=== PATIENT | male | born 1965 | race Caucasian/White ===

== ENCOUNTER → 2016-02-29 | Outpatient (CLI) | payer MEDICARE ==
[~2016-02-29] MED LIST: *BLDWK6; /DULO30CA; /ESOM40CA; /FENT25PA; /FEXO18TA; /MOXI40TA; /NITR4TASL SL; /PANT40TA; /ROPI1TA; /TIOT18INH; ABILIFY10 PO; ACCUPRIL PO; ACCUPRIL20 PO; ADV500INH INH; ADVAIR; ADVAIR250 INHALATION; ADVAIR500 INHALATION; ADVIR INH; ALBOTERNEB INHALATION; ALBU17IN INH; ALBU17IN2 INH; ALBU83IN; ALBU83IN INH; ALBUTEROL INHALATION; ALLEGRA PO; ALLEGRA180 PO; AMBIEN5 PO; AMIT100T; AMIT100TA PO; AMITRIP100 PO; AMITRIP50 PO; AMO500 PO; ASPI1TAB PO; ASPIRIN PO; ASTE137S; ASTELIN NASAL; ATEN25TA PO; ATENOLOL50 PO; BIAXIN500 PO; CEFT500T; COLA100C PO; COLA100C2; COLACE PO; COMBIVENT PO; COMPAZIN10 PO; CRES40TA; CRES40TA PO; CYAN1000VL IM; CYMB60CA3 PO; CYMBALTA PO; CYMBALTA30 PO; DARV100T; DARVOCET-N PO; DARVON-N1 PO; DEPAKOT250 PO; DILAUDID; DIOV160T5; DIOV320T; DIOVAN160 PO; DOCUSATE PO; DOXY100T16 PO; DUONSOL INHALATION; EFFEXORXL1 PO; EFFEXORXL7 PO; EPIN0.3I6 INJ; EPIPENAD INJECTION; EXCETAB80 PO; FLEXERIL10 PO; FLONASESPR NASAL; FURO20TA PO; GABA300C3 PO; HCTZ25 PO; HUMA100I3 SC; HUMULIN INSULIN INJ; HYDR25TA6; IMITREX50 PO; INSUH10VL SC; INSULANT SC; INSUNSD SC; LACT10SO29 PO; LASI40TA; LASI80TA PO; LASIX PO; LEVA12INH INH; LEVAQUI500 PO; LEVE1INJ5 SC; LIDO5OI TOP; LIPITOR10 PO; LISI20TA PO; MAXA10TA14 PO; MAXALT10 PO; MAXALYMLT1 PO; MEDROL PO; MEDROLDP PO; METF500T4 PO; MILKSUS; MIRA255PW GT; MIRA33504 PO; MOME50SP; MORP15TA2 PO; MORPHINE SULFATE ER; MUCINEX; MUPI2CRE3 PO; NAPROSY500 PO; NASONEX; NASONEX NASAL; NEBUMIS2; NEUR300C PO; NEUR800T; NEURONTIN4 PO; NEURONTIN8 PO; NEXI20CA; NEXI40CA PO; NEXIUM PO; NEXIUM40 PO; NIAS10003; NIASPAN PO; NITR4TASL SL; NITROSTAT4 SL; NOVOINJ3 SC; OMNICEF300 PO; OPANA PO; OXYC10TA12; OXYM10TA PO; PAXIL10 PO; PAXIL20 PO; PEPCID20 PO; PERCOCET PO; POTA1TAB14 PO; POTA20TA2; PRAVACHOL PO; PRAVACHOL1 PO; PRAVACHOL4 PO; PRED10TA2; PREDNISO10 PO; PREG50CA PO; PREVACID15 PO; PREVACID30 PO; PROVENTIL INHALATION; PROVENTILI PO; PROZ40CA; PROZAC PO; PROZAC20 PO; PROZAC40 PO; PULMICORT; QUININE325 PO; REQUIP1 PO; ROPI1TAB PO; SERZONE PO; SING10TA31; SING10TA32 PO; SINGULAI10 PO; SKEL800T5; SKELAXIN8 PO; SPIRIVA; SYMBYAX PO; TAMS0.4C2 PO; TESSALO100 PO; TOPAMAX PO; TRIC145T19; TRICOR145 PO; VALIUM PO; VICODIN PO; VICODIN-ES PO; VICODIN7.5 PO; VICT18IN SC; VITAMIN B 12; VITAMIN B12 INJ; VYTORIN80 PO; XANAX0.5 PO; XENICAL120 PO; XOPE1.252; XOPENEX125 NEB; ZETI10TA; ZOCOR40 PO; ZOCOR80 PO; ZOLOFT50 PO; ZOMIG PO; ZOMIG2.5 PO; ZYRTEC10 PO; [UNRECOGNIZED DRUG - CODE] PO; [UNRECOGNIZED DRUG - CODE] PO; [UNRECOGNIZED DRUG - CODE] PO; [UNRECOGNIZED DRUG - CODE] PO; [UNRECOGNIZED DRUG - CODE] PO; [UNRECOGNIZED DRUG - CODE] PO; [UNRECOGNIZED DRUG - CODE] SQ; [UNRECOGNIZED DRUG - CODE] TOPICAL; [UNRECOGNIZED DRUG - OTHER]; [UNRECOGNIZED DRUG - OTHER] INHALATION; [UNRECOGNIZED DRUG - OTHER] PO; [UNRECOGNIZED DRUG - OTHER] PO; [UNRECOGNIZED DRUG - OTHER] PO; [UNRECOGNIZED DRUG - OTHER] PO; [UNRECOGNIZED DRUG - OTHER] PO; astelin
--- NOTE | 2016-03-14 00:49 | ECWPNPC ---
PATIENT NAME: CHRISTINE BECERRIL : 1965 GENDER: MALE VISIT DATE: 02/29/2016 DISCHARGE DATE: 02/29/16 1119 VISIT LOCKED DATE TIME: PHYSICIAN: MAGNOLIA JOYCE RESOURCE: MAGNOLIA JOYCE REASON FOR APPOINTMENT 1. FOLLOWUP HISTORY OF PRESENT ILLNESS HISTORY OF PRESENT ILLNESS: PAIN THE PATIENT DESCRIBES THE PAIN... THE PATIENT DESCRIBES THE PAIN... THE PATIENT DESCRIBES THE PAIN... THE PATIENT DESCRIBES THE PAIN... HERE FOR F/U AND MANAGEMENT OF CHRONIC GENERALIZED BACK PAIN.INCREASED NUCYNTA ER 200MG BID LAST VISIT.RATING PAIN VAS 5/10. FEELS IT HAS MADE A DIFFERENCE AND IS TAKING LESS BTP MEDICATION PERCOCET 10/325.WORSE AREA OF PAIN CONTINUES TO BE NECK AND RIGHT ARM.DESCRIBES PAIN SHARP AND ACHING. REPORTS NO IMPROVEMENT IN PAIN AFTER INCREASE IN CYMBALTA FROM 60MG TO 90MG AT SEPT. VISIT VISIT.DISCUSSED MEDICATION AND TREATMENT OPTIONS.HAS ADVERSE EFFECT WITH MORPHINE THAT CAUSES HIM TO BE MEAN.HAS BEEN TRYING TO WALK AND LOOSE WEIGHT.HAS LOST 20# IN 8WKS.STOPPED ZANAFLEX 4MG 2WKS AGO IT CAUSED NAUSEA AND VOMITING.STATES HE WAS TOLD BY HIS MD 6-8MOS AGO THAT HE SHOULDNT HAVE EPIDURALS AND PATIENT NOT SURE WHY.ALSO PT STATES THAT PRIMARY CARE SAID HE WASNT A CANDIDATE FOR BARIATRIC SURGERY AND PATIENT IS NOT SURE WHY. FALL RISK SCREENING: SCREENING :NO FALLS IN THE PAST YEAR CURRENT MEDICATIONS TAKING EPIPEN 0.3 MG/0.3ML (1:1000) DEVICE SQ INTRAMUSCULAR NEEDED TAKING NITROSTAT 0.4 MG TABLET SUBLINGUAL 1 TABLET UNDER THE TONGUE EVERY 5 MINS FOR CHEST PAIN WITH A MAX OF 3 TABS SUBLINGUAL DIRECTED TAKING MAY HAVE _ 1 NASAL CANNUAL EXTRA LONG QID WHEN NEEDED TAKING CALCIUM PLUS VITAMIN D 500-50 MG-UNIT CAPSULE 2 CAPSULES WITH A MEAL ORALLY ONCE A DAY TAKING PROTONIX 40 MG TABLET DELAYED RELEASE 1 TABLET ORALLY BID TAKING COLACE 100 MG CAPSULE 1 TABLET ORALLY TWICE A DAY TAKING MIRALAX OTC POWDER PO ORALLY TWICE A DAY TAKING TAMSULOSIN HCL 0.4 MG CAPSULE EXTENDED RELEASE 1 TAB(S) P.O. ONCE A DAY TAKING NASONEX 50 MCG/ACT LIQUID 2 PUFFS IN EACH NOSTRIL NASALLY ONCE A DAY TAKING ASTELIN 137 MCG/SPRAY SOLUTION 2 PUFFS IN EACH NOSTRIL NASALLY TWICE A DAY TAKING ADVAIR HFA 45-21 MCG/ACT AEROSOL 2 PUFFS INHALATION TWICE A DAY TAKING CYMBALTA 60 MG CAPSULE DELAYED RELEASE PARTICLES 1 TABLET ORALLY ONCE A DAY AT BEDTIME TAKING CYMBALTA 30 MG CAPSULE DELAYED RELEASE PARTICLES 1 CAPSULE ORALLY EVERY AM TAKING REQUIP 1 MG TABLET 1 TABLET ORALLY AT BEDTIME TAKING METFORMIN HCL 1000 MG TABLET 1 TAB(S) ORALLY BID TAKING NOVOLOG 100 UNIT/ML SOLUTION 30 UNITS SUBCUTANEOUS ONCE DAILY TAKING HUMALOG KWIKPEN 30 SOLUTION PEN-INJECTOR 100 UNITS SUBCUTANEOUS FOUR TIMES A DAY TAKING LIDOCAINE HCL 5 % CREAM DIRECTED EXTERNALLY APPLY TO LEFT SHOULDER OR LOW BACK 3X DAY PRN TAKING VITAMIN B-12 1000 MCG INJECTION 1 INJECTION IM MONTHLY TAKING PROVENTIL HFA 108 (90 BASE) MCG/ACT AEROSOL SOLUTION 2 PUFFS INHALATION FOUR TIMES A DAY NEEDED TAKING ALBUTEROL SULFATE 1.25 MG/3ML NEBULIZATION SOLUTION 3 ML NEEDED INHALATION EVERY 8 HRS TAKING ASPIRIN 325 MG TABLET DELAYED RELEASE 1 TABLET ORALLY ONCE A DAY TAKING LASIX 20 MG TABLET 1 TABLET ORALLY BID TAKING ATENOLOL 25 MG TABLET 1 TABLET ORALLY ONCE A DAY TAKING POTASSIUM CHLORIDE 20 MEQ CAPSULE 1 CAPSULE WITH FOOD ORALLY TWICE A DAY TAKING FUROSEMIDE 80 MG TABLET 1 TABLET ORALLY WITH 20MG TO EQUAL 100MG TWICE A DAY TAKING NEURONTIN 600 MG CAPSULE 1 CAPSULE ORALLY BID TAKING NUCYNTA ER 200 MG TABLET EXTENDED RELEASE 12 HOUR 1 TABLET ORALLY EVERY 12 HRS MDD2 TAKING PERCOCET 10-325 MG TABLET 1 TABLET NEEDED ORALLY EVERY 6 HRS MDD4 TAKING ZITHROMAX Z-LUPIS 250 MG TABLET 2 TABLETS ON THE FIRST DAY, THEN 1 TABLET DAILY FOR 4 DAYS ORALLY ONCE A DAY NOT-TAKING NUCYNTA 100 MG TABLET 1 TABLET ORALLY EVERY 6 HRS PRN MDD4 NOT-TAKING XOPENEX 0.31 MG/3ML NEBULIZATION SOLUTION 3 ML INHALATION FOUR TIMES A DAY NEEDED, NOTES: INSURANCE WOULDN'T COVER DISCONTINUED IPRATROPIUM BROMIDE 0.02 % SOLUTION 1 INHALATION FOUR TIMES A DAY NEEDED DISCONTINUED ADVAIR DISKUS 500-50 MCG/DOSE MISCELLANEOUS 1 INHALATION TWICE A DAY UNKNOWN ALCOHOL PREP 1 ALCOHOL PREP PADS NEEDED UNKNOWN HOSPITAL BED _ _ HOSPITAL BED DX 454.0,135,782.3 DAILY NEEDED UNKNOWN PEN NEEDLES NOVOFINE NEEDLE PEN NEEDLESFOR VICTOZA VICTOZA FOUR TIMES A DAY UNKNOWN INSULIN SYRINGES (DISPOSABLE) 0.5 CC SYRINGE 1 SUBCUTANEOUSLY AT BEDTIME UNKNOWN LANCETS 1 LANCET 1 SUBCUTANEOUSLY BID UNKNOWN BLOOD GLUCOSE TEST STRIP 1 STRIPS ONE TOUCH ULTRA TEST STRIPS USE 1 TWO TIMES A DAY DIRECTED TWICE A DAY UNKNOWN NEBULIZER/TUBING/MOUTHPIECE 1 NEEDED UNKNOWN COMPRESSION STOCKINGS 20-30 MMHG DIRECTED UNKNOWN ALTERNATING PRESSURE MATTRESS 1 _ ALTERNATING MATTRESS PAD WITH MARCY AND PUMP ICD:187.139 DAILY UNKNOWN CPAP MACHINE _ 1 CPAP MACHINE FOR SLEEP AT NIGHT ICD: G47.33 AT NIGHT FOR SLEEP UNKNOWN CPAP MASK _ 1 CPAP MASK ICD: G47.33 FOR SLEEP AT NIGHT MEDICATION LIST REVIEWED AND RECONCILED WITH THE PATIENT PAST MEDICAL HISTORY DIABETES MELLITUS TYPE 2 [id number] 30, 2007 CARDIAC [id number]-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-NOVEMBER 2007 MRI WITH C6-C7 MODERATE LEFT BULGE CAUSING MODERATE CENTRAL CANAL STENOSIS, SMALL LEFT HNP C4-C5 WITH MODERATE SPINAL STENOSIS AND C5-C6 BULGE CAUSING BILATERAL NEURAL FORAMINAL NARROWING RIGHT GREATER THAN LEFT RIGHT SUPRASPINATUS TENDINITIS BY MAY 2008 MRI OBSTRUCTIVE SLEEP APNEA-PATIENT REFUSES CPAP ALLERGIC RHINITIS/CHRONIC SINUSITIS MIGRAINE HEADACHES, COMMON TYPE ESSENTIAL TREMOR DEPRESSION DYSPEPSIA/GERD B12 DEFICIENCY RESTLESS LEG SYNDROME HYPERTENSION CONSTIPATION, CHRONIC ANEMIA, CHRONIC SECONDARY TO IRON AND B12 DEFICIENCY-PATIENT REFUSES ANOSCOPY HYMENOPTERA ANAPHYLAXIS HISTORY OF IGG LAMBDA BY RUBÉN- PATIENT REFUSED BONE MARROW BIOPSY OBESITY, MORBID MULTIPLE DENTAL CARIES ALLERGIES CT SCAN DYE: VOMITING: SIDE EFFECTS ZYPREXA: SEDATION: SIDE EFFECTS TRICOR: MYALGIAS: SIDE EFFECTS TRAMADOL HCL: LEG CRAMPS: SIDE EFFECTS SEROQUEL: SEDATION: SIDE EFFECTS PAXIL: DECREASE LIBIDO: SIDE EFFECTS NORVASC: INCREASED EDEMA: SIDE EFFECTS EFFEXOR: SWEATING: SIDE EFFECTS ABILIFY: SEDATION: SIDE EFFECTS TYLENOL WITH CODEINE: HIVES: ALLERGY SOCIAL HISTORY GENERAL: TOBACCO USE ARE YOU A:NONSMOKER LEARNING BARRIERS / SPECIAL NEEDS ORIENTED TO PLAN OF CARE: PATIENT, PAIN MANAGEMENT PATIENT, ORIENTED TO PLAN OF CARE: PATIENT, PAIN MANAGEMENT PATIENT. NEW PATIENT PAIN DIARY TODAY'S VISITNOTES FROM 0-10, WHAT LEVEL IS YOUR PAIN TODAY?0 PAIN CLINIC PFS, CLERGY, PUBLIC HEALTH REFERRALS PFS REFERRAL NEEDED?NO CLERGY REFERRAL NEEDED?NO PUBLIC HEALTH REFERRAL NEEDED?NO WAS THE PROVIDER NOTIFIED OF ANY PERTINENT INFO?NO PFS REFERRAL NEEDED?NO CLERGY REFERRAL NEEDED?NO PUBLIC HEALTH REFERRAL NEEDED?NO WAS THE PROVIDER NOTIFIED OF ANY PERTINENT INFO?NO REVIEW OF SYSTEMS CONSTITUTIONAL: ANY CHANGE IN YOUR MEDICAL CONDITION? NO . CHILLS NO . FEVER NO . INFECTION: DO YOU HAVE NEW INFECTIONS? YES URI 2 WEEKS AGO . DO YOU HAVE HISTORY OF MRSA? YES ON ABD.( CURRENT), NASAL . MUSCULOSKELETAL: ANY NEW PATTERNS OF PAIN OR NUMBNESS? NO . GASTROENTEROLOGY: ANY NEW CHANGE IN BOWEL CONTROL? NO . GENITOURINARY: ANY NEW CHANGE IN BLADDER CONTROL? NO . IS THERE A CHANCE YOU COULD BE ? NO . HEMATOLOGY/LYMPH: DO YOU TAKE ANY BLOOD THINNERS? (FOR EXAMPLE- COUMADIN, PLAVIX, AGGRENOX, PLATEL, PRADAXA, OR XARELTO) NO . WHEN WAS YOUR LAST DOSE? DATE: TIME: . NEUROLOGY: HAVE YOU FALLEN IN THE PAST 6 MONTHS? NO . ANY NEW EXTREMITY NUMBNESS OR WEAKNESS? NO . CARDIOLOGY: DO YOU HAVE A PACEMAKER OR DEFIBRILLATOR? NO . RESPIRATORY: HAVE YOU BEEN SICK IN THE PAST WEEK? NO . FEVER NO . FLU LIKE SYMPTOMS? NO . COUGH NO . INTEGUMENTARY: DO YOU HAVE ANY RASHES OR OPEN SORES? YES ON ABD.--SCABBED OVER . ALLERGIC/IMMUNO: ARE YOU ALLERGIC TO SHELLFISH OR IV DYE? YES . ANY NEW ALLERGIES? NO . PSYCHIATRIC: DO YOU HAVE THOUGHTS OF HURTING YOURSELF OR SOMEONE ELSE? NO . ARE YOU ABUSED, NEGLECTED, OR IN AN UNSAFE ENVIRONMENT? NO . ENDOCRINOLOGY: ARE YOU DIABETIC? YES FSBS THIS A.M. 289, NORMAL FOR HIM . OTHER: DO YOU NEED ANY PRESCRIPTIONS? NO . IF YES, PLEASE LIST: ____ . ANY NEW PROBLEMS WITH YOUR MEDICATIONS? NO . WHEN DID YOU LAST EAT? ____ . WHEN DID YOU LAST DRINK? ____ . WHAT DID YOU LAST DRINK? ____ . NAME OF PERSON DRIVING YOU HOME? ____ . DO YOU HAVE ANY OTHER QUESTIONS OR CONCERNS NO . REVIEWED BY: PROVIDER: MAGNOLIA AQUINO . VITAL SIGNS WT 321 LBS, HT 72 IN, BMI 43.53 INDEX, BP 145/84 MM HG, HR 86 /MIN, RR 18 /MIN, TEMP 97.9 F, OXYGEN SAT % 91%, NA INITIALS SC 10:30, REVIEWED BY: BANG. EXAMINATION GENERAL EXAMINATION: LUNGS:LUNG SOUNDS ARE CLEAR. HEART:HEART RATE REGULAR. MUSCULOSKELETAL:*, MUSCLE STRENGTH TESTING 5/5 BILATERAL, PALPATION: POSITIVE FOR PAIN OVER L/S SPINE. POSITIVE FOR PAIN OVER L/S PARSPINALS CERVICAL SPINE-TENDERNESS AND TRIGGER POINTS ELICITED WITH PALPATION OVER RIGHT TRAPEZIUS.LIMITED ROJM NECK AND RIGHT ARM SECONDARY TO PAIN.. DIAGNOSTIC: . ASSESSMENTS LOW BACK PAIN - M54.5 (PRIMARY) CHRONIC PRESCRIPTION OPIATE USE - Z79.891 TREATMENT LOW BACK PAIN CONTINUE CYMBALTA CAPSULE DELAYED RELEASE PARTICLES, 60 MG, 1 TABLET, ORALLY, ONCE A DAY AT BEDTIME CONTINUE CYMBALTA CAPSULE DELAYED RELEASE PARTICLES, 30 MG, 1 CAPSULE, ORALLY, EVERY AM CONTINUE NEURONTIN CAPSULE, 600 MG, 1 CAPSULE, ORALLY, BID REFILL NUCYNTA ER TABLET EXTENDED RELEASE 12 HOUR, 200 MG, 1 TABLET, ORALLY, EVERY 12 HRS MDD2, 30 DAY(S), 60, REFILLS 0 CONTINUE PERCOCET TABLET, 10-325 MG, 1 TABLET NEEDED, ORALLY, EVERY 6 HRS MDD4 NOTES: ISTOP REGISTRY REVIEWED AND DEMNOSTRATES COMPLLIANCE. BRINGS IN MEDICATIONS WHICH IS APPROPRIATE FOR WHAT WAS DISPENSED. RECENT URINE TOXICOLOGY REVIEWED. NO UNAUTHORIZED MEDICATIONS. NO ILLICIT SUBSTANCES AND PRESCRIBED MEDICATIONS WERE PRESENT. , RISKS AND BENEFITS OF NARCOTIC/OPIOD MEDICATIONS WERE REVIEWED WITH PATIENT - THIS INCLUDES BUT IS NOT LIMITED TO RISK OF DEPENDANCE/DEVELOPMENT OF ADDICTION, MOOD DISTURBANCE AND DEPRESSION, OSTEOPOROSIS, HORMONAL AND LABIDAL CHANGES, RESPIRATORY DEPRESSION AND . PATIENT IS ADVISED NOT TO DRIVE WHILE ON THESE MEDICATIONS.URINE TOX TODAY. PROCEDURE CODES G8730 PAIN ASSESS POS TOOL F/U PLAN DOC G8427 DOC MEDS VERIFIED W/PT OR RE FA211 ESTABILISHED PATIENT [facility] FACILITY CHARGE FOLLOW UP 2 MONTHS ELECTRONICALLY SIGNED BY KENIA ERNST ON 03/12/2016 AT 11:30 AM EST DISCLAIMER : THIS IS A VISIT SUMMARY EXTRACTED FROM THE [employer] CHART. IT IS NOT A COPY OF THE [employer] PROGRESS NOTE. CORRIE
== END ==
LOC: M PAIN 10:20
PROVIDERS: ATTEND Nurse Practitioner Family
DX: Z09 Encounter for follow-up examination after completed treatment for conditions other than malignant neoplasm (principal); G89.29 Other chronic pain; M54.5 Low back pain; E11.9 Type 2 diabetes mellitus without complications; J44.9 Chronic obstructive pulmonary disease, unspecified; D86.9 Sarcoidosis, unspecified; I27.81 Cor pulmonale (chronic); E78.5 Hyperlipidemia, unspecified; M50.122 Cervical disc disorder at C5-C6 level with radiculopathy; M48.02 Spinal stenosis, cervical region; M50.223 Other cervical disc displacement at C6-C7 level; G47.33 Obstructive sleep apnea (adult) (pediatric); J30.89 Other allergic rhinitis; G43.909 Migraine, unspecified, not intractable, without status migrainosus; G25.0 Essential tremor; F32.9 Major depressive disorder, single episode, unspecified; K30 Functional dyspepsia; G25.81 Restless legs syndrome; I10 Essential (primary) hypertension; D51.9 Vitamin B12 deficiency anemia, unspecified; K59.04 Chronic idiopathic constipation; Z91.038 Other insect allergy status; E66.9 Obesity, unspecified; Z68.41 Body mass index [BMI] 40.0-44.9, adult; Z91.041 Radiographic dye allergy status; Z88.5 Allergy status to narcotic agent; Z88.8 Allergy status to other drugs, medicaments and biological substances; Z79.4 Long term (current) use of insulin; Z79.84 Long term (current) use of oral hypoglycemic drugs; Z79.82 Long term (current) use of aspirin; Z79.891 Long term (current) use of opiate analgesic; Z79.899 Other long term (current) drug therapy; Z85.79 Personal history of other malignant neoplasms of lymphoid, hematopoietic and related tissues

== ENCOUNTER → 2016-04-03 | Outpatient (REF) | payer MEDICARE, OTHER ==
[2016-04-03 14:20] LABS: FREE T4 0.95 NG/DL (0.76-1.46)
== END ==
LOC: M SFHCPLAZ 12:16
DX: R06.02 Shortness of breath (principal); E11.9 Type 2 diabetes mellitus without complications; E66.01 Morbid (severe) obesity due to excess calories

== ENCOUNTER → 2016-05-06 | Outpatient (CLI) | payer MEDICARE ==
[~2016-05-06] MED LIST changes: +AZEL0.1S3; +BUPR50TA PO; -COLA100C PO; +COLA100C3 PO; +DOCU100C PO; +DOXY-278 PO; +DULO1CAP2 PO; +FLOM5CAP PO; +FURO20TA2 PO; +GABA-282 PO; -GABA300C3 PO; +HUMU500S SC; +INSUHUMDS SC; +KLOR1CAP2 PO; +LIDO1OIN2 TOP; +LISI-542 PO; +METF1000 PO; +NUCY200T PO; +PERC10TA17 PO; +PRAV40TA2 PO; +ZANT1TAB PO
--- NOTE | 2016-05-06 23:45 | ECWPNPC ---
PATIENT NAME: CHRISTINE BECERRIL : 1965 GENDER: MALE VISIT DATE: 05/06/2016 DISCHARGE DATE: 05/06/16 1116 VISIT LOCKED DATE TIME: PHYSICIAN: MAGNOLIA JOYCE RESOURCE: MAGNOLIA JOYCE REASON FOR APPOINTMENT 1. NECK/BACK HISTORY OF PRESENT ILLNESS HISTORY OF PRESENT ILLNESS: PAIN THE PATIENT DESCRIBES THE PAIN... THE PATIENT DESCRIBES THE PAIN... THE PATIENT DESCRIBES THE PAIN... THE PATIENT DESCRIBES THE PAIN... THE PATIENT DESCRIBES THE PAIN... HERE FOR F/U AND MANAGEMENT OF CHRONIC GENERALIZED BACK PAIN.CONTINUES TO TAKE NUCYNTA ER 200MG BID .RATING PAIN VAS /10. USING PERCOCET 10/325 PRN FOR SEVERE PAIN.DESCRIBES PAIN INTERMITTENT SHARP AND ACHING. DISCUSSED MEDICATION AND TREATMENT OPTIONS.HAS ADVERSE EFFECT WITH MORPHINE THAT CAUSES HIM TO BE MEAN.HAS BEEN TRYING TO WALK AND LOOSE WEIGHT.HAS LOST 20# IN 8WKS.STOPPED ZANAFLEX SEVERAL MONTHS AGO IT CAUSED NAUSEA AND VOMITING.STATES HE WAS TOLD BY HIS MD 6-8MOS AGO THAT HE SHOULDNT HAVE EPIDURALS AND PATIENT NOT SURE WHY.ALSO PT STATES THAT PRIMARY CARE SAID HE WASNT A CANDIDATE FOR BARIATRIC SURGERY AND PATIENT IS NOT SURE WHY.HE WILL BE SWITCHING PCP. FALL RISK SCREENING: SCREENING :NO FALLS IN THE PAST YEAR CURRENT MEDICATIONS TAKING LISINOPRIL 5 MG TABLET 1 TAB ORALLY DAILY TAKING LASIX 20 MG TABLET 1 TABLET ORALLY BID TAKING WELLBUTRIN 100 MG TABLET 1 TABLET ORALLY DAILY TAKING EPIPEN 0.3 MG/0.3ML (1:1000) DEVICE SQ INTRAMUSCULAR NEEDED TAKING NITROSTAT 0.4 MG TABLET SUBLINGUAL 1 TABLET UNDER THE TONGUE EVERY 5 MINS FOR CHEST PAIN WITH A MAX OF 3 TABS SUBLINGUAL DIRECTED TAKING MAY HAVE _ 1 NASAL CANNUAL EXTRA LONG QID WHEN NEEDED TAKING CALCIUM PLUS VITAMIN D 500-50 MG-UNIT CAPSULE 2 CAPSULES WITH A MEAL ORALLY ONCE A DAY TAKING PROTONIX 40 MG TABLET DELAYED RELEASE 1 TABLET ORALLY BID TAKING COLACE 100 MG CAPSULE 1 TABLET ORALLY TWICE A DAY TAKING MIRALAX OTC POWDER PO ORALLY TWICE A DAY TAKING TAMSULOSIN HCL 0.4 MG CAPSULE EXTENDED RELEASE 1 TAB(S) P.O. ONCE A DAY TAKING NASONEX 50 MCG/ACT LIQUID 2 PUFFS IN EACH NOSTRIL NASALLY ONCE A DAY TAKING ASTELIN 137 MCG/SPRAY SOLUTION 2 PUFFS IN EACH NOSTRIL NASALLY TWICE A DAY TAKING ADVAIR HFA 45-21 MCG/ACT AEROSOL 2 PUFFS INHALATION TWICE A DAY TAKING METFORMIN HCL 1000 MG TABLET 1 TAB(S) ORALLY BID TAKING HUMALOG KWIKPEN 30 SOLUTION PEN-INJECTOR 100 UNITS SUBCUTANEOUS FOUR TIMES A DAY TAKING LIDOCAINE HCL 5 % CREAM DIRECTED EXTERNALLY APPLY TO LEFT SHOULDER OR LOW BACK 3X DAY PRN TAKING VITAMIN B-12 1000 MCG INJECTION 1 INJECTION IM MONTHLY TAKING PROVENTIL HFA 108 (90 BASE) MCG/ACT AEROSOL SOLUTION 2 PUFFS INHALATION FOUR TIMES A DAY NEEDED TAKING ALBUTEROL SULFATE 1.25 MG/3ML NEBULIZATION SOLUTION 3 ML NEEDED INHALATION EVERY 8 HRS TAKING ASPIRIN 325 MG TABLET DELAYED RELEASE 1 TABLET ORALLY ONCE A DAY TAKING POTASSIUM CHLORIDE 20 MEQ CAPSULE 1 CAPSULE WITH FOOD ORALLY TWICE A DAY TAKING CYMBALTA 30 MG CAPSULE DELAYED RELEASE PARTICLES 1 CAPSULE ORALLY EVERY AM TAKING NEURONTIN 600 MG CAPSULE 1 CAPSULE ORALLY BID TAKING PRAVASTATIN SODIUM 40 MG TABLET 1 TABLET ORALLY ONCE A DAY TAKING ZANTAC 150 MAXIMUM STRENGTH 150 MG TABLET 1 TABLET AT BEDTIME ORALLY BID TAKING BACITRACIN 500 UNIT/GM OINTMENT 1 APPLICATION TO AFFECTED AREA EXTERNALLY ONCE A DAY TAKING CYMBALTA 60 MG CAPSULE DELAYED RELEASE PARTICLES 1 TABLET ORALLY DAILY TAKING FUROSEMIDE 80 MG TABLET 1 TABLET ORALLY WITH 20MG TO EQUAL 100MG TWICE A DAY TAKING REQUIP 1 MG TABLET 1 TABLET ORALLY AT BEDTIME TAKING NUCYNTA ER 200 MG TABLET EXTENDED RELEASE 12 HOUR 1 TABLET ORALLY EVERY 12 HRS MDD2 TAKING PERCOCET 10-325 MG TABLET 1 TABLET NEEDED ORALLY EVERY 6 HRS MDD4 TAKING ATENOLOL 25 MG TABLET 1 TABLET ORALLY ONCE A DAY TAKING VICTOZA 18 MG/3ML SOLUTION PEN-INJECTOR 0.2 ML SUBCUTANEOUS ONCE A DAY NOT-TAKING NUCYNTA 75 MG TABLET 1 TABLET ORALLY EVERY 6 HRS PRN MDD4 NOT-TAKING NOVOLOG 100 UNIT/ML SOLUTION 30 UNITS SUBCUTANEOUS ONCE DAILY NOT-TAKING NUCYNTA 100 MG TABLET 1 TABLET ORALLY EVERY 6 HRS PRN MDD4 NOT-TAKING XOPENEX 0.31 MG/3ML NEBULIZATION SOLUTION 3 ML INHALATION FOUR TIMES A DAY NEEDED, NOTES: INSURANCE WOULDN'T COVER DISCONTINUED ZITHROMAX Z-LUPIS 250 MG TABLET 2 TABLETS ON THE FIRST DAY, THEN 1 TABLET DAILY FOR 4 DAYS ORALLY ONCE A DAY DISCONTINUED GABAPENTIN 300 MG CAPSULE 1 CAPSULE ORALLY THREE TIMES A DAY DISCONTINUED MAGNESIUM OXIDE 400 MG TABLET 1 TABLET NEEDED ORALLY ONCE A DAY UNKNOWN ALCOHOL PREP 1 ALCOHOL PREP PADS NEEDED UNKNOWN HOSPITAL BED _ _ HOSPITAL BED DX 454.0,135,782.3 DAILY NEEDED UNKNOWN PEN NEEDLES NOVOFINE NEEDLE PEN NEEDLESFOR VICTOZA VICTOZA FOUR TIMES A DAY UNKNOWN INSULIN SYRINGES (DISPOSABLE) 0.5 CC SYRINGE 1 SUBCUTANEOUSLY AT BEDTIME UNKNOWN LANCETS 1 LANCET 1 SUBCUTANEOUSLY BID UNKNOWN BLOOD GLUCOSE TEST STRIP 1 STRIPS ONE TOUCH ULTRA TEST STRIPS USE 1 TWO TIMES A DAY DIRECTED TWICE A DAY UNKNOWN NEBULIZER/TUBING/MOUTHPIECE 1 NEEDED UNKNOWN COMPRESSION STOCKINGS 20-30 MMHG DIRECTED UNKNOWN ALTERNATING PRESSURE MATTRESS 1 _ ALTERNATING MATTRESS PAD WITH MARCY AND PUMP ICD:187.139 DAILY UNKNOWN CPAP MACHINE _ 1 CPAP MACHINE FOR SLEEP AT NIGHT ICD: G47.33 AT NIGHT FOR SLEEP UNKNOWN CPAP MASK _ 1 CPAP MASK ICD: G47.33 FOR SLEEP AT NIGHT MEDICATION LIST REVIEWED AND RECONCILED WITH THE PATIENT PAST MEDICAL HISTORY DIABETES MELLITUS TYPE 2 [id number] 30, 2007 CARD[facility]TH[id number] [place] [facility]/ASTHMA MODERATE PERSISTENT/SARCOIDOSIS/COR PULMONALE HYPERLIPIDEMIA 2B CERVICAL DJD WITH RIGHT C5-C6 RADICULOPATHY-NOVEMBER 2007 MRI WITH C6-C7 MODERATE LEFT BULGE CAUSING MODERATE CENTRAL CANAL STENOSIS, SMALL LEFT HNP C4-C5 WITH MODERATE SPINAL STENOSIS AND C5-C6 BULGE CAUSING BILATERAL NEURAL FORAMINAL NARROWING RIGHT GREATER THAN LEFT RIGHT SUPRASPINATUS TENDINITIS BY MAY 2008 MRI OBSTRUCTIVE SLEEP APNEA-PATIENT REFUSES CPAP ALLERGIC RHINITIS/CHRONIC SINUSITIS MIGRAINE HEADACHES, COMMON TYPE ESSENTIAL TREMOR DEPRESSION DYSPEPSIA/GERD B12 DEFICIENCY RESTLESS LEG SYNDROME HYPERTENSION CONSTIPATION, CHRONIC ANEMIA, CHRONIC SECONDARY TO IRON AND B12 DEFICIENCY-PATIENT REFUSES ANOSCOPY HYMENOPTERA ANAPHYLAXIS HISTORY OF IGG LAMBDA BY RUBÉN- PATIENT REFUSED BONE MARROW BIOPSY OBESITY, MORBID MULTIPLE DENTAL CARIES ALLERGIES CT SCAN DYE: VOMITING: SIDE EFFECTS ZYPREXA: SEDATION: SIDE EFFECTS TRICOR: MYALGIAS: SIDE EFFECTS TRAMADOL HCL: LEG CRAMPS: SIDE EFFECTS SEROQUEL: SEDATION: SIDE EFFECTS PAXIL: DECREASE LIBIDO: SIDE EFFECTS NORVASC: INCREASED EDEMA: SIDE EFFECTS EFFEXOR: SWEATING: SIDE EFFECTS ABILIFY: SEDATION: SIDE EFFECTS TYLENOL WITH CODEINE: HIVES: ALLERGY SOCIAL HISTORY GENERAL: TOBACCO USE ARE YOU A:NONSMOKER LEARNING BARRIERS / SPECIAL NEEDS ORIENTED TO PLAN OF CARE: PATIENT, PAIN MANAGEMENT PATIENT, ORIENTED TO PLAN OF CARE: PATIENT, PAIN MANAGEMENT PATIENT. NEW PATIENT PAIN DIARY TODAY'S VISITNOTES FROM 0-10, WHAT LEVEL IS YOUR PAIN TODAY?0 PAIN CLINIC PFS, CLERGY, PUBLIC HEALTH REFERRALS PFS REFERRAL NEEDED?NO CLERGY REFERRAL NEEDED?NO PUBLIC HEALTH REFERRAL NEEDED?NO WAS THE PROVIDER NOTIFIED OF ANY PERTINENT INFO?NO PFS REFERRAL NEEDED?NO CLERGY REFERRAL NEEDED?NO PUBLIC HEALTH REFERRAL NEEDED?NO WAS THE PROVIDER NOTIFIED OF ANY PERTINENT INFO?NO REVIEW OF SYSTEMS CONSTITUTIONAL: ANY CHANGE IN YOUR MEDICAL CONDITION? NO . CHILLS NO . FEVER NO . INFECTION: DO YOU HAVE NEW INFECTIONS? NO . DO YOU HAVE HISTORY OF MRSA? NO . MUSCULOSKELETAL: ANY NEW PATTERNS OF PAIN OR NUMBNESS? NO . GASTROENTEROLOGY: ANY NEW CHANGE IN BOWEL CONTROL? NO . GENITOURINARY: ANY NEW CHANGE IN BLADDER CONTROL? NO . IS THERE A CHANCE YOU COULD BE ? NO . HEMATOLOGY/LYMPH: DO YOU TAKE ANY BLOOD THINNERS? (FOR EXAMPLE- COUMADIN, PLAVIX, AGGRENOX, PLATEL, PRADAXA, OR XARELTO) NO . WHEN WAS YOUR LAST DOSE? DATE: TIME: . NEUROLOGY: HAVE YOU FALLEN IN THE PAST 6 MONTHS? NO . ANY NEW EXTREMITY NUMBNESS OR WEAKNESS? NO . CARDIOLOGY: DO YOU HAVE A PACEMAKER OR DEFIBRILLATOR? NO . RESPIRATORY: HAVE YOU BEEN SICK IN THE PAST WEEK? NO . FEVER NO . FLU LIKE SYMPTOMS? NO . COUGH NO . INTEGUMENTARY: DO YOU HAVE ANY RASHES OR OPEN SORES? NO . ALLERGIC/IMMUNO: ARE YOU ALLERGIC TO SHELLFISH OR IV DYE? YES . ANY NEW ALLERGIES? NO . PSYCHIATRIC: DO YOU HAVE THOUGHTS OF HURTING YOURSELF OR SOMEONE ELSE? NO . ARE YOU ABUSED, NEGLECTED, OR IN AN UNSAFE ENVIRONMENT? NO . ENDOCRINOLOGY: ARE YOU DIABETIC? NO . OTHER: DO YOU NEED ANY PRESCRIPTIONS? NO . IF YES, PLEASE LIST: ____ . ANY NEW PROBLEMS WITH YOUR MEDICATIONS? NO . WHEN DID YOU LAST EAT? ____ . WHEN DID YOU LAST DRINK? ____ . WHAT DID YOU LAST DRINK? ____ . NAME OF PERSON DRIVING YOU HOME? ____ . DO YOU HAVE ANY OTHER QUESTIONS OR CONCERNS NO . REVIEWED BY: PROVIDER: MAGNOLIA AQUINO . VITAL SIGNS WT 312.4 LBS, HT 72 IN, BMI 42.36 INDEX, BP 132/78 MM HG, HR 87 /MIN, RR 18 /MIN, TEMP 96.5 F, OXYGEN SAT % 94%, SAFE IN ENV? (Y/N) YES, NA INITIALS SC 10:40, REVIEWED BY: NBA. EXAMINATION GENERAL EXAMINATION: LUNGS:LUNG SOUNDS ARE CLEAR. HEART:HEART RATE REGULAR. MUSCULOSKELETAL:*, MUSCLE STRENGTH TESTING 5/5 BILATERAL, PALPATION: POSITIVE FOR PAIN OVER L/S SPINE. POSITIVE FOR PAIN OVER L/S PARSPINALS CERVICAL SPINE-TENDERNESS AND TRIGGER POINTS ELICITED WITH PALPATION OVER RIGHT TRAPEZIUS.LIMITED ROJM NECK AND RIGHT ARM SECONDARY TO PAIN.. DIAGNOSTIC: . ASSESSMENTS LOW BACK PAIN - M54.5 (PRIMARY) CHRONIC PRESCRIPTION OPIATE USE - Z79.891 TREATMENT LOW BACK PAIN CONTINUE CYMBALTA CAPSULE DELAYED RELEASE PARTICLES, 30 MG, 1 CAPSULE, ORALLY, EVERY AM CONTINUE CYMBALTA CAPSULE DELAYED RELEASE PARTICLES, 60 MG, 1 TABLET, ORALLY, DAILY REFILL NUCYNTA ER TABLET EXTENDED RELEASE 12 HOUR, 200 MG, 1 TABLET, ORALLY, EVERY 12 HRS MDD2, 30 DAY(S), 60, REFILLS 0 REFILL PERCOCET TABLET, 10-325 MG, 1 TABLET NEEDED, ORALLY, EVERY 6 HRS MDD4, 30 DAY(S), 120, REFILLS 0 PROCEDURE CODES FA211 ESTABILISHED PATIENT [facility] FACILITY CHARGE G8783 BP SCR PRFRM RCMDD DEFIND SCR INTVL G8730 PAIN ASSESS POS TOOL F/U PLAN DOC 3016F PT SCRND UNHLTHY OH USE 1123F ACP DISCUSS/DSCN MKR DOCD 1036F TOBACCO NON-USER 0518F FALL PLAN OF CARE DOCD G8427 DOC MEDS VERIFIED W/PT OR RE G8417 BMI >=30 CALCUATE W/FOLLOWUP 3288F FALL RISK ASSESSMENT DOCD DISPOSITION & COMMUNICATION FOLLOW UP 2 MONTHS ELECTRONICALLY SIGNED BY KENIA ERNST ON 05/06/2016 AT 04:32 PM EDT DISCLAIMER : THIS IS A VISIT SUMMARY EXTRACTED FROM THE [employer] CHART. IT IS NOT A COPY OF THE [employer] PROGRESS NOTE. MTDD
== END ==
LOC: M PAIN 10:20
PROVIDERS: ATTEND Nurse Practitioner Family
DX: M54.5 Low back pain (principal); Z79.891 Long term (current) use of opiate analgesic

== ENCOUNTER 2016-05-09 14:29 | Inpatient (IN) | payer MEDICARE ==
[~2016-05-09] VITALS: Ht 180.3 cm; Wt 142.8 kg
[~2016-05-09 14:29] MED LIST changes: -AZEL0.1S3; -BUPR50TA PO; +COLA100C PO; -COLA100C3 PO; -DOCU100C PO; -DOXY-278 PO; -DULO1CAP2 PO; -FLOM5CAP PO; -FURO20TA2 PO; -GABA-282 PO; +GABA300C3 PO; -HUMU500S SC; -INSUHUMDS SC; -KLOR1CAP2 PO; -LIDO1OIN2 TOP; -LISI-542 PO; -METF1000 PO; -NUCY200T PO; -PERC10TA17 PO; -PRAV40TA2 PO; -ZANT1TAB PO
[2016-05-09] MEDS ORDERED: ZANT1TAB PO (14:44)
[2016-05-09] MEDS ORDERED: ONDANSETRON 4MG/2ML VIAL (J2405) IV ONE (15:30)
[2016-05-09] MEDS ORDERED: PIPERACILLIN/TAZOBACTAM SOD 3.375 GM in D5W MINI-BAG PLUS 50 ML IV ONE (15:30)
[2016-05-09] MEDS ORDERED: MORPHINE 4 MG/ML 1ML SYRINGE IV ONE ×2 (15:30→19:30)
[2016-05-09] MEDS ORDERED: VANCOMYCIN HCL 1,000 MG, VIAL MATE ADAPTER 1 EACH in D5W 250 ML IV ONE (15:30)
[2016-05-09 16:13] LABS: BASO % 0.3 % (0.0-1.0); EOS # 0.4 K/mm3 (0.0-0.50); EOS % 4.1 % (0.0-3.0); LARGE UNSTAINED CELL # 0.2 K/mm3 (0.0-0.4); LARGE UNSTAINED CELL % 2.5 % (0.0-4.0); LYMPH # 2.2 K/mm3 (1.5-4.5); LYMPH % 20.1 % (24.0-44.0); MEAN CORPUSCULAR HEMOGLOBIN 29.2 pg (27.0-33.0); MEAN CORPUSCULAR HGB CONC 35.1 g/dl (32.0-36.5); MEAN CORPUSCULAR VOLUME 83.1 fl (80.0-96.0); MONO # 0.6 K/mm3 (0.0-0.8); MONO % 6.3 % (0.0-5.0); NEUTROPHILS # 6.4 K/mm3 (1.8-7.7); NEUTROPHILS % 66.6 % (36.0-66.0); PLATELET COUNT, AUTOMATED 251 k/mm3 (150-450); WHITE BLOOD COUNT 9.6 K/mm3 (4.0-10.0)
--- NOTE | 2016-05-09 16:19 | REP ---
LEFT FOOT, FOUR VIEWS: HISTORY: Foot ulcer. There is no acute fracture or dislocation. The joint spaces are normal in appearance. The overlying soft-tissues are normal in appearance. IMPRESSION: There is no acute fracture or dislocation. Signed by Harley Quintero MD 05/09/2016 04:36 P
[2016-05-09 16:26] LABS: ANION GAP 7 MEQ/L (8-16); BLOOD UREA NITROGEN 15 MG/DL (7-18); CALCIUM LEVEL 8.4 MG/DL (8.5-10.1); CARBON DIOXIDE LEVEL 30 MEQ/L (21-32); CHLORIDE LEVEL 98 MEQ/L (98-107); CREATININE FOR GFR 0.93 MG/DL (0.70-1.30); GLOMERULAR FILTRATION RATE > 60.0 (>60); GLUCOSE, FASTING 291 MG/DL (70-105); POTASSIUM SERUM 3.8 MEQ/L (3.5-5.1); SODIUM LEVEL 135 MEQ/L (136-145)
[2016-05-09 16:28] LABS: ERYTHROCYTE SEDIMENTATION RATE 26 mm/hr (0-15)
[2016-05-09] MEDS ORDERED: DULO1CAP2 PO (18:52)
[2016-05-09] MEDS ORDERED: FURO20TA2 PO (18:53)
[2016-05-09] MEDS ORDERED: LIDO1OIN2 TOP (18:55)
[2016-05-09] MEDS ORDERED: LEVA12INH INH (18:55)
[2016-05-09] MEDS ORDERED: METF1000 PO (18:59)
[2016-05-09] MEDS ORDERED: HUMU500S SC (18:59)
[2016-05-09] MEDS ORDERED: PERC10TA17 PO (18:59)
[2016-05-09] MEDS ORDERED: BUPR50TA PO (19:09)
[2016-05-09] MEDS ORDERED: VICT18IN SC (19:09)
[2016-05-09] MEDS ORDERED: AZEL0.1S3 (19:09)
[2016-05-09] MEDS ORDERED: NUCY200T PO (19:09)
[2016-05-09] MEDS ORDERED: KLOR1CAP2 PO (19:09)
[2016-05-09] MEDS ORDERED: GABA300C3 PO (19:09)
[2016-05-09] MEDS ORDERED: LISI-542 PO (19:09)
[2016-05-09] MEDS ORDERED: DOCU100C PO (19:09)
[2016-05-09] MEDS ORDERED: PRAV40TA2 PO (19:09)
[2016-05-09] MEDS ORDERED: FLOM5CAP PO (19:09)
[2016-05-09] MEDS ORDERED: INSUHUMDS SC (19:09)
[2016-05-09] MEDS ORDERED: EXCETAB80 PO (19:09)
[2016-05-09] MEDS ORDERED: ONDANSETRON 4MG/2ML VIAL (J2405) IV PRN (19:15)
[2016-05-09] MEDS ORDERED: NITROGLYCERIN 0.4 MG SUBL TABLET SL PRN (19:15)
[2016-05-09] MEDS ORDERED: GLUCOSE 4 GM CHEW TABLET PO PRN (19:15)
[2016-05-09] MEDS ORDERED: DEXTROSE 50% 50 ML SYRINGE IV PRN (19:15)
[2016-05-09] MEDS ORDERED: GLUCAGON FOR INJ 1 MG VIAL (J1610) SC PRN (19:15)
[2016-05-09] MEDS ORDERED: LEVALBUTEROL 1.25 MG/0.5 ML CONCENTRATE NEB INH PRN (19:15)
[2016-05-09] MEDS ORDERED: IPRATROPIUM 0.5MG/ALBUTEROL 2.5MG INH SOL UD 3ML (DUONEB)(J7620) NEB PRN (19:15)
[2016-05-09] MEDS: PERCOCET 5MG/325MG TAB PO PRN (20:03)
--- NOTE | 2016-05-09 20:28 | HPEPDOC ---
General Date of Admission May 09, 2016 at 19:04 Chief Complaint The patient is a 50-year-old male admitted with a reason for visit of Type 2 Diabetes Mellitus/Lower Extremity Ulcer. History of Present Illness 50-year-old male with past medical history of asthma, uncontrolled diabetes mellitus, history of ulcer on the right foot and left lower extremity, hypertension, CAD, CHF, dyslipidemia, and depression presents to the ER with a chief complaint of a draining ulcer on the bottom of his left foot for the past 3 days. The patient states that he noticed ulcer 3 days ago, when he took off his sock and noted blood. He notes that he tried to clean the site of the ulcer on his own, and treat his pain symptoms on his own. However, during this time, the patient states that the pain in the left foot worsened, and he started to notice an increase in warmth, and tenderness traveling up the foot and to the ankle area. He subsequently presented to the ER for further evaluation. The patient denied any trauma to the foot, and he does not note any purulent drainage from the site. During this time, the patient denies any fevers, chills , chest pain, shortness of breath, palpitations, abdominal pain, or any nausea/ vomiting/diarrhea. In the ER, the patient was noted to have cellulitis around the 1st metatarsal joint of the left foot, with a draining sinus tract noted on the plantar surface of the foot. An x-ray did not reveal any overt signs of osteomyelitis. Blood cultures have been drawn, the patient has been started on empiric antibiotics, and an MRI of the foot has been ordered to further assess for osteomyelitis of the joint. The patient will be admitted under the service of Dr. Quinones will further evaluate and manage the patient in the a.m. Home Medications Scheduled (Nucynta ER) 200 Mg Tab 200 MG PO Q12H (Reported) (Victoza) 18 Mg/3 Ml Inj 1.8 MG SC DAILY (Reported) (Klor-Con Sprinkle) 10 Meq Cap 20 MEQ PO BID (Reported) Aspirin (Aspirin 81) 81 Mg Tab 81 MG PO DAILY (Reported) Atenolol (Atenolol) 25 Mg Tab 25 MG PO DAILY (Reported) Azelastine Hydrochloride (Azelastine HCl) 137 Mcg/[place] Spr 1 SPRAY NA BID ( Reported) Bupropion HCl (Bupropion HCl) 50 Mg Halftab 100 MG PO DAILY (Reported) Cyanocobalamin (Cyanocobalamin) 1,000 Mcg/1 Ml Inj 1,000 MCG IM MTHLY (Reported ) DUE IN ABOUT 1 WEEK Docusate Sodium (Docusate Sodium) 100 Mg Cap 100 MG PO BID (Reported) Duloxetine Hcl (Cymbalta) 60 Mg Cap 60 MG PO QHS (Reported) 90MG TOTAL DAILY Duloxetine Hcl (Duloxetine HCl) 30 Mg Cap 30 MG PO DAILY (Reported) 90MG TOTAL DAILY Esomeprazole Magnesium Trihydr (Nexium) 40 Mg Cap 40 MG PO BID (Reported) Furosemide (Lasix) 80 Mg Tab 80 MG PO BID (Reported) 100MG BID Furosemide (Furosemide) 20 Mg Tab 20 MG PO BID (Reported) 100MG BID Gabapentin (Gabapentin) 300 Mg Cap 300 MG PO TID (Reported) Insulin (Humulin R U-500 Kwikpen) 500 Unit/Ml Nita 100 UNIT SC TID (Reported) Insulin Human Lispro (Humalog) 1 Units/0.01 Ml Inj 30 UNITS SC QID (Reported) Lisinopril (Lisinopril) 5 Mg Tab 5 MG PO DAILY (Reported) Metformin Hydrochloride (Metformin HCl) 1,000 Mg Tab 1,000 MG PO BID (Reported ) Mometasone Furoate Monohydrate (Nasonex) 120 [place]/17 Gm Naspr 2 SPRAY NA QHS ( Reported) Potassium Chloride (Potassium Chloride ER) 20 Meq Tab 40 MEQ PO BID (Reported) Pravastatin Sod (Pravastatin Sodium) 40 Mg Tab 40 MG PO DAILY (Reported) Ranitidine HCl (Zantac) 150 Mg Tab 1 TAB PO BID (Reported) Ropinirole Hydrochloride (Ropinirole HCl) 1 Mg Tab 1 MG PO QHS (Reported) Salmeterol/Fluticasone (Advair Diskus 500-50 Mcg/Dose) 28 Puff/Inhaler Aerp 1 PUFF INH BID (Reported) Tamsulosin Hydrochloride (Flomax) 0.4 Mg Cap 1 CAP PO DAILY (Reported) Scheduled PRN (Epinephrine) 0.3 Mg/0.3 Ml Inj 0.3 MG INJ PRN PRN PRN ALLERGIC REACTION ( Reported) Acetaminophen/Aspirin/Caffein (Excedrin Migraine 250-250-65 mg) 1 Tab Tab 2 TAB PO BID PRN PRN MIGRAINE (Reported) Albuterol Sulfate (Proventil Hfa) 167 Puff/6.7 Gm Aers 2 PUFFS INH QID PRN PRN SHORTNESS OF BREATH (Reported) Levalbuterol Hydrochloride (Xopenex Concentrate) 1.25 Mg/0.5 Ml Neb 1.25 MG INH Q6H PRN PRN SHORTNESS OF BREATH (Reported) Lidocaine HCl (Lidocaine 5% Ointment) 1 Dose/35.44 Gm Oint 1 DOSE TOP TID PRN PRN PAIN (Reported) APPLY TO LEFT SHOULDER OR LOWER BACK Nitroglycerin (Nitrostat) 0.4 Mg Subl 0.4 MG SL Q5MP PRN PRN CHEST PAIN ( Reported) Oxycodone/Acetaminophen (Percocet 10-325 mg) 1 Tab Tab 1 TAB PO Q6H PRN PRN PAIN (Reported) Allergies Coded Allergies: Amlodipine (Verified Allergy, Unknown, 05/09/16) vomiting Codeine (Unverified Allergy, Unknown, 05/09/16) vomiting Olanzapine (Verified Allergy, Unknown, 05/20/12) Tramadol (Verified Allergy, Unknown, 05/20/12) Ziprasidone (Verified Allergy, Unknown, 05/20/12) Paroxetine (Verified Adverse Reaction, Intermediate, ANXIETY, 05/20/12) Aripiprazole (Verified Adverse Reaction, Mild, SLEEPINESS, 05/20/12) Contrast Media (Unverified Adverse Reaction, Mild, VOMITING - , 12/24/07) Quetiapine (Verified Adverse Reaction, Mild, SLEEPINESS, 05/20/12) Venlafaxine (Verified Adverse Reaction, Mild, SLEEPINESS, 05/20/12) Past Medical History Medical History As noted in HPI. Surgical History Sinus surgery, hernia repair, bilateral knee arthroscopy, neck biopsy Family History Significant Family History: No pertinent family hx Social History * Smoker: Denies Alcohol: occationally Drugs: denies Recent Travel/Sick Contacts: Denies: Recent sick contacts, Recent travel Unemployed, lives at home with his and children, uses a cane for ambulation Review of Symptoms Other systems 10 point review of systems negative unless otherwise specified in HPI. Physical Examination General Exam: Positive: Alert, Cooperative, No Acute Distress ENT Exam: Positive: Atraumatic, Mucous membr. moist/pink Neck Exam: Negative: JVD Chest Exam: Positive: Clear to auscultation, Normal air movement Heart Exam: Positive: Normal S1, Normal S2, Rate Normal Telemetry: Positive: Sinus Abdomen Exam: Positive: Soft, Negative: Tenderness Extremity Exam: Positive: Other (left foot noted to have erythema and tenderness at the first metatarsal joint. Patient also noted to have a sinus tract on the plantar surface of the left foot inferior to the first metatarsal joint, measuring approximately 2 cm in diameter. No purulent discharge or bleeding noted from the site.) Vital Signs As noted in the EMR Laboratory Data Labs 24H Laboratory Tests 2 05/09/16 16:03: Anion Gap 7L, White Blood Count 9.6, Red Blood Count 5.18, Hemoglobin 15.1, Hematocrit 43.1, Mean Corpuscular Volume 83.1, Mean Corpuscular Hemoglobin 29.2 , Mean Corpuscular Hemoglobin Concent 35.1, Red Cell Distribution Width 13.0, Platelet Count 251, Neutrophils (%) (Auto) 66.6H, Lymphocytes (%) (Auto) 20.1L, Monocytes (%) (Auto) 6.3H, Eosinophils (%) (Auto) 4.1H, Basophils (%) (Auto) 0.3 , Neutrophils # (Auto) 6.4, Lymphocytes # (Auto) 2.2, Monocytes # (Auto) 0.6, Eosinophils # (Auto) 0.4, Basophils # (Auto) 0.0, C-Reactive Protein, Quantitative 5.07H, Blood Urea Nitrogen 15, Creatinine 0.93, Sodium Level 135L, Potassium Level 3.8, Chloride Level 98, Carbon Dioxide Level 30, Calcium Level 8.4L, Erythrocyte Sedimentation Rate 26H, Glomerular Filtration Rate > 60.0, Large Unclassified Cells # 0.2, Large Unclassified Cells % 2.5 05/09/16 18:53: Bedside Glucose (Misc Panel) 310H CBC/BMP Laboratory Tests 05/09/16 16:03 Calcium Level 8.4 L, Red Blood Count 5.18, Mean Corpuscular Volume 83.1, Mean Corpuscular Hemoglobin 29.2, Mean Corpuscular Hemoglobin Concent 35.1, Red Cell Distribution Width 13.0, Neutrophils (%) (Auto) 66.6 H, Lymphocytes (%) (Auto) 20.1 L, Monocytes (%) (Auto) 6.3 H, Eosinophils (%) (Auto) 4.1 H, Basophils (%) (Auto) 0.3, Neutrophils # (Auto) 6.4, Lymphocytes # (Auto) 2.2, Monocytes # ( Auto) 0.6, Eosinophils # (Auto) 0.4, Basophils # (Auto) 0.0 Microbiology Microbiology 05/09/16 Blood Culture, Received Pending 05/09/16 Blood Culture, Received Pending 05/09/16 Wound Culture, Received Pending Plan / VTE VTE Prophylaxis Ordered?: Yes Plan Plan Cellulitis/ulceration on the left foot, rule out osteomyelitis Admit to med/surg White blood cell count within normal limits, afebrile, hemodynamically stable here in the ER CRP levels elevated-we'll continue to trend Blood cultures, wound culture ordered Empiric antibiotic coverage with vancomycin and Zosyn X-ray of the left foot with no overt signs of osteomyelitis MRI of the foot ordered We'll continue to monitor the patient's clinical status and follow-up on aforementioned studies Diabetes mellitus, poorly controlled Patient follows at the [facility] He is on lispro 30 units 4 times a day-we will continue this He is also on Humulin 100 units subcutaneous 3 times a day--we will continue him on 50 units 3 times a day for now and uptitrate as tolerated Insulin sliding scale Hemoglobin A1c ordered Hypertension Continue current regimen History of congestive heart failure Patient appears euvolemic at this time Continue Lasix, lisinopril, atenolol as previously prescribed CAD Continue aspirin, statin, lisinopril, atenolol History of asthma Continue albuterol, Advair Restless leg syndrome Continue with Ropinrole Dyslipidemia Continue statin Depression Continue current regimen DVT prophylaxis-heparin subcutaneous Patient will be admitted under the service of Dr. Quinones, who will begin to follow the patient on 05/10 at 7 AM. JOSE MACDONALD MD May 09, 2016 20:28
[2016-05-09] MEDS: HumaLOG INSULIN (NovoLOG) PER UNIT SC SCH ×2 (21:00→23:16)
[2016-05-09] MEDS ORDERED: FAMOTIDINE 20 MG TAB PO SCH (21:00)
[2016-05-09] MEDS ORDERED: GABAPENTIN 300 MG CAP PO SCH (21:00)
[2016-05-09 22:15] VITALS: BP 104/54
[2016-05-09] MEDS: IPRATROPIUM 0.5MG/ALBUTEROL 2.5MG INH SOL UD 3ML (DUONEB)(J7620) NEB SCH (22:42)
[2016-05-09] MEDS: POTASSIUM CHLORIDE 10 MEQ SR TABLET PO SCH (23:06)
[2016-05-09] MEDS: DOCUSATE SODIUM 100 MG CAP PO SCH (23:07)
[2016-05-09] MEDS: DULoxetine 30 MG CAP (CYMBALTA) PO SCH (23:07)
[2016-05-09] MEDS: rOPINIRole 1MG TAB PO SCH (23:07)
[2016-05-09] MEDS: FUROSEMIDE 20 MG TAB PO SCH (23:07)
[2016-05-09] MEDS: PANTOPRAZOLE 40MG TAB (PROTONIX) PO SCH (23:08)
[2016-05-09] MEDS: FUROSEMIDE 80 MG TAB PO SCH (23:08)
[2016-05-09] MEDS: HEPARIN SOD (PORCINE) 5000 UNITS/ML VIAL SC SCH (23:09)
[2016-05-09] MEDS: PIPERACILLIN/TAZOBACTAM SOD 3.375 GM in D5W MINI-BAG PLUS 50 ML IV SCH (23:09)
[2016-05-09] MEDS: VANCOMYCIN HCL 1,000 MG, VIAL MATE ADAPTER 1 EACH in D5W 250 ML IV SCH (23:09)
--- NOTE | 2016-05-09 23:29 | PHACANCOPD ---
PHARMACY VANCOMYCIN DOSING Pt Demographics Demographics Patient Age:50 , Weight:142.800 , Gender: male Adjusted Body Weight Date: 05/09/16, Adjusted Body Weight: [102.3] Kg Events Past 24 Hours Events Past 24 Hours: YES: Other (ELEVATED CRP, ELEVATED ESR), Pending Diagnostics Vancomycin Vancomycin indication: Possible Osteomyelitis Vancomycin Target Ranges: 15-20 mcg/ml Vancomycin Load Y/N: Yes Load Dose Date Time Vancomycin Load Dose: 2g Date: 05/09/16 Time: 1g@18 + 1g@21 Vancomycin Dose Date: 05/09/16. Current Vancomycin Dose: [1g IV Q8H] Intermittent Dosing?: No Labs Labs Vital Signs Label Value Date Time Pulse 100 05/09/162001 Patient Temperature 98.3 degrees F 05/09/162203 Temperature Source Temporal 05/09/162203 Item Value Date Time White Blood Count 9.6 K/mm3 05/09/16 1603 Erythrocyte Sedimentation Rate 26 mm/hr H 05/09/16 1603 C-Reactive Protein, Quantitative 5.07 MG/DL H 05/09/16 1603 Micro Microbiology 05/09/16 Blood Culture, Received Pending 05/09/16 Blood Culture, Received Pending 05/09/16 Wound Culture, Received Pending Creatinine Clearance Date:05/09/16. Estimated Creatinine Clearance: ~[>100ml/min]. Pending Labs Vancomycin trough scheduled 05/10/16@2000 Assessment and Plan Maintaining Current Dose?: Yes Reason for dose change: No Dose Change Pharmacist Note Pharmacist Note Date: 05/09/16. Pharmacist note: Day #1 empiric zosyn/vancomycin initiated with a 2g loading dose (1g given @1800, 1g given@2100) followed by a maintenance regimen of 1g IV Q8H starting 05/10/16 @ 0500 for the treatment of possible osteomyelitis - aiming for a goal trough of 15-20mcg/ml. The patient has a PMH of diabetes mellitus, as well as hx of rt foot and left lower extremity ulcers. The patient currently has a draining ulcer on the bottom of the left foot for the past 3 days, and cellulitis around the 1st metatarsal joint of the left foot. WBC is WNL, ESR is elevated, CRP is elevated, patient is afebrile, and all cultures + MRI are currently pending. Initial xray of the foot not indicative of osteomyelitis. The patient has a hx of vanco use here at [facility] back in May of 2008, and hx of MRSA is unclear. A trough has been scheduled @2000, prior to the 5th dose. We will continue to monitor and make adjustments as needed. DONNIE DEVINE PHARMACY May 09, 2016 23:28
[2016-05-10] MEDS: FLUTICASONE PROP 0.05% NASAL SPRAY 16 GM (FLONASE) SCH ×2 (00:50→21:14)
[2016-05-10] MEDS: AZELASTINE 137MCG NASAL SPY 30 ML (ASTELIN) SCH ×3 (00:51→21:14)
[2016-05-10] MEDS: HUMULIN R U-500 KWIKPEN 500UNITS/ML 3ML SYRINGE (J1815 PER 5UNITS) SC SCH ×4 (00:52→21:14)
[2016-05-10] MEDS: PERCOCET 5MG/325MG TAB PO PRN ×2 (00:56→09:19)
[2016-05-10] MEDS: IPRATROPIUM 0.5MG/ALBUTEROL 2.5MG INH SOL UD 3ML (DUONEB)(J7620) NEB SCH ×4 (01:27→20:00)
[2016-05-10] MEDS: MORPHINE 2 MG/ML 1ML SYRINGE IV PRN ×2 (02:09→06:12)
[2016-05-10] MEDS: PIPERACILLIN/TAZOBACTAM SOD 3.375 GM in D5W MINI-BAG PLUS 50 ML IV SCH ×4 (03:39→23:11)
[2016-05-10] MEDS: VANCOMYCIN HCL 1,000 MG, VIAL MATE ADAPTER 1 EACH in D5W 250 ML IV SCH ×3 (04:10→21:13)
[2016-05-10 06:00] VITALS: BP 117/73
[2016-05-10] MEDS: HEPARIN SOD (PORCINE) 5000 UNITS/ML VIAL SC SCH ×3 (06:10→21:11)
[2016-05-10 06:17] LABS: MEAN CORPUSCULAR HEMOGLOBIN 28.6 pg (27.0-33.0); MEAN CORPUSCULAR HGB CONC 34.4 g/dl (32.0-36.5); MEAN CORPUSCULAR VOLUME 83.2 fl (80.0-96.0); WHITE BLOOD COUNT 6.4 K/mm3 (4.0-10.0)
[2016-05-10 06:34] LABS: ANION GAP 9 MEQ/L (8-16); BLOOD UREA NITROGEN 12 MG/DL (7-18); CALCIUM LEVEL 8.4 MG/DL (8.5-10.1); CARBON DIOXIDE LEVEL 31 MEQ/L (21-32); CHLORIDE LEVEL 99 MEQ/L (98-107); CREATININE FOR GFR 0.93 MG/DL (0.70-1.30); GLOMERULAR FILTRATION RATE > 60.0 (>60); GLUCOSE, FASTING 173 MG/DL (70-105); POTASSIUM SERUM 3.4 MEQ/L (3.5-5.1); SODIUM LEVEL 139 MEQ/L (136-145)
[2016-05-10] MEDS: ADVAIR DISKUS 500/50 INH PWD INH SCH ×2 (07:58→19:36)
[2016-05-10] MEDS: HumaLOG INSULIN (NovoLOG) PER UNIT SC SCH ×7 (09:15→21:13)
[2016-05-10] MEDS: GABAPENTIN 300 MG CAP PO SCH ×3 (09:16→21:11)
[2016-05-10] MEDS: POTASSIUM CHLORIDE 10 MEQ SR TABLET PO SCH ×2 (09:16→21:11)
[2016-05-10] MEDS: PRAVASTATIN 20 MG TAB PO SCH (09:16)
[2016-05-10] MEDS: buPROPion 100 MG TAB PO SCH (09:17)
[2016-05-10] MEDS: ASPIRIN 81 MG ENTERIC TAB PO SCH (09:17)
[2016-05-10] MEDS: FUROSEMIDE 80 MG TAB PO SCH ×2 (09:17→21:12)
[2016-05-10] MEDS: DULoxetine 30 MG CAP (CYMBALTA) PO SCH ×2 (09:17→21:12)
[2016-05-10] MEDS: DOCUSATE SODIUM 100 MG CAP PO SCH ×2 (09:17→21:12)
[2016-05-10] MEDS: TAMSULOSIN 0.4 MG CAP PO SCH (09:18)
[2016-05-10] MEDS: LISINOPRIL 5 MG TAB PO SCH (09:18)
[2016-05-10] MEDS: FUROSEMIDE 20 MG TAB PO SCH ×2 (09:18→21:12)
[2016-05-10] MEDS: PANTOPRAZOLE 40MG TAB (PROTONIX) PO SCH ×2 (09:19→21:12)
[2016-05-10] MEDS: ATENOLOL 25 MG TAB PO SCH (09:20)
[2016-05-10] MEDS ORDERED: ACETAMINOPHEN 325 MG TAB PO PRN (11:45)
[2016-05-10] MEDS: oxyCODONE 5MG TAB PO PRN ×3 (11:52→20:47)
--- NOTE | 2016-05-10 13:35 | IPN ---
DATE: 05/10/2016 SUBJECTIVE: The patient continues to complain of pain in the lower extremity. Says that it is in the pretibial area and also at the site of his first metatarsal. He denies any significant change in pain overnight. He denies fevers, chills, chest pain, shortness of breath, nausea, vomiting, or diarrhea. OBJECTIVE: VITAL SIGNS: Temperature 97.3, pulse 90, respiratory rate 20, blood pressure 140/90, oxygen saturation 94% on room air. GENERAL: He is a morbidly obese, disheveled, middle aged, man lying flat in bed. He does not appear to be in any acute distress. HEENT: Disheveled, malodorous. He has moist mucous membranes. Difficult to assess for any elevation in central venous pressure secondary to body habitus. CARDIOVASCULAR EXAM: S1, S2 regular. RESPIRATORY EXAM: Clear. ABDOMINAL EXAM: Morbidly obese. EXTREMITIES: No clubbing, cyanosis, or edema. There is an area of erythema surrounding the base of the first metatarsal; however, his pain is more localized to the left pretibial region without any obvious erythema, tenderness or swelling. LABORATORY STUDIES: WBC 6.4, hemoglobin 13.8, platelet count 246, ESR 33. Chemistry panel: Sodium 139, potassium 3.4, chloride 99, bicarbonate 31, BUN 12, creatinine 0.9, hemoglobin A1/c is 10.5, C-reactive protein is 5.1. Would cultures and blood cultures are currently pending. The patient did have an x-ray of the foot which revealed no acute fracture or dislocation. ASSESSMENT AND PLAN: This is a 50-year-old man with pain in the left lower extremity. 1. Painful left lower extremity. There is concern for cellulitis and ulceration involving the left first metatarsal. MRI with and without contrast has been ordered to evaluate the foot. I will extend this also to the left leg to evaluate where the predominance of his pain is in the pretibial area. He does have some mild erythema at the base of the toe but has good movement with it. I have low suspicion for potential joint infection. We will continue to monitor inflammatory markers and blood cultures. At the present time, he does not have leukocytosis. He is afebrile. He is currently on vancomycin and Zosyn. We will followup cultures. 2. Type 2 diabetes, poorly controlled with elevated hemoglobin A1/c. Follows with [facility]. We will continue his outpatient regimen and provide him with a consistent carbohydrate diet. 3. Hypertension. The patient is on atenolol, Lisinopril. He is in a significant amount of pain right now. 4. Chronic pain. The patient usually follows with the pain clinic. We will restart his Nucynta and convert his Percocet that he is currently on now closer to his home regimen of 10/325 every 6 hours as needed. I will also titrate up his gabapentin as he describes a burning pain. The patient is also on Cymbalta in relation to his pain. 5. Coronary artery disease. The patient is on aspirin, beta tyrell, and statin. 6. Congestive heart failure (CHF). The patient is on beta tyrell, SONYA inhibitor, statin and diuretic. He appears to be fairly euvolemic at the present time. For now, we will simply monitor. 7. Depression. Continue with his selective serotonin reuptake inhibitors (SSRIs), as well as Wellbutrin. 8. Benign prostatic hypertrophy (BPH). Continue with Flomax. 9. Chronic constipation. Continue with Colace. 10. Asthma. Continue with his home inhalers. 11. Deep vein thrombosis (DVT) prophylaxis. The patient is on heparin. 12. Hypokalemia. The patient is on home supplementation.
[2016-05-10 14:34] VITALS: BP 112/63
--- NOTE | 2016-05-10 14:45 | REP ---
Left lower extremity Duplex Doppler venous ultrasound: Real time compression and duplex Doppler interrogation of the left lower extremity deep venous system is performed. The left common femoral, superficial femoral and popliteal veins are fully compressible with transducer pressure and demonstrate normal spontaneous and phasic flow, without evidence of deep venous thrombosis. Impression: No evidence of deep venous thrombosis of the left lower extremity femoral popliteal venous system. Signed by Daryl Fuentes MD 05/10/2016 02:37 P
--- NOTE | 2016-05-10 15:26 | REP ---
MRI LEFT FOOT WITHOUT IV CONTRAST: TECHNIQUE: Multiple axial, coronal and sagittal sequences including T1 and T2 weighting. No IV contrast was administrated. Visualized osseous structures demonstrate relatively normal marrow signal. There is no bone marrow edema or evidence of osteomyelitis. There is no occult fracture. There is diffuse ill-defined edema in the soft tissues particularly in the forefoot. Findings suggest cellulitis. No focal fluid collection or abscess is seen. No significant joint effusion is seen. There is no tenosynovitis. IMPRESSION: No MR evidence of osteomyelitis or abscess. Edema and probable cellulitis in the midfoot to forefoot region. Signed by Daryl Fuentes MD 05/10/2016 04:18 P
--- NOTE | 2016-05-10 15:31 | REP ---
MRI LEFT LOWER LEG WITHOUT IV CONTRAST: TECHNIQUE: Multiple axial, sagittal and coronal sequences obtained using T1 and T2 weighting. The study is significantly limited due to patient motion. However, no definite abnormal marrow signal is seen in the tibia or fibula and no MR evidence of osteomyelitis. No fluid collection is seen. No definite soft tissue mass is seen. IMPRESSION: Limited exam due to patient motion and lack of IV contrast administration. No definite evidence of osteomyelitis of the left lower leg. Signed by Daryl Fuentes MD 05/10/2016 04:19 P
[2016-05-10] MEDS ORDERED: TETANUS/DIPHTHERIA TOX ADSORB ADULT 0.5ML SYR/VIAL (90714) IM ONE (17:00)
[2016-05-10] MEDS: rOPINIRole 1MG TAB PO SCH (21:11)
[2016-05-10 22:00] VITALS: BP 133/70
[2016-05-10] MEDS: TAPENTADOL 50 MG TABLET (NUCYNTA) PO PRN (22:46)
[2016-05-11] MEDS: IPRATROPIUM 0.5MG/ALBUTEROL 2.5MG INH SOL UD 3ML (DUONEB)(J7620) NEB SCH ×2 (01:00→07:30)
[2016-05-11] MEDS: oxyCODONE 5MG TAB PO PRN ×2 (02:26→06:55)
[2016-05-11] MEDS: PIPERACILLIN/TAZOBACTAM SOD 3.375 GM in D5W MINI-BAG PLUS 50 ML IV SCH ×2 (04:30→09:58)
[2016-05-11] MEDS: VANCOMYCIN HCL 1,000 MG, VIAL MATE ADAPTER 1 EACH in D5W 250 ML IV SCH (05:22)
[2016-05-11] MEDS: HEPARIN SOD (PORCINE) 5000 UNITS/ML VIAL SC SCH (05:22)
[2016-05-11] MEDS: TAPENTADOL 50 MG TABLET (NUCYNTA) PO PRN (05:38)
[2016-05-11 05:58] LABS: MEAN CORPUSCULAR HEMOGLOBIN 28.7 pg (27.0-33.0); MEAN CORPUSCULAR HGB CONC 33.4 g/dl (32.0-36.5); MEAN CORPUSCULAR VOLUME 85.8 fl (80.0-96.0); WHITE BLOOD COUNT 7.1 K/mm3 (4.0-10.0)
[2016-05-11 06:00] VITALS: BP 132/76
[2016-05-11 06:29] LABS: ANION GAP 7 MEQ/L (8-16); BLOOD UREA NITROGEN 10 MG/DL (7-18); CALCIUM LEVEL 8.3 MG/DL (8.5-10.1); CARBON DIOXIDE LEVEL 32 MEQ/L (21-32); CHLORIDE LEVEL 102 MEQ/L (98-107); CREATININE FOR GFR 0.93 MG/DL (0.70-1.30); GLOMERULAR FILTRATION RATE > 60.0 (>60); GLUCOSE, FASTING 272 MG/DL (70-105); POTASSIUM SERUM 4.1 MEQ/L (3.5-5.1); SODIUM LEVEL 141 MEQ/L (136-145)
[2016-05-11] MEDS: ADVAIR DISKUS 500/50 INH PWD INH SCH (07:29)
[2016-05-11] MEDS: HumaLOG INSULIN (NovoLOG) PER UNIT SC SCH ×2 (07:30)
--- NOTE | 2016-05-11 07:57 | REP ---
Clinical: Pain. Rule out fracture. Technique: AP and lateral views of the left tibia / fibula. Findings: No acute fracture dislocation. Skeletal structures and joint spaces demonstrate age-related changes. No subcutaneous emphysema or radiodense foreign body. Impression: No acute fracture or dislocation. Signed by Morgan Hoawrd MD 05/11/2016 07:48 A
[2016-05-11] MEDS: PRAVASTATIN 20 MG TAB PO SCH (08:33)
[2016-05-11] MEDS: DOCUSATE SODIUM 100 MG CAP PO SCH (08:33)
[2016-05-11] MEDS: GABAPENTIN 300 MG CAP PO SCH (08:33)
[2016-05-11] MEDS: POTASSIUM CHLORIDE 10 MEQ SR TABLET PO SCH (08:33)
[2016-05-11] MEDS: ASPIRIN 81 MG ENTERIC TAB PO SCH (08:33)
[2016-05-11] MEDS: ATENOLOL 25 MG TAB PO SCH (08:33)
[2016-05-11 08:34] VITALS: BP 132/76
[2016-05-11] MEDS: FUROSEMIDE 80 MG TAB PO SCH (08:34)
[2016-05-11] MEDS: TAMSULOSIN 0.4 MG CAP PO SCH (08:34)
[2016-05-11] MEDS: buPROPion 100 MG TAB PO SCH (08:34)
[2016-05-11] MEDS: LISINOPRIL 5 MG TAB PO SCH (08:34)
[2016-05-11] MEDS: PANTOPRAZOLE 40MG TAB (PROTONIX) PO SCH (08:34)
[2016-05-11] MEDS: FUROSEMIDE 20 MG TAB PO SCH (08:34)
[2016-05-11] MEDS: DULoxetine 30 MG CAP (CYMBALTA) PO SCH (08:34)
[2016-05-11] MEDS: HUMULIN R U-500 KWIKPEN 500UNITS/ML 3ML SYRINGE (J1815 PER 5UNITS) SC SCH (08:36)
[2016-05-11] MEDS: AZELASTINE 137MCG NASAL SPY 30 ML (ASTELIN) SCH (08:36)
[2016-05-11] MEDS ORDERED: DOXY-278 PO (09:25)
--- NOTE | 2016-05-11 12:32 | DSES ---
DATE OF ADMISSION: 05/09/2016 DATE OF DISCHARGE: 05/11/2016 DISCHARGE DIAGNOSIS: Left lower extremity cellulitis and ulcer. Diabetic foot ulcer. SECONDARY DIAGNOSES: Type 2 diabetes, poorly controlled. Hypertension. Chronic back and neck pain. Coronary artery disease. Congestive heart failure. Depression. BPH. Chronic constipation. Asthma. Hypokalemia. HOSPITAL COURSE: The patient is a 50-year-old man who does not have feeling in his feet secondary to diabetic neuropathy, who had reportedly stepped on a nail that had punctured through his shoe and had developed an ulcer in the left lower extremity, which he did not even notice until his noticed. He developed pain up to his pretibial area of his leg. He presented to the emergency room. He was admitted to the hospitalist service. Given that he has a diabetic foot ulcer associated with new cellulitis, there was concern for potential deeper involvement. He did have a duplex of his lower extremity, did not reveal any deep vein thrombosis (DVT). He had an MRI of the left foot and leg, which did not reveal any evidence of osteomyelitis. He also had a plain film x-ray, did not reveal any fracture. The patient was initially empirically on vancomycin and Zosyn, and he did receive a tetanus shot. When it was determined this was only cellulitis and his pain was improved, the patient was clinically stable for discharge at this time. SUBJECTIVE: The patient reports he feels much better. He denies any specific complaints. No chest pain, shortness of breath, fevers, chills, nausea, vomiting or diarrhea. OBJECTIVE: Vital Signs: Temperature 97.7, pulse 100, respiratory rate 18, blood pressure 132/76, oxygen saturation 91% on room air. General: He is a disheveled, morbidly obese, man lying in bed at a 30-degree angle watching television. He does not appear to be in any acute distress whatsoever. He is quite comfortable. HEENT: He is wearing glasses. He has moist mucous membranes. No elevation of jugular venous pressure (JVP). Cardiovascular Exam: S1, S2 regular. He is not tachycardic on my exam. Respiratory Exam: Clear. Abdominal Exam: Grossly obese. Extremities: No clubbing or cyanosis. He does have erythema around the base of the left first metatarsal, which is improved, he has full range of motion. Mild tenderness to palpation. There is still erythema and some swelling. LABORATORY STUDIES: WBC 7.1, hemoglobin 13.5, hematocrit 40.3, platelet count 246. Chemistry panel: Sodium 141, potassium 4.1, chloride 102, bicarbonate 32, BUN 10, creatinine 0.9. Wound culture from the left foot returned for methicillin-sensitive Staphylococcus aureus (MSSA). Blood cultures are negative after 24 hours. IMAGING: As outlined above. ASSESSMENT AND PLAN: This is a 50-year-old man with left lower extremity diabetic foot ulcer and cellulitis. PROBLEMS: 1. Left lower extremity cellulitis. The patient has had a duplex MRI as well as plain films, did not reveal any deeper infection. At this time, he is afebrile. There is no leukocytosis. We will transition him from vancomycin and Zosyn to oral doxycycline to complete a 10-day course. His pain is improving. Given that he did step on a nail which punctured through his foot, he did receive a tetanus shot. The patient does have a acid washer operator, whom he follows with in the outpatient setting. I recommend he follows up with his primary care provider (PCP) within 7 days and his acid washer operator within 7 days as well to ensure resolution and followup regarding the likely remaining ulcer. The patient was advised that he will likely have slow healing, and he will need to monitor and check his feet every single day visually as he does not have feeling and he is prone to poor healing and with repeated events like this, he is certainly at risk for losing toes to amputation and having deeper infections. 2. Type 2 diabetes, poorly controlled. He follows with the [facility] on a complex regimen. He will resume his complex regimen upon discharge and follow closely with [facility]. 3. Hypertension. He is on atenolol, lisinopril and his blood pressure is controlled now that his pain is under better control. 4. Chronic pain. The patient is to return to following up through the pain clinic. He was to continue on his home Nucynta and high dose Percocet. He was also on Cymbalta in relation to his pain and gabapentin. 5. Coronary artery disease. The patient was on aspirin, beta tyrell and a statin. 6. Congestive heart failure. He was on a beta tyrell, angiotensin-converting enzyme (SONYA) inhibitor and diuretic. He appeared to be euvolemic during his stay without any decompensation. 7. Depression. The patient is on an selective serotonin reuptake inhibitor as well as Wellbutrin. 8. BPH. The patient is on Flomax. 9. Chronic constipation. He is on Colace. 10. Asthma. He was continued on his home inhalers during his stay. DISPOSITION: The patient is being discharged home to the care of his family. He is at his functional baseline. His activity is as tolerated. His diet is as prior to admission. He is to followup with his primary care provider (PCP) and acid washer operator within the next 7 days. He is to return to the emergency room (ER) if his symptoms worsen. MEDICATIONS AT THE TIME OF DISCHARGE: - doxycycline 100 mg every 12 hours for 10 days - Excedrin two tablets twice a day as needed for migraine - Proventil 167 two puffs inhaled four times a day as needed for shortness of breath - aspirin 81 mg daily - atenolol 25 mg daily - Azelastine one spray to the nares twice a day - bupropion 100 mg daily - B12 injections 1000 mcg every month - Colace 100 mg twice a day - Cymbalta 90 mg in the evening - Epipen as needed for allergic reactions - Nexium 40 mg twice a day - Lasix 100 mg twice a day - gabapentin 300 mg three times a day - insulin R U500 100 units three times a day - Lispro 30 units four times a day - potassium chloride 20 mEq twice a day - Xopenex 1.25 mg every 6 hours as needed for shortness of breath - Lidocaine 5% ointment topically three times a day to the left shoulder and low back - lisinopril 5 mg daily - metformin 1 gram twice a day - mometasone two sprays to the nares nightly - nitroglycerin 0.4 mg sublingually every 5 minutes as needed for chest pain - Nucynta Extended Release 200 mg every 12 hours - Percocet 10-325 one tablet every 6 hours as needed for pain - potassium chloride 40 mEq twice a day - pravastatin 40 mg daily - ranitidine 150 mg one tablet twice a day - ropinirole 1 mg nightly - Advair 500-50 one puff twice a day - Flomax 0.4 mg daily - Victoza 1.8 mg subcutaneously daily Greater than 30 minutes spent organizing disposition. MTDD
== END 2016-05-11 11:45 | disposition home or self-care (01) | DRG 638 ==
LOC: M ED 15:49 → M ED INP 19:04 → M MSPAV 22:13
PROVIDERS: ADMIT Internal Medicine; ATTEND Internal Medicine
DX: E11.621 Type 2 diabetes mellitus with foot ulcer (principal); L03.116 Cellulitis of left lower limb; M54.5 Low back pain; E11.40 Type 2 diabetes mellitus with diabetic neuropathy, unspecified; I10 Essential (primary) hypertension; M54.2 Cervicalgia; I25.10 Atherosclerotic heart disease of native coronary artery without angina pectoris; N40.0 Benign prostatic hyperplasia without lower urinary tract symptoms; E78.5 Hyperlipidemia, unspecified; K59.09 Other constipation; G25.81 Restless legs syndrome; L97.529 Non-pressure chronic ulcer of other part of left foot with unspecified severity; J45.909 Unspecified asthma, uncomplicated; E87.6 Hypokalemia; F32.9 Major depressive disorder, single episode, unspecified; I50.9 Heart failure, unspecified; Z79.891 Long term (current) use of opiate analgesic; Z79.4 Long term (current) use of insulin; Z79.82 Long term (current) use of aspirin; Z79.899 Other long term (current) drug therapy; Z88.8 Allergy status to other drugs, medicaments and biological substances; Z88.5 Allergy status to narcotic agent; Z91.041 Radiographic dye allergy status

== ENCOUNTER → 2016-07-05 | Outpatient (REF) | payer MEDICARE ==
[~2016-07-05] MED LIST changes: +AZEL0.1S3; +BUPR50TA PO; -COLA100C PO; +COLA100C3 PO; +DOCU100C PO; +DOXY-278 PO; +DULO1CAP2 PO; +FLOM5CAP PO; +FURO20TA2 PO; +GABA-282 PO; -GABA300C3 PO; +HUMU500S SC; +INSUHUMDS SC; +KLOR1CAP2 PO; +LIDO1OIN2 TOP; +LISI-542 PO; +METF1000 PO; +NUCY200T PO; +PERC10TA17 PO; +PRAV40TA2 PO; +ZANT1TAB PO
== END ==
LOC: M SFHCPLAZ 17:02
PROVIDERS: ATTEND Hospitalist
DX: R10.11 Right upper quadrant pain (principal)
CPT/HCPCS: 81001; G0463

== ENCOUNTER → 2016-07-08 | Outpatient (CLI) | payer MEDICARE ==
--- NOTE | 2016-07-11 02:25 | ECWPNPC ---
PATIENT NAME: CHRISTINE BECERRIL : 1965 GENDER: MALE VISIT DATE: 07/08/2016 DISCHARGE DATE: 07/08/16 1137 VISIT LOCKED DATE TIME: PHYSICIAN: MAGNOLIA JOYCE RESOURCE: MAGNOLIA JOYCE REASON FOR APPOINTMENT 1. NECK/BACK HISTORY OF PRESENT ILLNESS HISTORY OF PRESENT ILLNESS: PAIN THE PATIENT DESCRIBES THE PAIN... THE PATIENT DESCRIBES THE PAIN... THE PATIENT DESCRIBES THE PAIN... THE PATIENT DESCRIBES THE PAIN... THE PATIENT DESCRIBES THE PAIN... THE PATIENT DESCRIBES THE PAIN... HERE FOR F/U AND MANAGEMENT OF CHRONIC GENERALIZED BACK PAIN.CONTINUES TO TAKE NUCYNTA ER 200MG BID .RATING PAIN VAS 6 /10. USING PERCOCET 10/325 PRN FOR SEVERE PAIN.DESCRIBES PAIN INTERMITTENT SHARP AND ACHING. DISCUSSED MEDICATION AND TREATMENT OPTIONS.HAS ADVERSE EFFECT WITH MORPHINE THAT CAUSES HIM TO BE MEAN.STOPPED ZANAFLEX SEVERAL MONTHS AGO IT CAUSED NAUSEA AND VOMITING.HAVING RIGHT SIDE PAIN THAT IS GETTING WORSE.STATES PRIMARY CARE IS EVALUATING. FALL RISK SCREENING: SCREENING :NO FALLS IN THE PAST YEAR CURRENT MEDICATIONS TAKING LASIX 20 MG TABLET 1 TABLET ORALLY TWICE DAILY, NOTES: TOTAL OF 100 MG BID TAKING EPIPEN 0.3 MG/0.3ML (1:1000) DEVICE SQ INTRAMUSCULAR NEEDED TAKING NITROSTAT 0.4 MG TABLET SUBLINGUAL 1 TABLET UNDER THE TONGUE EVERY 5 MINS FOR CHEST PAIN WITH A MAX OF 3 TABS SUBLINGUAL DIRECTED TAKING MAY HAVE _ 1 NASAL CANNUAL EXTRA LONG QID WHEN NEEDED TAKING CALCIUM PLUS VITAMIN D 500-50 MG-UNIT CAPSULE 2 CAPSULES WITH A MEAL ORALLY ONCE A DAY TAKING COLACE 100 MG CAPSULE 1 TABLET ORALLY TWICE A DAY TAKING MIRALAX OTC POWDER PO ORALLY TWICE A DAY TAKING TAMSULOSIN HCL 0.4 MG CAPSULE EXTENDED RELEASE 1 TAB(S) P.O. ONCE A DAY TAKING NASONEX 50 MCG/ACT LIQUID 2 PUFFS IN EACH NOSTRIL NASALLY ONCE A DAY TAKING ASTELIN 137 MCG/SPRAY SOLUTION 2 PUFFS IN EACH NOSTRIL NASALLY TWICE A DAY TAKING ADVAIR HFA 45-21 MCG/ACT AEROSOL 2 PUFFS INHALATION TWICE A DAY TAKING LIDOCAINE HCL 5 % CREAM DIRECTED EXTERNALLY APPLY TO LEFT SHOULDER OR LOW BACK 3X DAY PRN TAKING PROVENTIL HFA 108 (90 BASE) MCG/ACT AEROSOL SOLUTION 2 PUFFS INHALATION FOUR TIMES A DAY NEEDED TAKING ALBUTEROL SULFATE 1.25 MG/3ML NEBULIZATION SOLUTION 3 ML NEEDED INHALATION EVERY 8 HRS TAKING ASPIRIN 325 MG TABLET DELAYED RELEASE 1 TABLET ORALLY ONCE A DAY TAKING POTASSIUM CHLORIDE 20 MEQ CAPSULE 1 CAPSULE WITH FOOD ORALLY TWICE A DAY TAKING FUROSEMIDE 80 MG TABLET 1 TABLET ORALLY WITH 20MG TO EQUAL 100MG TWICE A DAY TAKING ATENOLOL 25 MG TABLET 1 TABLET ORALLY ONCE A DAY TAKING CYMBALTA 30 MG CAPSULE DELAYED RELEASE PARTICLES 1 CAPSULE ORALLY EVERY AM TAKING CYMBALTA 60 MG CAPSULE DELAYED RELEASE PARTICLES 1 TABLET ORALLY DAILY TAKING DOXYCYCLINE HYCLATE 100 MG TABLET DELAYED RELEASE 1 TABLET ORALLY EVERY 12 HRS TAKING VITAMIN B-12 1000 MCG INJECTION 1 INJECTION IM MONTHLY, NOTES: INS WONT PAY TAKING ZANTAC 150 MAXIMUM STRENGTH 150 MG TABLET 1 TABLET AT BEDTIME ORALLY BID TAKING XOPENEX 0.31 MG/3ML NEBULIZATION SOLUTION 3 ML INHALATION FOUR TIMES A DAY NEEDED, NOTES: INSURANCE WOULDN'T COVER TAKING ALCOHOL PREP 1 ALCOHOL PREP PADS NEEDED TAKING HOSPITAL BED _ _ HOSPITAL BED DX 454.0,135,782.3 DAILY NEEDED TAKING PEN NEEDLES NOVOFINE NEEDLE PEN NEEDLESFOR VICTOZA VICTOZA FOUR TIMES A DAY TAKING INSULIN SYRINGES (DISPOSABLE) 0.5 CC SYRINGE 1 SUBCUTANEOUSLY AT BEDTIME TAKING LANCETS 1 LANCET 1 SUBCUTANEOUSLY BID TAKING BLOOD GLUCOSE TEST STRIP 1 STRIPS ONE TOUCH ULTRA TEST STRIPS USE 1 TWO TIMES A DAY DIRECTED TWICE A DAY TAKING NEBULIZER/TUBING/MOUTHPIECE 1 NEEDED TAKING COMPRESSION STOCKINGS 20-30 MMHG DIRECTED TAKING ALTERNATING PRESSURE MATTRESS 1 _ ALTERNATING MATTRESS PAD WITH MARCY AND PUMP ICD:187.139 DAILY TAKING CPAP MACHINE _ 1 CPAP MACHINE FOR SLEEP AT NIGHT ICD: G47.33 AT NIGHT FOR SLEEP TAKING CPAP MASK _ 1 CPAP MASK ICD: G47.33 FOR SLEEP AT NIGHT TAKING NEXIUM 40 MG CAPSULE DELAYED RELEASE 1 CAPSULE ORALLY DAILY TAKING GABAPENTIN 300 MG CAPSULE 1 CAPSULE ORALLY THREE TIMES A DAY TAKING HUMULIN R U-500 KWIKPEN 500 UNIT/ML SOLUTION PEN-INJECTOR 100 UNITS SUBCUTANEOUS THREE TIMES DAILY TAKING LISINOPRIL 5 MG TABLET 1 TAB ORALLY DAILY TAKING HUMALOG KWIKPEN 30 SOLUTION PEN-INJECTOR 100 UNITS SUBCUTANEOUS FOUR TIMES A DAY TAKING VICTOZA 18 MG/3ML SOLUTION PEN-INJECTOR 0.2 ML SUBCUTANEOUS ONCE A DAY TAKING PRAVASTATIN SODIUM 40 MG TABLET 1 TABLET ORALLY ONCE A DAY TAKING METFORMIN HCL 1000 MG TABLET 1 TABLET WITH MEALS ORALLY TWICE A DAY TAKING VIAGRA 50 MG TABLET HALF A TABLET NEEDED ORALLY ONCE A DAY TAKING NUCYNTA ER 200 MG TABLET EXTENDED RELEASE 12 HOUR 1 TABLET ORALLY EVERY 12 HRS MDD2 TAKING VITAMIN K 100 MCG TABLET 1 TABLET ORALLY ONCE A DAY TAKING WELLBUTRIN 100 MG TABLET 1 TABLET ORALLY DAILY TAKING REQUIP 1 MG TABLET 1 TABLET ORALLY AT BEDTIME TAKING IBUPROFEN 800 MG TABLET 1 TABLET WITH FOOD OR MILK ORALLY THREE TIMES A DAY TAKING PERCOCET 10-325 MG TABLET 1 TABLET NEEDED ORALLY EVERY 6 HRS MDD4 NOT-TAKING NUCYNTA 75 MG TABLET 1 TABLET ORALLY EVERY 6 HRS PRN MDD4 NOT-TAKING NUCYNTA 100 MG TABLET 2 TABLET ORALLY EVERY 12 HOURS, NOTES: DUPLICATE NOT-TAKING ZANTAC 150 MG TABLET 1 TAB ORALLY TWICE DAILY, NOTES: DUPLICATE NOT-TAKING BACITRACIN 500 UNIT/GM OINTMENT 1 APPLICATION TO AFFECTED AREA EXTERNALLY ONCE A DAY MEDICATION LIST REVIEWED AND RECONCILED WITH THE PATIENT PAST MEDICAL HISTORY DIABETES MELLITUS TYPE 2 [id number], 2007 CARDIAC 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-NOVEMBER 2007 MRI WITH C6-C7 MODERATE LEFT BULGE CAUSING MODERATE CENTRAL CANAL STENOSIS, SMALL LEFT HNP C4-C5 WITH MODERATE SPINAL STENOSIS AND C5-C6 BULGE CAUSING BILATERAL NEURAL FORAMINAL NARROWING RIGHT GREATER THAN LEFT RIGHT SUPRASPINATUS TENDINITIS BY MAY 2008 MRI OBSTRUCTIVE SLEEP APNEA-PATIENT REFUSES CPAP ALLERGIC RHINITIS/CHRONIC SINUSITIS MIGRAINE HEADACHES, COMMON TYPE ESSENTIAL TREMOR DEPRESSION DYSPEPSIA/GERD B12 DEFICIENCY RESTLESS LEG SYNDROME HYPERTENSION CONSTIPATION, CHRONIC ANEMIA, CHRONIC SECONDARY TO IRON AND B12 DEFICIENCY-PATIENT REFUSES ANOSCOPY HYMENOPTERA ANAPHYLAXIS HISTORY OF IGG LAMBDA BY RUBÉN- PATIENT REFUSED BONE MARROW BIOPSY OBESITY, MORBID MULTIPLE DENTAL CARIES ALLERGIES CT SCAN DYE: VOMITING: SIDE EFFECTS ZYPREXA: SEDATION: SIDE EFFECTS TRICOR: MYALGIAS: SIDE EFFECTS TRAMADOL HCL: LEG CRAMPS: SIDE EFFECTS SEROQUEL: SEDATION: SIDE EFFECTS PAXIL: DECREASE LIBIDO: SIDE EFFECTS NORVASC: INCREASED EDEMA: SIDE EFFECTS EFFEXOR: SWEATING: SIDE EFFECTS ABILIFY: SEDATION: SIDE EFFECTS TYLENOL WITH CODEINE: HIVES: ALLERGY SURGICAL HISTORY ARTHROSCOPIC KNEE SURGERY MULTIPLE HERNIA REPAIR 1999 BRONCHOSCOPY 2004 TONSILLECTOMY WITH RECONSTRUSTION 1986 RECONSTRUCTION OF AXILLA AT 1968 HOSPITALIZATION/MAJOR DIAGNOSTIC PROCEDURE DIABETES SEPTEMBER 2014 LLL CELLULITIS AND ULCER 05/09/2016 REVIEW OF SYSTEMS CONSTITUTIONAL: ANY CHANGE IN YOUR MEDICAL CONDITION? YES. PT STATES NEW PAIN TO LEFT ELBOW WHICH RADIATES TO LEFT HAND. PT REPORTS HE IS SEEING NEUROLOGIST FOR THIS. . CHILLS NO . FEVER NO . INFECTION: DO YOU HAVE NEW INFECTIONS? NO . DO YOU HAVE HISTORY OF MRSA? NO . MUSCULOSKELETAL: ANY NEW PATTERNS OF PAIN OR NUMBNESS? NO. PT REPORTS MEDICINE REGIMEN IS CONTROLLING PAIN WELL. . GASTROENTEROLOGY: ANY NEW CHANGE IN BOWEL CONTROL? NO . GENITOURINARY: ANY NEW CHANGE IN BLADDER CONTROL? NO . IS THERE A CHANCE YOU COULD BE ? NO . HEMATOLOGY/LYMPH: DO YOU TAKE ANY BLOOD THINNERS? (FOR EXAMPLE- COUMADIN, PLAVIX, AGGRENOX, PLATEL, PRADAXA, OR XARELTO) NO . WHEN WAS YOUR LAST DOSE? DATE: TIME: . NEUROLOGY: HAVE YOU FALLEN IN THE PAST 6 MONTHS? NO . ANY NEW EXTREMITY NUMBNESS OR WEAKNESS? NO . CARDIOLOGY: DO YOU HAVE A PACEMAKER OR DEFIBRILLATOR? NO . RESPIRATORY: HAVE YOU BEEN SICK IN THE PAST WEEK? NO . FEVER NO . FLU LIKE SYMPTOMS? NO . COUGH NO . INTEGUMENTARY: DO YOU HAVE ANY RASHES OR OPEN SORES? NO . ALLERGIC/IMMUNO: ARE YOU ALLERGIC TO SHELLFISH OR IV DYE? YES . ANY NEW ALLERGIES? NO . PSYCHIATRIC: DO YOU HAVE THOUGHTS OF HURTING YOURSELF OR SOMEONE ELSE? NO . ARE YOU ABUSED, NEGLECTED, OR IN AN UNSAFE ENVIRONMENT? NO . ENDOCRINOLOGY: ARE YOU DIABETIC? YES . OTHER: DO YOU NEED ANY PRESCRIPTIONS? YES. NUCYNTA . IF YES, PLEASE LIST: ____ . ANY NEW PROBLEMS WITH YOUR MEDICATIONS? NO . WHEN DID YOU LAST EAT? ____ . WHEN DID YOU LAST DRINK? ____ . WHAT DID YOU LAST DRINK? ____ . NAME OF PERSON DRIVING YOU HOME? ____ . DO YOU HAVE ANY OTHER QUESTIONS OR CONCERNS NO . REVIEWED BY: PROVIDER: MAGNOLIA AQUINO . VITAL SIGNS WT 317 LBS, HT 72 IN, BMI 42.99 INDEX, BP 89/52 MM HG, HR 95 /MIN, RR 18 /MIN, TEMP 96.6 F, OXYGEN SAT % 90, BLOOD GLUCOSE LEVEL 314 TODAY, SAFE IN ENV? (Y/N) Y, NA INITIALS MP, REVIEWED BY: LAUREN. EXAMINATION GENERAL EXAMINATION: LUNGS:LUNG SOUNDS ARE CLEAR. HEART:HEART RATE REGULAR. MUSCULOSKELETAL:*, MUSCLE STRENGTH TESTING 5/5 BILATERAL, PALPATION: POSITIVE FOR PAIN OVER L/S SPINE. POSITIVE FOR PAIN OVER L/S PARSPINALS CERVICAL SPINE-TENDERNESS AND TRIGGER POINTS ELICITED WITH PALPATION OVER RIGHT TRAPEZIUS.LIMITED ROJM NECK AND RIGHT ARM SECONDARY TO PAIN.. DIAGNOSTIC: . ASSESSMENTS LOW BACK PAIN - M54.5 (PRIMARY) CHRONIC PRESCRIPTION OPIATE USE - Z79.891 TREATMENT LOW BACK PAIN CONTINUE CYMBALTA CAPSULE DELAYED RELEASE PARTICLES, 30 MG, 1 CAPSULE, ORALLY, EVERY AM REFILL NUCYNTA ER TABLET EXTENDED RELEASE 12 HOUR, 200 MG, 1 TABLET, ORALLY, EVERY 12 HRS MDD2, 30 DAY(S), 60, REFILLS 0 REFILL PERCOCET TABLET, 10-325 MG, 1 TABLET NEEDED, ORALLY, EVERY 6 HRS MDD4, 30 DAY(S), 120, REFILLS 0 PROCEDURE CODES G8730 PAIN ASSESS POS TOOL F/U PLAN DOC G8427 DOC MEDS VERIFIED W/PT OR RE DISPOSITION & COMMUNICATION FOLLOW UP 2 MONTHS ELECTRONICALLY SIGNED BY KENIA ERNST ON 07/08/2016 AT 01:04 PM EDT DISCLAIMER : THIS IS A VISIT SUMMARY EXTRACTED FROM THE [employer] CHART. IT IS NOT A COPY OF THE [employer] PROGRESS NOTE. MTDD
== END | disposition home or self-care (01) ==
LOC: M PAIN 10:40
PROVIDERS: ATTEND Nurse Practitioner Family
DX: G89.29 Other chronic pain (principal); M54.5 Low back pain; I10 Essential (primary) hypertension; E11.9 Type 2 diabetes mellitus without complications; J44.9 Chronic obstructive pulmonary disease, unspecified; E78.5 Hyperlipidemia, unspecified; M48.00 Spinal stenosis, site unspecified; G47.33 Obstructive sleep apnea (adult) (pediatric); G25.0 Essential tremor; F33.9 Major depressive disorder, recurrent, unspecified; G43.009 Migraine without aura, not intractable, without status migrainosus; D64.9 Anemia, unspecified; E66.8 Other obesity; E53.8 Deficiency of other specified B group vitamins; Z79.84 Long term (current) use of oral hypoglycemic drugs; Z79.899 Other long term (current) drug therapy; Z79.4 Long term (current) use of insulin; Z79.51 Long term (current) use of inhaled steroids; Z79.82 Long term (current) use of aspirin; Z88.5 Allergy status to narcotic agent; Z88.8 Allergy status to other drugs, medicaments and biological substances; Z91.041 Radiographic dye allergy status
CPT/HCPCS: 36415; 80076; 85025; G0463

== ENCOUNTER → 2016-07-08 | Outpatient (CLI) | payer MEDICARE ==
[2016-07-08 09:36] LABS: ALBUMIN 3.7 GM/DL (3.2-5.2); ALBUMIN/GLOBULIN RATIO 1.16 (1.00-1.93); ALKALINE PHOSPHATASE 63 U/L (45-117); ALT/SGPT 28 U/L (12-78); AST/SGOT 15 U/L (15-37); BILIRUBIN,DIRECT < 0.1 MG/DL (0.0-0.2); BILIRUBIN,TOTAL 0.3 MG/DL (0.2-1.0); TOTAL PROTEIN 6.9 GM/DL (6.4-8.2)
[2016-07-08 09:49] LABS: BASO % 0.3 % (0.0-1.0); EOS # 0.5 K/mm3 (0.0-0.50); EOS % 6.8 % (0.0-3.0); LARGE UNSTAINED CELL # 0.3 K/mm3 (0.0-0.4); LARGE UNSTAINED CELL % 4.3 % (0.0-4.0); LYMPH # 2.6 K/mm3 (1.5-4.5); LYMPH % 36.5 % (24.0-44.0); MEAN CORPUSCULAR HEMOGLOBIN 29.6 pg (27.0-33.0); MEAN CORPUSCULAR HGB CONC 35.2 g/dl (32.0-36.5); MONO # 0.6 K/mm3 (0.0-0.8); NEUTROPHILS # 3.1 K/mm3 (1.8-7.7); NEUTROPHILS % 43.1 % (36.0-66.0); PLATELET COUNT, AUTOMATED 267 k/mm3 (150-450); RED CELL DISTRIBUTION WIDTH 13.4 % (11.5-14.5); WHITE BLOOD COUNT 7.1 K/mm3 (4.0-10.0)
== END ==
LOC: M LAB 08:56
PROVIDERS: ATTEND Hospitalist
DX: R10.11 Right upper quadrant pain (principal)

== ENCOUNTER → 2016-07-12 | Outpatient (CLI) | payer MEDICARE ==
--- NOTE | 2016-07-12 10:33 | REP ---
Clinical: Right upper quadrant abdominal pain. Technique: Fuentes scale ultrasound using curved array transducer. Findings: The liver demonstrates mild fatty infiltration with focal fatty sparing at the gallbladder fossa. The pancreas is incompletely evaluated due to interposed bowel gas but visualized portions appear normal. The gallbladder demonstrates small amount of layering gravel without wall thickening or pericholecystic fluid. No biliary ductal dilatation is appreciated, and the common bile duct measures 4.4 mm diameter. The right kidney is normal in reniform shape without hydronephrosis and measures 15.4 x 5.9 x 5.7 cm. No ascites. Visualized portions of the abdominal aorta normal. Impression: 1. Small amount of layering gravel in the gallbladder without evidence for acute cholecystitis. 2. Mild fatty infiltration to the liver. 3. Subjectively enlarged right kidney without focal abnormality or hydronephrosis. Signed by Morgan Howard MD 07/12/2016 10:24 A
== END ==
LOC: M RAD 09:42
PROVIDERS: ATTEND Hospitalist
DX: R10.11 Right upper quadrant pain (principal); K76.0 Fatty (change of) liver, not elsewhere classified; N28.81 Hypertrophy of kidney

== ENCOUNTER → 2016-08-09 | Outpatient (CLI) | payer MEDICARE ==
[~2016-08-09] MED LIST changes: -COLA100C3 PO; +COLA100C5 PO; -DOCU100C PO; +DOCU100C16 PO; -METF1000 PO; +METF10004 PO; -PERC10TA17 PO; +PERC10TA26 PO
--- NOTE | 2016-08-09 11:51 | REP ---
REASON: Pain. COMPARISON: 11/25/2014. There is no change in the craniovertebral junction. No abnormal signal has developed in the imaged portion of the spinal cord. There is no change in the marrow signal. There is no change in vertebral body hydrational signal or height. At the C2-3 level, there is no change. There is a broad based annular bulge status quo. This is seen in conjunction with a tiny focal central subligamentous disc protrusion. There is no disc extrusion, foraminal narrowing, or central canal stenosis. At the C3-4 level, there is no change. There is an asymmetric broad based annular bulge effacing the ventral subarachnoid space without lavern cord compression. Degenerative changes are again seen involving the facet joints and uncovertebral joints bilaterally causing moderate right and mild left foraminal stenosis. At the C4-5 level, there is a broad based annular bulge seen in conjunction with a left paracentral focal disc protrusion. This focally effaces the ventral subarachnoid space. It is unchanged. Degenerative facet and uncovertebral joint changes are again present at this level bilaterally but particularly on the left causing foraminal stenosis. No acute disc extrusion has developed. At the C5-6 level, there is a posterior spondylotic bulge seen in conjunction with a large broad based annular bulge consistent with disc osteophyte formation. This is causing spinal cord compression status quo and bilateral foraminal narrowing is seen due to these findings and bilateral degenerative facet and uncovertebral joint changes. No acute disc extrusion has developed. At the C6-7 level, there is a broad based annular bulge seen in conjunction with a posterior spondylotic bar. The disc osteophyte complex is causing obliteration of the ventral subarachnoid space and mild cord compression status quo. Degenerative facet and uncovertebral joint changes are again seen at this level bilaterally causing mild bilateral foraminal narrowing. There is no acute disc extrusion. At the C7-T1 level, there is a small right paracentral disc protrusion status quo. Minimal effacement of the thecal sac is again seen without lavern spinal cord compression. There is no lavern foraminal stenosis. IMPRESSION: Multilevel discogenic changes and spondylotic changes as described above essentially unchanged from the prior exam. Signed by Redd Edwards DO 08/09/2016 01:42 P
== END ==
LOC: M PLARAD 08:40
PROVIDERS: ATTEND Psychiatry & Neurology Neurology
DX: R20.2 Paresthesia of skin (principal); M54.2 Cervicalgia; M43.02 Spondylolysis, cervical region

== ENCOUNTER → 2016-09-20 | Outpatient (CLI) | payer MEDICARE ==
--- NOTE | 2016-10-23 02:45 | ECWPNPC ---
PATIENT NAME: CHRISTINE BECERRIL : 1965 GENDER: MALE VISIT DATE: 09/20/2016 DISCHARGE DATE: 09/20/16 1010 VISIT LOCKED DATE TIME: PHYSICIAN: MAGNOLIA JOYCE RESOURCE: MAGNOLIA JOYCE REASON FOR APPOINTMENT 1. BACK AND NECK HISTORY OF PRESENT ILLNESS HISTORY OF PRESENT ILLNESS: PAIN THE PATIENT DESCRIBES THE PAIN... THE PATIENT DESCRIBES THE PAIN... THE PATIENT DESCRIBES THE PAIN... THE PATIENT DESCRIBES THE PAIN... THE PATIENT DESCRIBES THE PAIN... THE PATIENT DESCRIBES THE PAIN... THE PATIENT DESCRIBES THE PAIN... HERE FOR F/U AND MANAGEMENT OF CHRONIC GENERALIZED BACK PAIN.CONTINUES TO TAKE NUCYNTA ER 200MG BID .RATING PAIN VAS 8/10. USING PERCOCET 10/325 PRN FOR SEVERE PAIN.DESCRIBES PAIN INTERMITTENT SHARP AND ACHING. DISCUSSED MEDICATION AND TREATMENT OPTIONS.HAS ADVERSE EFFECT WITH MORPHINE THAT CAUSES HIM TO BE MEAN.STOPPED ZANAFLEX SEVERAL MONTHS AGO IT CAUSED NAUSEA AND VOMITING.HAVING RIGHT SIDE PAIN THAT IS GETTING WORSE.STATES PRIMARY CARE IS EVALUATING. FALL RISK SCREENING: SCREENING :NO FALLS IN THE PAST YEAR CURRENT MEDICATIONS TAKING EPIPEN 0.3 MG/0.3ML (1:1000) DEVICE SQ INTRAMUSCULAR NEEDED TAKING NITROSTAT 0.4 MG TABLET SUBLINGUAL 1 TABLET UNDER THE TONGUE EVERY 5 MINS FOR CHEST PAIN WITH A MAX OF 3 TABS SUBLINGUAL DIRECTED TAKING MAY HAVE _ 1 NASAL CANNUAL EXTRA LONG QID WHEN NEEDED TAKING CALCIUM PLUS VITAMIN D 500-50 MG-UNIT CAPSULE 2 CAPSULES WITH A MEAL ORALLY ONCE A DAY TAKING COLACE 100 MG CAPSULE 1 TABLET ORALLY TWICE A DAY TAKING MIRALAX OTC POWDER PO ORALLY TWICE A DAY TAKING TAMSULOSIN HCL 0.4 MG CAPSULE EXTENDED RELEASE 1 TAB(S) P.O. ONCE A DAY TAKING NASONEX 50 MCG/ACT LIQUID 2 PUFFS IN EACH NOSTRIL NASALLY ONCE A DAY TAKING ASTELIN 137 MCG/SPRAY SOLUTION 2 PUFFS IN EACH NOSTRIL NASALLY TWICE A DAY TAKING ADVAIR HFA 45-21 MCG/ACT AEROSOL 2 PUFFS INHALATION TWICE A DAY TAKING LIDOCAINE HCL 5 % CREAM DIRECTED EXTERNALLY APPLY TO LEFT SHOULDER OR LOW BACK 3X DAY PRN TAKING PROVENTIL HFA 108 (90 BASE) MCG/ACT AEROSOL SOLUTION 2 PUFFS INHALATION FOUR TIMES A DAY NEEDED TAKING ALBUTEROL SULFATE 1.25 MG/3ML NEBULIZATION SOLUTION 3 ML NEEDED INHALATION EVERY 8 HRS TAKING ASPIRIN 325 MG TABLET DELAYED RELEASE 1 TABLET ORALLY ONCE A DAY TAKING ATENOLOL 25 MG TABLET 1 TABLET ORALLY ONCE A DAY TAKING VITAMIN B-12 1000 MCG INJECTION 1 INJECTION IM MONTHLY, NOTES: INS WONT PAY TAKING XOPENEX 0.31 MG/3ML NEBULIZATION SOLUTION 3 ML INHALATION FOUR TIMES A DAY NEEDED, NOTES: INSURANCE WOULDN'T COVER TAKING ALCOHOL PREP 1 ALCOHOL PREP PADS NEEDED TAKING HOSPITAL BED _ _ HOSPITAL BED DX 454.0,135,782.3 DAILY NEEDED TAKING PEN NEEDLES NOVOFINE NEEDLE PEN NEEDLESFOR VICTOZA VICTOZA FOUR TIMES A DAY TAKING INSULIN SYRINGES (DISPOSABLE) 0.5 CC SYRINGE 1 SUBCUTANEOUSLY AT BEDTIME TAKING LANCETS 1 LANCET 1 SUBCUTANEOUSLY BID TAKING BLOOD GLUCOSE TEST STRIP 1 STRIPS ONE TOUCH ULTRA TEST STRIPS USE 1 TWO TIMES A DAY DIRECTED TWICE A DAY TAKING NEBULIZER/TUBING/MOUTHPIECE 1 NEEDED TAKING COMPRESSION STOCKINGS 20-30 MMHG DIRECTED TAKING ALTERNATING PRESSURE MATTRESS 1 _ ALTERNATING MATTRESS PAD WITH MARCY AND PUMP ICD:187.139 DAILY TAKING CPAP MACHINE _ 1 CPAP MACHINE FOR SLEEP AT NIGHT ICD: G47.33 AT NIGHT FOR SLEEP TAKING CPAP MASK _ 1 CPAP MASK ICD: G47.33 FOR SLEEP AT NIGHT TAKING GABAPENTIN 300 MG CAPSULE 1 CAPSULE ORALLY THREE TIMES A DAY TAKING HUMULIN R U-500 KWIKPEN 500 UNIT/ML SOLUTION PEN-INJECTOR 100 UNITS SUBCUTANEOUS THREE TIMES DAILY TAKING LISINOPRIL 5 MG TABLET 1 TAB ORALLY DAILY TAKING HUMALOG KWIKPEN 30 SOLUTION PEN-INJECTOR 100 UNITS SUBCUTANEOUS FOUR TIMES A DAY TAKING VICTOZA 18 MG/3ML SOLUTION PEN-INJECTOR 0.2 ML SUBCUTANEOUS ONCE A DAY TAKING PRAVASTATIN SODIUM 40 MG TABLET 1 TABLET ORALLY ONCE A DAY TAKING METFORMIN HCL 1000 MG TABLET 1 TABLET WITH MEALS ORALLY TWICE A DAY TAKING VIAGRA 50 MG TABLET HALF A TABLET NEEDED ORALLY ONCE A DAY TAKING VITAMIN K 100 MCG TABLET 1 TABLET ORALLY ONCE A DAY TAKING IBUPROFEN 800 MG TABLET 1 TABLET WITH FOOD OR MILK ORALLY THREE TIMES A DAY TAKING ZANTAC 150 MAXIMUM STRENGTH 150 MG TABLET 1 TABLET AT BEDTIME ORALLY BID TAKING WELLBUTRIN 100 MG TABLET 1 TABLET ORALLY DAILY TAKING POTASSIUM CHLORIDE 20 MEQ CAPSULE 1 CAPSULE WITH FOOD ORALLY TWICE A DAY TAKING REQUIP 1 MG TABLET 1 TABLET ORALLY AT BEDTIME TAKING CYCLOBENZAPRINE HCL 5 MG TABLET 1 TABLET ORALLY QHS TAKING FUROSEMIDE 80 MG TABLET 1 TABLET ORALLY WITH 20MG TO EQUAL 100MG TWICE A DAY TAKING LASIX 20 MG TABLET 1 TABLET ORALLY TWICE DAILY, NOTES: TOTAL OF 100 MG BID TAKING PERCOCET 10-325 MG TABLET 1 TABLET NEEDED ORALLY EVERY 6 HRS MDD4 TAKING CYMBALTA 60 MG CAPSULE DELAYED RELEASE PARTICLES 1 TABLET ORALLY DAILY TAKING CYMBALTA 30 MG CAPSULE DELAYED RELEASE PARTICLES 1 CAPSULE ORALLY ONCE A DAY TAKING NUCYNTA ER 200 MG TABLET EXTENDED RELEASE 12 HOUR 1 TABLET ORALLY EVERY 12 HRS MDD2 TAKING NEXIUM 40 MG CAPSULE DELAYED RELEASE 1 CAPSULE ORALLY BID NOT-TAKING DOXYCYCLINE HYCLATE 100 MG TABLET DELAYED RELEASE 1 TABLET ORALLY EVERY 12 HRS NOT-TAKING NUCYNTA 75 MG TABLET 1 TABLET ORALLY EVERY 6 HRS PRN MDD4 NOT-TAKING NUCYNTA 100 MG TABLET 2 TABLET ORALLY EVERY 12 HOURS, NOTES: DUPLICATE NOT-TAKING ZANTAC 150 MG TABLET 1 TAB ORALLY TWICE DAILY, NOTES: DUPLICATE NOT-TAKING BACITRACIN 500 UNIT/GM OINTMENT 1 APPLICATION TO AFFECTED AREA EXTERNALLY ONCE A DAY MEDICATION LIST REVIEWED AND RECONCILED WITH THE PATIENT PAST MEDICAL HISTORY DIABETES MELLITUS TYPE 2 EAKUISP-[id number] 30, 2007 CARDI[id number] [place] [facility]/ASTHMA MODERATE PERSISTENT/SARCOIDOSIS/COR PULMONALE HYPERLIPIDEMIA 2B CERVICAL DJD WITH RIGHT C5-C6 RADICULOPATHY-NOVEMBER 2007 MRI WITH C6-C7 MODERATE LEFT BULGE CAUSING MODERATE CENTRAL CANAL STENOSIS, SMALL LEFT HNP C4-C5 WITH MODERATE SPINAL STENOSIS AND C5-C6 BULGE CAUSING BILATERAL NEURAL FORAMINAL NARROWING RIGHT GREATER THAN LEFT RIGHT SUPRASPINATUS TENDINITIS BY MAY 2008 MRI OBSTRUCTIVE SLEEP APNEA-PATIENT REFUSES CPAP ALLERGIC RHINITIS/CHRONIC SINUSITIS MIGRAINE HEADACHES, COMMON TYPE ESSENTIAL TREMOR DEPRESSION DYSPEPSIA/GERD B12 DEFICIENCY RESTLESS LEG SYNDROME HYPERTENSION CONSTIPATION, CHRONIC ANEMIA, CHRONIC SECONDARY TO IRON AND B12 DEFICIENCY-PATIENT REFUSES ANOSCOPY HYMENOPTERA ANAPHYLAXIS HISTORY OF IGG LAMBDA BY RUBÉN- PATIENT REFUSED BONE MARROW BIOPSY OBESITY, MORBID MULTIPLE DENTAL CARIES ALLERGIES CT SCAN DYE: VOMITING: SIDE EFFECTS ZYPREXA: SEDATION: SIDE EFFECTS TRICOR: MYALGIAS: SIDE EFFECTS TRAMADOL HCL: LEG CRAMPS: SIDE EFFECTS SEROQUEL: SEDATION: SIDE EFFECTS PAXIL: DECREASE LIBIDO: SIDE EFFECTS NORVASC: INCREASED EDEMA: SIDE EFFECTS EFFEXOR: SWEATING: SIDE EFFECTS ABILIFY: SEDATION: SIDE EFFECTS TYLENOL WITH CODEINE: HIVES: ALLERGY SURGICAL HISTORY ARTHROSCOPIC KNEE SURGERY MULTIPLE HERNIA REPAIR 2000 BRONCHOSCOPY 2003 TONSILLECTOMY WITH RECONSTRUSTION 1987 RECONSTRUCTION OF AXILLA AT 1968 HOSPITALIZATION/MAJOR DIAGNOSTIC PROCEDURE DIABETES SEPTEMBER 2014 LLL CELLULITIS AND ULCER 05/09/2016 REVIEW OF SYSTEMS REVIEWED BY: PROVIDER: MAGNOLIA AQUINO . CONSTITUTIONAL: ANY CHANGE IN YOUR MEDICAL CONDITION? NO . CHILLS NO . FEVER NO . INFECTION: DO YOU HAVE NEW INFECTIONS? NO . DO YOU HAVE HISTORY OF MRSA? NO . MUSCULOSKELETAL: ANY NEW PATTERNS OF PAIN OR NUMBNESS? YES, PAIN IS WORSE . GASTROENTEROLOGY: ANY NEW CHANGE IN BOWEL CONTROL? NO . GENITOURINARY: ANY NEW CHANGE IN BLADDER CONTROL? NO . IS THERE A CHANCE YOU COULD BE ? NO . HEMATOLOGY/LYMPH: DO YOU TAKE ANY BLOOD THINNERS? (FOR EXAMPLE- COUMADIN, PLAVIX, AGGRENOX, PLATEL, PRADAXA, OR XARELTO) NO . WHEN WAS YOUR LAST DOSE? DATE: TIME: . NEUROLOGY: HAVE YOU FALLEN IN THE PAST 6 MONTHS? NO . ANY NEW EXTREMITY NUMBNESS OR WEAKNESS? NO . CARDIOLOGY: DO YOU HAVE A PACEMAKER OR DEFIBRILLATOR? NO . RESPIRATORY: HAVE YOU BEEN SICK IN THE PAST WEEK? NO . FEVER NO . FLU LIKE SYMPTOMS? NO . COUGH NO . INTEGUMENTARY: DO YOU HAVE ANY RASHES OR OPEN SORES? NO . ALLERGIC/IMMUNO: ARE YOU ALLERGIC TO SHELLFISH OR IV DYE? YES, IV DYE . ANY NEW ALLERGIES? NO . PSYCHIATRIC: DO YOU HAVE THOUGHTS OF HURTING YOURSELF OR SOMEONE ELSE? NO . ARE YOU ABUSED, NEGLECTED, OR IN AN UNSAFE ENVIRONMENT? NO . ENDOCRINOLOGY: ARE YOU DIABETIC? YES . OTHER: DO YOU NEED ANY PRESCRIPTIONS? NO . IF YES, PLEASE LIST: ____ . ANY NEW PROBLEMS WITH YOUR MEDICATIONS? NO . WHEN DID YOU LAST EAT? ____ . WHEN DID YOU LAST DRINK? ____ . WHAT DID YOU LAST DRINK? ____ . NAME OF PERSON DRIVING YOU HOME? ____ . DO YOU HAVE ANY OTHER QUESTIONS OR CONCERNS NO . VITAL SIGNS WT 338.4 LBS, HT 72 IN, BMI 45.89 INDEX, BP 147/89 MM HG, HR 69 /MIN, RR 20 /MIN, TEMP 96.8 F, OXYGEN SAT % 92, NA INITIALS MP [id number], REVIEWED BY: EM. EXAMINATION GENERAL EXAMINATION: GENERAL APPEARANCE:COMFORTABLE. PSYCHAFFECT NORMAL. LUNGS:LUNG SOUNDS ARE CLEAR.RESPIRATIONS NON-LABORED. HEART:S1, S2 IN A REGULAR RATE AND RHYTHM. NO SIGNIFICANT MURMURS, RUBS OR GALLOPS NOTED. BACK:PERILUMBAR TENDERNESS, PAIN WITH FLEXION, PAIN WITH EXTENSION. ASSESSMENTS LOW BACK PAIN - M54.5 (PRIMARY) CHRONIC PRESCRIPTION OPIATE USE - Z79.891 TREATMENT LOW BACK PAIN REFILL CYMBALTA CAPSULE DELAYED RELEASE PARTICLES, 60 MG, 1 TABLET, ORALLY, DAILY, 30 DAY(S), 30 TABLET, REFILLS 3 REFILL CYMBALTA CAPSULE DELAYED RELEASE PARTICLES, 30 MG, 1 CAPSULE, ORALLY, ONCE A DAY, 30 DAY(S), 30 CAPSULE, REFILLS 4 REFILL NUCYNTA ER TABLET EXTENDED RELEASE 12 HOUR, 200 MG, 1 TABLET, ORALLY, EVERY 12 HRS MDD2, 30 DAY(S), 60, REFILLS 0 REFILL PERCOCET TABLET, 10-325 MG, 1 TABLET NEEDED, ORALLY, EVERY 6 HRS MDD4, 30 DAY(S), 120, REFILLS 0 NOTES: ISTOP REGISTRY REVIEWED AND DEMNOSTRATES COMPLLIANCE. BRINGS IN MEDICATIONS WHICH IS APPROPRIATE FOR WHAT WAS DISPENSED. RECENT URINE TOXICOLOGY REVIEWED. NO UNAUTHORIZED MEDICATIONS. NO ILLICIT SUBSTANCES AND PRESCRIBED MEDICATIONS WERE PRESENT. , RISKS AND BENEFITS OF NARCOTIC/OPIOD MEDICATIONS WERE REVIEWED WITH PATIENT - THIS INCLUDES BUT IS NOT LIMITED TO RISK OF DEPENDANCE/DEVELOPMENT OF ADDICTION, MOOD DISTURBANCE AND DEPRESSION, OSTEOPOROSIS, HORMONAL AND LABIDAL CHANGES, RESPIRATORY DEPRESSION AND . PATIENT IS ADVISED NOT TO DRIVE WHILE ON THESE MEDICATIONS.URINE TOX TODAY. PROCEDURE CODES FA211 ESTABILISHED PATIENT [facility] CHARGE G8730 PAIN ASSESS POS TOOL F/U PLAN DOC G8427 DOC MEDS VERIFIED W/PT OR RE DISPOSITION & COMMUNICATION FOLLOW UP 2 MONTHS ELECTRONICALLY SIGNED BY KENIA ERNST ON 10/22/2016 AT 07:21 PM EDT DISCLAIMER : THIS IS A VISIT SUMMARY EXTRACTED FROM THE [employer] CHART. IT IS NOT A COPY OF THE [employer] PROGRESS NOTE. FINESSED
== END ==
LOC: M PAIN 09:40
PROVIDERS: ATTEND Nurse Practitioner Family
DX: G89.29 Other chronic pain (principal); M54.5 Low back pain; E11.9 Type 2 diabetes mellitus without complications; J44.9 Chronic obstructive pulmonary disease, unspecified; J45.40 Moderate persistent asthma, uncomplicated; E78.5 Hyperlipidemia, unspecified; G47.33 Obstructive sleep apnea (adult) (pediatric); G25.0 Essential tremor; F32.9 Major depressive disorder, single episode, unspecified; K21.9 Gastro-esophageal reflux disease without esophagitis; D53.9 Nutritional anemia, unspecified; G25.81 Restless legs syndrome; I10 Essential (primary) hypertension; K59.00 Constipation, unspecified; D50.9 Iron deficiency anemia, unspecified; E66.01 Morbid (severe) obesity due to excess calories; K02.9 Dental caries, unspecified; M50.223 Other cervical disc displacement at C6-C7 level; G43.009 Migraine without aura, not intractable, without status migrainosus; Z79.891 Long term (current) use of opiate analgesic; Z79.82 Long term (current) use of aspirin; Z79.899 Other long term (current) drug therapy; Z79.4 Long term (current) use of insulin; Z91.041 Radiographic dye allergy status; Z88.5 Allergy status to narcotic agent; Z88.8 Allergy status to other drugs, medicaments and biological substances; Z68.42 Body mass index [BMI] 45.0-49.9, adult

== ENCOUNTER → 2016-11-08 | Outpatient (CLI) | payer MEDICARE ==
--- NOTE | 2016-11-08 15:55 | REP ---
MRI brain without contrast: History: Pituitary adenoma. Headaches. Dizziness. Comparison MRI brain study is from September 23, 2014. Technique: Axial, coronal and sagittal imaging planes were utilized. Sequences include spin-echo, fast spin echo, FLAIR, diffusion weighted scans and gradient echo sequence. Thin section coronal and sagittal T1s through the sella are obtained. MRI findings: The bony calvarium is intact. Craniocervical junction and upper cervical cord are unremarkable. There is no evidence of intracranial hemorrhage. Fuentes-white differentiation pattern is intact. Diffusion weighted scan show no evidence of acute ischemia. No abnormal white matter lesion is seen. No vascular abnormality is observed. There is mucosal thickening affecting the frontal, ethmoidal, and sphenoid and maxillary sinuses consistent with pansinusitis. Pituitary gland is unchanged in appearance from the September 23, 2014 prior study measuring 9 mm in vertical height as before. Suprasellar cistern is unremarkable. No other abnormality. Impression: Mild enlargement of the pituitary again noted unchanged from October 06, 2014 prior study. No other intracranial abnormality. Polysinusitis changes are noted. These paranasal sinus changes are more pronounced than on the 2014 study. Signed by Ugo Arambula MD 11/08/2016 05:12 P
== END ==
LOC: M RAD 14:34
PROVIDERS: ATTEND Student in an Organized Health Care Education/Training Program
DX: D35.2 Benign neoplasm of pituitary gland (principal); J32.4 Chronic pansinusitis

== ENCOUNTER → 2016-11-12 | Outpatient (CLI) | payer MEDICARE ==
--- NOTE | 2016-11-12 17:14 | REP ---
LUMBOSACRAL SPINE, SEVEN VIEWS: HISTORY: Spondylosis. There is no acute fracture or subluxation. The intervertebral discs are decreased in height consistent with disc degeneration. Osteophytes are present on L1 through L5. There is narrowing of the right L4-5 and L5-S1 facet joints. IMPRESSION: Degenerative change as described above. Signed by Harley Quintero MD 11/13/2016 08:43 A
--- NOTE | 2016-11-12 20:23 | REP ---
CERVICAL SPINE, SEVEN VIEWS: HISTORY: Spondylosis. The cervical spine is visualized from C1 to the C6-7 level in the lateral radiographs. There is no acute fracture or subluxation. The C3-4 through C6-7 intervertebral discs are decreased in height consistent with disc degeneration. Osteophytes are present on C2 through C7. There is narrowing of the C3, C5, and C6 neural foramina secondary to uncinate process hypertrophy. IMPRESSION: Degenerative change as described above. Signed by Harley Quintero MD 11/13/2016 08:41 A
== END ==
LOC: M RAD 16:20
PROVIDERS: ATTEND Neurological Surgery
DX: M47.892 Other spondylosis, cervical region (principal); M47.896 Other spondylosis, lumbar region

== ENCOUNTER → 2016-11-22 | Outpatient (CLI) | payer MEDICARE ==
--- NOTE | 2016-11-22 15:47 | REP ---
MRI LUMBAR SPINE WITHOUT CONTRAST: HISTORY: Back pain. COMPARISON: 11/25/2014. Decreased signal intensity on T2-weighted images is present in the L3-4 through L5-S1 intervertebral discs. The discs are decreased in height. These findings are consistent with disc degeneration. A diffuse disc bulge is present at the L1-2 level. There is an increase in the amount of epidural fat. There is minimal compression of the thecal sac. The L1 nerves exit the neural foramina without compression. A diffuse disc bulge is present at the L2-3 level. There is an increase in the amount of epidural fat. There is minimal compression of the thecal sac. There is hypertrophy of the posterior articulating facets. The L2 nerves exit the neural foramina without compression. A diffuse disc bulge is present at the L3-4 level. There is an increase in the amount of epidural fat. There is minimal compression of the thecal sac. There is hypertrophy of the posterior articulating facets. The L3 nerves exit the neural foramina without compression. A diffuse disc bulge is present at the L4-5 level. There is an increase in the amount of epidural fat. There is minimal compression of the thecal sac. There is hypertrophy of the posterior articulating facets. The L4 nerves exit the neural foramina without compression. A diffuse disc bulge and small central disc extrusion are present at the L5-S1 level. The disc extrusion is slightly decreased in size. There is an increase in the amount of epidural fat. There is minimal compression of the thecal sac and S1 nerves as they exit the thecal sac. There is hypertrophy of the posterior articulating facets. There is compression of the left L5 nerve in the neural foramen. The right L5 nerve exits the neural foramen without compression. The conus medullaris is normal in appearance terminating at the level of the T12-L1 intervertebral disc. A small 7 mm focus of isointense signal intensity is present inferior and anterior to the conus medullaris. Normal signal intensity is present in the lumbar vertebral bodies. IMPRESSION: 1. Diffuse disc bulge and epidural lipomatosis at the L1-2 through L4-5 levels with minimal thecal sac compression. 2. Diffuse disc bulge and small central disc extrusion and epidural lipomatosis at the L5-S1 level with minimal compression of the thecal sac and S1 nerves as they exit the thecal sac. The disc extrusion is slightly decreased in size. 3. There is a small 7 mm focus of isointense signal intensity inferior and anterior to the conus medullaris. This may represent artifact, however, the possibility of a small lesion cannot be excluded. Contrast enhanced MR is recommended for further evaluation. Signed by Harley Quintero MD 11/22/2016 03:58 P
== END ==
LOC: M PLARAD 13:56
PROVIDERS: ATTEND Neurological Surgery
DX: M54.5 Low back pain (principal)

== ENCOUNTER → 2016-12-31 | Outpatient (CLI) | payer MEDICARE ==
[~2016-12-31] MED LIST changes: +LISI10TA4 PO; +PIOG15TA3 PO; +TOUJ1.2I SC; +[UNRECOGNIZED DRUG - CODE] PO
--- NOTE | 2017-01-15 01:10 | ECWPNPC ---
PATIENT NAME: CHRISTINE BECERRIL : 1965 GENDER: MALE VISIT DATE: 12/31/2016 DISCHARGE DATE: 12/31/16 1219 VISIT LOCKED DATE TIME: PHYSICIAN: MAGNOLIA JOYCE RESOURCE: MAGNOLIA JOYCE REASON FOR APPOINTMENT 1. BACK/NECK HISTORY OF PRESENT ILLNESS HISTORY OF PRESENT ILLNESS: HERE FOR F/U AND MANAGEMENT OF CHRONIC LOW BACK AND NECK PAIN.RATING PAIN VAS 6/10.FOLLOWING WITH DR. KELLY AND WILL BE POSSIBLY HAVING SURGERY.CURRENT MEDICATION NUCYNTA ER 150MG BID AND PERCOCET 10/325 Q6H PRN NOT HELPING IT WAS.DISCUSSED MEDICATION OPTIONS. PAIN THE PATIENT DESCRIBES THE PAIN... FALL RISK SCREENING: SCREENING :NO FALLS IN THE PAST YEAR CURRENT MEDICATIONS TAKING ASTELIN 137 MCG/SPRAY SOLUTION 2 PUFFS IN EACH NOSTRIL NASALLY TWICE A DAY TAKING NASONEX 50 MCG/ACT LIQUID 2 PUFFS IN EACH NOSTRIL NASALLY ONCE A DAY TAKING NITROSTAT 0.4 MG TABLET SUBLINGUAL 1 TABLET UNDER THE TONGUE EVERY 5 MINS FOR CHEST PAIN WITH A MAX OF 3 TABS SUBLINGUAL DIRECTED TAKING EPIPEN 0.3 MG/0.3ML (1:1000) DEVICE SQ INTRAMUSCULAR NEEDED TAKING PROVENTIL HFA 108 (90 BASE) MCG/ACT AEROSOL SOLUTION 2 PUFFS INHALATION FOUR TIMES A DAY NEEDED TAKING XOPENEX 0.31 MG/3ML NEBULIZATION SOLUTION 3 ML INHALATION FOUR TIMES A DAY NEEDED, NOTES: INSURANCE WOULDN'T COVER TAKING ALBUTEROL SULFATE 1.25 MG/3ML NEBULIZATION SOLUTION 3 ML NEEDED INHALATION EVERY 8 HRS TAKING NEBULIZER/TUBING/MOUTHPIECE 1 NEEDED TAKING MAY HAVE _ 1 NASAL CANNUAL EXTRA LONG QID WHEN NEEDED TAKING CALCIUM PLUS VITAMIN D 500-50 MG-UNIT CAPSULE 2 CAPSULES WITH A MEAL ORALLY ONCE A DAY TAKING COLACE 100 MG CAPSULE 1 TABLET ORALLY TWICE A DAY TAKING MIRALAX OTC POWDER PO ORALLY TWICE A DAY TAKING ASPIRIN 325 MG TABLET DELAYED RELEASE 1 TABLET ORALLY ONCE A DAY TAKING ALCOHOL PREP 1 ALCOHOL PREP PADS NEEDED TAKING HOSPITAL BED _ _ HOSPITAL BED DX 454.0,135,782.3 DAILY NEEDED TAKING COMPRESSION STOCKINGS 20-30 MMHG DIRECTED TAKING ALTERNATING PRESSURE MATTRESS 1 _ ALTERNATING MATTRESS PAD WITH MARCY AND PUMP ICD:187.139 DAILY TAKING PEN NEEDLES NOVOFINE NEEDLE PEN NEEDLESFOR VICTOZA VICTOZA FOUR TIMES A DAY TAKING LANCETS 1 LANCET 1 SUBCUTANEOUSLY TWICE DAILY TAKING BLOOD GLUCOSE TEST STRIP 1 STRIPS ONE TOUCH ULTRA TEST STRIPS 1 TOPICALLY TWICE A DAY TAKING METFORMIN HCL 1000 MG TABLET 1 TABLET WITH MEALS ORALLY TWICE A DAY TAKING TOUJEO SOLOSTAR 300 UNIT/ML SOLUTION PEN-INJECTOR 160 MG SUBCUTANEOUS TWICE DAILY TAKING POTASSIUM CHLORIDE 20 MEQ CAPSULE 1 CAPSULE WITH FOOD ORALLY TWICE A DAY TAKING CYMBALTA 60 MG CAPSULE DELAYED RELEASE PARTICLES 1 TABLET ORALLY AT NIGHT, NOTES: TAKES 30 MG AM, 60 MG PM TAKING CYMBALTA 30 MG CAPSULE DELAYED RELEASE PARTICLES 1 CAPSULE ORALLY IN THE AM, NOTES: TAKES 30 MG AM, 60 MG PM TAKING LIDOCAINE HCL 5 % CREAM DIRECTED EXTERNALLY APPLY TO LEFT SHOULDER OR LOW BACK 3X DAY PRN TAKING VITAMIN B-12 1000 MCG INJECTION 1 INJECTION IM MONTHLY TAKING IBUPROFEN 800 MG TABLET 1 TABLET WITH FOOD OR MILK ORALLY THREE TIMES DAILY NEEDED TAKING LASIX 20 MG TABLET 1 TABLET ORALLY TWICE DAILY TAKING FUROSEMIDE 80 MG TABLET 1 TABLET ORALLY WITH 20MG TO EQUAL 100MG TWICE A DAY TAKING LISINOPRIL 10 MG TABLET TAKE ONE TABLET BY MOUTH EVERY DAY ORAL TAKING GABAPENTIN 300 MG CAPSULE 2 CAPSULE ORALLY THREE TIMES A DAY TAKING NUCYNTA ER 250 MG TABLET EXTENDED RELEASE 12 HOUR 1 TABLET ORALLY EVERY 12 HRS MDD2 (PAIN CLINIC) TAKING PERCOCET 10-325 MG TABLET 1 TABLET NEEDED ORALLY EVERY 6 HRS MDD4 (PAIN CLINIC) TAKING NEXIUM 40 MG CAPSULE DELAYED RELEASE 1 CAPSULE ORALLY TWICE DAILY TAKING REQUIP 1 MG TABLET 1 TABLET ORALLY AT BEDTIME TAKING ADVAIR HFA 115-21 MCG/ACT AEROSOL 2 PUFFS INHALATION TWICE A DAY TAKING PIOGLITAZONE HCL 15 MG TABLET 1 TABLET ORALLY ONCE A DAY, NOTES: FOR DIABETES AND INSULIN RESISTANCE TAKING ZANTAC 150 MAXIMUM STRENGTH 150 MG TABLET 1 TAB ORALLY TWICE DAILY TAKING TAMSULOSIN HCL 0.4 MG CAPSULE EXTENDED RELEASE 1 TAB(S) ORALLY ONCE A DAY MEDICATION LIST REVIEWED AND RECONCILED WITH THE PATIENT PAST MEDICAL HISTORY DIABETES MELLITUS TYPE 2 [id number] 30, 2007 CARDIAC 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-NOVEMBER 2007 MRI WITH C6-C7 MODERATE LEFT BULGE CAUSING MODERATE CENTRAL CANAL STENOSIS, SMALL LEFT HNP C4-C5 WITH MODERATE SPINAL STENOSIS AND C5-C6 BULGE CAUSING BILATERAL NEURAL FORAMINAL NARROWING RIGHT GREATER THAN LEFT RIGHT SUPRASPINATUS TENDINITIS BY MAY 2008 MRI OBSTRUCTIVE SLEEP APNEA-PATIENT REFUSES CPAP ALLERGIC RHINITIS/CHRONIC SINUSITIS MIGRAINE HEADACHES, COMMON TYPE ESSENTIAL TREMOR DEPRESSION DYSPEPSIA/GERD B12 DEFICIENCY RESTLESS LEG SYNDROME HYPERTENSION CONSTIPATION, CHRONIC ANEMIA, CHRONIC SECONDARY TO IRON AND B12 DEFICIENCY-PATIENT REFUSES ANOSCOPY HYMENOPTERA ANAPHYLAXIS HISTORY OF IGG LAMBDA BY RUBÉN- PATIENT REFUSED BONE MARROW BIOPSY OBESITY, MORBID MULTIPLE DENTAL CARIES ALLERGIES CT SCAN DYE: VOMITING: SIDE EFFECTS ZYPREXA: SEDATION: SIDE EFFECTS TRICOR: MYALGIAS: SIDE EFFECTS TRAMADOL HCL: LEG CRAMPS: SIDE EFFECTS SEROQUEL: SEDATION: SIDE EFFECTS PAXIL: DECREASE LIBIDO: SIDE EFFECTS NORVASC: INCREASED EDEMA: SIDE EFFECTS EFFEXOR: SWEATING: SIDE EFFECTS ABILIFY: SEDATION: SIDE EFFECTS TYLENOL WITH CODEINE: HIVES: ALLERGY SOCIAL HISTORY GENERAL: TOBACCO USE ARE YOU A:NONSMOKER NEVER SMOKER BMI CARE GOAL FOLLOW-UP ABOVE NORMAL BMI FOLLOW-UPDIETARY NEEDS EDUCATION ALCOHOL SCREENING DID YOU HAVE A DRINK CONTAINING ALCOHOL IN THE PAST YEAR?NO POINTS0 INTERPRETATIONNEGATIVE RECREATIONAL DRUG USE DRUG USE?NO CAFFEINE CAFFEINE USE?YES HOW OFTEN AND HOW MUCH? 0-2 CUP SODA SEXUAL HX HAD SEX IN THE LAST 12 MONTHS (VAGINAL, ORAL, OR ANAL)?YES WITHWOMEN ONLY HIV / HEP-C SCREENING HIV TEST OFFERED TO PATIENT:YES DATE OFFERED:05/13/2016 TEST ACCEPTED:NO REASON:PATIENT DECLINED HEP-C TEST OFFERED TO PATIENT:YES DATE OFFERED:05/13/2016 TEST ACCEPTED:NO REASON:PATIENT DECLINED OCCUPATION: DISABLED. DIET: REGULAR. EXERCISE: NO REGULAR EXERCISE. MARITAL STATUS: . OTHERS AT HOME: SPOUSE, CHILDREN. ISLAM [id number] NONE LANGUAGE LANGUAGES SPOKEN:TELUGU LEARNING BARRIERS / SPECIAL NEEDS CHANGE FROM LAST VISIT?NO BARRIERS TO LEARNING?NO HEARING IMPAIRED?NO VISION IMPAIRED?YES :CORRECTIVE LENSES COGNITIVELY IMPAIRED?NO READINESS TO LEARN?YES LEARNING PREFERENCES?YES :DEMONSTRATION/VERBAL INSTRUCTION LEARNING CAPABILITIES PRESENT?YES EMOTIONAL BARRIERS?NO SPECIAL DEVICES?YES :CANE MANAGER MINING NEEDED?NO NEW PATIENT PAIN DIARY TODAY'S VISIT NOTES, FROM 0-10, WHAT LEVEL IS YOUR PAIN TODAY? 0. PAIN CLINIC PFS, CLERGY, PUBLIC HEALTH REFERRALS PFS REFERRAL NEEDED?NO CLERGY REFERRAL NEEDED?NO PUBLIC HEALTH REFERRAL NEEDED?NO HAS THE PATIENT BEEN EDUCATED REGARDING HIS/HER PLAN OF CARE?YES HAS THE PATIENT BEEN EDUCATED REGARDING PAIN, THE RISK FOR PAIN, THE IMPORTANCE OF EFFECTIVE PAIN MANAGEMENT, AND THE PAIN ASSESSMENT PROCESS?YES ADVANCE DIRECTIVES HEALTH CARE PROXY?YES NAME OF HCP PAT BECERRIL CONTACT # FOR HCP [phone] DO YOU HAVE A COPY WITH YOU?NO DO YOU HAVE A DNR?NO WOULD YOU LIKE MORE INFORMATION?NO LIVING WILL?NO WOULD YOU LIKE MORE INFORMATION?NO POWER OF [facility] FOUNTAIN MANAGER?NO WOULD YOU LIKE MORE INFORMATION?NO REVIEW OF SYSTEMS REVIEWED BY: PROVIDER: MAGNOLIA AQUINO . CONSTITUTIONAL: ANY CHANGE IN YOUR MEDICAL CONDITION? NO . CHILLS NO . FEVER NO . INFECTION: DO YOU HAVE NEW INFECTIONS? NO . DO YOU HAVE HISTORY OF MRSA? NO . MUSCULOSKELETAL: ANY NEW PATTERNS OF PAIN OR NUMBNESS? NO . GASTROENTEROLOGY: ANY NEW CHANGE IN BOWEL CONTROL? NO . GENITOURINARY: ANY NEW CHANGE IN BLADDER CONTROL? NO . IS THERE A CHANCE YOU COULD BE ? NO . HEMATOLOGY/LYMPH: DO YOU TAKE ANY BLOOD THINNERS? (FOR EXAMPLE- COUMADIN, PLAVIX, AGGRENOX, PLATEL, PRADAXA, OR XARELTO) NO . WHEN WAS YOUR LAST DOSE? DATE: TIME: . NEUROLOGY: HAVE YOU FALLEN IN THE PAST 6 MONTHS? NO . ANY NEW EXTREMITY NUMBNESS OR WEAKNESS? NO . CARDIOLOGY: DO YOU HAVE A PACEMAKER OR DEFIBRILLATOR? NO . RESPIRATORY: HAVE YOU BEEN SICK IN THE PAST WEEK? NO . FEVER NO . FLU LIKE SYMPTOMS? NO . COUGH NO . INTEGUMENTARY: DO YOU HAVE ANY RASHES OR OPEN SORES? NO . ALLERGIC/IMMUNO: ARE YOU ALLERGIC TO SHELLFISH OR IV DYE? YES . ANY NEW ALLERGIES? NO . PSYCHIATRIC: DO YOU HAVE THOUGHTS OF HURTING YOURSELF OR SOMEONE ELSE? NO . ARE YOU ABUSED, NEGLECTED, OR IN AN UNSAFE ENVIRONMENT? NO . ENDOCRINOLOGY: ARE YOU DIABETIC? YES . OTHER: DO YOU NEED ANY PRESCRIPTIONS? NO . IF YES, PLEASE LIST: ____ . ANY NEW PROBLEMS WITH YOUR MEDICATIONS? NO . WHEN DID YOU LAST EAT? ____ . WHEN DID YOU LAST DRINK? ____ . WHAT DID YOU LAST DRINK? ____ . NAME OF PERSON DRIVING YOU HOME? ____ . DO YOU HAVE ANY OTHER QUESTIONS OR CONCERNS NO . VITAL SIGNS WT 323.5 LBS, HT 72 IN, BMI 43.87 INDEX, BP 114/77 MM HG, HR 120 /MIN, RR 18 /MIN, TEMP 97.0 F, OXYGEN SAT % 94%, SAFE IN ENV? (Y/N) YES, NA INITIALS TL 1134, REVIEWED BY: RAJESHVATEManasa HR 120, RN Nereyda- TLPRCURTIS DURAN AWARE AND PATIENT HAS BEEN REFERRED TO DR. RODRIGUEZ (CARDIOLOGY) AND HAS AN APPOINTMENT NEXT WEEK. EXAMINATION GENERAL EXAMINATION: GENERAL APPEARANCE:COMFORTABLE. PSYCHAFFECT NORMAL. LUNGS:LUNG SOUNDS ARE CLEAR.RESPIRATIONS NON-LABORED. HEART:S1, S2 IN A REGULAR RATE AND RHYTHM. NO SIGNIFICANT MURMURS, RUBS OR GALLOPS NOTED. BACK:PERILUMBAR TENDERNESS, PAIN WITH FLEXION, PAIN WITH EXTENSION. ASSESSMENTS LOW BACK PAIN - M54.5 (PRIMARY) CHRONIC PRESCRIPTION OPIATE USE - Z79.891 TREATMENT LOW BACK PAIN START HYDROMORPHONE HCL ER TABLET ER 24 HOUR ABUSE-DETERRENT, 8 MG, 1 TABLET, ORALLY, ONCE A DAY, 30 DAY(S), 30 TABLET, REFILLS 0 CONTINUE NUCYNTA ER TABLET EXTENDED RELEASE 12 HOUR, 250 MG, 1 TABLET, ORALLY, EVERY 12 HRS MDD2 (PAIN CLINIC) REFILL PERCOCET TABLET, 10-325 MG, 1 TABLET NEEDED, ORALLY, EVERY 6 HRS MDD4 (PAIN CLINIC), 30 DAY(S), 120, REFILLS 0 REFILL LIDOCAINE HCL CREAM, 5 %, DIRECTED, EXTERNALLY, APPLY TO LEFT SHOULDER OR LOW BACK 3X DAY PRN, 30 DAY(S), 1, REFILLS 2 NOTES: SLOWLY DECREASE AND DISCONTINUE NUCYNTA 250MG.TAKE ONE PER DAY AT NIGHT X 10 DAYS THEN STOP. PREVENTIVE MEDICINE PAIN CLINIC TEACHING: MEDICATIONS HYDROMORPHONE TEACHING DONE. ALONG WITH TEACHING FOR DECREASING NUCYNTA. PATIENT VERBALIZES UNDERSTANDING.. PROCEDURE CODES FA211 ESTABILISHED PATIENT [facility] FACILITY CHARGE G8730 PAIN ASSESS POS TOOL F/U PLAN DOC G8427 DOC MEDS VERIFIED W/PT OR RE DISPOSITION & COMMUNICATION FOLLOW UP 4 WEEKS ELECTRONICALLY SIGNED BY KENIA ERNST ON 01/13/2017 AT 08:27 PM EST DISCLAIMER : THIS IS A VISIT SUMMARY EXTRACTED FROM THE [facility] CHART. IT IS NOT A COPY OF THE [facility] PROGRESS NOTE. MTDD
== END | disposition home or self-care (01) ==
LOC: M PAIN 11:30
PROVIDERS: ATTEND Nurse Practitioner Family
DX: G89.29 Other chronic pain (principal); M54.5 Low back pain; E11.9 Type 2 diabetes mellitus without complications; J44.9 Chronic obstructive pulmonary disease, unspecified; E78.5 Hyperlipidemia, unspecified; M50.30 Other cervical disc degeneration, unspecified cervical region; G47.33 Obstructive sleep apnea (adult) (pediatric); G43.909 Migraine, unspecified, not intractable, without status migrainosus; F33.9 Major depressive disorder, recurrent, unspecified; G25.0 Essential tremor; K21.9 Gastro-esophageal reflux disease without esophagitis; E53.8 Deficiency of other specified B group vitamins; I10 Essential (primary) hypertension; K59.00 Constipation, unspecified; D64.9 Anemia, unspecified; E66.8 Other obesity; Z79.899 Other long term (current) drug therapy; Z79.4 Long term (current) use of insulin; Z79.51 Long term (current) use of inhaled steroids; Z88.8 Allergy status to other drugs, medicaments and biological substances; Z91.041 Radiographic dye allergy status

== ENCOUNTER → 2017-01-08 | Outpatient (REF) | payer MEDICARE | LOC: M LAB REF 13:06 | PROVIDERS: ATTEND Neurological Surgery | DX: Z01.812 Encounter for preprocedural laboratory examination (principal) ==

== ENCOUNTER → 2017-01-30 | Outpatient (CLI) | payer MEDICARE ==
[2017-01-30 10:08] LABS: BASO % 0.5 % (0.0-1.0); EOS # 0.5 10^3/uL (0.0-0.50); EOS % 7.9 % (0.0-3.0); IMMATURE GRANULOCYTE % 0.7 % (0-0); LYMPH # 1.5 10^3/uL (1.5-4.5); LYMPH % 26.4 % (24.0-44.0); MEAN CORPUSCULAR HEMOGLOBIN 27.7 pg (27.0-33.0); MEAN CORPUSCULAR HGB CONC 33.9 g/dl (32.0-36.5); MEAN CORPUSCULAR VOLUME 81.8 fl (80.0-96.0); MONO # 0.6 10^3/uL (0.0-0.8); MONO % 10.5 % (0.0-5.0); NEUTROPHILS # 3.1 10^3/uL (1.8-7.7); PLATELET COUNT, AUTOMATED 280 10^3/uL (150-450); RED CELL DISTRIBUTION WIDTH 13.2 % (11.5-14.5); WHITE BLOOD COUNT 5.8 10^3/uL (4.0-10.0)
[2017-01-30 10:25] LABS: INR 0.97
[2017-01-30 10:48] LABS: ALBUMIN 3.8 GM/DL (3.2-5.2); ALBUMIN/GLOBULIN RATIO 1.03 (1.00-1.93); ALKALINE PHOSPHATASE 59 U/L (45-117); ALT/SGPT 30 U/L (12-78); ANION GAP 11 MEQ/L (8-16); AST/SGOT 21 U/L (7-37); BILIRUBIN,TOTAL 0.2 MG/DL (0.2-1.0); BLOOD UREA NITROGEN 11 MG/DL (7-18); CALCIUM LEVEL 8.6 MG/DL (8.5-10.1); CARBON DIOXIDE LEVEL 26 MEQ/L (21-32); CHLORIDE LEVEL 100 MEQ/L (98-107); CREATININE FOR GFR 0.99 MG/DL (0.70-1.30); GLOMERULAR FILTRATION RATE > 60.0 (>60); GLUCOSE, FASTING 312 MG/DL (70-105); SODIUM LEVEL 137 MEQ/L (136-145); TOTAL PROTEIN 7.5 GM/DL (6.4-8.2)
[2017-01-30 11:01] LABS: COLLAGEN ADP 80 SECONDS (56-103)
== END ==
LOC: M LAB 09:06
PROVIDERS: ATTEND Neurological Surgery
DX: Z01.818 Encounter for other preprocedural examination (principal)

== ENCOUNTER → 2017-02-25 | Outpatient (CLI) | payer MEDICARE | LOC: M PAIN 11:15 | DX: M54.5 Low back pain (principal); E11.9 Type 2 diabetes mellitus without complications; J44.9 Chronic obstructive pulmonary disease, unspecified; E78.5 Hyperlipidemia, unspecified; I10 Essential (primary) hypertension; G43.909 Migraine, unspecified, not intractable, without status migrainosus; J32.9 Chronic sinusitis, unspecified; Z79.891 Long term (current) use of opiate analgesic; Z79.899 Other long term (current) drug therapy; Z91.041 Radiographic dye allergy status; Z88.8 Allergy status to other drugs, medicaments and biological substances | CPT/HCPCS: G0463 ==

== ENCOUNTER → 2017-03-10 | Outpatient (REF) | payer MEDICARE ==
[2017-03-10 16:20] LABS: BASO % 0.4 % (0.0-1.0); EOS # 0.4 10^3/uL (0.0-0.50); EOS % 8.5 % (0.0-3.0); HEMATOCRIT 39.4 % (42.0-52.0); HEMOGLOBIN 13.9 g/dl (14.0-18.0); IMMATURE GRANULOCYTE % 0.4 % (0-0); LYMPH # 1.4 10^3/uL (1.5-4.5); LYMPH % 27.8 % (24.0-44.0); MEAN CORPUSCULAR HEMOGLOBIN 28.4 pg (27.0-33.0); MEAN CORPUSCULAR HGB CONC 35.3 g/dl (32.0-36.5); MEAN CORPUSCULAR VOLUME 80.4 fl (80.0-96.0); MONO # 0.6 10^3/uL (0.0-0.8); MONO % 11.2 % (0.0-5.0); NEUTROPHILS # 2.6 10^3/uL (1.8-7.7); NEUTROPHILS % 51.7 % (36.0-66.0); PLATELET COUNT, AUTOMATED 252 10^3/uL (150-450); RED CELL DISTRIBUTION WIDTH 13.2 % (11.5-14.5); WHITE BLOOD COUNT 5.1 10^3/uL (4.0-10.0)
[2017-03-10 17:09] LABS: INR 0.99; PROTHROMBIN TIME 13.2 SECONDS (12.4-14.5)
[2017-03-10 17:10] LABS: PARTIAL THROMBOPLASTIN TIME 31.2 SECONDS (26.8-37.9)
[2017-03-10 18:35] LABS: ALBUMIN 3.7 GM/DL (3.2-5.2); ALBUMIN/GLOBULIN RATIO 1.12 (1.00-1.93); ALKALINE PHOSPHATASE 60 U/L (45-117); ALT/SGPT 25 U/L (12-78); ANION GAP 7 MEQ/L (8-16); AST/SGOT 24 U/L (7-37); BILIRUBIN,TOTAL 0.3 MG/DL (0.2-1.0); BLOOD UREA NITROGEN 13 MG/DL (7-18); CALCIUM LEVEL 8.6 MG/DL (8.5-10.1); CARBON DIOXIDE LEVEL 34 MEQ/L (21-32); CHLORIDE LEVEL 96 MEQ/L (98-107); CREATININE FOR GFR 0.79 MG/DL (0.70-1.30); GLOMERULAR FILTRATION RATE > 60.0 (>60); GLUCOSE, FASTING 229 MG/DL (70-100); POTASSIUM SERUM 3.4 MEQ/L (3.5-5.1); SODIUM LEVEL 137 MEQ/L (136-145)
[2017-03-10 20:18] LABS: COLLAGEN ADP 96 SECONDS (56-103); COLLAGEN EPINEPHRINE > 300 SECONDS (74-162)
== END ==
LOC: M LABNEURO 15:27
DX: Z01.818 Encounter for other preprocedural examination (principal); M54.12 Radiculopathy, cervical region; M54.16 Radiculopathy, lumbar region; G47.33 Obstructive sleep apnea (adult) (pediatric); G25.81 Restless legs syndrome; E78.4 Other hyperlipidemia; I10 Essential (primary) hypertension; F32.9 Major depressive disorder, single episode, unspecified; E53.9 Vitamin B deficiency, unspecified; Z79.899 Other long term (current) drug therapy; E11.9 Type 2 diabetes mellitus without complications
CPT/HCPCS: 80053

== ENCOUNTER → 2017-03-20 | Outpatient (CLI) | payer MEDICARE ==
[2017-03-20 17:55] LABS: COLLAGEN ADP 92 SECONDS (56-103); COLLAGEN EPINEPHRINE > 300 SECONDS (74-162)
== END ==
LOC: M LAB 15:47
DX: Z01.818 Encounter for other preprocedural examination (principal); R93.8 Abnormal findings on diagnostic imaging of other specified body structures; G56.22 Lesion of ulnar nerve, left upper limb
CPT/HCPCS: 71046

== ENCOUNTER 2017-03-24 05:47 | Day surgery (SDC) | payer MEDICARE ==
[2017-03-24] MEDS: LR 1,000 ML IV (06:00)
[2017-03-24] MEDS ORDERED: MIDAZOLAM INJ 2 MG/2 ML VIAL (J2250) As Ordered (07:05)
[2017-03-24] MEDS ORDERED: ONDANSETRON 4MG/2ML VIAL (J2405) As Ordered (07:05)
[2017-03-24] MEDS ORDERED: LIDOCAINE 2% INJ 100 MG/5 ML SDV (FOR ANES.) As Ordered (07:05)
[2017-03-24] MEDS ORDERED: fentaNYL 250 MCG/5 ML INJECTION (J3010) As Ordered (07:05)
[2017-03-24] MEDS ORDERED: dexameTHASONE 4 MG/ML 1ML VIAL (J1100) As Ordered ×2 (07:05)
[2017-03-24] MEDS ORDERED: PROPOFOL 200 MG/20 ML VIAL As Ordered ×2 (07:05→07:57)
[2017-03-24] MEDS ORDERED: LIDOCAINE 1% SDV INJ 30 ML VIAL As Ordered (07:13)
[2017-03-24 07:15] LABS: BEDSIDE GLUCOSE 208 MG/DL (70-105)
[2017-03-24] MEDS ORDERED: SUCCINYLCHOLINE 100 MG/5 ML SYRINGE (J0330) As Ordered ×2 (07:57)
[2017-03-24] MEDS ORDERED: ROCURONIUM BROMIDE 50 MG/5 ML VIAL As Ordered (07:57)
[2017-03-24] MEDS ORDERED: PHENYLephrine HCL 500 MCG/5 ML (100MCG/ML) SYRINGE (J2370) As Ordered (08:17)
[2017-03-24] MEDS: methylPREDNISolone SUSP 40 MG/ML (DEPO-medrol) VIAL (J1030) As Ordered (08:46)
[2017-03-24] MEDS ORDERED: fentaNYL 100 MCG/2 ML INJECTION (J3010) As Ordered (09:16)
[2017-03-24] MEDS ORDERED: KETOROLAC 30 MG/ML VIAL (J1885) As Ordered (09:19)
[2017-03-24] MEDS: fentaNYL 100 MCG/2 ML INJECTION (J3010) IV ×4 (09:22→09:37)
[2017-03-24] MEDS: KETOROLAC 30 MG/ML VIAL (J1885) IV (09:25)
[2017-03-24] MEDS ORDERED: PERCOCET 5MG/325MG TAB As Ordered (09:34)
[2017-03-24] MEDS: PERCOCET 5MG/325MG TAB PO ×2 (09:39→10:39)
[2017-03-24] MEDS ORDERED: HYDROmorphone HCL 1 MG/ML SYRINGE (J1170) As Ordered (09:44)
[2017-03-24] MEDS: HYDROmorphone HCL 1 MG/ML SYRINGE (J1170) IV (09:49)
[2017-03-24] MEDS ORDERED: LR 1,000 ML IV (10:15)
[2017-03-24] MEDS ORDERED: METOCLOPRAMIDE INJ 10MG/2ML VIAL (J2765) IV (10:15)
[2017-03-24] MEDS ORDERED: ONDANSETRON 4MG/2ML VIAL (J2405) IV (10:15)
== END 2017-03-24 11:25 | disposition home or self-care (01) ==
LOC: M SDC 05:47
DX: G56.22 Lesion of ulnar nerve, left upper limb (principal); I10 Essential (primary) hypertension; E78.00 Pure hypercholesterolemia, unspecified; D64.9 Anemia, unspecified; R06.09 Other forms of dyspnea; M12.9 Arthropathy, unspecified; M70.72 Other bursitis of hip, left hip; F32.9 Major depressive disorder, single episode, unspecified; G43.909 Migraine, unspecified, not intractable, without status migrainosus; J45.909 Unspecified asthma, uncomplicated; D86.9 Sarcoidosis, unspecified; R06.83 Snoring; G47.30 Sleep apnea, unspecified; E11.622 Type 2 diabetes mellitus with other skin ulcer; E11.42 Type 2 diabetes mellitus with diabetic polyneuropathy; G25.81 Restless legs syndrome; K21.9 Gastro-esophageal reflux disease without esophagitis; J30.9 Allergic rhinitis, unspecified; E66.9 Obesity, unspecified; Z68.41 Body mass index [BMI] 40.0-44.9, adult; Z88.5 Allergy status to narcotic agent; Z88.8 Allergy status to other drugs, medicaments and biological substances; Z91.041 Radiographic dye allergy status; Z79.899 Other long term (current) drug therapy; Z79.82 Long term (current) use of aspirin; Z79.84 Long term (current) use of oral hypoglycemic drugs; Z79.4 Long term (current) use of insulin
CPT/HCPCS: 64718

== ENCOUNTER → 2017-04-24 | Outpatient (CLI) | payer MEDICARE | LOC: M PAIN 11:00 | DX: M54.5 Low back pain (principal); E11.9 Type 2 diabetes mellitus without complications; J44.9 Chronic obstructive pulmonary disease, unspecified; E78.5 Hyperlipidemia, unspecified; F32.9 Major depressive disorder, single episode, unspecified; I10 Essential (primary) hypertension; G25.81 Restless legs syndrome; K21.9 Gastro-esophageal reflux disease without esophagitis; Z79.891 Long term (current) use of opiate analgesic; Z79.4 Long term (current) use of insulin; Z79.899 Other long term (current) drug therapy; Z91.041 Radiographic dye allergy status; Z88.8 Allergy status to other drugs, medicaments and biological substances | CPT/HCPCS: G0463 ==

== ENCOUNTER → 2017-07-21 | Outpatient (CLI) | payer MEDICARE | LOC: M PAIN 11:30 | DX: M54.5 Low back pain (principal); G89.29 Other chronic pain; E11.9 Type 2 diabetes mellitus without complications; J44.9 Chronic obstructive pulmonary disease, unspecified; E78.5 Hyperlipidemia, unspecified; G47.33 Obstructive sleep apnea (adult) (pediatric); G43.909 Migraine, unspecified, not intractable, without status migrainosus; G25.0 Essential tremor; F42.9 Obsessive-compulsive disorder, unspecified; E53.8 Deficiency of other specified B group vitamins; G25.81 Restless legs syndrome; I10 Essential (primary) hypertension; E66.01 Morbid (severe) obesity due to excess calories; Z68.41 Body mass index [BMI] 40.0-44.9, adult; Z79.4 Long term (current) use of insulin; Z79.891 Long term (current) use of opiate analgesic; Z79.899 Other long term (current) drug therapy; Z88.5 Allergy status to narcotic agent; Z88.8 Allergy status to other drugs, medicaments and biological substances; Z91.041 Radiographic dye allergy status; Z86.2 Personal history of diseases of the blood and blood-forming organs and certain disorders involving the immune mechanism | CPT/HCPCS: G0463 ==

== ENCOUNTER → 2017-08-05 | Outpatient (REF) | payer MEDICARE ==
[2017-08-05 12:58] LABS: ANION GAP 11 MEQ/L (8-16); BLOOD UREA NITROGEN 9 MG/DL (7-18); CALCIUM LEVEL 8.6 MG/DL (8.5-10.1); CARBON DIOXIDE LEVEL 32 MEQ/L (21-32); CHLORIDE LEVEL 99 MEQ/L (98-107); CREATININE FOR GFR 0.94 MG/DL (0.70-1.30); GLOMERULAR FILTRATION RATE > 60.0 (>60); GLUCOSE, FASTING 149 MG/DL (70-100); POTASSIUM SERUM 3.2 MEQ/L (3.5-5.1); SODIUM LEVEL 142 MEQ/L (136-145)
[2017-08-05 16:32] LABS: MALB URINE SIEMENS 26.8 MG/L; MAU/CREAT RATIO 23.1 MCG/MG (0.0-30.0)
[2017-08-05 18:02] LABS: ESTIMATED AVERAGE GLUCOSE 232 MG/DL (60-110); HEMOGLOBIN A1c 9.7 %
== END ==
LOC: M SFHCPLAZ 09:09
DX: E11.40 Type 2 diabetes mellitus with diabetic neuropathy, unspecified (principal)
CPT/HCPCS: 83036

== ENCOUNTER → 2017-08-27 | Outpatient (REF) | payer MEDICARE | LOC: M SFHCPLAZ 11:55 | DX: K14.8 Other diseases of tongue (principal) | CPT/HCPCS: 87252 ==

== ENCOUNTER → 2017-09-01 | Outpatient (REF) | payer MEDICARE | LOC: M SFHCPLAZ 14:20 | DX: K14.8 Other diseases of tongue (principal) | CPT/HCPCS: 36415 ==

== ENCOUNTER → 2017-09-05 | Outpatient (CLI) | payer MEDICARE | LOC: M RAD 14:04 | DX: R91.8 Other nonspecific abnormal finding of lung field (principal); R05 Cough; R09.02 Hypoxemia | CPT/HCPCS: 71046 ==

== ENCOUNTER → 2017-11-17 | Outpatient (CLI) | payer MEDICARE | LOC: M PAIN 09:45 | DX: M54.5 Low back pain (principal); G89.29 Other chronic pain; E11.9 Type 2 diabetes mellitus without complications; J44.9 Chronic obstructive pulmonary disease, unspecified; E78.5 Hyperlipidemia, unspecified; G47.33 Obstructive sleep apnea (adult) (pediatric); G43.909 Migraine, unspecified, not intractable, without status migrainosus; G25.0 Essential tremor; F32.9 Major depressive disorder, single episode, unspecified; K21.9 Gastro-esophageal reflux disease without esophagitis; G25.81 Restless legs syndrome; I10 Essential (primary) hypertension; Z79.4 Long term (current) use of insulin; Z79.82 Long term (current) use of aspirin; Z79.891 Long term (current) use of opiate analgesic; Z79.899 Other long term (current) drug therapy; Z88.5 Allergy status to narcotic agent; Z88.8 Allergy status to other drugs, medicaments and biological substances; Z91.041 Radiographic dye allergy status; Z86.2 Personal history of diseases of the blood and blood-forming organs and certain disorders involving the immune mechanism | CPT/HCPCS: G0463 ==

== ENCOUNTER 2017-11-29 08:49 | Emergency (ER) | payer OTHER, MEDICARE ==
[2017-11-29] MEDS: KETOROLAC 30 MG/ML VIAL (J1885) IV (09:45)
[2017-11-29] MEDS: MORPHINE 4 MG/ML 1ML VIAL/SYRINGE (J2270) IV (09:45)
[2017-11-29] MEDS: NS 1,000 ML IV (09:56)
== END 2017-11-29 10:19 | disposition home or self-care (01) ==
LOC: M ED 08:49
DX: S50.02XA Contusion of left elbow, initial encounter (principal); V40.9XXA Unspecified car occupant injured in collision with pedestrian or animal in traffic accident, initial encounter
CPT/HCPCS: J2270

== ENCOUNTER 2017-12-04 15:42 | Emergency (ER) | payer MEDICARE, OTHER ==
[2017-12-04] MEDS: CEPHALEXIN 500 MG CAP PO (16:48)
== END 2017-12-04 17:26 | disposition home or self-care (01) ==
LOC: M ED 15:42
DX: M23.92 Unspecified internal derangement of left knee (principal); L03.116 Cellulitis of left lower limb; E11.9 Type 2 diabetes mellitus without complications; Z91.041 Radiographic dye allergy status; Z88.5 Allergy status to narcotic agent; Z88.8 Allergy status to other drugs, medicaments and biological substances
CPT/HCPCS: 73564

== ENCOUNTER → 2017-12-15 | Outpatient (CLI) | payer MEDICARE | LOC: M PAIN 11:30 | DX: Z53.8 Procedure and treatment not carried out for other reasons (principal) ==

== ENCOUNTER → 2018-01-15 | Outpatient (CLI) | payer MEDICARE | LOC: M PAIN 11:15 | DX: M54.5 Low back pain (principal); G89.29 Other chronic pain; E11.21 Type 2 diabetes mellitus with diabetic nephropathy; E11.40 Type 2 diabetes mellitus with diabetic neuropathy, unspecified; J44.9 Chronic obstructive pulmonary disease, unspecified; E78.5 Hyperlipidemia, unspecified; G47.33 Obstructive sleep apnea (adult) (pediatric); G43.909 Migraine, unspecified, not intractable, without status migrainosus; F32.9 Major depressive disorder, single episode, unspecified; K21.9 Gastro-esophageal reflux disease without esophagitis; G25.81 Restless legs syndrome; I10 Essential (primary) hypertension; I27.1 Kyphoscoliotic heart disease; E66.01 Morbid (severe) obesity due to excess calories; Z68.41 Body mass index [BMI] 40.0-44.9, adult; Z79.4 Long term (current) use of insulin; Z79.82 Long term (current) use of aspirin; Z79.891 Long term (current) use of opiate analgesic; Z79.899 Other long term (current) drug therapy; Z88.5 Allergy status to narcotic agent; Z88.6 Allergy status to analgesic agent; Z88.8 Allergy status to other drugs, medicaments and biological substances; Z91.041 Radiographic dye allergy status; Z86.69 Personal history of other diseases of the nervous system and sense organs; Z86.79 Personal history of other diseases of the circulatory system | CPT/HCPCS: G0463 ==

== ENCOUNTER → 2018-05-28 | Outpatient (CLI) | payer MEDICARE ==
[~2018-05-28] MED LIST changes: -/DULO30CA; -/ESOM40CA; -/FENT25PA; -/MOXI40TA; -/NITR4TASL SL; -/PANT40TA; -/ROPI1TA; -/TIOT18INH; -ASPI1TAB PO; +ASPI81TA26 PO; +AVEL1TAB2; +CYMB1CAP5; -DOXY-278 PO; +DOXY-350 PO; +EPIN0.3I11 INJ; -EPIN0.3I6 INJ; +FENT1DIS14; +FLOM0.4C39 PO; -FLOM5CAP PO; -GABA-282 PO; +GABA-843 PO; +KEFL500C17 PO; -LASI80TA PO; +LASI80TA3 PO; -LIDO5OI TOP; +LIDO5OIN11 TOP; -MIRA255PW GT; +NEXI1CAP3; +NITR0.4S SL; -PIOG15TA3 PO; +PIOG1TAB36 PO; +POLY1POW4 GT; +PROT1TAB2; +REQU1TAB16; +SPIR1CAP; +ZANT150T15 PO; -ZANT1TAB PO; +[UNRECOGNIZED DRUG - CODE] PO; -[UNRECOGNIZED DRUG - CODE] PO
--- NOTE | 2018-06-15 00:19 | ECWPNPC ---
PATIENT NAME: CHRISTINE BECERRIL : 1965 GENDER: MALE VISIT DATE: 05/28/2018 DISCHARGE DATE: 05/28/18 1158 VISIT LOCKED DATE TIME: PHYSICIAN: MAGNOLIA JOYCE RESOURCE: MAGNOLIA JOYCE REASON FOR APPOINTMENT 1. BACK/NECK HISTORY OF PRESENT ILLNESS HISTORY OF PRESENT ILLNESS: HERE FOR F/U OF CHRONIC NECK AND LOW BACK PAIN.RATING PAIN VAS 8/10.HE IS ILL TODAY.INFORMED HIM THAT I MUST SEE HIM AT LEAST EVERY 2 MONTHS IN ORDER TO CONTINUE PRESCRIBING PAIN MEDICATION.HE HAS MISSED SEVERAL APPOINTMENTS. PAIN THE PATIENT DESCRIBES THE PAIN... FALL RISK SCREENING: SCREENING :NO FALLS REPORTED IN THE LAST YEAR CURRENT MEDICATIONS TAKING EPIPEN 0.3 MG/0.3ML (1:1000) DEVICE SQ INTRAMUSCULAR NEEDED TAKING CALCIUM PLUS VITAMIN D 500-50 MG-UNIT CAPSULE 1 CAPSULE ORALLY BID TAKING MIRALAX OTC POWDER PO ORALLY TWICE A DAY TAKING ALCOHOL PREP 1 ALCOHOL PREP PADS NEEDED TAKING HOSPITAL BED _ _ HOSPITAL BED DX 454.0,135,782.3 DAILY NEEDED TAKING COMPRESSION STOCKINGS 20-30 MMHG DIRECTED TAKING ALTERNATING PRESSURE MATTRESS 1 _ ALTERNATING MATTRESS PAD WITH MARCY AND PUMP ICD:187.139 DAILY TAKING PEN NEEDLES NOVOFINE NEEDLE PEN NEEDLESFOR VICTOZA VICTOZA FOUR TIMES A DAY TAKING LANCETS 1 LANCET 1 SUBCUTANEOUSLY TWICE DAILY TAKING BLOOD GLUCOSE TEST STRIP 1 STRIPS ONE TOUCH ULTRA TEST STRIPS 1 TOPICALLY TWICE A DAY TAKING VITAMIN B-12 1000 MCG INJECTION 1 INJECTION IM MONTHLY TAKING ADVAIR HFA 115-21 MCG/ACT AEROSOL 2 PUFFS INHALATION TWICE A DAY TAKING NITROSTAT 0.4 MG TABLET SUBLINGUAL 1 TABLET UNDER THE TONGUE EVERY 5 MINS FOR CHEST PAIN WITH A MAX OF 3 TABS SUBLINGUAL DIRECTED TAKING PROVENTIL HFA 108 (90 BASE) MCG/ACT AEROSOL SOLUTION 2 PUFFS INHALATION FOUR TIMES A DAY NEEDED TAKING FUROSEMIDE 80 MG TABLET 1 TABLET ORALLY WITH 20MG TO EQUAL 100MG TWICE A DAY TAKING LASIX 20 MG TABLET 1 TABLET ORALLY TWICE DAILY WITH 80 MG TAB FOR TOTAL OF 100 TAKING NASONEX 50 MCG/ACT SUSPENSION SPRAY TWO SPRAYS IN ONE NOSTRIL EVERY DAY TAKING ASPIRIN 81 81 MG TABLET CHEWABLE 1 TABLET ORALLY ONCE A DAY TAKING SUCRALFATE 1 GM TABLET 1 TABLET AT BEDTIME ON AN EMPTY STOMACH BEFORE MEALS ORALLY TWICE A DAY TAKING ASTELIN 0.1% (137 MCG) SPRAY SPRAY TWO SPRAYS IN EACH NOSTRIL TWICE A DAY INTRANASAL BID TAKING GABAPENTIN 800 MG TABLET 1 TABLET ORALLY THREE TIMES A DAY, NOTES: ONLY TAKES 2X/DAY TAKING NEXIUM 40 MG CAPSULE DELAYED RELEASE 1 CAPSULE ORALLY TWICE DAILY TAKING POTASSIUM CHLORIDE 20 MEQ CAPSULE 1 CAPSULE WITH FOOD ORALLY TWICE A DAY TAKING REQUIP 1 MG TABLET 1 TABLET ORALLY AT BEDTIME TAKING LOSARTAN POTASSIUM 50 MG TABLET 1 TABLET ORALLY ONCE A DAY TAKING METFORMIN HCL 1000 MG TABLET 1 TABLET WITH MEALS ORALLY TWICE A DAY TAKING ZANTAC 150 MAXIMUM STRENGTH 150 MG TABLET 1 TAB ORALLY TWICE DAILY TAKING COLACE 100 MG CAPSULE 1 TABLET ORALLY TWICE A DAY TAKING TAMSULOSIN HCL 0.4 MG CAPSULE EXTENDED RELEASE 1 TAB(S) ORALLY ONCE A DAY TAKING OXYCODONE HCL 15 MG TABLET 1 TABLET ORALLY EVERY 6 HRS PRN MDD4 TAKING TIZANIDINE HCL 4 MG TABLET 1 TABLET NEEDED ORALLY THREE TIMES A DAY TAKING HYDROMORPHONE HCL ER 32 MG TABLET ER 24 HOUR ABUSE-DETERRENT 1 TABLET ORALLY ONCE A DAY MDD1 TAKING TRESIBA FLEXTOUCH 200 UNIT/ML SOLUTION PEN-INJECTOR INJECT 160 UNITS UNDER THE SKIN TWO TIMES A DAY MAX OF 350 UNITS INCLUSIVE OF TITRATION AND PRIMING SUBCUTANEOUS TAKING JARDIANCE 25 MG TABLET 1 TABLET ORALLY ONCE A DAY, NOTES: TO HELP WITH WEIGHT AND DIABETES TAKING DESVENLAFAXINE ER 50 MG TABLET EXTENDED RELEASE 24 HOUR 1 TABLET ORALLY ONCE A DAY TAKING OSELTAMIVIR PHOSPHATE 75 MG CAPSULE 1 CAPSULE ORALLY TWICE A DAY TAKING FUROSEMIDE 80 MG TAB TAKE ONE TABLET BY MOUTH TWICE A DAY WITH 20MG TO EQUAL 100MG ORALLY TWICE DAILY NOT-TAKING TOUJEO SOLOSTAR 300 UNIT/ML SOLUTION PEN-INJECTOR 160 MG SUBCUTANEOUS TWICE DAILY NOT-TAKING HUMALOG KWIKPEN 100 UNIT/ML SOLUTION PEN-INJECTOR DIRECTED SUBCUTANEOUS THREE TIMES DAILY AT MEALS NOT-TAKING LASIX 20 MG TAB TAKE ONE TABLET BY MOUTH TWICE A DAY WITH 80MG FOR A TOTAL OF 100MG NOT-TAKING LIDOCAINE HCL 5 % CREAM DIRECTED EXTERNALLY APPLY TO LEFT SHOULDER OR LOW BACK 3X DAY PRN, NOTES: INSURANCE WON'T COVER NOT-TAKING CLOBETASOL PROPIONATE 0.05 % OINTMENT 1 APPLICATION TO CIGAR-SHAPED LESION ON ARMS, LEGS, BACK AND TRUNK EXTERNALLY TWICE A DAY NOT-TAKING CHLORHEXIDINE GLUCONATE 20 % SOLUTION SWISH FOR 15 SECONDS THEN SPIT OUT AND RINSE WITH WATER MOUTH BID NOT-TAKING TRIAMCINOLONE ACETONIDE 0.1 % PASTE 1 APPLICATION AT BEDTIME MOUTH/THROAT BID NOT-TAKING TESSALON PERLES 100 MG CAPSULE 1 CAPSULE NEEDED ORALLY THREE TIMES A DAY NOT-TAKING CLOBETASOL PROPIONATE 0.05 % CREAM 1 APPLICATION TO PIGMENTED LESIONS EXTERNALLY TWICE A DAY, NOTES: APPLY FOR 21 DAYS OR UNTIL SKIN CLEARS, WHICHEVER IS SHORTER. REPEAT IF LESIONS RE-OCCUR NOT-TAKING DULOXETINE HCL 20 MG CAPSULE DELAYED RELEASE PARTICLES DIRECTED ORALLY DAILY, NOTES: TAKE 2 CAPS DAILY WITH SERTRALINE 50 MG DAILY FOR 7 DAYS, THEN DECREASE TO 1 CAP DAILY FOR 7 DAYS, THEN TAKE ONLY SERTRALINE AND STOP DULOXETINE NOT-TAKING CRESTOR 40 MG TABLET 1 TABLET ORALLY ONCE A DAY MEDICATION LIST REVIEWED AND RECONCILED WITH THE PATIENT PAST MEDICAL HISTORY DIABETES MELLITUS TYPE 2 [id number] 30, 2007 CARDIAC 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-NOVEMBER 2007 MRI WITH C6-C7 MODERATE LEFT BULGE CAUSING MODERATE CENTRAL CANAL STENOSIS, SMALL LEFT HNP C4-C5 WITH MODERATE SPINAL STENOSIS AND C5-C6 BULGE CAUSING BILATERAL NEURAL FORAMINAL NARROWING RIGHT GREATER THAN LEFT RIGHT SUPRASPINATUS TENDINITIS BY MAY 2008 MRI OBSTRUCTIVE SLEEP APNEA-PATIENT REFUSES CPAP ALLERGIC RHINITIS/CHRONIC SINUSITIS MIGRAINE HEADACHES, COMMON TYPE ESSENTIAL TREMOR DEPRESSION DYSPEPSIA/GERD B12 DEFICIENCY RESTLESS LEG SYNDROME HYPERTENSION CONSTIPATION, CHRONIC ANEMIA, CHRONIC SECONDARY TO IRON AND B12 DEFICIENCY-PATIENT REFUSES ANOSCOPY HYMENOPTERA ANAPHYLAXIS HISTORY OF IGG LAMBDA BY RUBÉN- PATIENT REFUSED BONE MARROW BIOPSY OBESITY, MORBID MULTIPLE DENTAL CARIES ULNAR NEUROPATHY AT ELBOW OF LEFT UPPER EXTREMITY MYOFASCIAL PAIN SARCOIDOSIS ALLERGIES TYLENOL WITH CODEINE: HIVES - ALLERGY CT SCAN DYE: VOMITING - SIDE EFFECTS ZYPREXA: SEDATION - SIDE EFFECTS TRICOR: MYALGIAS - SIDE EFFECTS TRAMADOL HCL: LEG CRAMPS - SIDE EFFECTS SEROQUEL: SEDATION - SIDE EFFECTS PAXIL: DECREASE LIBIDO - SIDE EFFECTS NORVASC: INCREASED EDEMA - SIDE EFFECTS EFFEXOR: SWEATING - SIDE EFFECTS ABILIFY: SEDATION - SIDE EFFECTS SURGICAL HISTORY RECONSTRUCTION OF AXILLA AT 1968 TONSILLECTOMY WITH RECONSTRUSTION 1986 ARTHROSCOPIC KNEE SURGERY LEFT MULTIPLE UMBILICAL HERNIA REPAIR 1999 BRONCHOSCOPY 2004 CARDIAC CATH, [facility]; CLEAR 2006 LEFT ULNAR NERVE RELEASE-DR. KELLY 03/24/2017 LUNG BIOPSY 2006 FAMILY HISTORY 3 SON(S) , 2 DAUGHTER(S) - HEALTHY. FATHER: ; OF LUNG CA, HTN, GLAUCOMA\\NMOTHER: ; OF BOWEL OBSTRUCTION, HTN, DEMENTIA, CAD, HAD MULTIPLE STILL BIRTHS\\NSISTER: ; AT 53 DUE TO BRAIN ANEURISM\\NBROTHER: ALIVE; HEALTHY\\NSISTER: AT 30 DAYS OLD DUE TO HEART DEFECT\\NBROTHER: 30 DAYS AFTER . SOCIAL HISTORY GENERAL: TOBACCO USE ARE YOU A:NONSMOKER NEVER SMOKER LATEX QUESTIONNAIRE LATEX ALLERGY : HAVE YOU EVER DEVELOPED ANY TYPE OF REACTION AFTER HANDLING LATEX PRODUCTS SUCH RUBBER GLOVES, CONDOMS, DIAPHRAGMS, BALLOONS, SOCKS, OR UNDERWEAR?NO LATEX ALLERGY : HAVE YOU EVER DEVELOPED ANY TYPE OF REACTION DURING OR AFTER DENTAL APPOINTMENT, VAGINAL/RECTAL EXAMINATION, SURGICAL PROCEDURE, OR ANY OTHER EXPOSURE?NO LATEX RISK : HAVE YOU EVER HAD ANY DIFFICULTY BREATHING OR HIVES AFTER EATING OR HANDLING ANY FRUITS, OR VEGETABLES; SUCH KIWI, BANANAS, STONE FRUITS, OR CHESTNUTSNO LATEX RISK : DO YOU HAVE A PREVIOUS PERSONAL HISTORY OF MORE THAN NINE SURGERIES, SPINA BIFIDA, OR REPEATED CATHERTIZATIONS? NO LATEX RISK : ARE YOU FREQUENTLY EXPOSED TO LATEX PRODUCTS IN YOUR OCCUPATION?NO DATE ASKED : 05/28/2018 BMI CARE GOAL FOLLOW-UP ABOVE NORMAL BMI FOLLOW-UPDIETARY NEEDS EDUCATION ALCOHOL SCREENING DID YOU HAVE A DRINK CONTAINING ALCOHOL IN THE PAST YEAR?NO POINTS0 INTERPRETATIONNEGATIVE RECREATIONAL DRUG USE DRUG USE?NO CAFFEINE CAFFEINE USE?YES HOW OFTEN AND HOW MUCH? 0-2 CUP SODA SEXUAL HX HAD SEX IN THE LAST 12 MONTHS (VAGINAL, ORAL, OR ANAL)?YES WITHWOMEN ONLY HIV / HEP-C SCREENING HIV TEST OFFERED TO PATIENT:YES DATE OFFERED:05/13/2016 TEST ACCEPTED:NO REASON:PATIENT DECLINED HEP-C TEST OFFERED TO PATIENT:YES DATE OFFERED:05/13/2016 TEST ACCEPTED:NO REASON:PATIENT DECLINED ALEVISM [id number] NONE LANGUAGE LANGUAGES SPOKEN:CAPE VERDEAN LEARNING BARRIERS / SPECIAL NEEDS CHANGE FROM LAST VISIT?NO BARRIERS TO LEARNING?NO HEARING IMPAIRED?NO VISION IMPAIRED?YES :CORRECTIVE LENSES COGNITIVELY IMPAIRED?NO READINESS TO LEARN?YES LEARNING PREFERENCES?YES :DEMONSTRATION/VERBAL INSTRUCTION LEARNING CAPABILITIES PRESENT?YES EMOTIONAL BARRIERS?NO SPECIAL DEVICES?YES :CANE 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 DIET: REGULAR. EXERCISE: NO REGULAR EXERCISE. MARITAL STATUS: . OTHERS AT HOME: SPOUSE, CHILDREN. NEW PATIENT PAIN DIARY TODAY'S VISITNOTES FROM 0-10, WHAT LEVEL IS YOUR PAIN TODAY?8 PAIN CLINIC PFS, CLERGY, PUBLIC HEALTH REFERRALS PFS REFERRAL NEEDED?NO CLERGY REFERRAL NEEDED?NO PUBLIC HEALTH REFERRAL NEEDED?NO HAS THE PATIENT BEEN EDUCATED REGARDING HIS/HER PLAN OF CARE?YES HAS THE PATIENT BEEN EDUCATED REGARDING PAIN, THE RISK FOR PAIN, THE IMPORTANCE OF EFFECTIVE PAIN MANAGEMENT, AND THE PAIN ASSESSMENT PROCESS?YES ADVANCE DIRECTIVE ADVANCE DIRECTIVE DISCUSSED WITH PATIENT:YES HCP-, PAT ASKED TO BRING A COPY IN. REVIEWED 07/21/17 1144 BV01/15/18 1120 REVIEWED WITH PT. SHOAIBWED WITH PATIENT 05/28/18 1143 JS. HOSPITALIZATION/MAJOR DIAGNOSTIC PROCEDURE DIABETES SEPTEMBER 2014 LLL CELLULITIS AND ULCER 05/09/2016 REVIEW OF SYSTEMS REVIEWED BY: PROVIDER: MAGNOLIA AQUINO . CONSTITUTIONAL: ANY CHANGE IN YOUR MEDICAL CONDITION? NO . CHILLS NO . FEVER NO . INFECTION: DO YOU HAVE NEW INFECTIONS? YES, INFLUENZA A, ON TAMIFLU . DO YOU HAVE HISTORY OF MRSA? NO . MUSCULOSKELETAL: ANY NEW PATTERNS OF PAIN OR NUMBNESS? NO . GASTROENTEROLOGY: ANY NEW CHANGE IN BOWEL CONTROL? NO . GENITOURINARY: ANY NEW CHANGE IN BLADDER CONTROL? NO . IS THERE A CHANCE YOU COULD BE ? NO . HEMATOLOGY/LYMPH: DO YOU TAKE ANY BLOOD THINNERS? (FOR EXAMPLE- COUMADIN, PLAVIX, AGGRENOX, PLATEL, PRADAXA, OR XARELTO) NO . WHEN WAS YOUR LAST DOSE? DATE: TIME: . NEUROLOGY: HAVE YOU FALLEN IN THE PAST 12 MONTHS? YES, STATES FALL 2 WEEKS AGO, SLIPPED AND FELL ON KNEES, HURT HIS BACK SOME. STATES NO ED VISIT, NO IMAGING . ANY NEW EXTREMITY NUMBNESS OR WEAKNESS? NO . CARDIOLOGY: DO YOU HAVE A PACEMAKER OR DEFIBRILLATOR? NO . RESPIRATORY: HAVE YOU BEEN SICK IN THE PAST WEEK? YES, INFLUENZA . FEVER YES . FLU LIKE SYMPTOMS? NO . COUGH YES . INTEGUMENTARY: DO YOU HAVE ANY RASHES OR OPEN SORES? NO . ALLERGIC/IMMUNO: ARE YOU ALLERGIC TO IV DYE? YES . ANY NEW ALLERGIES? NO . PSYCHIATRIC: DO YOU HAVE THOUGHTS OF HURTING YOURSELF OR SOMEONE ELSE? NO . ARE YOU ABUSED, NEGLECTED, OR IN AN UNSAFE ENVIRONMENT? NO . ENDOCRINOLOGY: ARE YOU DIABETIC? YES . OTHER: DO YOU NEED ANY PRESCRIPTIONS? YES . IF YES, PLEASE LIST: ____OXYCODONE, HYDROMORPHONE, TIZANIDINE . ANY NEW PROBLEMS WITH YOUR MEDICATIONS? NO . WHEN DID YOU LAST EAT? ____ . WHEN DID YOU LAST DRINK? ____ . WHAT DID YOU LAST DRINK? ____ . NAME OF PERSON DRIVING YOU HOME? ____ . DO YOU HAVE ANY OTHER QUESTIONS OR CONCERNS NO . VITAL SIGNS WT 307.6 LBS, HT 72 IN, BMI 41.71 INDEX, BP 136/91 MM HG, HR 98 /MIN, RR 18 /MIN, TEMP 96.1 F, OXYGEN SAT % 95%, SAFE IN ENV? (Y/N) YES, REVIEWED BY: VALENTINO. EXAMINATION GENERAL EXAMINATION: GENERAL APPEARANCE: PATIENT APPEARS ILL-EXAM DEFERRED. ASSESSMENTS LOW BACK PAIN - M54.5 (PRIMARY) CHRONIC PRESCRIPTION OPIATE USE - Z79.891 TREATMENT LOW BACK PAIN CONTINUE OXYCODONE HCL TABLET, 15 MG, 1 TABLET, ORALLY, EVERY 6 HRS PRN MDD4 CONTINUE TIZANIDINE HCL TABLET, 4 MG, 1 TABLET NEEDED, ORALLY, THREE TIMES A DAY CONTINUE HYDROMORPHONE HCL ER TABLET ER 24 HOUR ABUSE-DETERRENT, 32 MG, 1 TABLET, ORALLY, ONCE A DAY MDD1 NOTES: ISTOP REGISTRY REVIEWED AND DEMONSTRATES COMPLLIANCE. DID NOT BRING MEDICATION-OXYCODONE 15MGRECENT URINE TOXICOLOGY REVIEWED. NO UNAUTHORIZED MEDICATIONS. NO ILLICIT SUBSTANCES AND PRESCRIBED MEDICATIONS WERE PRESENT. , RISKS AND BENEFITS OF NARCOTIC/OPIOD MEDICATIONS WERE REVIEWED WITH PATIENT - THIS INCLUDES BUT IS NOT LIMITED TO RISK OF DEPENDANCE/DEVELOPMENT OF ADDICTION, MOOD DISTURBANCE AND DEPRESSION, OSTEOPOROSIS, HORMONAL AND LABIDAL CHANGES, RESPIRATORY DEPRESSION AND . PATIENT IS ADVISED NOT TO DRIVE OR DRINK ALCOHOL WHILE ON THESE MEDICATIONS. PROCEDURE CODES [id number] ESTABILISHED PATIENT [facility] CHARGE DISPOSITION & COMMUNICATION FOLLOW UP 2 WEEKS ELECTRONICALLY SIGNED BY KENIA NOBLE ON 06/14/2018 AT 12:00 PM EDT DISCLAIMER : THIS IS A VISIT SUMMARY EXTRACTED FROM THE depict CHART. IT IS NOT A COPY OF THE [employer] PROGRESS NOTE. CORRIE
== END ==
LOC: M PAIN 10:30
PROVIDERS: ATTEND Nurse Practitioner Family
DX: M54.5 Low back pain (principal); G89.29 Other chronic pain; E11.9 Type 2 diabetes mellitus without complications; J44.9 Chronic obstructive pulmonary disease, unspecified; I10 Essential (primary) hypertension; E78.5 Hyperlipidemia, unspecified; G47.30 Sleep apnea, unspecified; G43.909 Migraine, unspecified, not intractable, without status migrainosus; R25.1 Tremor, unspecified; F32.9 Major depressive disorder, single episode, unspecified; K21.9 Gastro-esophageal reflux disease without esophagitis; E53.8 Deficiency of other specified B group vitamins; G25.81 Restless legs syndrome; E66.01 Morbid (severe) obesity due to excess calories; Z68.41 Body mass index [BMI] 40.0-44.9, adult; Z79.82 Long term (current) use of aspirin; Z79.84 Long term (current) use of oral hypoglycemic drugs; Z79.891 Long term (current) use of opiate analgesic; Z79.899 Other long term (current) drug therapy; Z88.8 Allergy status to other drugs, medicaments and biological substances; Z91.041 Radiographic dye allergy status

== ENCOUNTER → 2018-06-23 | Outpatient (CLI) | payer MEDICARE ==
--- NOTE | 2018-07-15 01:04 | ECWPNPC ---
PATIENT NAME: CHRISTINE BECERRIL : 1965 GENDER: MALE VISIT DATE: 06/23/2018 DISCHARGE DATE: 06/23/18 1011 VISIT LOCKED DATE TIME: PHYSICIAN: MAGNOLIA JOYCE RESOURCE: MAGNOLIA JOYCE REASON FOR APPOINTMENT 1. BACK/NECK HISTORY OF PRESENT ILLNESS HISTORY OF PRESENT ILLNESS: HERE FOR F/U OF CHRONIC NECK AND LOW BACK PAIN.RATING PAIN VAS 8/10.FINDS CURRENT MEDICATION SOMEWHAT HELPFUL AT REDUCING PAIN AND KEEPING HIM COMFORTABLE.FORGOT TO BRING IN MEDICATION.I TOLD HIM WE WOULD NEED THE SEE MEDICATION HERE AT CLINIC PRIOR TO BEING ABLE TO REFILL AND HE SAYS IT MAY BE OUT IN CAR OR HE CAN BRING IT IN [place]. PAIN THE PATIENT DESCRIBES THE PAIN... THE PATIENT DESCRIBES THE PAIN... FALL RISK SCREENING: SCREENING :NO FALLS REPORTED IN THE LAST YEAR CURRENT MEDICATIONS TAKING EPIPEN 0.3 MG/0.3ML (1:1000) DEVICE SQ INTRAMUSCULAR NEEDED TAKING CALCIUM PLUS VITAMIN D 500-50 MG-UNIT CAPSULE 1 CAPSULE ORALLY BID TAKING MIRALAX OTC POWDER PO ORALLY TWICE A DAY TAKING ALCOHOL PREP 1 ALCOHOL PREP PADS NEEDED TAKING HOSPITAL BED _ _ HOSPITAL BED DX 454.0,135,782.3 DAILY NEEDED TAKING COMPRESSION STOCKINGS 20-30 [facility] DIRECTED TAKING ALTERNATING PRESSURE MATTRESS 1 _ ALTERNATING MATTRESS PAD WITH MARCY AND PUMP ICD:187.139 DAILY TAKING PEN NEEDLES NOVOFINE NEEDLE PEN NEEDLESFOR VICTOZA VICTOZA FOUR TIMES A DAY TAKING LANCETS 1 LANCET 1 SUBCUTANEOUSLY TWICE DAILY TAKING BLOOD GLUCOSE TEST STRIP 1 STRIPS ONE TOUCH ULTRA TEST STRIPS 1 TOPICALLY TWICE A DAY TAKING VITAMIN B-12 1000 MCG INJECTION 1 INJECTION IM MONTHLY TAKING ADVAIR HFA 115-21 MCG/ACT AEROSOL 2 PUFFS INHALATION TWICE A DAY TAKING NITROSTAT 0.4 MG TABLET SUBLINGUAL 1 TABLET UNDER THE TONGUE EVERY 5 MINS FOR CHEST PAIN WITH A MAX OF 3 TABS SUBLINGUAL DIRECTED TAKING PROVENTIL HFA 108 (90 BASE) MCG/ACT AEROSOL SOLUTION 2 PUFFS INHALATION FOUR TIMES A DAY NEEDED TAKING FUROSEMIDE 80 MG TABLET 1 TABLET ORALLY WITH 20MG TO EQUAL 100MG TWICE A DAY TAKING LASIX 20 MG TABLET 1 TABLET ORALLY TWICE DAILY WITH 80 MG TAB FOR TOTAL OF 100 TAKING NASONEX 50 MCG/ACT SUSPENSION SPRAY TWO SPRAYS IN ONE NOSTRIL EVERY DAY TAKING ASPIRIN 81 81 MG TABLET CHEWABLE 1 TABLET ORALLY ONCE A DAY TAKING SUCRALFATE 1 GM TABLET 1 TABLET AT BEDTIME ON AN EMPTY STOMACH BEFORE MEALS ORALLY TWICE A DAY TAKING ASTELIN 0.1% (137 MCG) SPRAY SPRAY TWO SPRAYS IN EACH NOSTRIL TWICE A DAY INTRANASAL BID TAKING GABAPENTIN 800 MG TABLET 1 TABLET ORALLY THREE TIMES A DAY TAKING POTASSIUM CHLORIDE 20 MEQ CAPSULE 1 CAPSULE WITH FOOD ORALLY TWICE A DAY TAKING REQUIP 1 MG TABLET 1 TABLET ORALLY AT BEDTIME TAKING LOSARTAN POTASSIUM 50 MG TABLET 1 TABLET ORALLY ONCE A DAY TAKING METFORMIN HCL 1000 MG TABLET 1 TABLET WITH MEALS ORALLY TWICE A DAY TAKING COLACE 100 MG CAPSULE 1 TABLET ORALLY TWICE A DAY TAKING TAMSULOSIN HCL 0.4 MG CAPSULE EXTENDED RELEASE 1 TAB(S) ORALLY ONCE A DAY TAKING TRESIBA FLEXTOUCH 200 UNIT/ML SOLUTION PEN-INJECTOR INJECT 140 UNITS SUBCUTANEOUS BID TAKING JARDIANCE 25 MG TABLET 1 TABLET ORALLY ONCE A DAY, NOTES: TO HELP WITH WEIGHT AND DIABETES TAKING DESVENLAFAXINE ER 50 MG TABLET EXTENDED RELEASE 24 HOUR 1 TABLET ORALLY ONCE A DAY TAKING OSELTAMIVIR PHOSPHATE 75 MG CAPSULE 1 CAPSULE ORALLY TWICE A DAY TAKING TIZANIDINE HCL 4 MG TABLET 1 TABLET NEEDED ORALLY THREE TIMES A DAY TAKING OXYCODONE HCL 15 MG TABLET 1 TABLET ORALLY EVERY 6 HRS PRN MDD4 TAKING ZANTAC 150 MAXIMUM STRENGTH 150 MG TABLET 1 TAB ORALLY TWICE DAILY TAKING HYDROMORPHONE HCL ER 32 MG TABLET ER 24 HOUR ABUSE-DETERRENT 1 TABLET ORALLY ONCE A DAY MDD1 TAKING NEXIUM 40 MG CAPSULE DELAYED RELEASE 1 CAPSULE ORALLY TWICE DAILY TAKING CRESTOR 40 MG TABLET 1 TABLET ORALLY ONCE A DAY NOT-TAKING TOUJEO SOLOSTAR 300 UNIT/ML SOLUTION PEN-INJECTOR 160 MG SUBCUTANEOUS TWICE DAILY NOT-TAKING HUMALOG KWIKPEN 100 UNIT/ML SOLUTION PEN-INJECTOR DIRECTED SUBCUTANEOUS THREE TIMES DAILY AT MEALS NOT-TAKING LASIX 20 MG TAB TAKE ONE TABLET BY MOUTH TWICE A DAY WITH 80MG FOR A TOTAL OF 100MG NOT-TAKING LIDOCAINE HCL 5 % CREAM DIRECTED EXTERNALLY APPLY TO LEFT SHOULDER OR LOW BACK 3X DAY PRN, NOTES: INSURANCE WON'T COVER NOT-TAKING CLOBETASOL PROPIONATE 0.05 % OINTMENT 1 APPLICATION TO CIGAR-SHAPED LESION ON ARMS, LEGS, BACK AND TRUNK EXTERNALLY TWICE A DAY NOT-TAKING CHLORHEXIDINE GLUCONATE 20 % SOLUTION SWISH FOR 15 SECONDS THEN SPIT OUT AND RINSE WITH WATER MOUTH BID NOT-TAKING TRIAMCINOLONE ACETONIDE 0.1 % PASTE 1 APPLICATION AT BEDTIME MOUTH/THROAT BID NOT-TAKING TESSALON PERLES 100 MG CAPSULE 1 CAPSULE NEEDED ORALLY THREE TIMES A DAY NOT-TAKING CLOBETASOL PROPIONATE 0.05 % CREAM 1 APPLICATION TO PIGMENTED LESIONS EXTERNALLY TWICE A DAY, NOTES: APPLY FOR 21 DAYS OR UNTIL SKIN CLEARS, WHICHEVER IS SHORTER. REPEAT IF LESIONS RE-OCCUR NOT-TAKING DULOXETINE HCL 20 MG CAPSULE DELAYED RELEASE PARTICLES DIRECTED ORALLY DAILY, NOTES: TAKE 2 CAPS DAILY WITH SERTRALINE 50 MG DAILY FOR 7 DAYS, THEN DECREASE TO 1 CAP DAILY FOR 7 DAYS, THEN TAKE ONLY SERTRALINE AND STOP DULOXETINE DISCONTINUED FUROSEMIDE 80 MG TAB TAKE ONE TABLET BY MOUTH TWICE A DAY WITH 20MG TO EQUAL 100MG ORALLY TWICE DAILY, NOTES: DUPLICATE MEDICATION LIST REVIEWED AND RECONCILED WITH THE PATIENT PAST MEDICAL HISTORY DIABETES MELLITUS TYPE 2 [id number]-[id number] 30, 2007 CARDIAC 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-NOVEMBER 2007 MRI WITH C6-C7 MODERATE LEFT BULGE CAUSING MODERATE CENTRAL CANAL STENOSIS, SMALL LEFT HNP C4-C5 WITH MODERATE SPINAL STENOSIS AND C5-C6 BULGE CAUSING BILATERAL NEURAL FORAMINAL NARROWING RIGHT GREATER THAN LEFT RIGHT SUPRASPINATUS TENDINITIS BY MAY 2008 MRI OBSTRUCTIVE SLEEP APNEA-PATIENT REFUSES CPAP ALLERGIC RHINITIS/CHRONIC SINUSITIS MIGRAINE HEADACHES, COMMON TYPE ESSENTIAL TREMOR DEPRESSION DYSPEPSIA/GERD B12 DEFICIENCY RESTLESS LEG SYNDROME HYPERTENSION CONSTIPATION, CHRONIC ANEMIA, CHRONIC SECONDARY TO IRON AND B12 DEFICIENCY-PATIENT REFUSES ANOSCOPY HYMENOPTERA ANAPHYLAXIS HISTORY OF IGG LAMBDA BY RUBÉN- PATIENT REFUSED BONE MARROW BIOPSY OBESITY, MORBID MULTIPLE DENTAL CARIES ULNAR NEUROPATHY AT ELBOW OF LEFT UPPER EXTREMITY MYOFASCIAL PAIN SARCOIDOSIS ALLERGIES TYLENOL WITH CODEINE: HIVES - ALLERGY CT SCAN DYE: VOMITING - SIDE EFFECTS ZYPREXA: SEDATION - SIDE EFFECTS TRICOR: MYALGIAS - SIDE EFFECTS TRAMADOL HCL: LEG CRAMPS - SIDE EFFECTS SEROQUEL: SEDATION - SIDE EFFECTS PAXIL: DECREASE LIBIDO - SIDE EFFECTS NORVASC: INCREASED EDEMA - SIDE EFFECTS EFFEXOR: SWEATING - SIDE EFFECTS ABILIFY: SEDATION - SIDE EFFECTS SURGICAL HISTORY RECONSTRUCTION OF AXILLA AT 1965 TONSILLECTOMY WITH RECONSTRUSTION 1986 ARTHROSCOPIC KNEE SURGERY LEFT MULTIPLE UMBILICAL HERNIA REPAIR 1999 BRONCHOSCOPY 2003 CARDIAC CATH, [facility]; CLEAR 2006 LEFT ULNAR NERVE RELEASE-DR. KELLY 03/24/2017 LUNG BIOPSY 2005 FAMILY HISTORY FATHER: DIAGNOSED WITH HYPERTENSION, CANCER MOTHER: HYPERTENSION, HEART DISEASE 3 SON(S) , 2 DAUGHTER(S) - HEALTHY. FATHER: ; OF LUNG CA, HTN, GLAUCOMA\\\\NMOTHER: ; OF BOWEL OBSTRUCTION, HTN, DEMENTIA, CAD, HAD MULTIPLE STILL BIRTHS\\\\NSISTER: ; AT 53 DUE TO BRAIN ANEURISM\\\\NBROTHER: ALIVE; HEALTHY\\\\NSISTER: AT 30 DAYS OLD DUE TO HEART DEFECT\\\\NBROTHER: 30 DAYS AFTER . SOCIAL HISTORY GENERAL: TOBACCO USE ARE YOU A:NONSMOKER NEVER SMOKER HIV / HEP-C SCREENING HIV TEST OFFERED TO PATIENT:YES DATE OFFERED:05/13/2016 TEST ACCEPTED:NO REASON:PATIENT DECLINED HEP-C TEST OFFERED TO PATIENT:YES DATE OFFERED:05/13/2016 TEST ACCEPTED:NO REASON:PATIENT DECLINED OTHERS AT HOME: SPOUSE, CHILDREN. DIET: REGULAR. LANGUAGE LANGUAGES SPOKEN:KAZAKH DOMESTIC VIOLENCE DO YOU FEEL SAFE IN YOUR ENVIRONMENT?YES NEW PATIENT PAIN DIARY TODAY'S VISITNOTES FROM 0-10, WHAT LEVEL IS YOUR PAIN TODAY?8 BMI CARE GOAL FOLLOW-UP ABOVE NORMAL BMI FOLLOW-UPDIETARY NEEDS EDUCATION RECREATIONAL DRUG USE DRUG USE?NO EXERCISE: NO REGULAR EXERCISE. LEARNING BARRIERS / SPECIAL NEEDS CHANGE FROM LAST VISIT?NO BARRIERS TO LEARNING?NO HEARING IMPAIRED?NO VISION IMPAIRED?YES :CORRECTIVE LENSES COGNITIVELY IMPAIRED?NO READINESS TO LEARN?YES LEARNING PREFERENCES?YES :DEMONSTRATION/VERBAL INSTRUCTION LEARNING CAPABILITIES PRESENT?YES EMOTIONAL BARRIERS?NO SPECIAL DEVICES?YES :CANE HEAD GROWER NEEDED?NO PAIN CLINIC PFS, CLERGY, PUBLIC HEALTH REFERRALS PFS REFERRAL NEEDED?NO CLERGY REFERRAL NEEDED?NO PUBLIC HEALTH REFERRAL NEEDED?NO HAS THE PATIENT BEEN EDUCATED REGARDING HIS/HER PLAN OF CARE?YES HAS THE PATIENT BEEN EDUCATED REGARDING PAIN, THE RISK FOR PAIN, THE IMPORTANCE OF EFFECTIVE PAIN MANAGEMENT, AND THE PAIN ASSESSMENT PROCESS?YES LATEX QUESTIONNAIRE LATEX ALLERGY : HAVE YOU EVER DEVELOPED ANY TYPE OF REACTION AFTER HANDLING LATEX PRODUCTS SUCH RUBBER GLOVES, CONDOMS, DIAPHRAGMS, BALLOONS, SOCKS, OR UNDERWEAR?NO LATEX ALLERGY : HAVE YOU EVER DEVELOPED ANY TYPE OF REACTION DURING OR AFTER DENTAL APPOINTMENT, VAGINAL/RECTAL EXAMINATION, SURGICAL PROCEDURE, OR ANY OTHER EXPOSURE?NO LATEX RISK : HAVE YOU EVER HAD ANY DIFFICULTY BREATHING OR HIVES AFTER EATING OR HANDLING ANY FRUITS, OR VEGETABLES; SUCH KIWI, BANANAS, STONE FRUITS, OR CHESTNUTSNO LATEX RISK : DO YOU HAVE A PREVIOUS PERSONAL HISTORY OF MORE THAN NINE SURGERIES, SPINA BIFIDA, OR REPEATED CATHERTIZATIONS? NO LATEX RISK : ARE YOU FREQUENTLY EXPOSED TO LATEX PRODUCTS IN YOUR OCCUPATION?NO DATE ASKED : 05/28/2018 CAFFEINE CAFFEINE USE?YES HOW OFTEN AND HOW MUCH? 0-2 CUP SODA ADVANCE DIRECTIVE ADVANCE DIRECTIVE DISCUSSED WITH PATIENT:YES HCP-, PAT ASKED TO BRING A COPY IN. 06/23/18 [facility]VENT[facility] [id number] NONE MARITAL STATUS: . ALCOHOL SCREENING DID YOU HAVE A DRINK CONTAINING ALCOHOL IN THE PAST YEAR?NO POINTS0 INTERPRETATIONNEGATIVE OCCUPATION: DISABLED. SEXUAL HX HAD SEX IN THE LAST 12 MONTHS (VAGINAL, ORAL, OR ANAL)?YES WITHWOMEN ONLY REVIEWED 07/21/17 1144 BV01/15/18 1120 REVIEWED WITH PT. ADREVIEWED WITH PATIENT 05/28/18 1143 JSREVIEWED WITH PT 06/23/18 0937 BV. HOSPITALIZATION/MAJOR DIAGNOSTIC PROCEDURE DIABETES SEPTEMBER 2014 LLL CELLULITIS AND ULCER 05/09/2016 REVIEW OF SYSTEMS REVIEWED BY: PROVIDER: MAGNOLIA AQUINO . CONSTITUTIONAL: ANY CHANGE IN YOUR MEDICAL CONDITION? NO . CHILLS NO . FEVER NO . INFECTION: DO YOU HAVE NEW INFECTIONS? NO . DO YOU HAVE HISTORY OF MRSA? NO . MUSCULOSKELETAL: ANY NEW PATTERNS OF PAIN OR NUMBNESS? NO . GASTROENTEROLOGY: ANY NEW CHANGE IN BOWEL CONTROL? NO . GENITOURINARY: ANY NEW CHANGE IN BLADDER CONTROL? NO . IS THERE A CHANCE YOU COULD BE ? NO . HEMATOLOGY/LYMPH: DO YOU TAKE ANY BLOOD THINNERS? (FOR EXAMPLE- COUMADIN, PLAVIX, AGGRENOX, PLATEL, PRADAXA, OR XARELTO) NO . WHEN WAS YOUR LAST DOSE? DATE: TIME: . NEUROLOGY: HAVE YOU FALLEN IN THE PAST 12 MONTHS? NO . ANY NEW EXTREMITY NUMBNESS OR WEAKNESS? PT COMPLAINS OF NEW CONSTANT TINGLING IN BILATERAL HANDS FOR THE PAST FEW DAY. STATES IT IS MILD BUT HAS NO HISTORY OF THIS. . CARDIOLOGY: DO YOU HAVE A PACEMAKER OR DEFIBRILLATOR? NO . RESPIRATORY: HAVE YOU BEEN SICK IN THE PAST WEEK? NO . FEVER NO . FLU LIKE SYMPTOMS? NO . COUGH NO . INTEGUMENTARY: DO YOU HAVE ANY RASHES OR OPEN SORES? NO . ALLERGIC/IMMUNO: ARE YOU ALLERGIC TO IV DYE? YES . ANY NEW ALLERGIES? NO . PSYCHIATRIC: DO YOU HAVE THOUGHTS OF HURTING YOURSELF OR SOMEONE ELSE? NO . ARE YOU ABUSED, NEGLECTED, OR IN AN UNSAFE ENVIRONMENT? NO . ENDOCRINOLOGY: ARE YOU DIABETIC? YES, ON MEDICATION . OTHER: DO YOU NEED ANY PRESCRIPTIONS? YES, OXYCODONE . IF YES, PLEASE LIST: ____ . ANY NEW PROBLEMS WITH YOUR MEDICATIONS? NO . WHEN DID YOU LAST EAT? ____ . WHEN DID YOU LAST DRINK? ____ . WHAT DID YOU LAST DRINK? ____ . NAME OF PERSON DRIVING YOU HOME? ____ . DO YOU HAVE ANY OTHER QUESTIONS OR CONCERNS NO . VITAL SIGNS WT 313.6 LBS, HT 72 IN, BMI 42.53 INDEX, BP 134/88 MM HG, HR 85 /MIN, RR 18 /MIN, TEMP 96.2 F, OXYGEN SAT % 95%, NA INITIALS SC 09:29, REVIEWED BY: BV. EXAMINATION GENERAL EXAMINATION: GENERAL APPEARANCE:COMFORTABLE. PSYCHAFFECT NORMAL. LUNGS:LUNG SOUNDS ARE CLEAR.RESPIRATIONS NON-LABORED. HEART:S1, S2 IN A REGULAR RATE AND RHYTHM. NO SIGNIFICANT MURMURS, RUBS OR GALLOPS NOTED. BACK:PERILUMBAR TENDERNESS, PAIN WITH FLEXION, PAIN WITH EXTENSION. ASSESSMENTS LOW BACK PAIN - M54.5 (PRIMARY) CHRONIC PRESCRIPTION OPIATE USE - Z79.891 TREATMENT LOW BACK PAIN CONTINUE HYDROMORPHONE HCL ER TABLET ER 24 HOUR ABUSE-DETERRENT, 32 MG, 1 TABLET, ORALLY, ONCE A DAY MDD1 CONTINUE GABAPENTIN TABLET, 800 MG, 1 TABLET, ORALLY, THREE TIMES A DAY CONTINUE COLACE CAPSULE, 100 MG, 1 TABLET, ORALLY, TWICE A DAY CONTINUE TIZANIDINE HCL TABLET, 4 MG, 1 TABLET NEEDED, ORALLY, THREE TIMES A DAY CONTINUE OXYCODONE HCL TABLET, 15 MG, 1 TABLET, ORALLY, EVERY 6 HRS PRN MDD4 NOTES: ISTOP REGISTRY REVIEWED AND DEMONSTRATES COMPLLIANCE. (REF # ) DID NOT BRING IN MEDICATION TODAYRECENT URINE TOXICOLOGY REVIEWED. NO UNAUTHORIZED MEDICATIONS. NO ILLICIT SUBSTANCES AND PRESCRIBED MEDICATIONS WERE PRESENT. , RISKS AND BENEFITS OF NARCOTIC/OPIOD MEDICATIONS WERE REVIEWED WITH PATIENT - THIS INCLUDES BUT IS NOT LIMITED TO RISK OF DEPENDANCE/DEVELOPMENT OF ADDICTION, MOOD DISTURBANCE AND DEPRESSION, OSTEOPOROSIS, HORMONAL AND LABIDAL CHANGES, RESPIRATORY DEPRESSION AND . PATIENT IS ADVISED NOT TO DRIVE OR DRINK ALCOHOL WHILE ON THESE MEDICATIONS. PROCEDURE CODES [id number] ESTABILISHED PATIENT [facility] CHARGE DISPOSITION & COMMUNICATION FOLLOW UP NURSE APT THIS WEEK FOR PILL COUNT /ID ELECTRONICALLY SIGNED BY KENIA NOBLE ON 07/14/2018 AT 03:44 PM EDT DISCLAIMER : THIS IS A VISIT SUMMARY EXTRACTED FROM THE [employer] CHART. IT IS NOT A COPY OF THE [employer] PROGRESS NOTE. CORRIE
== END ==
LOC: M PAIN 09:30
PROVIDERS: ATTEND Nurse Practitioner Family
DX: M54.5 Low back pain (principal); G89.29 Other chronic pain; E11.40 Type 2 diabetes mellitus with diabetic neuropathy, unspecified; I10 Essential (primary) hypertension; J44.9 Chronic obstructive pulmonary disease, unspecified; E78.5 Hyperlipidemia, unspecified; G43.909 Migraine, unspecified, not intractable, without status migrainosus; G25.0 Essential tremor; K21.9 Gastro-esophageal reflux disease without esophagitis; G47.33 Obstructive sleep apnea (adult) (pediatric); E66.01 Morbid (severe) obesity due to excess calories; Z68.41 Body mass index [BMI] 40.0-44.9, adult; Z79.82 Long term (current) use of aspirin; Z79.891 Long term (current) use of opiate analgesic; Z79.899 Other long term (current) drug therapy; Z88.5 Allergy status to narcotic agent; Z88.8 Allergy status to other drugs, medicaments and biological substances; Z91.041 Radiographic dye allergy status; Z86.59 Personal history of other mental and behavioral disorders

== ENCOUNTER → 2018-10-06 | Outpatient (CLI) | payer MEDICARE ==
[~2018-10-06] MED LIST changes: -DULO1CAP2 PO; +DULO1CAP5 PO; +HYDR-3653 PO; -LISI20TA PO; +LISI20TA18 PO; -[UNRECOGNIZED DRUG - CODE] PO
== END ==
LOC: M PAIN 11:15
PROVIDERS: ATTEND Nurse Practitioner Family
DX: M54.5 Low back pain (principal); G89.29 Other chronic pain; E11.9 Type 2 diabetes mellitus without complications; J44.9 Chronic obstructive pulmonary disease, unspecified; E78.5 Hyperlipidemia, unspecified; G47.33 Obstructive sleep apnea (adult) (pediatric); G43.909 Migraine, unspecified, not intractable, without status migrainosus; G25.0 Essential tremor; Z86.59 Personal history of other mental and behavioral disorders; K21.9 Gastro-esophageal reflux disease without esophagitis; G25.81 Restless legs syndrome; I10 Essential (primary) hypertension; Z88.5 Allergy status to narcotic agent; Z88.8 Allergy status to other drugs, medicaments and biological substances; Z91.041 Radiographic dye allergy status; Z86.19 Personal history of other infectious and parasitic diseases; E66.01 Morbid (severe) obesity due to excess calories; Z68.41 Body mass index [BMI] 40.0-44.9, adult; Z79.82 Long term (current) use of aspirin; Z79.4 Long term (current) use of insulin; Z79.891 Long term (current) use of opiate analgesic; Z79.899 Other long term (current) drug therapy

== ENCOUNTER → 2018-11-17 | Outpatient (CLI) | payer MEDICARE ==
[~2018-11-17] MED LIST changes: -LISI20TA18 PO; +LISI20TA19 PO; +METF-791 PO; -METF500T4 PO
== END ==
LOC: M PAIN 11:30
PROVIDERS: ATTEND Nurse Practitioner Family
DX: M54.5 Low back pain (principal); E11.9 Type 2 diabetes mellitus without complications; Z79.4 Long term (current) use of insulin; Z79.82 Long term (current) use of aspirin; Z79.899 Other long term (current) drug therapy

== ENCOUNTER → 2019-01-18 | Outpatient (REF) | payer MEDICARE ==
[~2019-01-18] MED LIST changes: -DOXY100T16 PO; +DOXY100T27 PO
[2019-01-18 18:11] LABS: HEMOGLOBIN A1c 7.7 %
[2019-01-18 18:16] LABS: HEMATOCRIT 46.8 % (42.0-52.0); HEMOGLOBIN 14.9 g/dl (13.5-17.5); MEAN CORPUSCULAR HEMOGLOBIN 26.1 pg (27.0-33.0); MEAN CORPUSCULAR HGB CONC 31.8 g/dl (32.0-36.5); MEAN CORPUSCULAR VOLUME 82.1 fl (80.0-96.0); PLATELET COUNT, AUTOMATED 202 10^3/uL (150-450); WHITE BLOOD COUNT 5.2 10^3/uL (4.0-10.0)
[2019-01-18 18:33] LABS: CREATININE, URINE 86.4 MG/DL; MAU/CREAT RATIO 141.2 MCG/MG (0.0-30.0)
[2019-01-18 18:34] LABS: ALBUMIN 3.6 GM/DL (3.2-5.2); ALT/SGPT 18 U/L (12-78); BILIRUBIN,TOTAL 0.4 MG/DL (0.2-1.0); BLOOD UREA NITROGEN 12 MG/DL (7-18); CALCIUM LEVEL 8.8 MG/DL (8.5-10.1); CARBON DIOXIDE LEVEL 26 MEQ/L (21-32); CHLORIDE LEVEL 107 MEQ/L (98-107); CHOLESTEROL LEVEL 168 MG/DL (<200); CHOLESTEROL RISK RATIO 3.652 (<5); CREATININE FOR GFR 0.77 MG/DL (0.70-1.30); FREE T4 0.83 NG/DL (0.76-1.46); GLOMERULAR FILTRATION RATE > 60.0 (>56); GLUCOSE, FASTING 102 MG/DL (70-100); HDL CHOLESTEROL 46 MG/DL (>40); LDL CHOLESTEROL 84 MG/DL (<100); NON-HDL-C 122 MG/DL; POTASSIUM SERUM 4.1 MEQ/L (3.5-5.1); SODIUM LEVEL 141 MEQ/L (136-145); TOTAL PROTEIN 7.1 GM/DL (6.4-8.2); TRIGLYCERIDES LEVEL 191 MG/DL (<150)
== END ==
LOC: M SFHCPLAZ 15:55
PROVIDERS: ATTEND Physician Assistant
DX: E11.21 Type 2 diabetes mellitus with diabetic nephropathy (principal); E78.5 Hyperlipidemia, unspecified; G47.33 Obstructive sleep apnea (adult) (pediatric); I10 Essential (primary) hypertension; Z12.5 Encounter for screening for malignant neoplasm of prostate
CPT/HCPCS: 36415; 80053; 80061; 82043; 83036; 84439; 84443; 85027; G0103

== ENCOUNTER → 2019-02-08 | Outpatient (CLI) | payer MEDICARE ==
--- NOTE | 2019-02-24 01:51 | ECWPNPC ---
PATIENT NAME: CHRISTINE BECERRIL : 1965 GENDER: MALE VISIT DATE: 02/08/2019 DISCHARGE DATE: 02/08/19 1148 VISIT LOCKED DATE TIME: PHYSICIAN: MAGNOLIA JOYCE RESOURCE: MAGNOLIA JOYCE REASON FOR APPOINTMENT 1. AETNA-MED MGMT HISTORY OF PRESENT ILLNESS HISTORY OF PRESENT ILLNESS: HERE FOR F/U OF CHRONIC NECK AND LOW BACK PAIN.RATING PAIN VAS 6/10.FINDS CURRENT MEDICATION SOMEWHAT HELPFUL AT REDUCING PAIN AND KEEPING HIM COMFORTABLE. REPORTING PAIN LEVEL AN 8/10 VAS. PAIN THE PATIENT DESCRIBES THE PAIN... FALL RISK SCREENING: SCREENING :NO FALLS REPORTED IN THE LAST YEAR CURRENT MEDICATIONS TAKING CALCIUM PLUS VITAMIN D 500-50 MG-UNIT CAPSULE 1 CAPSULE ORALLY BID TAKING ASPIRIN 81 81 MG TABLET CHEWABLE 1 TABLET ORALLY ONCE A DAY TAKING CRESTOR 40 MG TABLET 1 TABLET ORALLY ONCE A DAY TAKING MIRALAX OTC POWDER PO ORALLY TWICE A DAY TAKING VITAMIN B-12 1000 MCG INJECTION 1 INJECTION IM MONTHLY TAKING FUROSEMIDE 80 MG TABLET 1 TABLET ORALLY WITH 20MG TO EQUAL 100MG TWICE A DAY TAKING LASIX 20 MG TABLET 1 TABLET ORALLY TWICE DAILY WITH 80 MG TAB FOR TOTAL OF 100 TAKING SUCRALFATE 1 GM TABLET 1 TAB ORALLY BEFORE BEDTIME TAKING ALCOHOL PREP 1 ALCOHOL PREP PADS NEEDED TAKING HOSPITAL BED _ _ HOSPITAL BED DX 454.0,135,782.3 DAILY NEEDED TAKING COMPRESSION STOCKINGS 20-30 MMHG DIRECTED TAKING ALTERNATING PRESSURE MATTRESS 1 _ ALTERNATING MATTRESS PAD WITH MARCY AND PUMP ICD:187.139 DAILY TAKING PEN NEEDLES NOVOFINE NEEDLE PEN NEEDLESFOR VICTOZA VICTOZA FOUR TIMES A DAY TAKING LANCETS 1 LANCET 1 SUBCUTANEOUSLY TWICE DAILY TAKING BLOOD GLUCOSE TEST STRIP 1 STRIPS ONE TOUCH ULTRA TEST STRIPS 1 TOPICALLY TWICE A DAY TAKING LOSARTAN POTASSIUM 50 MG TABLET 1 TABLET ORALLY ONCE A DAY TAKING TAMSULOSIN HCL 0.4 MG CAPSULE EXTENDED RELEASE 1 TAB(S) ORALLY ONCE A DAY TAKING EPIPEN 0.3 MG/0.3ML (1:1000) DEVICE SQ INTRAMUSCULAR NEEDED TAKING NITROSTAT 0.4 MG TABLET SUBLINGUAL 1 TABLET UNDER THE TONGUE EVERY 5 MINS FOR CHEST PAIN WITH A MAX OF 3 TABS SUBLINGUAL DIRECTED TAKING NASONEX 50 MCG/ACT SUSPENSION SPRAY TWO SPRAYS IN ONE NOSTRIL EVERY DAY NASALLY DAILY TAKING ASTELIN 0.1% (137 MCG) SPRAY SPRAY TWO SPRAYS IN EACH NOSTRIL TWICE A DAY INTRANASAL BID TAKING COLACE 100 MG CAPSULE 1 TABLET ORALLY TWICE A DAY TAKING PROVENTIL HFA 108 (90 BASE) MCG/ACT AEROSOL SOLUTION 2 PUFFS INHALATION FOUR TIMES A DAY NEEDED TAKING TIZANIDINE HCL 4 MG TABLET 1 TABLET NEEDED ORALLY THREE TIMES A DAY TAKING METFORMIN HCL 1000 MG TABLET 1 TABLET WITH MEALS ORALLY TWICE A DAY TAKING JARDIANCE 25 MG TABLET 1 TABLET ORALLY ONCE A DAY TAKING GABAPENTIN 800 MG TABLET 1 TABLET ORALLY THREE TIMES A DAY TAKING TRINTELLIX 10 MG TABLET 1 TABLET ORALLY ONCE A DAY TAKING REQUIP 1 MG TABLET 1 TABLET ORALLY AT BEDTIME TAKING NEXIUM 40 MG CAPSULE DELAYED RELEASE 1 CAPSULE ORALLY TWICE DAILY TAKING TRESIBA FLEXTOUCH 200 UNIT/ML SOLUTION PEN-INJECTOR INJECT 170 UNITS SUBCUTANEOUS BID TAKING RIZATRIPTAN BENZOATE 5 MG TABLET DISINTEGRATING 1-2 TABLETS ORALLY THREE TIMES DAILY NEEDED TAKING HYDROMORPHONE HCL ER 32 MG TABLET ER 24 HOUR ABUSE-DETERRENT 1 TABLET ORALLY ONCE A DAY MDD1 NOT-TAKING ZANTAC 150 MAXIMUM STRENGTH 150 MG TABLET 1 TAB ORALLY TWICE DAILY NOT-TAKING CEPHALEXIN 500 MG CAPSULE 1 CAPSULE ORALLY EVERY 12 HRS NOT-TAKING POTASSIUM CHLORIDE 20 MEQ CAPSULE 1 CAPSULE WITH FOOD ORALLY TWICE A DAY NOT-TAKING OSELTAMIVIR PHOSPHATE 75 MG CAPSULE 1 CAPSULE ORALLY TWICE A DAY NOT-TAKING DESVENLAFAXINE ER 50 MG TABLET EXTENDED RELEASE 24 HOUR 1 TABLET ORALLY ONCE A DAY NOT-TAKING ADVAIR HFA 115-21 MCG/ACT AEROSOL 2 PUFFS INHALATION TWICE A DAY NOT-TAKING AMOXICILLIN-POT CLAVULANATE 875-125 MG TABLET 1 TABLET ORALLY EVERY 12 HRS MEDICATION LIST REVIEWED AND RECONCILED WITH THE PATIENT PAST MEDICAL HISTORY DIABETES MELLITUS TYPE 2 [id number] 30, 2007 [id number]/ASTHMA MODERATE PERSISTENT/SARCOIDOSIS/COR PULMONALE HYPERLIPIDEMIA 2B CERVICAL DJD WITH RIGHT C5-C6 RADICULOPATHY-NOVEMBER 2007 MRI WITH C6-C7 MODERATE LEFT BULGE CAUSING MODERATE CENTRAL CANAL STENOSIS, SMALL LEFT HNP C4-C5 WITH MODERATE SPINAL STENOSIS AND C5-C6 BULGE CAUSING BILATERAL NEURAL FORAMINAL NARROWING RIGHT GREATER THAN LEFT RIGHT SUPRASPINATUS TENDINITIS BY MAY 2008 MRI OBSTRUCTIVE SLEEP APNEA-PATIENT REFUSES CPAP ALLERGIC RHINITIS/CHRONIC SINUSITIS MIGRAINE HEADACHES, COMMON TYPE ESSENTIAL TREMOR DEPRESSION DYSPEPSIA/GERD B12 DEFICIENCY RESTLESS LEG SYNDROME HYPERTENSION CONSTIPATION, CHRONIC ANEMIA, CHRONIC SECONDARY TO IRON AND B12 DEFICIENCY-PATIENT REFUSES ANOSCOPY HYMENOPTERA ANAPHYLAXIS HISTORY OF IGG LAMBDA BY RUBÉN- PATIENT REFUSED BONE MARROW BIOPSY OBESITY, MORBID MULTIPLE DENTAL CARIES ULNAR NEUROPATHY AT ELBOW OF LEFT UPPER EXTREMITY MYOFASCIAL PAIN SARCOIDOSIS BACK PAIN ALLERGIES TYLENOL WITH CODEINE: HIVES - ALLERGY CT SCAN DYE: VOMITING - SIDE EFFECTS ZYPREXA: SEDATION - SIDE EFFECTS TRICOR: MYALGIAS - SIDE EFFECTS TRAMADOL HCL: LEG CRAMPS - SIDE EFFECTS SEROQUEL: SEDATION - SIDE EFFECTS PAXIL: DECREASE LIBIDO - SIDE EFFECTS NORVASC: INCREASED EDEMA - SIDE EFFECTS EFFEXOR: SWEATING - SIDE EFFECTS ABILIFY: SEDATION - SIDE EFFECTS SURGICAL HISTORY RECONSTRUCTION OF AXILLA AT 1968 TONSILLECTOMY WITH RECONSTRUSTION 1986 ARTHROSCOPIC KNEE SURGERY LEFT MULTIPLE UMBILICAL HERNIA REPAIR 1999 BRONCHOSCOPY 2003 CARDIAC CATH, [facility]; CLEAR 2006 LEFT ULNAR NERVE RELEASE-DR. KELLY 03/24/2017 LUNG BIOPSY 2005 FAMILY HISTORY FATHER: , DIAGNOSED WITH HYPERTENSION, OTHER MALIGNANT NEOPLASM OF UNSPECIFIED SITE MOTHER: , HYPERTENSION, UNSPECIFIED HEART DISEASE SIBLINGS: ALIVE 3 SON(S) , 2 DAUGHTER(S) - HEALTHY. FATHER: ; OF LUNG CA, HTN, GLAUCOMA\\\\NMOTHER: ; OF BOWEL OBSTRUCTION, HTN, DEMENTIA, CAD, HAD MULTIPLE STILL BIRTHS\\\\NSISTER: ; AT 53 DUE TO BRAIN ANEURISM\\\\NBROTHER: ALIVE; HEALTHY\\\\NSISTER: AT 30 DAYS OLD DUE TO HEART DEFECT\\\\NBROTHER: 30 DAYS AFTER . SOCIAL HISTORY GENERAL: TOBACCO USE ARE YOU A:NONSMOKER NEVER SMOKER HIV / HEP-C SCREENING HIV TEST OFFERED TO PATIENT:YES DATE OFFERED:05/13/2016 TEST ACCEPTED:NO HEP-C TEST OFFERED TO PATIENT:YES DATE OFFERED:05/13/2016 REASON:PATIENT DECLINED TEST ACCEPTED:NO REASON:PATIENT DECLINED OTHERS AT HOME: SPOUSE, CHILDREN. EDUCATION LEVEL OF EDUCATION:HIGH SCHOOL DIET: REGULAR. LANGUAGE LANGUAGES SPOKEN:SYRIAN DOMESTIC VIOLENCE DO YOU FEEL SAFE IN YOUR ENVIRONMENT?YES NEW PATIENT PAIN DIARY TODAY'S VISITNOTES BMI CARE GOAL FOLLOW-UP ABOVE NORMAL BMI FOLLOW-UPDIETARY NEEDS EDUCATION RECREATIONAL DRUG USE DRUG USE?NO EXERCISE: NO REGULAR EXERCISE. LEARNING BARRIERS / SPECIAL NEEDS CHANGE FROM LAST VISIT?NO BARRIERS TO LEARNING?NO HEARING IMPAIRED?NO VISION IMPAIRED?YES :CORRECTIVE LENSES COGNITIVELY IMPAIRED?NO READINESS TO LEARN?YES LEARNING PREFERENCES?YES :DEMONSTRATION/VERBAL INSTRUCTION LEARNING CAPABILITIES PRESENT?YES EMOTIONAL BARRIERS?NO SPECIAL DEVICES?YES :CANE PROCESS SERVER NEEDED?NO PAIN CLINIC PFS, CLERGY, PUBLIC HEALTH REFERRALS PFS REFERRAL NEEDED?NO CLERGY REFERRAL NEEDED?NO PUBLIC HEALTH REFERRAL NEEDED?NO HAS THE PATIENT BEEN EDUCATED REGARDING HIS/HER PLAN OF CARE?YES HAS THE PATIENT BEEN EDUCATED REGARDING PAIN, THE RISK FOR PAIN, THE IMPORTANCE OF EFFECTIVE PAIN MANAGEMENT, AND THE PAIN ASSESSMENT PROCESS?YES LATEX QUESTIONNAIRE LATEX ALLERGY : HAVE YOU EVER DEVELOPED ANY TYPE OF REACTION AFTER HANDLING LATEX PRODUCTS SUCH RUBBER GLOVES, CONDOMS, DIAPHRAGMS, BALLOONS, SOCKS, OR UNDERWEAR?NO LATEX ALLERGY : HAVE YOU EVER DEVELOPED ANY TYPE OF REACTION DURING OR AFTER DENTAL APPOINTMENT, VAGINAL/RECTAL EXAMINATION, SURGICAL PROCEDURE, OR ANY OTHER EXPOSURE?NO LATEX RISK : HAVE YOU EVER HAD ANY DIFFICULTY BREATHING OR HIVES AFTER EATING OR HANDLING ANY FRUITS, OR VEGETABLES; SUCH KIWI, BANANAS, STONE FRUITS, OR CHESTNUTSNO LATEX RISK : DO YOU HAVE A PREVIOUS PERSONAL HISTORY OF MORE THAN NINE SURGERIES, SPINA BIFIDA, OR REPEATED CATHERIZATIONS? NO LATEX RISK : ARE YOU FREQUENTLY EXPOSED TO LATEX PRODUCTS IN YOUR OCCUPATION?NO DATE ASKED : 02/08/2019 CAFFEINE CAFFEINE USE?YES HOW OFTEN AND HOW MUCH? 0-2 CUP SODA ADVANCE DIRECTIVE ADVANCE DIRECTIVE DISCUSSED WITH PATIENT:YES HCP-, PAT ASKED TO BRING A COPY IN. 06/23/18 JAIN [id number] NONE MARITAL STATUS: . ALCOHOL SCREENING DID YOU HAVE A DRINK CONTAINING ALCOHOL IN THE PAST YEAR?NO POINTS0 INTERPRETATIONNEGATIVE OCCUPATION: DISABLED. SEXUAL HX HAD SEX IN THE LAST 12 MONTHS (VAGINAL, ORAL, OR ANAL)?YES WITHWOMEN ONLY REVIEWED 07/21/17 1144 BV01/15/18 1120 REVIEWED WITH PT. ADREVIEWED WITH PATIENT 05/28/18 1143 JSREVIEWED WITH PT 06/23/18 0937 BVREVIEWWED WITH PT 11/17/18 1200 NL02/08/19 REVIEWED WITH PT AD. HOSPITALIZATION/MAJOR DIAGNOSTIC PROCEDURE DIABETES SEPTEMBER 2014 LLL CELLULITIS AND ULCER 05/09/2016 REVIEW OF SYSTEMS REVIEWED BY: PROVIDER: MAGNOLIA JOYCE [employer]NAGER [employer] . CONSTITUTIONAL: ANY CHANGE IN YOUR MEDICAL CONDITION? NO . CHILLS NO . FEVER NO . INFECTION: DO YOU HAVE NEW INFECTIONS? NO . DO YOU HAVE HISTORY OF MRSA? NO . MUSCULOSKELETAL: ANY NEW PATTERNS OF PAIN OR NUMBNESS? NO . GASTROENTEROLOGY: ANY NEW CHANGE IN BOWEL CONTROL? NO . GENITOURINARY: ANY NEW CHANGE IN BLADDER CONTROL? NO . IS THERE A CHANCE YOU COULD BE ? NO . HEMATOLOGY/LYMPH: DO YOU TAKE ANY BLOOD THINNERS? (FOR EXAMPLE- COUMADIN, PLAVIX, AGGRENOX, PLATEL, PRADAXA, OR XARELTO) NO . WHEN WAS YOUR LAST DOSE? DATE: TIME: . NEUROLOGY: HAVE YOU FALLEN IN THE PAST 12 MONTHS? NO . ANY NEW EXTREMITY NUMBNESS OR WEAKNESS? NO . CARDIOLOGY: DO YOU HAVE A PACEMAKER OR DEFIBRILLATOR? NO . RESPIRATORY: HAVE YOU BEEN SICK IN THE PAST WEEK? NO . FEVER NO . FLU LIKE SYMPTOMS? NO . COUGH NO . INTEGUMENTARY: DO YOU HAVE ANY RASHES OR OPEN SORES? NO . ALLERGIC/IMMUNO: ARE YOU ALLERGIC TO IV DYE? YES . ANY NEW ALLERGIES? NO . PSYCHIATRIC: DO YOU HAVE THOUGHTS OF HURTING YOURSELF OR SOMEONE ELSE? NO . ARE YOU ABUSED, NEGLECTED, OR IN AN UNSAFE ENVIRONMENT? NO . ENDOCRINOLOGY: ARE YOU DIABETIC? YES, FSBS 166 THIS MORNING . OTHER: DO YOU NEED ANY PRESCRIPTIONS? NO . IF YES, PLEASE LIST: ____ . ANY NEW PROBLEMS WITH YOUR MEDICATIONS? NO . WHEN DID YOU LAST EAT? ____ . WHEN DID YOU LAST DRINK? ____ . WHAT DID YOU LAST DRINK? ____ . NAME OF PERSON DRIVING YOU HOME? ____ . DO YOU HAVE ANY OTHER QUESTIONS OR CONCERNS NO . VITAL SIGNS WT 308 LBS, HT 72 IN, BMI 41.77 INDEX, BP 141/68 MM HG, HR 76 /MIN, RR 18 /MIN, TEMP 97.2 F, OXYGEN SAT % 94%, SAFE IN ENV? (Y/N) Y, NA INITIALS IN 11:14, REVIEWED BY: BANG. EXAMINATION GENERAL EXAMINATION: GENERALCOMFORTABLE. PSYCHAFFECT NORMAL. LUNGS:LUNG SOUNDS ARE CLEAR.RESPIRATIONS NON-LABORED. HEART:S1, S2 IN A REGULAR RATE AND RHYTHM. NO SIGNIFICANT MURMURS, RUBS OR GALLOPS NOTED. ASSESSMENTS LOW BACK PAIN - M54.5 (PRIMARY) TREATMENT LOW BACK PAIN REFILL HYDROMORPHONE HCL ER TABLET ER 24 HOUR ABUSE-DETERRENT, 32 MG, 1 TABLET, ORALLY, ONCE A DAY MDD1, 30 DAY(S), 30, REFILLS 0 NOTES: ISTOP REGISTRY REVIEWED AND DEMONSTRATES COMPLLIANCE. BRINGS IN MEDICATIONS WHICH IS APPROPRIATE FOR WHAT WAS DISPENSED. RECENT URINE TOXICOLOGY REVIEWED. NO UNAUTHORIZED MEDICATIONS. NO ILLICIT SUBSTANCES AND PRESCRIBED MEDICATIONS WERE PRESENT. , RISKS OF NARCOTIC/OPIOD MEDICATIONS INCLUDES BUT IS NOT LIMITED TO RISK OF DEPENDANCE/DEVELOPMENT OF ADDICTION, MOOD DISTURBANCE AND DEPRESSION, OSTEOPOROSIS, HORMONAL AND LABIDAL CHANGES, RESPIRATORY DEPRESSION AND . PATIENT IS ADVISED NOT TO DRIVE OR DRINK ALCOHOL WHILE ON THESE MEDICATIONS. PROCEDURE CODES FA211 ESTABILISHED PATIENT [facility] CHARGE DISPOSITION & COMMUNICATION FOLLOW UP MED [facility], 2 MONTHS ELECTRONICALLY SIGNED BY KENIA NOBLE ON 02/23/2019 AT 09:02 AM EST DISCLAIMER : THIS IS A VISIT SUMMARY EXTRACTED FROM THE [employer] CHART. IT IS NOT A COPY OF THE [employer] PROGRESS NOTE. CORRIE
== END ==
LOC: M PAIN 10:30
PROVIDERS: ATTEND Nurse Practitioner Family
DX: M54.5 Low back pain (principal)

== ENCOUNTER → 2019-04-26 | Outpatient (CLI) | payer MEDICARE ==
[~2019-04-26] MED LIST changes: -ROPI1TAB PO; +ROPI1TAB3 PO
--- NOTE | 2019-05-12 03:15 | ECWPNPC ---
PATIENT NAME: CHRISTINE BECERRIL : 1965 GENDER: MALE VISIT DATE: 04/26/2019 DISCHARGE DATE: 04/26/19 1216 VISIT LOCKED DATE TIME: PHYSICIAN: MAGNOLIA JOYCE RESOURCE: MAGNOLIA JOYCE REASON FOR APPOINTMENT 1. BACK/MED MNGMNT HISTORY OF PRESENT ILLNESS HISTORY OF PRESENT ILLNESS: HERE FOR FOLLOW-UP OF CHRONIC LOW BACK PAIN. RATING PAIN LEVEL A 7/10. FINDS MEDICATION SOMEWHAT EFFECTIVE, BUT DOES STATE HE HAS SEVERE PAIN APPROXIMATELY 4 HOURS PRIOR TO NEXT DOSE. DISCUSSED USING TIZANIDINE 4 MG NEEDED DAILY. CURRENTLY USING TIZANIDINE SPARINGLY FOR SEVERE MUSCLE SPASM TYPE PAIN. PAIN THE PATIENT DESCRIBES THE PAIN... FALL RISK SCREENING: SCREENING :NO FALLS REPORTED IN THE LAST YEAR CURRENT MEDICATIONS TAKING CALCIUM PLUS VITAMIN D 500-50 MG-UNIT CAPSULE 1 CAPSULE ORALLY BID TAKING ASPIRIN 81 81 MG TABLET CHEWABLE 1 TABLET ORALLY ONCE A DAY TAKING MIRALAX OTC POWDER PO ORALLY TWICE A DAY TAKING VITAMIN B-12 1000 MCG INJECTION 1 INJECTION IM MONTHLY TAKING FUROSEMIDE 80 MG TABLET 1 TABLET ORALLY WITH 20MG TO EQUAL 100MG TWICE A DAY, NOTES: HAS NOT HAD TO TAKE RECENTLY TAKING LASIX 20 MG TABLET 1 TABLET ORALLY TWICE DAILY WITH 80 MG TAB FOR TOTAL OF 100, NOTES: HAS NOT HAD TO TAKE RECENTLY TAKING SUCRALFATE 1 GM TABLET 1 TAB ORALLY BEFORE BEDTIME TAKING ALCOHOL PREP 1 ALCOHOL PREP PADS NEEDED TAKING HOSPITAL BED _ _ HOSPITAL BED DX 454.0,135,782.3 DAILY NEEDED TAKING COMPRESSION STOCKINGS 20-30 MMHG DIRECTED TAKING ALTERNATING PRESSURE MATTRESS 1 _ ALTERNATING MATTRESS PAD WITH MARCY AND PUMP ICD:187.139 DAILY TAKING PEN NEEDLES NOVOFINE NEEDLE PEN NEEDLESFOR VICTOZA VICTOZA FOUR TIMES A DAY TAKING LANCETS 1 LANCET 1 SUBCUTANEOUSLY TWICE DAILY TAKING BLOOD GLUCOSE TEST STRIP 1 STRIPS ONE TOUCH ULTRA TEST STRIPS 1 TOPICALLY TWICE A DAY TAKING EPIPEN 0.3 MG/0.3ML (1:1000) DEVICE SQ INTRAMUSCULAR NEEDED TAKING NITROSTAT 0.4 MG TABLET SUBLINGUAL 1 TABLET UNDER THE TONGUE EVERY 5 MINS FOR CHEST PAIN WITH A MAX OF 3 TABS SUBLINGUAL DIRECTED TAKING NASONEX 50 MCG/ACT SUSPENSION SPRAY TWO SPRAYS IN ONE NOSTRIL EVERY DAY NASALLY DAILY TAKING ASTELIN 0.1% (137 MCG) SPRAY SPRAY TWO SPRAYS IN EACH NOSTRIL TWICE A DAY INTRANASAL BID TAKING COLACE 100 MG CAPSULE 1 TABLET ORALLY TWICE A DAY TAKING PROVENTIL HFA 108 (90 BASE) MCG/ACT AEROSOL SOLUTION 2 PUFFS INHALATION FOUR TIMES A DAY NEEDED TAKING METFORMIN HCL 1000 MG TABLET 1 TABLET WITH MEALS ORALLY TWICE A DAY TAKING JARDIANCE 25 MG TABLET 1 TABLET ORALLY ONCE A DAY TAKING GABAPENTIN 800 MG TABLET 1 TABLET ORALLY THREE TIMES A DAY TAKING REQUIP 1 MG TABLET 1 TABLET ORALLY AT BEDTIME TAKING NEXIUM 40 MG CAPSULE DELAYED RELEASE 1 CAPSULE ORALLY TWICE DAILY TAKING TRESIBA FLEXTOUCH 200 UNIT/ML SOLUTION PEN-INJECTOR INJECT 170 UNITS SUBCUTANEOUS BID TAKING RIZATRIPTAN BENZOATE 5 MG TABLET DISINTEGRATING 1-2 TABLETS ORALLY THREE TIMES DAILY NEEDED TAKING LOSARTAN POTASSIUM 50 MG TABLET 1 TABLET ORALLY ONCE A DAY TAKING TIZANIDINE HCL 4 MG TABLET 1 TABLET NEEDED ORALLY THREE TIMES A DAY TAKING TAMSULOSIN HCL 0.4 MG CAPSULE EXTENDED RELEASE 1 TAB(S) ORALLY ONCE A DAY TAKING VENLAFAXINE HCL ER 75 MG TABLET EXTENDED RELEASE 24 HOUR 1 TABLET WITH FOOD ORALLY ONCE A DAY TAKING TOPIRAMATE 25 MG TABLET DIRECTED ORALLY 1 TABLET ONCE A DAY AT BEDTIME FOR 1 WEEK THEN 1 TABLET TWICE A DAY TAKING HYDROMORPHONE HCL ER 32 MG TABLET ER 24 HOUR ABUSE-DETERRENT 1 TABLET ORALLY ONCE A DAY MDD1 TAKING ZANTAC 150 MAXIMUM STRENGTH 150 MG TABLET 1 TAB ORALLY TWICE DAILY TAKING POTASSIUM CHLORIDE 20 MEQ CAPSULE 1 CAPSULE WITH FOOD ORALLY TWICE A DAY NOT-TAKING CETIRIZINE HCL 10 MG TABLET 1 TABLET ORALLY ONCE A DAY NOT-TAKING CRESTOR 40 MG TABLET 1 TABLET ORALLY ONCE A DAY NOT-TAKING CEPHALEXIN 500 MG CAPSULE 1 CAPSULE ORALLY EVERY 12 HRS NOT-TAKING OSELTAMIVIR PHOSPHATE 75 MG CAPSULE 1 CAPSULE ORALLY TWICE A DAY NOT-TAKING DESVENLAFAXINE ER 50 MG TABLET EXTENDED RELEASE 24 HOUR 1 TABLET ORALLY ONCE A DAY NOT-TAKING ADVAIR HFA 115-21 MCG/ACT AEROSOL 2 PUFFS INHALATION TWICE A DAY NOT-TAKING AMOXICILLIN-POT CLAVULANATE 875-125 MG TABLET 1 TABLET ORALLY EVERY 12 HRS MEDICATION LIST REVIEWED AND RECONCILED WITH THE PATIENT PAST MEDICAL HISTORY DIABETES MELLITUS TYPE 2 [id number] 30, 2007 CARDIAC 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-NOVEMBER 2007 MRI WITH C6-C7 MODERATE LEFT BULGE CAUSING MODERATE CENTRAL CANAL STENOSIS, SMALL LEFT HNP C4-C5 WITH MODERATE SPINAL STENOSIS AND C5-C6 BULGE CAUSING BILATERAL NEURAL FORAMINAL NARROWING RIGHT GREATER THAN LEFT RIGHT SUPRASPINATUS TENDINITIS BY MAY 2008 MRI OBSTRUCTIVE SLEEP APNEA-PATIENT REFUSES CPAP ALLERGIC RHINITIS/CHRONIC SINUSITIS MIGRAINE HEADACHES, COMMON TYPE ESSENTIAL TREMOR DEPRESSION DYSPEPSIA/GERD B12 DEFICIENCY RESTLESS LEG SYNDROME HYPERTENSION CONSTIPATION, CHRONIC ANEMIA, CHRONIC SECONDARY TO IRON AND B12 DEFICIENCY-PATIENT REFUSES ANOSCOPY HYMENOPTERA ANAPHYLAXIS HISTORY OF IGG LAMBDA BY RUBÉN- PATIENT REFUSED BONE MARROW BIOPSY OBESITY, MORBID MULTIPLE DENTAL CARIES ULNAR NEUROPATHY AT ELBOW OF LEFT UPPER EXTREMITY MYOFASCIAL PAIN SARCOIDOSIS BACK PAIN ALLERGIES TYLENOL WITH CODEINE: HIVES - ALLERGY CT SCAN DYE: VOMITING - SIDE EFFECTS ZYPREXA: SEDATION - SIDE EFFECTS TRICOR: MYALGIAS - SIDE EFFECTS TRAMADOL HCL: LEG CRAMPS - SIDE EFFECTS SEROQUEL: SEDATION - SIDE EFFECTS PAXIL: DECREASE LIBIDO - SIDE EFFECTS NORVASC: INCREASED EDEMA - SIDE EFFECTS ABILIFY: SEDATION - SIDE EFFECTS SURGICAL HISTORY RECONSTRUCTION OF AXILLA AT 1968 TONSILLECTOMY WITH RECONSTRUSTION 1986 ARTHROSCOPIC KNEE SURGERY LEFT MULTIPLE UMBILICAL HERNIA REPAIR 1999 BRONCHOSCOPY 2003 CARDIAC CATH, [facility]; CLEAR 2006 LEFT ULNAR NERVE RELEASE-DR. KELLY 03/24/2017 LUNG BIOPSY 2005 FAMILY HISTORY FATHER: , DIAGNOSED WITH HYPERTENSION, OTHER MALIGNANT NEOPLASM OF UNSPECIFIED SITE MOTHER: , HYPERTENSION, UNSPECIFIED HEART DISEASE SIBLINGS: ALIVE 3 SON(S) , 2 DAUGHTER(S) - HEALTHY. FATHER: ; OF LUNG CA, HTN, GLAUCOMA\\\\NMOTHER: ; OF BOWEL OBSTRUCTION, HTN, DEMENTIA, CAD, HAD MULTIPLE STILL BIRTHS\\\\NSISTER: ; AT 53 DUE TO BRAIN ANEURISM\\\\NBROTHER: ALIVE; HEALTHY\\\\NSISTER: AT 30 DAYS OLD DUE TO HEART DEFECT\\\\NBROTHER: 30 DAYS AFTER . SOCIAL HISTORY GENERAL: TOBACCO USE ARE YOU A:NONSMOKER NEVER SMOKER HIV / HEP-C SCREENING HIV TEST OFFERED TO PATIENT:YES DATE OFFERED:05/13/2016 TEST ACCEPTED:NO HEP-C TEST OFFERED TO PATIENT:YES DATE OFFERED:05/13/2016 REASON:PATIENT DECLINED TEST ACCEPTED:NO REASON:PATIENT DECLINED OTHERS AT HOME: SPOUSE, CHILDREN. EDUCATION LEVEL OF EDUCATION:HIGH SCHOOL DIET: REGULAR. LANGUAGE LANGUAGES SPOKEN:ALGERIAN DOMESTIC VIOLENCE DO YOU FEEL SAFE IN YOUR ENVIRONMENT?YES NEW PATIENT PAIN DIARY TODAY'S VISITNOTES BMI CARE GOAL FOLLOW-UP ABOVE NORMAL BMI FOLLOW-UPDIETARY NEEDS EDUCATION RECREATIONAL DRUG USE DRUG USE?NO EXERCISE: NO REGULAR EXERCISE. LEARNING BARRIERS / SPECIAL NEEDS CHANGE FROM LAST VISIT?NO BARRIERS TO LEARNING?NO HEARING IMPAIRED?NO VISION IMPAIRED?YES COGNITIVELY IMPAIRED?NO :CORRECTIVE LENSES READINESS TO LEARN?YES LEARNING PREFERENCES?YES :DEMONSTRATION/VERBAL INSTRUCTION LEARNING CAPABILITIES PRESENT?YES EMOTIONAL BARRIERS?NO SPECIAL DEVICES?YES :CANE CEMENT MASON APPRENTICE NEEDED?NO PAIN CLINIC PFS, CLERGY, PUBLIC HEALTH REFERRALS PFS REFERRAL NEEDED?NO CLERGY REFERRAL NEEDED?NO PUBLIC HEALTH REFERRAL NEEDED?NO HAS THE PATIENT BEEN EDUCATED REGARDING HIS/HER PLAN OF CARE?YES HAS THE PATIENT BEEN EDUCATED REGARDING PAIN, THE RISK FOR PAIN, THE IMPORTANCE OF EFFECTIVE PAIN MANAGEMENT, AND THE PAIN ASSESSMENT PROCESS?YES LATEX QUESTIONNAIRE LATEX ALLERGY : HAVE YOU EVER DEVELOPED ANY TYPE OF REACTION AFTER HANDLING LATEX PRODUCTS SUCH RUBBER GLOVES, CONDOMS, DIAPHRAGMS, BALLOONS, SOCKS, OR UNDERWEAR?NO LATEX ALLERGY : HAVE YOU EVER DEVELOPED ANY TYPE OF REACTION DURING OR AFTER DENTAL APPOINTMENT, VAGINAL/RECTAL EXAMINATION, SURGICAL PROCEDURE, OR ANY OTHER EXPOSURE?NO LATEX RISK : HAVE YOU EVER HAD ANY DIFFICULTY BREATHING OR HIVES AFTER EATING OR HANDLING ANY FRUITS, OR VEGETABLES; SUCH KIWI, BANANAS, STONE FRUITS, OR CHESTNUTSNO LATEX RISK : DO YOU HAVE A PREVIOUS PERSONAL HISTORY OF MORE THAN NINE SURGERIES, SPINA BIFIDA, OR REPEATED CATHERIZATIONS? NO LATEX RISK : ARE YOU FREQUENTLY EXPOSED TO LATEX PRODUCTS IN YOUR OCCUPATION?NO DATE ASKED : 02/08/2019 CAFFEINE CAFFEINE USE?YES HOW OFTEN AND HOW MUCH? 0-2 CUP SODA ADVANCE DIRECTIVE ADVANCE DIRECTIVE DISCUSSED WITH PATIENT:YES HCP-, PAT ASKED TO BRING A COPY IN. 06/23/18 MORMON [id number] NONE MARITAL STATUS: . ALCOHOL SCREENING DID YOU HAVE A DRINK CONTAINING ALCOHOL IN THE PAST YEAR?NO POINTS0 INTERPRETATIONNEGATIVE OCCUPATION: DISABLED. SEXUAL HX HAD SEX IN THE LAST 12 MONTHS (VAGINAL, ORAL, OR ANAL)?YES WITHWOMEN ONLY HOSPITALIZATION/MAJOR DIAGNOSTIC PROCEDURE DIABETES SEPTEMBER 2014 LLL CELLULITIS AND ULCER 05/09/2016 REVIEW OF SYSTEMS REVIEWED BY: PROVIDER: MAGNOLIA AQUINO . CONSTITUTIONAL: ANY CHANGE IN YOUR MEDICAL CONDITION? NO . CHILLS NO . FEVER NO . INFECTION: DO YOU HAVE NEW INFECTIONS? NO . DO YOU HAVE HISTORY OF MRSA? NO . MUSCULOSKELETAL: ANY NEW PATTERNS OF PAIN OR NUMBNESS? NO . GASTROENTEROLOGY: ANY NEW CHANGE IN BOWEL CONTROL? NO . GENITOURINARY: ANY NEW CHANGE IN BLADDER CONTROL? NO . IS THERE A CHANCE YOU COULD BE ? NO . HEMATOLOGY/LYMPH: DO YOU TAKE ANY BLOOD THINNERS? (FOR EXAMPLE- COUMADIN, PLAVIX, AGGRENOX, PLATEL, PRADAXA, OR XARELTO) NO . WHEN WAS YOUR LAST DOSE? DATE: TIME: . NEUROLOGY: HAVE YOU FALLEN IN THE PAST 12 MONTHS? NO . ANY NEW EXTREMITY NUMBNESS OR WEAKNESS? NO . CARDIOLOGY: DO YOU HAVE A PACEMAKER OR DEFIBRILLATOR? NO . RESPIRATORY: HAVE YOU BEEN SICK IN THE PAST WEEK? NO . FEVER NO . FLU LIKE SYMPTOMS? NO . COUGH NO . INTEGUMENTARY: DO YOU HAVE ANY RASHES OR OPEN SORES? NO . ALLERGIC/IMMUNO: ARE YOU ALLERGIC TO IV DYE? NO . ANY NEW ALLERGIES? NO . PSYCHIATRIC: DO YOU HAVE THOUGHTS OF HURTING YOURSELF OR SOMEONE ELSE? NO . ARE YOU ABUSED, NEGLECTED, OR IN AN UNSAFE ENVIRONMENT? NO . ENDOCRINOLOGY: ARE YOU DIABETIC? YES . OTHER: DO YOU NEED ANY PRESCRIPTIONS? NO . IF YES, PLEASE LIST: ____ . ANY NEW PROBLEMS WITH YOUR MEDICATIONS? NO . WHEN DID YOU LAST EAT? ____ . WHEN DID YOU LAST DRINK? ____ . WHAT DID YOU LAST DRINK? ____ . NAME OF PERSON DRIVING YOU HOME? ____ . DO YOU HAVE ANY OTHER QUESTIONS OR CONCERNS NO . VITAL SIGNS WT 318 LBS, HT 72 IN, BMI 43.12 INDEX, BP 141/88 MM HG, HR 95 /MIN, RR 18 /MIN, TEMP 97.5 F, OXYGEN SAT % 96, SAFE IN ENV? (Y/N) YES, REVIEWED BY: VALENTINO. EXAMINATION GENERAL EXAMINATION: GENERALCOMFORTABLE. PSYCHAFFECT NORMAL. LUNGS:LUNG SOUNDS ARE CLEAR.RESPIRATIONS NON-LABORED. HEART:S1, S2 IN A REGULAR RATE AND RHYTHM. NO SIGNIFICANT MURMURS, RUBS OR GALLOPS NOTED. ASSESSMENTS LOW BACK PAIN - M54.5 (PRIMARY) CHRONIC PRESCRIPTION OPIATE USE - Z79.891 TREATMENT LOW BACK PAIN REFILL HYDROMORPHONE HCL ER TABLET ER 24 HOUR ABUSE-DETERRENT, 32 MG, 1 TABLET, ORALLY, ONCE A DAY MDD1, 30 DAY(S), 30, REFILLS 0 CONTINUE TIZANIDINE HCL TABLET, 4 MG, 1 TABLET NEEDED, ORALLY, THREE TIMES A DAY NOTES: ISTOP REGISTRY REVIEWED AND DEMONSTRATES COMPLLIANCE. BRINGS IN MEDICATIONS WHICH IS APPROPRIATE FOR WHAT WAS DISPENSED. RECENT URINE TOXICOLOGY REVIEWED. NO UNAUTHORIZED MEDICATIONS. NO ILLICIT SUBSTANCES AND PRESCRIBED MEDICATIONS WERE PRESENT. URINE TOX TODAY, RISKS OF NARCOTIC/OPIOD MEDICATIONS INCLUDES BUT IS NOT LIMITED TO RISK OF DEPENDANCE/DEVELOPMENT OF ADDICTION, MOOD DISTURBANCE AND DEPRESSION, OSTEOPOROSIS, HORMONAL AND LABIDAL CHANGES, RESPIRATORY DEPRESSION AND . PATIENT IS ADVISED NOT TO DRIVE OR DRINK ALCOHOL WHILE ON THESE MEDICATIONS. PROCEDURE CODES FA211 ESTABILISHED PATIENT [facility] CHARGE DISPOSITION & COMMUNICATION FOLLOW UP 2 MONTHS (REASON: MED MGMNT) ELECTRONICALLY SIGNED BY KENIA NOBLE ON 05/11/2019 AT 03:44 PM EDT DISCLAIMER : THIS IS A VISIT SUMMARY EXTRACTED FROM THE [employer] CHART. IT IS NOT A COPY OF THE [employer] PROGRESS NOTE. CORRIE
== END ==
LOC: M PAIN 11:30
PROVIDERS: ATTEND Nurse Practitioner Family
DX: M54.5 Low back pain (principal); Z79.891 Long term (current) use of opiate analgesic

== ENCOUNTER → 2019-06-25 | Outpatient (CLI) | payer MEDICARE ==
[~2019-06-25] MED LIST changes: -METF-791 PO; +METF-838 PO
--- NOTE | 2019-06-30 04:44 | ECWPNPC ---
PATIENT NAME: CHRISTINE BECERRIL : 1965 GENDER: MALE VISIT DATE: 06/25/2019 DISCHARGE DATE: 06/25/19 1531 VISIT LOCKED DATE TIME: PHYSICIAN: MAGNOLIA JOYCE RESOURCE: MAGNOLIA JOYCE REASON FOR APPOINTMENT 1. 2 MONTHS, MED MGMNT - PAT COMPLETED HISTORY OF PRESENT ILLNESS HISTORY OF PRESENT ILLNESS: PATIENT IS AGREEABLE TO TELEPHONE VISIT FOR FOLLOW-UP OF CHRONIC LOW BACK PAIN/CHRONIC PAIN MEDICATION MANAGEMENT. RATING PAIN LEVEL A 6/10. FINDS MEDICATION SOMEWHAT EFFECTIVE. CONTINUES WITH PERIODIC SEVERE LOW BACK PAIN APPROXIMATELY 4 HOURS PRIOR TO NEXT DOSE. TRIED USING TIZANIDINE 4 MG FOR THESE EPISODES WITH NO IMPROVEMENT. HAS TRIALED MULTIPLE DIFFERENT [id number] MEDICATIONS AND NONNARCOTIC MEDICATIONS OVER THE YEARS WITHOUT IMPROVEMENT. HISTORY OF MULTIPLE MEDICAL COMORBIDITIES. DISCUSSED TRIAL OF OXYCODONE 5 MG FOR PERIODIC USE OF SEVERE INCREASES IN PAIN. HE IS AWARE THAT WE WOULD ONLY GIVE HIM #45 TABLETS FOR A 30 DAY SUPPLY WE DO NOT WANT TO CAUSE TOLERANCE ISSUES. CURRENTLY USING TIZANIDINE SPARINGLY FOR SEVERE MUSCLE SPASM TYPE PAIN. PAIN THE PATIENT DESCRIBES THE PAIN... FALL RISK SCREENING: SCREENING :NO FALLS REPORTED IN THE LAST YEAR CURRENT MEDICATIONS TAKING CALCIUM PLUS VITAMIN D 500-50 MG-UNIT CAPSULE 1 CAPSULE ORALLY BID TAKING ASPIRIN 81 81 MG TABLET CHEWABLE 1 TABLET ORALLY ONCE A DAY TAKING MIRALAX OTC POWDER PO ORALLY TWICE A DAY TAKING VITAMIN B-12 1000 MCG INJECTION 1 INJECTION IM MONTHLY TAKING SUCRALFATE 1 GM TABLET 1 TAB ORALLY BEFORE BEDTIME TAKING ALCOHOL PREP 1 ALCOHOL PREP PADS NEEDED TAKING HOSPITAL BED _ _ HOSPITAL BED DX 454.0,135,782.3 DAILY NEEDED TAKING COMPRESSION STOCKINGS 20-30 [facility] DIRECTED TAKING ALTERNATING PRESSURE MATTRESS 1 _ ALTERNATING MATTRESS PAD WITH MARCY AND PUMP ICD:187.139 DAILY TAKING PEN NEEDLES NOVOFINE NEEDLE PEN NEEDLESFOR VICTOZA VICTOZA FOUR TIMES A DAY TAKING LANCETS 1 LANCET 1 SUBCUTANEOUSLY TWICE DAILY TAKING BLOOD GLUCOSE TEST STRIP 1 STRIPS ONE TOUCH ULTRA TEST STRIPS 1 TOPICALLY TWICE A DAY TAKING EPIPEN 0.3 MG/0.3ML (1:1000) DEVICE SQ INTRAMUSCULAR NEEDED TAKING NITROSTAT 0.4 MG TABLET SUBLINGUAL 1 TABLET UNDER THE TONGUE EVERY 5 MINS FOR CHEST PAIN WITH A MAX OF 3 TABS SUBLINGUAL DIRECTED TAKING COLACE 100 MG CAPSULE 1 TABLET ORALLY TWICE A DAY TAKING PROVENTIL HFA 108 (90 BASE) MCG/ACT AEROSOL SOLUTION 2 PUFFS INHALATION FOUR TIMES A DAY NEEDED TAKING JARDIANCE 25 MG TABLET 1 TABLET ORALLY ONCE A DAY TAKING GABAPENTIN 800 MG TABLET 1 TABLET ORALLY THREE TIMES A DAY TAKING NEXIUM 40 MG CAPSULE DELAYED RELEASE 1 CAPSULE ORALLY TWICE DAILY TAKING TRESIBA FLEXTOUCH 200 UNIT/ML SOLUTION PEN-INJECTOR INJECT 170 UNITS SUBCUTANEOUS BID TAKING RIZATRIPTAN BENZOATE 5 MG TABLET DISINTEGRATING 1-2 TABLETS ORALLY THREE TIMES DAILY NEEDED TAKING LOSARTAN POTASSIUM 50 MG TABLET 1 TABLET ORALLY ONCE A DAY TAKING TAMSULOSIN HCL 0.4 MG CAPSULE EXTENDED RELEASE 1 TAB(S) ORALLY ONCE A DAY TAKING POTASSIUM CHLORIDE 20 MEQ CAPSULE 1 CAPSULE WITH FOOD ORALLY TWICE A DAY TAKING TOPIRAMATE 25 MG TABLET 1 TABLET ORALLY TWICE A DAY TAKING FAMOTIDINE 40 MG TABLET 1 TABLET AT BEDTIME ORALLY ONCE A DAY TAKING VENLAFAXINE HCL ER 75 MG TABLET EXTENDED RELEASE 24 HOUR 1 TABLET WITH FOOD ORALLY ONCE A DAY TAKING BUSPIRONE HCL 5 MG TABLET 1 TABLET ORALLY TWICE A DAY TAKING TIZANIDINE HCL 4 MG TABLET 1 TABLET NEEDED ORALLY THREE TIMES A DAY TAKING ASTELIN 0.1% (137 MCG) SPRAY SPRAY TWO SPRAYS IN EACH NOSTRIL TWICE A DAY INTRANASAL BID TAKING NASONEX 50 MCG/ACT SUSPENSION SPRAY TWO SPRAYS IN ONE NOSTRIL EVERY DAY NASALLY DAILY TAKING HYDROMORPHONE HCL ER 32 MG TABLET ER 24 HOUR ABUSE-DETERRENT 1 TABLET ORALLY ONCE A DAY MDD1 TAKING METFORMIN HCL 1000 MG TABLET 1 TABLET WITH MEALS ORALLY TWICE A DAY NOT-TAKING FUROSEMIDE 80 MG TABLET 1 TABLET ORALLY WITH 20MG TO EQUAL 100MG TWICE A DAY, NOTES: HAS NOT HAD TO TAKE RECENTLY NOT-TAKING LASIX 20 MG TABLET 1 TABLET ORALLY TWICE DAILY WITH 80 MG TAB FOR TOTAL OF 100, NOTES: HAS NOT HAD TO TAKE RECENTLY NOT-TAKING REQUIP 1 MG TABLET 1 TABLET ORALLY AT BEDTIME NOT-TAKING CETIRIZINE HCL 10 MG TABLET 1 TABLET ORALLY ONCE A DAY NOT-TAKING CRESTOR 40 MG TABLET 1 TABLET ORALLY ONCE A DAY NOT-TAKING CEPHALEXIN 500 MG CAPSULE 1 CAPSULE ORALLY EVERY 12 HRS NOT-TAKING OSELTAMIVIR PHOSPHATE 75 MG CAPSULE 1 CAPSULE ORALLY TWICE A DAY NOT-TAKING DESVENLAFAXINE ER 50 MG TABLET EXTENDED RELEASE 24 HOUR 1 TABLET ORALLY ONCE A DAY NOT-TAKING ADVAIR HFA 115-21 MCG/ACT AEROSOL 2 PUFFS INHALATION TWICE A DAY NOT-TAKING AMOXICILLIN-POT CLAVULANATE 875-125 MG TABLET 1 TABLET ORALLY EVERY 12 HRS MEDICATION LIST REVIEWED AND RECONCILED WITH THE PATIENT PAST MEDICAL HISTORY DIABETES MELLITUS TYPE 2 [id number] 30, 2007 CARDIAC 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-NOVEMBER 2007 MRI WITH C6-C7 MODERATE LEFT BULGE CAUSING MODERATE CENTRAL CANAL STENOSIS, SMALL LEFT HNP C4-C5 WITH MODERATE SPINAL STENOSIS AND C5-C6 BULGE CAUSING BILATERAL NEURAL FORAMINAL NARROWING RIGHT GREATER THAN LEFT RIGHT SUPRASPINATUS TENDINITIS BY MAY 2008 MRI OBSTRUCTIVE SLEEP APNEA-PATIENT REFUSES CPAP ALLERGIC RHINITIS/CHRONIC SINUSITIS MIGRAINE HEADACHES, COMMON TYPE ESSENTIAL TREMOR DEPRESSION DYSPEPSIA/GERD B12 DEFICIENCY RESTLESS LEG SYNDROME HYPERTENSION CONSTIPATION, CHRONIC ANEMIA, CHRONIC SECONDARY TO IRON AND B12 DEFICIENCY-PATIENT REFUSES ANOSCOPY HYMENOPTERA ANAPHYLAXIS HISTORY OF IGG LAMBDA BY RUBÉN- PATIENT REFUSED BONE MARROW BIOPSY OBESITY, MORBID MULTIPLE DENTAL CARIES ULNAR NEUROPATHY AT ELBOW OF LEFT UPPER EXTREMITY MYOFASCIAL PAIN SARCOIDOSIS BACK PAIN ALLERGIES TYLENOL WITH CODEINE: HIVES - ALLERGY CT SCAN DYE: VOMITING - SIDE EFFECTS ZYPREXA: SEDATION - SIDE EFFECTS TRICOR: MYALGIAS - SIDE EFFECTS TRAMADOL HCL: LEG CRAMPS - SIDE EFFECTS SEROQUEL: SEDATION - SIDE EFFECTS PAXIL: DECREASE LIBIDO - SIDE EFFECTS NORVASC: INCREASED EDEMA - SIDE EFFECTS ABILIFY: SEDATION - SIDE EFFECTS SURGICAL HISTORY RECONSTRUCTION OF AXILLA AT 1968 TONSILLECTOMY WITH RECONSTRUSTION 1986 ARTHROSCOPIC KNEE SURGERY LEFT MULTIPLE UMBILICAL HERNIA REPAIR 2000 BRONCHOSCOPY 2003 CARDIAC CATH, [facility] CLEAR 2006 LEFT ULNAR NERVE RELEASE-DR. KELLY 03/24/2017 LUNG BIOPSY 2006 FAMILY HISTORY FATHER: , DIAGNOSED WITH HYPERTENSION, OTHER MALIGNANT NEOPLASM OF UNSPECIFIED SITE MOTHER: , HYPERTENSION, UNSPECIFIED HEART DISEASE SIBLINGS: ALIVE 3 SON(S) , 2 DAUGHTER(S) - HEALTHY. FATHER: ; OF LUNG CA, HTN, GLAUCOMA\\\\NMOTHER: ; OF BOWEL OBSTRUCTION, HTN, DEMENTIA, CAD, HAD MULTIPLE STILL BIRTHS\\\\NSISTER: ; AT 53 DUE TO BRAIN ANEURISM\\\\NBROTHER: ALIVE; HEALTHY\\\\NSISTER: AT 30 DAYS OLD DUE TO HEART DEFECT\\\\NBROTHER: 30 DAYS AFTER . SOCIAL HISTORY GENERAL: TOBACCO USE ARE YOU A:NONSMOKER NEVER SMOKER LATEX QUESTIONNAIRE LATEX ALLERGY : HAVE YOU EVER DEVELOPED ANY TYPE OF REACTION AFTER HANDLING LATEX PRODUCTS SUCH RUBBER GLOVES, CONDOMS, DIAPHRAGMS, BALLOONS, SOCKS, OR UNDERWEAR?NO LATEX ALLERGY : HAVE YOU EVER DEVELOPED ANY TYPE OF REACTION DURING OR AFTER DENTAL APPOINTMENT, VAGINAL/RECTAL EXAMINATION, SURGICAL PROCEDURE, OR ANY OTHER EXPOSURE?NO DATE ASKED : 02/08/2019 LATEX RISK : HAVE YOU EVER HAD ANY DIFFICULTY BREATHING OR HIVES AFTER EATING OR HANDLING ANY FRUITS, OR VEGETABLES; SUCH KIWI, BANANAS, STONE FRUITS, OR CHESTNUTSNO LATEX RISK : DO YOU HAVE A PREVIOUS PERSONAL HISTORY OF MORE THAN NINE SURGERIES, SPINA BIFIDA, OR REPEATED CATHERIZATIONS? NO LATEX RISK : ARE YOU FREQUENTLY EXPOSED TO LATEX PRODUCTS IN YOUR OCCUPATION?NO BMI CARE GOAL FOLLOW-UP ABOVE NORMAL BMI FOLLOW-UPDIETARY NEEDS EDUCATION ALCOHOL SCREENING DID YOU HAVE A DRINK CONTAINING ALCOHOL IN THE PAST YEAR?NO POINTS0 INTERPRETATIONNEGATIVE RECREATIONAL DRUG USE DRUG USE?NO CAFFEINE CAFFEINE USE?YES HOW OFTEN AND HOW MUCH? 0-2 CUP SODA SEXUAL HX HAD SEX IN THE LAST 12 MONTHS (VAGINAL, ORAL, OR ANAL)?YES WITHWOMEN ONLY HIV / HEP-C SCREENING HIV TEST OFFERED TO PATIENT:YES DATE OFFERED:05/13/2016 TEST ACCEPTED:NO HEP-C TEST OFFERED TO PATIENT:YES DATE OFFERED:05/13/2016 REASON:PATIENT DECLINED TEST ACCEPTED:NO REASON:PATIENT DECLINED SHINTO [id number] NONE LANGUAGE LANGUAGES SPOKEN:[place] EDUCATION LEVEL OF EDUCATION:HIGH SCHOOL LEARNING BARRIERS / SPECIAL NEEDS CHANGE FROM LAST VISIT?NO BARRIERS TO LEARNING?NO HEARING IMPAIRED?NO VISION IMPAIRED?YES COGNITIVELY IMPAIRED?NO :CORRECTIVE LENSES READINESS TO LEARN?YES LEARNING PREFERENCES?YES :DEMONSTRATION/VERBAL INSTRUCTION LEARNING CAPABILITIES PRESENT?YES EMOTIONAL BARRIERS?NO SPECIAL DEVICES?YES :CANE ORTHOPEDIC PODIATRIST NEEDED?NO DOMESTIC VIOLENCE DO YOU FEEL SAFE IN YOUR ENVIRONMENT?YES OCCUPATION: DISABLED. DIET: REGULAR. EXERCISE: NO REGULAR EXERCISE. MARITAL STATUS: . OTHERS AT HOME: SPOUSE, CHILDREN. NEW PATIENT PAIN DIARY TODAY'S VISITNOTES 06/24/19 PATIENT DESCRIBES PAIN :ACHING, HAVE IT ALL THE TIME, SHARP, STABBING, THROBBING, SORE, SHOOTING FROM 0-10, WHAT LEVEL IS YOUR PAIN TODAY?7 PRECIPITATING FACTORS WALKING ALLEVIATING FACTORS RESTING IMPACT ON FUNCTION YES PAIN CLINIC PFS, CLERGY, PUBLIC HEALTH REFERRALS PFS REFERRAL NEEDED?NO CLERGY REFERRAL NEEDED?NO PUBLIC HEALTH REFERRAL NEEDED?NO HAS THE PATIENT BEEN EDUCATED REGARDING HIS/HER PLAN OF CARE?YES HAS THE PATIENT BEEN EDUCATED REGARDING PAIN, THE RISK FOR PAIN, THE IMPORTANCE OF EFFECTIVE PAIN MANAGEMENT, AND THE PAIN ASSESSMENT PROCESS?YES ADVANCE DIRECTIVE ADVANCE DIRECTIVE DISCUSSED WITH PATIENT:YES HCP-, PAT ASKED TO BRING A COPY IN. HOSPITALIZATION/MAJOR DIAGNOSTIC PROCEDURE DIABETES SEPTEMBER 2014 LLL CELLULITIS AND ULCER 05/09/2016 REVIEW OF SYSTEMS REVIEWED BY: PROVIDER: MAGNOLIA AQUINO . CONSTITUTIONAL: ANY CHANGE IN YOUR MEDICAL CONDITION? NO . CHILLS NO . FEVER NO . INFECTION: DO YOU HAVE NEW INFECTIONS? NO . DO YOU HAVE HISTORY OF MRSA? NO . MUSCULOSKELETAL: ANY NEW PATTERNS OF PAIN OR NUMBNESS? NO . GASTROENTEROLOGY: ANY NEW CHANGE IN BOWEL CONTROL? NO . GENITOURINARY: ANY NEW CHANGE IN BLADDER CONTROL? NO . IS THERE A CHANCE YOU COULD BE ? NO . HEMATOLOGY/LYMPH: DO YOU TAKE ANY BLOOD THINNERS? (FOR EXAMPLE- COUMADIN, PLAVIX, AGGRENOX, PLATEL, PRADAXA, OR XARELTO) NO . WHEN WAS YOUR LAST DOSE? DATE: TIME: . NEUROLOGY: HAVE YOU FALLEN IN THE PAST 12 MONTHS? NO . ANY NEW EXTREMITY NUMBNESS OR WEAKNESS? NO . CARDIOLOGY: DO YOU HAVE A PACEMAKER OR DEFIBRILLATOR? NO . RESPIRATORY: HAVE YOU BEEN SICK IN THE PAST WEEK? NO . FEVER NO . FLU LIKE SYMPTOMS? NO . COUGH NO . INTEGUMENTARY: DO YOU HAVE ANY RASHES OR OPEN SORES? NO . ALLERGIC/IMMUNO: ARE YOU ALLERGIC TO IV DYE? YES . ANY NEW ALLERGIES? NO . PSYCHIATRIC: DO YOU HAVE THOUGHTS OF HURTING YOURSELF OR SOMEONE ELSE? NO . ARE YOU ABUSED, NEGLECTED, OR IN AN UNSAFE ENVIRONMENT? NO . ENDOCRINOLOGY: ARE YOU DIABETIC? YES . OTHER: DO YOU NEED ANY PRESCRIPTIONS? NO . IF YES, PLEASE LIST: ____ . ANY NEW PROBLEMS WITH YOUR MEDICATIONS? NO . WHEN DID YOU LAST EAT? ____ . WHEN DID YOU LAST DRINK? ____ . WHAT DID YOU LAST DRINK? ____ . NAME OF PERSON DRIVING YOU HOME? ____ . DO YOU HAVE ANY OTHER QUESTIONS OR CONCERNS NO . ASSESSMENTS LOW BACK PAIN - M54.5 (PRIMARY) TREATMENT LOW BACK PAIN CONTINUE HYDROMORPHONE HCL ER TABLET ER 24 HOUR ABUSE-DETERRENT, 32 MG, 1 TABLET, ORALLY, ONCE A DAY MDD1, 30 DAY(S), 30, REFILLS 0 START OXYCODONE HCL TABLET, 5 MG, 1 TABLET NEEDED, ORALLY, Q8H PRN FOR SEVERE PAIN MDD3 #45 TAB SHOULD LAST 30DAYS, 30 DAYS, 45, REFILLS 0 NOTES: ADVISED TO CONTINUE HYDROMORPHONE EXTENDED RELEASE 32 MG DAILY. START OXYCODONE 5 MG PERIODICALLY FOR SEVERE BREAKTHROUGH PAIN #45 TABLETS SHOULD LAST 30 DAYS. CONTINUE USE OF TIZANIDINE PERIODICALLY FOR MUSCLE SPASM TYPE PAIN. FOLLOW-UP IN CLINIC IN 2 MONTHS. TOTAL TIME DURING TELEPHONE VISIT WAS APPROXIMATELY 12 MINUTES. , ISTOP REGISTRY REVIEWED AND DEMONSTRATES COMPLLIANCE.RECENT URINE TOXICOLOGY REVIEWED. NO UNAUTHORIZED MEDICATIONS. NO ILLICIT SUBSTANCES AND PRESCRIBED MEDICATIONS WERE PRESENT. DISPOSITION & COMMUNICATION FOLLOW UP 2 MOS IN CLINIC (REASON: MED MGMNT/LBP) ELECTRONICALLY SIGNED BY KENIA NOBLE ON 06/29/2019 AT 08:44 AM EDT DISCLAIMER : THIS IS A VISIT SUMMARY EXTRACTED FROM THE [employer] CHART. IT IS NOT A COPY OF THE [employer] PROGRESS NOTE. CORRIE
== END ==
LOC: M PAIN 11:30
PROVIDERS: ATTEND Nurse Practitioner Family
DX: M54.5 Low back pain (principal); E11.9 Type 2 diabetes mellitus without complications; I10 Essential (primary) hypertension; Z79.82 Long term (current) use of aspirin; Z79.84 Long term (current) use of oral hypoglycemic drugs; Z79.891 Long term (current) use of opiate analgesic; Z79.899 Other long term (current) drug therapy; Z88.5 Allergy status to narcotic agent; Z88.8 Allergy status to other drugs, medicaments and biological substances; Z91.041 Radiographic dye allergy status

== ENCOUNTER → 2019-08-31 | Outpatient (CLI) | payer MEDICARE ==
[~2019-08-31] MED LIST changes: +BUPR-69 PO; -BUPR50TA PO; -LACT10SO29 PO; +LACT20EL PO; -LISI20TA19 PO; +LISI20TA35 PO
--- NOTE | 2019-09-07 08:01 | ECWPNPC ---
PATIENT NAME: CHRISTINE BECERRIL : 1965 GENDER: MALE VISIT DATE: 08/31/2019 DISCHARGE DATE: 08/31/19 1237 VISIT LOCKED DATE TIME: PHYSICIAN: MAGNOLIA JOYCE RESOURCE: MAGNOLIA JOYCE REASON FOR APPOINTMENT 1. BACK HISTORY OF PRESENT ILLNESS PAIN CENTER INTAKE QUESTIONS: DO YOU HAVE A HISTORY OF MRSA? :NO DO YOU TAKE A BLOOD THINNERS? :NO DO YOU HAVE ANY BLEEDING DISORDERS? :NO ANY NEW NUMBNESS OR WEAKNESS IN YOUR LEGS OR ARMS? :NO ANY PACEMAKER,DEFIBRILLATOR, OR DORSAL COLUMN STIMULATOR? :NO DO YOU HAVE ANY RASHES OR OPEN SORES? :NO ARE YOU ALLERGIC TO IV DYE? :NO ARE YOU DIABETIC? :NO ANY NEW PROBLEMS WITH YOUR MEDICATIONS? :NO HAVE YOU RECEIVED A VACCINE IN THE PAST 30 DAYS? :NO DO YOU PLAN TO RECEIVE A VACCINE IN THE NEXT 21 DAYS? :NO DO YOU NEED ANY PRESCRIPTION? :NO DO YOU TAKE ANY IMMUNOSUPPRESSIVE MEDICATIONS? :NO IS THERE A CHANCE YOU COULD BE ? :NO ARE YOU BREAST FEEDING? :NO GENERAL: HERE FOR FOLLOW-UP OF CHRONIC GENERALIZED BACK PAIN. THIS IS A MEDICATION MANAGEMENT VISIT. AT HIS LAST VISIT, WE STARTED HIM ON PERIODIC USE OF OXYCODONE 5 MG TABLET FOR SEVERE PAIN EPISODES. TODAY WE DISCUSSED PERIODIC USE OF OXYCODONE AND HE IS AWARE THAT HE CAN HAVE 45 TABLETS EVERY 30 DAYS. HYDROMORPHONE 32 MG EXTENDED RELEASE IS WORKING WELL. DENIES ADVERSE SIDE EFFECTS. -. FALL RISK SCREENING: SCREENING :NO FALLS REPORTED IN THE LAST YEAR PAIN SCREENING: PATIENT HAS A COMPLAINT OF ACUTE OR CHRONIC PAIN :YES LOCATION OF PAIN:MID BACK, UPPER BACK WHAT DOES YOUR PAIN FEEL LIKE:CONTINOUS, TENDER, BURNING NURSING NOTE: -. CURRENT MEDICATIONS TAKING CALCIUM PLUS VITAMIN D 500-50 MG-UNIT CAPSULE 1 CAPSULE ORALLY BID TAKING ASPIRIN 81 81 MG TABLET CHEWABLE 1 TABLET ORALLY ONCE A DAY TAKING MIRALAX OTC POWDER PO ORALLY TWICE A DAY TAKING VITAMIN B-12 1000 MCG INJECTION 1 INJECTION IM MONTHLY TAKING SUCRALFATE 1 GM TABLET 1 TAB ORALLY BEFORE BEDTIME TAKING ALCOHOL PREP 1 ALCOHOL PREP PADS NEEDED TAKING HOSPITAL BED _ _ HOSPITAL BED DX 454.0,135,782.3 DAILY NEEDED TAKING COMPRESSION STOCKINGS 20-30 MMHG DIRECTED TAKING ALTERNATING PRESSURE MATTRESS 1 _ ALTERNATING MATTRESS PAD WITH MARCY AND PUMP ICD:187.139 DAILY TAKING PEN NEEDLES NOVOFINE NEEDLE PEN NEEDLESFOR VICTOZA VICTOZA FOUR TIMES A DAY TAKING LANCETS 1 LANCET 1 SUBCUTANEOUSLY TWICE DAILY TAKING BLOOD GLUCOSE TEST STRIP 1 STRIPS ONE TOUCH ULTRA TEST STRIPS 1 TOPICALLY TWICE A DAY TAKING EPIPEN 0.3 MG/0.3ML (1:1000) DEVICE SQ INTRAMUSCULAR NEEDED TAKING NITROSTAT 0.4 MG TABLET SUBLINGUAL 1 TABLET UNDER THE TONGUE EVERY 5 MINS FOR CHEST PAIN WITH A MAX OF 3 TABS SUBLINGUAL DIRECTED TAKING COLACE 100 MG CAPSULE 1 TABLET ORALLY TWICE A DAY TAKING PROVENTIL HFA 108 (90 BASE) MCG/ACT AEROSOL SOLUTION 2 PUFFS INHALATION FOUR TIMES A DAY NEEDED TAKING NEXIUM 40 MG CAPSULE DELAYED RELEASE 1 CAPSULE ORALLY TWICE DAILY TAKING TRESIBA FLEXTOUCH 200 UNIT/ML SOLUTION PEN-INJECTOR INJECT 170 UNITS SUBCUTANEOUS BID TAKING RIZATRIPTAN BENZOATE 5 MG TABLET DISINTEGRATING 1-2 TABLETS ORALLY THREE TIMES DAILY NEEDED TAKING TAMSULOSIN HCL 0.4 MG CAPSULE EXTENDED RELEASE 1 TAB(S) ORALLY ONCE A DAY TAKING POTASSIUM CHLORIDE 20 MEQ CAPSULE 1 CAPSULE WITH FOOD ORALLY TWICE A DAY TAKING FAMOTIDINE 40 MG TABLET 1 TABLET AT BEDTIME ORALLY ONCE A DAY TAKING VENLAFAXINE HCL ER 75 MG TABLET EXTENDED RELEASE 24 HOUR 1 TABLET WITH FOOD ORALLY ONCE A DAY TAKING ASTELIN 0.1% (137 MCG) SPRAY SPRAY TWO SPRAYS IN EACH NOSTRIL TWICE A DAY INTRANASAL BID TAKING NASONEX 50 MCG/ACT SUSPENSION SPRAY TWO SPRAYS IN ONE NOSTRIL EVERY DAY NASALLY DAILY TAKING METFORMIN HCL 1000 MG TABLET 1 TABLET WITH MEALS ORALLY TWICE A DAY TAKING OXYCODONE HCL 5 MG TABLET 1 TABLET NEEDED ORALLY Q8H PRN FOR SEVERE PAIN MDD3 #45 TAB SHOULD LAST 30DAYS TAKING GABAPENTIN 800 MG TABLET 1 TABLET ORALLY THREE TIMES A DAY TAKING TOPIRAMATE 25 MG TABLET 1 TABLET ORALLY TWICE A DAY TAKING JARDIANCE 25 MG TABLET 1 TABLET ORALLY ONCE A DAY TAKING LOSARTAN POTASSIUM 50 MG TABLET 1 TABLET ORALLY ONCE A DAY TAKING TIZANIDINE HCL 4 MG TABLET 1 TABLET NEEDED ORALLY THREE TIMES A DAY TAKING HYDROMORPHONE HCL ER 32 MG TABLET ER 24 HOUR ABUSE-DETERRENT 1 TABLET ORALLY ONCE A DAY MDD1 TAKING BUSPIRONE HCL 5 MG TABLET 1 TABLET ORALLY TWICE A DAY NOT-TAKING FUROSEMIDE 80 MG TABLET 1 TABLET ORALLY WITH 20MG TO EQUAL 100MG TWICE A DAY, NOTES: HAS NOT HAD TO TAKE RECENTLY NOT-TAKING LASIX 20 MG TABLET 1 TABLET ORALLY TWICE DAILY WITH 80 MG TAB FOR TOTAL OF 100, NOTES: HAS NOT HAD TO TAKE RECENTLY NOT-TAKING REQUIP 1 MG TABLET 1 TABLET ORALLY AT BEDTIME NOT-TAKING CETIRIZINE HCL 10 MG TABLET 1 TABLET ORALLY ONCE A DAY NOT-TAKING CRESTOR 40 MG TABLET 1 TABLET ORALLY ONCE A DAY NOT-TAKING CEPHALEXIN 500 MG CAPSULE 1 CAPSULE ORALLY EVERY 12 HRS NOT-TAKING OSELTAMIVIR PHOSPHATE 75 MG CAPSULE 1 CAPSULE ORALLY TWICE A DAY NOT-TAKING DESVENLAFAXINE ER 50 MG TABLET EXTENDED RELEASE 24 HOUR 1 TABLET ORALLY ONCE A DAY NOT-TAKING ADVAIR HFA 115-21 MCG/ACT AEROSOL 2 PUFFS INHALATION TWICE A DAY NOT-TAKING AMOXICILLIN-POT CLAVULANATE 875-125 MG TABLET 1 TABLET ORALLY EVERY 12 HRS MEDICATION LIST REVIEWED AND RECONCILED WITH THE PATIENT PAST MEDICAL HISTORY DIABETES MELLITUS TYPE 2 [id number] 30, 2007 CARDIAC 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-NOVEMBER 2007 MRI WITH C6-C7 MODERATE LEFT BULGE CAUSING MODERATE CENTRAL CANAL STENOSIS, SMALL LEFT HNP C4-C5 WITH MODERATE SPINAL STENOSIS AND C5-C6 BULGE CAUSING BILATERAL NEURAL FORAMINAL NARROWING RIGHT GREATER THAN LEFT RIGHT SUPRASPINATUS TENDINITIS BY MAY 2008 MRI OBSTRUCTIVE SLEEP APNEA-PATIENT REFUSES CPAP ALLERGIC RHINITIS/CHRONIC SINUSITIS MIGRAINE HEADACHES, COMMON TYPE ESSENTIAL TREMOR DEPRESSION DYSPEPSIA/GERD B12 DEFICIENCY RESTLESS LEG SYNDROME HYPERTENSION CONSTIPATION, CHRONIC ANEMIA, CHRONIC SECONDARY TO IRON AND B12 DEFICIENCY-PATIENT REFUSES ANOSCOPY HYMENOPTERA ANAPHYLAXIS HISTORY OF IGG LAMBDA BY RUBÉN- PATIENT REFUSED BONE MARROW BIOPSY OBESITY, MORBID MULTIPLE DENTAL CARIES ULNAR NEUROPATHY AT ELBOW OF LEFT UPPER EXTREMITY MYOFASCIAL PAIN SARCOIDOSIS BACK PAIN ALLERGIES TYLENOL WITH CODEINE: HIVES - ALLERGY CT SCAN DYE: VOMITING - SIDE EFFECTS ZYPREXA: SEDATION - SIDE EFFECTS TRICOR: MYALGIAS - SIDE EFFECTS TRAMADOL HCL: LEG CRAMPS - SIDE EFFECTS SEROQUEL: SEDATION - SIDE EFFECTS PAXIL: DECREASE LIBIDO - SIDE EFFECTS NORVASC: INCREASED EDEMA - SIDE EFFECTS ABILIFY: SEDATION - SIDE EFFECTS SURGICAL HISTORY RECONSTRUCTION OF AXILLA AT 1965 TONSILLECTOMY WITH RECONSTRUSTION 1986 ARTHROSCOPIC KNEE SURGERY LEFT MULTIPLE UMBILICAL HERNIA REPAIR 1999 BRONCHOSCOPY 2003 CARDIAC CATH, [facility]; CLEAR 2006 LEFT ULNAR NERVE RELEASE-DR. KELLY 03/24/2017 LUNG BIOPSY 2006 FAMILY HISTORY FATHER: , DIAGNOSED WITH HYPERTENSION, OTHER MALIGNANT NEOPLASM OF UNSPECIFIED SITE MOTHER: , HYPERTENSION, UNSPECIFIED HEART DISEASE SIBLINGS: ALIVE 3 SON(S) , 2 DAUGHTER(S) - HEALTHY. FATHER: ; OF LUNG CA, HTN, GLAUCOMA\\\\NMOTHER: ; OF BOWEL OBSTRUCTION, HTN, DEMENTIA, CAD, HAD MULTIPLE STILL BIRTHS\\\\NSISTER: ; AT 53 DUE TO BRAIN ANEURISM\\\\NBROTHER: ALIVE; HEALTHY\\\\NSISTER: AT 30 DAYS OLD DUE TO HEART DEFECT\\\\NBROTHER: 30 DAYS AFTER . SOCIAL HISTORY GENERAL: TOBACCO USE ARE YOU A:NONSMOKER NEVER SMOKER LATEX QUESTIONNAIRE LATEX ALLERGY : HAVE YOU EVER DEVELOPED ANY TYPE OF REACTION AFTER HANDLING LATEX PRODUCTS SUCH RUBBER GLOVES, CONDOMS, DIAPHRAGMS, BALLOONS, SOCKS, OR UNDERWEAR?NO LATEX ALLERGY : HAVE YOU EVER DEVELOPED ANY TYPE OF REACTION DURING OR AFTER DENTAL APPOINTMENT, VAGINAL/RECTAL EXAMINATION, SURGICAL PROCEDURE, OR ANY OTHER EXPOSURE?NO DATE ASKED : 02/08/2019 LATEX RISK : HAVE YOU EVER HAD ANY DIFFICULTY BREATHING OR HIVES AFTER EATING OR HANDLING ANY FRUITS, OR VEGETABLES; SUCH KIWI, BANANAS, STONE FRUITS, OR CHESTNUTSNO LATEX RISK : DO YOU HAVE A PREVIOUS PERSONAL HISTORY OF MORE THAN NINE SURGERIES, SPINA BIFIDA, OR REPEATED CATHERIZATIONS? NO LATEX RISK : ARE YOU FREQUENTLY EXPOSED TO LATEX PRODUCTS IN YOUR OCCUPATION?NO BMI CARE GOAL FOLLOW-UP ABOVE NORMAL BMI FOLLOW-UPDIETARY NEEDS EDUCATION ALCOHOL SCREENING DID YOU HAVE A DRINK CONTAINING ALCOHOL IN THE PAST YEAR?NO POINTS0 INTERPRETATIONNEGATIVE RECREATIONAL DRUG USE DRUG USE?NO CAFFEINE CAFFEINE USE?YES HOW OFTEN AND HOW MUCH? 0-2 CUP SODA SEXUAL HX HAD SEX IN THE LAST 12 MONTHS (VAGINAL, ORAL, OR ANAL)?YES WITHWOMEN ONLY HIV / HEP-C SCREENING HIV TEST OFFERED TO PATIENT:YES DATE OFFERED:05/13/2016 TEST ACCEPTED:NO HEP-C TEST OFFERED TO PATIENT:YES DATE OFFERED:05/13/2016 REASON:PATIENT DECLINED TEST ACCEPTED:NO REASON:PATIENT DECLINED HINDUISM [id number] NONE LANGUAGE LANGUAGES SPOKEN:SERBIAN EDUCATION LEVEL OF EDUCATION:HIGH SCHOOL LEARNING BARRIERS / SPECIAL NEEDS CHANGE FROM LAST VISIT?NO BARRIERS TO LEARNING?NO HEARING IMPAIRED?NO VISION IMPAIRED?YES COGNITIVELY IMPAIRED?NO :CORRECTIVE LENSES READINESS TO LEARN?YES LEARNING PREFERENCES?YES :DEMONSTRATION/VERBAL INSTRUCTION LEARNING CAPABILITIES PRESENT?YES EMOTIONAL BARRIERS?NO SPECIAL DEVICES?YES :CANE SHOE STITCHER ODD NEEDED?NO DOMESTIC VIOLENCE DO YOU FEEL SAFE IN YOUR ENVIRONMENT?YES OCCUPATION: DISABLED. DIET: REGULAR. EXERCISE: NO REGULAR EXERCISE. MARITAL STATUS: . OTHERS AT HOME: SPOUSE, CHILDREN. NEW PATIENT PAIN DIARY TODAY'S VISITNOTES 06/24/19 PATIENT DESCRIBES PAIN :ACHING, HAVE IT ALL THE TIME, SHARP, STABBING, THROBBING, SORE, SHOOTING FROM 0-10, WHAT LEVEL IS YOUR PAIN TODAY?7 PRECIPITATING FACTORS WALKING ALLEVIATING FACTORS RESTING IMPACT ON FUNCTION YES PAIN CLINIC PFS, CLERGY, PUBLIC HEALTH REFERRALS PFS REFERRAL NEEDED?NO CLERGY REFERRAL NEEDED?NO PUBLIC HEALTH REFERRAL NEEDED?NO HAS THE PATIENT BEEN EDUCATED REGARDING HIS/HER PLAN OF CARE?YES HAS THE PATIENT BEEN EDUCATED REGARDING PAIN, THE RISK FOR PAIN, THE IMPORTANCE OF EFFECTIVE PAIN MANAGEMENT, AND THE PAIN ASSESSMENT PROCESS?YES ADVANCE DIRECTIVE ADVANCE DIRECTIVE DISCUSSED WITH PATIENT:YES HCP-, PAT ASKED TO BRING A COPY IN. HOSPITALIZATION/MAJOR DIAGNOSTIC PROCEDURE DIABETES SEPTEMBER 2014 LLL CELLULITIS AND ULCER 05/09/2016 REVIEW OF SYSTEMS CONSTITUTIONAL: ANY RECENT FEVER NO . CHILLS NO . WEIGHT CHANGE OF UNKNOWN REASONS NO . GASTROENTEROLOGY: NEW UNEXPLAINABLE CHANGES IN BOWEL CONTROL NO . CONSTIPATION NO . GENITOURINARY: ANY NEW CHANGE IN BLADDER CONTROL? NO . NEUROLOGY: NEW ONSET DIZZINESS OR NEUROLOGICAL CHANGES NOT MENTIONED NO . NEW NUMBNESS OR PAIN PATTERNS NOT MENTIONED AND PERTINENT TO TODAY'S VISIT NO . CARDIOLOGY: NEW CHEST PRESSURE NO . NEW CHEST PAIN NO . RESPIRATORY: UNEXPLAINABLE COUGH NO . NEW SHORTNESS OF BREATH NO . VITAL SIGNS WT 322.2 LBS, HT 72 IN, BMI 43.69 INDEX, BP 152/82 MM HG, HR 100 /MIN, RR 18 /MIN, TEMP 97.0 F, OXYGEN SAT % 92%, NA INITIALS AW 1201, REVIEWED BY: KG. EXAMINATION GENERAL EXAMINATION: GENERALCOMFORTABLE. PSYCHAFFECT NORMAL. LUNGS:LUNG SOUNDS ARE CLEAR.RESPIRATIONS NON-LABORED. HEART:S1, S2 IN A REGULAR RATE AND RHYTHM. NO SIGNIFICANT MURMURS, RUBS OR GALLOPS NOTED. ASSESSMENTS LOW BACK PAIN - M54.5 (PRIMARY) CHRONIC PRESCRIPTION OPIATE USE - Z79.891 TREATMENT LOW BACK PAIN REFILL OXYCODONE HCL TABLET, 5 MG, 1 TABLET NEEDED, ORALLY, Q8H PRN FOR SEVERE PAIN MDD3 #45 TAB SHOULD LAST 30DAYS, 30 DAYS, 45, REFILLS 0 REFILL HYDROMORPHONE HCL ER TABLET ER 24 HOUR ABUSE-DETERRENT, 32 MG, 1 TABLET, ORALLY, ONCE A DAY MDD1, 30 DAY(S), 30, REFILLS 0 NOTES: CONTINUE HYDROMORPHONE 32 MG EXTENDED RELEASE DAILY. CONTINUE PERIODIC USE OF OXYCODONE 5 MG TABLET FOR SEVERE PAIN EPISODES. HE IS ALLOWED 45 TABLETS EVERY 30 DAYS. , ISTOP REGISTRY REVIEWED AND DEMONSTRATES COMPLLIANCE. BRINGS IN MEDICATIONS WHICH IS APPROPRIATE FOR WHAT WAS DISPENSED. RECENT URINE TOXICOLOGY REVIEWED. NO UNAUTHORIZED MEDICATIONS. NO ILLICIT SUBSTANCES AND PRESCRIBED MEDICATIONS WERE PRESENT. , RISKS OF NARCOTIC/OPIOD MEDICATIONS INCLUDES BUT IS NOT LIMITED TO RISK OF DEPENDANCE/DEVELOPMENT OF ADDICTION, MOOD DISTURBANCE AND DEPRESSION, OSTEOPOROSIS, HORMONAL AND LABIDAL CHANGES, RESPIRATORY DEPRESSION AND . PATIENT IS ADVISED NOT TO DRIVE OR DRINK ALCOHOL WHILE ON THESE MEDICATIONS. PROCEDURE CODES [id number] ESTABILISHED PATIENT [facility] FACILITY CHARGE DISPOSITION & COMMUNICATION FOLLOW UP 2 MONTHS (REASON: MED MANAGEMENT/URINE TOX) ELECTRONICALLY SIGNED BY KENIA NOBLE ON 09/06/2019 AT 08:39 AM EDT DISCLAIMER : THIS IS A VISIT SUMMARY EXTRACTED FROM THE [employer] CHART. IT IS NOT A COPY OF THE [employer] PROGRESS NOTE. CORRIE
== END ==
LOC: M PAIN 11:30
PROVIDERS: ATTEND Nurse Practitioner Family
DX: M54.5 Low back pain (principal); Z79.891 Long term (current) use of opiate analgesic

== ENCOUNTER → 2019-09-13 | Outpatient (REF) | payer MEDICARE ==
[2019-10-31 01:47] LABS: HEMOGLOBIN A1c 7.6 %
[2019-11-19 07:56] LABS: GLUCOSE, FASTING SEE SEPARATE REPORT MG/DL (70-100)
== END ==
LOC: M SFHCPLAZ 10:45
PROVIDERS: ATTEND Physician Assistant
DX: E11.9 Type 2 diabetes mellitus without complications (principal); E78.2 Mixed hyperlipidemia

== ENCOUNTER → 2019-11-01 | Outpatient (CLI) | payer MEDICARE | LOC: M PAIN 11:23 | PROVIDERS: ATTEND Nurse Practitioner Family | DX: M47.816 Spondylosis without myelopathy or radiculopathy, lumbar region (principal); Z79.891 Long term (current) use of opiate analgesic ==

== ENCOUNTER → 2020-01-21 | Outpatient (CLI) | payer MEDICARE ==
--- NOTE | 2020-01-24 23:59 | ECWPNPC ---
PATIENT NAME: CHRISTINE BECERRIL : 1965 GENDER: MALE VISIT DATE: 01/21/2020 DISCHARGE DATE: 01/21/20 1156 VISIT LOCKED DATE TIME: PHYSICIAN: MAGNOLIA JOYCE PHYSICIAN PAGER NO: ACTIVE RESOURCE: MAGNOLIA JOYCE REASON FOR APPOINTMENT 1. BACK HISTORY OF PRESENT ILLNESS DEPRESSION SCREENING: PHQ-2 (2015 EDITION) LITTLE INTEREST OR PLEASURE IN DOING THINGS?NOT AT ALL FEELING DOWN, DEPRESSED, OR HOPELESS?NOT AT ALL TOTAL SCORE0 GENERAL: HERE FOR FOLLOW-UP AND MEDICATION MANAGEMENT FOR CHRONIC BACK PAIN AND NEUROPATHY OF THE LOWER EXTREMITIES. OVERALL CURRENT CHRONIC PAIN MEDICATION IS SOMEWHAT HELPFUL AT REDUCING PAIN. HE STILL HAS UNCOMFORTABLE TIMES BUT IS ABLE TO TAKE OXYCODONE 5 MG PERIODICALLY FOR BREAKTHROUGH PAIN WHICH IS HELPFUL. DENIES ADVERSE SIDE EFFECTS WITH MEDICATION. BRINGS IN HIS MEDICATION WHICH IS APPROPRIATE FOR WHAT WAS DISPENSED. APPEARS TO BE USING HIS MEDICATION APPROPRIATELY.-. FALL RISK SCREENING: SCREENING :NO FALLS REPORTED IN THE LAST YEAR PAIN SCREENING: PATIENT HAS A COMPLAINT OF ACUTE OR CHRONIC PAIN :YES LOCATION OF PAIN: WHOLE BODY INTENSITY OF PAIN (SCALE OF 1 TO 10):6 WHAT DOES YOUR PAIN FEEL LIKE:ACHING, STABBING, THROBBING DURATION:CONTINOUS, CONSTANT PAIN IS INCREASED BY:ACTIVITIES PAIN IS DECREASED BY:USE OF PAIN MEDICATIONS REST TREATMENT/MEDICATIONS USED TO MANAGE PAIN:OPIOIDS LEVEL OF RELIEF FROM PAIN TREATMENTS IN THE PAST:50% PAIN HAS INTERFERED WITH THE FOLLOWING:BATHING/DRESSING, WALKING ABILITY, HOUSEWORK, SLEEP, TRANSPORTATION, TOILETING NURSING NOTE: -. PAIN CENTER INTAKE QUESTIONS: DO YOU HAVE A HISTORY OF MRSA? :YES ABD SKIN 2000 DO YOU TAKE A BLOOD THINNERS? :NO DO YOU HAVE ANY BLEEDING DISORDERS? :NO ANY NEW NUMBNESS OR WEAKNESS IN YOUR LEGS OR ARMS? :NO ANY PACEMAKER,DEFIBRILLATOR, OR DORSAL COLUMN STIMULATOR? :NO DO YOU HAVE ANY RASHES OR OPEN SORES? :NO ARE YOU ALLERGIC TO IV DYE? :YES ARE YOU DIABETIC? :YES ANY NEW PROBLEMS WITH YOUR MEDICATIONS? :NO HAVE YOU RECEIVED A VACCINE IN THE PAST 30 DAYS? :NO DO YOU PLAN TO RECEIVE A VACCINE IN THE NEXT 21 DAYS? :NO DO YOU NEED ANY PRESCRIPTION? :NO DO YOU TAKE ANY IMMUNOSUPPRESSIVE MEDICATIONS? :NO IS THERE A CHANCE YOU COULD BE ? :NO ARE YOU BREAST FEEDING? :NO CURRENT MEDICATIONS TAKING CALCIUM PLUS VITAMIN D 500-50 MG-UNIT CAPSULE 1 CAPSULE ORALLY BID TAKING ASPIRIN 81 81 MG TABLET CHEWABLE 1 TABLET ORALLY ONCE A DAY TAKING MIRALAX OTC POWDER PO ORALLY TWICE A DAY TAKING VITAMIN B-12 1000 MCG INJECTION 1 INJECTION IM MONTHLY TAKING SUCRALFATE 1 GM TABLET 1 TAB ORALLY BEFORE BEDTIME TAKING ALCOHOL PREP 1 ALCOHOL PREP PADS NEEDED TAKING HOSPITAL BED _ _ HOSPITAL BED DX 454.0,135,782.3 DAILY NEEDED TAKING COMPRESSION STOCKINGS 20-30 MMHG DIRECTED TAKING ALTERNATING PRESSURE MATTRESS 1 _ ALTERNATING MATTRESS PAD WITH MARCY AND PUMP ICD:187.139 DAILY TAKING PEN NEEDLES NOVOFINE NEEDLE PEN NEEDLESFOR VICTOZA VICTOZA FOUR TIMES A DAY TAKING LANCETS 1 LANCET 1 SUBCUTANEOUSLY TWICE DAILY TAKING BLOOD GLUCOSE TEST STRIP 1 STRIPS ONE TOUCH ULTRA TEST STRIPS 1 TOPICALLY TWICE A DAY TAKING EPIPEN 0.3 MG/0.3ML (1:1000) DEVICE SQ INTRAMUSCULAR NEEDED TAKING NITROSTAT 0.4 MG TABLET SUBLINGUAL 1 TABLET UNDER THE TONGUE EVERY 5 MINS FOR CHEST PAIN WITH A MAX OF 3 TABS SUBLINGUAL DIRECTED TAKING COLACE 100 MG CAPSULE 1 TABLET ORALLY TWICE A DAY TAKING PROVENTIL HFA 108 (90 BASE) MCG/ACT AEROSOL SOLUTION 2 PUFFS INHALATION FOUR TIMES A DAY NEEDED TAKING NEXIUM 40 MG CAPSULE DELAYED RELEASE 1 CAPSULE ORALLY TWICE DAILY TAKING TRESIBA FLEXTOUCH 200 UNIT/ML SOLUTION PEN-INJECTOR INJECT 170 UNITS SUBCUTANEOUS BID TAKING RIZATRIPTAN BENZOATE 5 MG TABLET DISINTEGRATING 1-2 TABLETS ORALLY THREE TIMES DAILY NEEDED TAKING TAMSULOSIN HCL 0.4 MG CAPSULE EXTENDED RELEASE 1 TAB(S) ORALLY ONCE A DAY TAKING POTASSIUM CHLORIDE 20 MEQ CAPSULE 1 CAPSULE WITH FOOD ORALLY TWICE A DAY TAKING FAMOTIDINE 40 MG TABLET 1 TABLET AT BEDTIME ORALLY ONCE A DAY TAKING VENLAFAXINE HCL ER 75 MG TABLET EXTENDED RELEASE 24 HOUR 1 TABLET WITH FOOD ORALLY ONCE A DAY TAKING ASTELIN 0.1% (137 MCG) SPRAY SPRAY TWO SPRAYS IN EACH NOSTRIL TWICE A DAY INTRANASAL BID TAKING NASONEX 50 MCG/ACT SUSPENSION SPRAY TWO SPRAYS IN ONE NOSTRIL EVERY DAY NASALLY DAILY TAKING METFORMIN HCL 1000 MG TABLET 1 TABLET WITH MEALS ORALLY TWICE A DAY TAKING TOPIRAMATE 25 MG TABLET 1 TABLET ORALLY TWICE A DAY TAKING JARDIANCE 25 MG TABLET 1 TABLET ORALLY ONCE A DAY TAKING LOSARTAN POTASSIUM 50 MG TABLET 1 TABLET ORALLY ONCE A DAY TAKING BUSPIRONE HCL 5 MG TABLET 1 TABLET ORALLY TWICE A DAY TAKING GLUCOMETER DIRECTED _ ONCE DAILY TAKING TEST STRIPS - DIRECTED _ ONCE DAILY TAKING LANCETS - MISCELLANEOUS DIRECTED _ DAILY TAKING GABAPENTIN 800 MG TABLET 1 TABLET ORALLY THREE TIMES A DAY TAKING OXYCODONE HCL 5 MG CAPSULE 1 CAPSULE NEEDED ORALLY Q8H PRN MDD3 #45 TABS SHOULD LAST 30 DAYS TAKING TIZANIDINE HCL 4 MG TABLET 1 TABLET NEEDED ORALLY THREE TIMES A DAY TAKING HYDROMORPHONE HCL ER 32 MG TABLET ER 24 HOUR ABUSE-DETERRENT 1 TABLET ORALLY ONCE A DAY MDD1 NOT-TAKING OXYCODONE HCL 5 MG TABLET 1 TO 2 TAB ORALLY Q8H PRN MDD4 #45 TAB SHOULD LAST 30 DAYS NOT-TAKING OXYCODONE HCL 5 MG TABLET 1 TABLET NEEDED ORALLY Q8H PRN FOR SEVERE PAIN MDD3 #45 TAB SHOULD LAST 30DAYS NOT-TAKING FUROSEMIDE 80 MG TABLET 1 TABLET ORALLY WITH 20MG TO EQUAL 100MG TWICE A DAY, NOTES: HAS NOT HAD TO TAKE RECENTLY NOT-TAKING LASIX 20 MG TABLET 1 TABLET ORALLY TWICE DAILY WITH 80 MG TAB FOR TOTAL OF 100, NOTES: HAS NOT HAD TO TAKE RECENTLY NOT-TAKING REQUIP 1 MG TABLET 1 TABLET ORALLY AT BEDTIME NOT-TAKING CETIRIZINE HCL 10 MG TABLET 1 TABLET ORALLY ONCE A DAY NOT-TAKING CRESTOR 40 MG TABLET 1 TABLET ORALLY ONCE A DAY NOT-TAKING CEPHALEXIN 500 MG CAPSULE 1 CAPSULE ORALLY EVERY 12 HRS NOT-TAKING OSELTAMIVIR PHOSPHATE 75 MG CAPSULE 1 CAPSULE ORALLY TWICE A DAY NOT-TAKING DESVENLAFAXINE ER 50 MG TABLET EXTENDED RELEASE 24 HOUR 1 TABLET ORALLY ONCE A DAY NOT-TAKING ADVAIR HFA 115-21 MCG/ACT AEROSOL 2 PUFFS INHALATION TWICE A DAY NOT-TAKING AMOXICILLIN-POT CLAVULANATE 875-125 MG TABLET 1 TABLET ORALLY EVERY 12 HRS MEDICATION LIST REVIEWED AND RECONCILED WITH THE PATIENT PAST MEDICAL HISTORY DIABETES MELLITUS TYPE 2 [id number] 30, 2007 CARDIAC 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-NOVEMBER 2007 MRI WITH C6-C7 MODERATE LEFT BULGE CAUSING MODERATE CENTRAL CANAL STENOSIS, SMALL LEFT HNP C4-C5 WITH MODERATE SPINAL STENOSIS AND C5-C6 BULGE CAUSING BILATERAL NEURAL FORAMINAL NARROWING RIGHT GREATER THAN LEFT RIGHT SUPRASPINATUS TENDINITIS BY MAY 2008 MRI OBSTRUCTIVE SLEEP APNEA-PATIENT REFUSES CPAP ALLERGIC RHINITIS/CHRONIC SINUSITIS MIGRAINE HEADACHES, COMMON TYPE ESSENTIAL TREMOR DEPRESSION DYSPEPSIA/GERD B12 DEFICIENCY RESTLESS LEG SYNDROME HYPERTENSION CONSTIPATION, CHRONIC ANEMIA, CHRONIC SECONDARY TO IRON AND B12 DEFICIENCY-PATIENT REFUSES ANOSCOPY HYMENOPTERA ANAPHYLAXIS HISTORY OF IGG LAMBDA BY RUBÉN- PATIENT REFUSED BONE MARROW BIOPSY OBESITY, MORBID MULTIPLE DENTAL CARIES ULNAR NEUROPATHY AT ELBOW OF LEFT UPPER EXTREMITY MYOFASCIAL PAIN SARCOIDOSIS BACK PAIN ALLERGIES TYLENOL WITH CODEINE: HIVES - ALLERGY CT SCAN DYE: VOMITING - SIDE EFFECTS ZYPREXA: SEDATION - SIDE EFFECTS TRICOR: MYALGIAS - SIDE EFFECTS TRAMADOL HCL: LEG CRAMPS - SIDE EFFECTS SEROQUEL: SEDATION - SIDE EFFECTS PAXIL: DECREASE LIBIDO - SIDE EFFECTS NORVASC: INCREASED EDEMA - SIDE EFFECTS ABILIFY: SEDATION - SIDE EFFECTS SURGICAL HISTORY RECONSTRUCTION OF AXILLA AT 1968 TONSILLECTOMY WITH RECONSTRUSTION 1986 ARTHROSCOPIC KNEE SURGERY LEFT MULTIPLE UMBILICAL HERNIA REPAIR 1999 BRONCHOSCOPY 2003 CARDIAC CATH, [facility]; CLEAR 2006 LEFT ULNAR NERVE RELEASE-DR. KELLY 03/24/2017 LUNG BIOPSY 2006 FAMILY HISTORY FATHER: , DIAGNOSED WITH HYPERTENSION, OTHER MALIGNANT NEOPLASM OF UNSPECIFIED SITE MOTHER: , HYPERTENSION, UNSPECIFIED HEART DISEASE SIBLINGS: ALIVE 3 SON(S) , 2 DAUGHTER(S) - HEALTHY. FATHER: ; OF LUNG CA, HTN, GLAUCOMA\\\\NMOTHER: ; OF BOWEL OBSTRUCTION, HTN, DEMENTIA, CAD, HAD MULTIPLE STILL BIRTHS\\\\NSISTER: ; AT 53 DUE TO BRAIN ANEURISM\\\\NBROTHER: ALIVE; HEALTHY\\\\NSISTER: AT 30 DAYS OLD DUE TO HEART DEFECT\\\\NBROTHER: 30 DAYS AFTER . SOCIAL HISTORY GENERAL: TOBACCO USE ARE YOU A:NONSMOKER NEVER SMOKER LATEX QUESTIONNAIRE LATEX ALLERGY : HAVE YOU EVER DEVELOPED ANY TYPE OF REACTION AFTER HANDLING LATEX PRODUCTS SUCH RUBBER GLOVES, CONDOMS, DIAPHRAGMS, BALLOONS, SOCKS, OR UNDERWEAR?NO LATEX ALLERGY : HAVE YOU EVER DEVELOPED ANY TYPE OF REACTION DURING OR AFTER DENTAL APPOINTMENT, VAGINAL/RECTAL EXAMINATION, SURGICAL PROCEDURE, OR ANY OTHER EXPOSURE?NO DATE ASKED : 01/17/2020 LATEX RISK : HAVE YOU EVER HAD ANY DIFFICULTY BREATHING OR HIVES AFTER EATING OR HANDLING ANY FRUITS, OR VEGETABLES; SUCH KIWI, BANANAS, STONE FRUITS, OR CHESTNUTSNO LATEX RISK : DO YOU HAVE A PREVIOUS PERSONAL HISTORY OF MORE THAN NINE SURGERIES, SPINA BIFIDA, OR REPEATED CATHERIZATIONS? NO LATEX RISK : ARE YOU FREQUENTLY EXPOSED TO LATEX PRODUCTS IN YOUR OCCUPATION?NO BMI CARE GOAL FOLLOW-UP ABOVE NORMAL BMI FOLLOW-UPDIETARY NEEDS EDUCATION ALCOHOL SCREENING DID YOU HAVE A DRINK CONTAINING ALCOHOL IN THE PAST YEAR?NO POINTS0 INTERPRETATIONNEGATIVE RECREATIONAL DRUG USE DRUG USE?NO CAFFEINE CAFFEINE USE?YES HOW OFTEN AND HOW MUCH? 0-2 CUP SODA SEXUAL HX HAD SEX IN THE LAST 12 MONTHS (VAGINAL, ORAL, OR ANAL)?YES WITHWOMEN ONLY HIV / HEP-C SCREENING HIV TEST OFFERED TO PATIENT:YES DATE OFFERED:05/13/2016 TEST ACCEPTED:NO HEP-C TEST OFFERED TO PATIENT:YES DATE OFFERED:05/13/2016 REASON:PATIENT DECLINED TEST ACCEPTED:NO REASON:PATIENT DECLINED RELIGIOUS [id number] NONE LANGUAGE LANGUAGES SPOKEN:AMHARIC EDUCATION LEVEL OF EDUCATION:HIGH SCHOOL LEARNING BARRIERS / SPECIAL NEEDS CHANGE FROM LAST VISIT?NO BARRIERS TO LEARNING?NO HEARING IMPAIRED?NO VISION IMPAIRED?YES COGNITIVELY IMPAIRED?NO :CORRECTIVE LENSES READINESS TO LEARN?YES LEARNING PREFERENCES?YES :DEMONSTRATION/VERBAL INSTRUCTION LEARNING CAPABILITIES PRESENT?YES EMOTIONAL BARRIERS?NO SPECIAL DEVICES?YES :CANE DELIVERY AND MAIL SORTER NEEDED?NO DOMESTIC VIOLENCE DO YOU FEEL SAFE IN YOUR ENVIRONMENT?YES OCCUPATION: DISABLED. DIET: REGULAR. EXERCISE: NO REGULAR EXERCISE. MARITAL STATUS: . OTHERS AT HOME: SPOUSE, CHILDREN. PAIN CLINIC PFS, CLERGY, PUBLIC HEALTH REFERRALS PFS REFERRAL NEEDED?NO CLERGY REFERRAL NEEDED?NO PUBLIC HEALTH REFERRAL NEEDED?NO HAS THE PATIENT BEEN EDUCATED REGARDING HIS/HER PLAN OF CARE?YES HAS THE PATIENT BEEN EDUCATED REGARDING PAIN, THE RISK FOR PAIN, THE IMPORTANCE OF EFFECTIVE PAIN MANAGEMENT, AND THE PAIN ASSESSMENT PROCESS?YES ADVANCE DIRECTIVE ADVANCE DIRECTIVE DISCUSSED WITH PATIENT:YES HCP-, PAT ASKED TO BRING A COPY IN. HOSPITALIZATION/MAJOR DIAGNOSTIC PROCEDURE DIABETES SEPTEMBER 2014 LLL CELLULITIS AND ULCER 05/09/2016 REVIEW OF SYSTEMS CONSTITUTIONAL: ANY RECENT FEVER NO, NO . CHILLS NO, NO . WEIGHT CHANGE OF UNKNOWN REASONS NO, NO . GASTROENTEROLOGY: NEW UNEXPLAINABLE CHANGES IN BOWEL CONTROL NO, NO . CONSTIPATION NO, NO . GENITOURINARY: ANY NEW CHANGE IN BLADDER CONTROL? NO, NO . NEUROLOGY: NEW ONSET DIZZINESS OR NEUROLOGICAL CHANGES NOT MENTIONED NO, NO . NEW NUMBNESS OR PAIN PATTERNS NOT MENTIONED AND PERTINENT TO TODAY'S VISIT NO, NO . CARDIOLOGY: NEW CHEST PRESSURE NO, NO . NEW CHEST PAIN NO, NO . RESPIRATORY: UNEXPLAINABLE COUGH NO, NO . NEW SHORTNESS OF BREATH NO, NO . VITAL SIGNS WT 325 LBS, HT 72 IN, BMI 44.07 INDEX, BP 146/91 MM HG, HR 99 /MIN, RR 18 /MIN, TEMP 97.5 F, OXYGEN SAT % 95%, SAFE IN ENV? (Y/N) Y, NA INITIALS SC 11:17, REVIEWED BY: LAUREN. EXAMINATION GENERAL EXAMINATION: GENERALCOMFORTABLE. PSYCHAFFECT NORMAL. LUNGS:LUNG SOUNDS ARE CLEAR.RESPIRATIONS NON-LABORED. HEART:S1, S2 IN A REGULAR RATE AND RHYTHM. NO SIGNIFICANT MURMURS, RUBS OR GALLOPS NOTED. ASSESSMENTS LOW BACK PAIN - M54.5 (PRIMARY) CHRONIC PRESCRIPTION OPIATE USE - Z79.891 TREATMENT LOW BACK PAIN CONTINUE COLACE CAPSULE, 100 MG, 1 TABLET, ORALLY, TWICE A DAY CONTINUE OXYCODONE HCL CAPSULE, 5 MG, 1 CAPSULE NEEDED, ORALLY, Q8H PRN MDD3 #45 TABS SHOULD LAST 30 DAYS CONTINUE TIZANIDINE HCL TABLET, 4 MG, 1 TABLET NEEDED, ORALLY, THREE TIMES A DAY CONTINUE HYDROMORPHONE HCL ER TABLET ER 24 HOUR ABUSE-DETERRENT, 32 MG, 1 TABLET, ORALLY, ONCE A DAY MDD1 NOTES: ISTOP REGISTRY REVIEWED AND DEMONSTRATES COMPLLIANCE. BRINGS IN MEDICATIONS WHICH IS APPROPRIATE FOR WHAT WAS DISPENSED. RECENT URINE TOXICOLOGY REVIEWED. NO UNAUTHORIZED MEDICATIONS. NO ILLICIT SUBSTANCES AND PRESCRIBED MEDICATIONS WERE PRESENT. URINE TOXICOLOGY TODAY , RISKS OF NARCOTIC/OPIOD MEDICATIONS INCLUDES BUT IS NOT LIMITED TO RISK OF DEPENDANCE/DEVELOPMENT OF ADDICTION, MOOD DISTURBANCE AND DEPRESSION, OSTEOPOROSIS, HORMONAL AND LABIDAL CHANGES, RESPIRATORY DEPRESSION AND . PATIENT IS ADVISED NOT TO DRIVE OR DRINK ALCOHOL WHILE ON THESE MEDICATIONS , [facility] NARCOTIC AGREEMENT WAS REVIEWED AND SIGNED TODAY BY THE PATIENT. SEE ATTACHED DOCUMENT FOR FULL DETAILS; SPECIFIC ISSUES WERE REVIEWED: 1) KEEP PAIN MEDS IN THEIR ORIGINAL BOTTLES AND ANY WEEKLY PLANNERS ARE TO BE BROUGHT TO THE PAIN CENTER AT EVERY VISIT. 2) THE PATIENT IS NOT TO INCREASE DOSING OR TIMING OF THEIR PAIN MEDICATION WITHOUT SPECIFIC DIRECTION OF THEIR PAIN CENTERPROVIDER (NOT ER OR OTHER PROVIDERS). 3) ALL PAIN MEDS ARE TO BE KEPT SECURED, IN A LOCKED BOX. 4) NO PAIN MEDS ARE TO BE SHARED WITH ANY OTHER PERSON FOR ANY REASON. 5) NO PAIN MEDS MAY BE TAKEN FROM ANY FRIENDS OR RELATIVES FOR ANY REASON 6) NO MEDS OR SUBSTANCES WHICH ARE NOT LEGAL ARE TO BE USED- NO MARIJUANA, NO COCAINE, AMPHETAMINES, HEROIN, OR OTHERS ARE EVER TO BE USED. 7)URINE TESTING IS DONE TO ACCOUNT FOR MEDS AND SUBSTANCES BEING TAKEN AND WILL BE DONE RANDOMLY. PROCEDURE CODES FA211 ESTABILISHED PATIENT [facility] CHARGE DISPOSITION & COMMUNICATION FOLLOW UP 3 MONTHS (REASON: MEDICATION MANAGEMENT/REVIEW UTOX) ELECTRONICALLY SIGNED BY KENIA NOBLE ON 01/24/2020 AT 01:16 PM EST DISCLAIMER : THIS IS A VISIT SUMMARY EXTRACTED FROM THE [employer] CHART. IT IS NOT A COPY OF THE [employer] PROGRESS NOTE. CORRIE
== END ==
LOC: M PAIN 11:00
PROVIDERS: ATTEND Nurse Practitioner Family
DX: M54.5 Low back pain (principal); E11.9 Type 2 diabetes mellitus without complications; J44.9 Chronic obstructive pulmonary disease, unspecified; J45.40 Moderate persistent asthma, uncomplicated; E78.5 Hyperlipidemia, unspecified; M48.02 Spinal stenosis, cervical region; G47.33 Obstructive sleep apnea (adult) (pediatric); J32.9 Chronic sinusitis, unspecified; G43.009 Migraine without aura, not intractable, without status migrainosus; G25.0 Essential tremor; F32.9 Major depressive disorder, single episode, unspecified; K21.9 Gastro-esophageal reflux disease without esophagitis; G25.81 Restless legs syndrome; I10 Essential (primary) hypertension; K59.09 Other constipation; Z79.891 Long term (current) use of opiate analgesic; D51.0 Vitamin B12 deficiency anemia due to intrinsic factor deficiency; E66.01 Morbid (severe) obesity due to excess calories; Z79.82 Long term (current) use of aspirin; Z79.899 Other long term (current) drug therapy; Z88.5 Allergy status to narcotic agent; Z88.8 Allergy status to other drugs, medicaments and biological substances; Z91.040 Latex allergy status; Z68.41 Body mass index [BMI] 40.0-44.9, adult

== ENCOUNTER → 2020-01-24 | Outpatient (REF) | payer MEDICARE ==
[2020-01-24 18:21] LABS: ALBUMIN 3.8 GM/DL (3.2-5.2); ALT/SGPT 20 U/L (12-78); BILIRUBIN,TOTAL 0.3 MG/DL (0.2-1.0); BLOOD UREA NITROGEN 16 MG/DL (7-18); CALCIUM LEVEL 8.4 MG/DL (8.5-10.1); CARBON DIOXIDE LEVEL 29 MEQ/L (21-32); CHLORIDE LEVEL 106 MEQ/L (98-107); CHOLESTEROL LEVEL 125 MG/DL (<200); CHOLESTEROL RISK RATIO 3.125 (<5); CREATININE FOR GFR 0.92 MG/DL (0.70-1.30); GLOMERULAR FILTRATION RATE > 60.0 (>56); GLUCOSE, FASTING 139 MG/DL (70-100); HDL CHOLESTEROL 40 MG/DL (>40); LDL CHOLESTEROL 50 MG/DL (<100); NON-HDL-C 85 MG/DL; POTASSIUM SERUM 4.1 MEQ/L (3.5-5.1); SODIUM LEVEL 140 MEQ/L (136-145); TOTAL PROTEIN 6.9 GM/DL (6.4-8.2); TRIGLYCERIDES LEVEL 176 MG/DL (<150)
[2020-01-24 18:29] LABS: BASO % 0.4 % (0.0-1.0); EOS # 0.3 10^3/uL (0.0-0.5); EOS % 6.1 % (0.0-3.0); HEMATOCRIT 46.1 % (42.0-52.0); HEMOGLOBIN 14.6 g/dl (13.5-17.5); LYMPH # 1.8 10^3/uL (1.5-5.0); LYMPH % 35.9 % (24.0-44.0); MEAN CORPUSCULAR HEMOGLOBIN 27.2 pg (27.0-33.0); MEAN CORPUSCULAR HGB CONC 31.7 g/dl (32.0-36.5); MONO # 0.6 10^3/uL (0.0-0.8); MONO % 11.3 % (0.0-5.0); NEUTROPHILS # 2.4 10^3/uL (1.5-8.5); NEUTROPHILS % 45.9 % (36.0-66.0); PLATELET COUNT, AUTOMATED 180 10^3/uL (150-450); RED BLOOD COUNT 5.36 10^6/uL (4.30-6.10); WHITE BLOOD COUNT 5.1 10^3/uL (4.0-10.0)
[2020-01-24 19:26] LABS: HEMOGLOBIN A1c 7.9 %
== END ==
LOC: M PLALAB 15:14
PROVIDERS: ATTEND Physician Assistant
DX: G47.33 Obstructive sleep apnea (adult) (pediatric) (principal); E11.21 Type 2 diabetes mellitus with diabetic nephropathy; E78.5 Hyperlipidemia, unspecified; Z12.5 Encounter for screening for malignant neoplasm of prostate
CPT/HCPCS: 36415; 80053; 80061; 83036; 85025; G0103

== ENCOUNTER → 2020-04-20 | Outpatient (CLI) | payer MEDICARE ==
[~2020-04-20] MED LIST changes: +GABA-282 PO; -GABA-843 PO; -LISI-542 PO; +LISI-898 PO; +LISI10TA22 PO; -LISI10TA4 PO
--- NOTE | 2020-04-28 06:14 | ECWPNPC ---
PATIENT NAME: CHRISTINE BECERRIL : 1965 GENDER: MALE VISIT DATE: 04/20/2020 DISCHARGE DATE: 04/20/20 1137 VISIT LOCKED DATE TIME: PHYSICIAN: MAGNOLIA JOYCE PHYSICIAN PAGER NO: ACTIVE RESOURCE: MAGNOLIA JOYCE REASON FOR APPOINTMENT 1. MEDICATION MANAGEMENT/REVIEW UTOX HISTORY OF PRESENT ILLNESS GENERAL: HERE FOR ROUTINE FOLLOW-UP AND MEDICATION MANAGEMENT FOR CHRONIC PAIN. AT HIS LAST VISIT A URINE TOXICOLOGY WAS DONE. THIS IS REVIEWED TODAY AND WITHIN NORMAL LIMITS. IT DOES LOOK LIKE IT IS ABNORMAL BECAUSE OF HYDROMORPHONE BEING PRESENT BUT PATIENT TAKES LONG-ACTING HYDROMORPHONE 32 MG DAILY AND IT WAS NOT PUT IN A DRUG THAT HE WAS TAKING AND THEREFORE WAS NOT CONSISTENT ACCORDING TO THE PAPER REPORT.IS FINDING THAT OXYCODONE 5MG TABLETS THAT HE IS USING FOR INTERMITTENT BREAK THROUGH PAIN IS NOT HELPING.HE HAS NOT BEEN TAKING THIS IT IS NOT EFFECTIVE.HE HAS BROUGHT ME ALMOST A FULL BOTTLE OF OXYCODONE 5MG TABLETS.WE WILL HAVE HIM BRING THIS TO [facility] FOR FORMAL DESTRUCTION .DIOMEDES PETERS RN WILL VERIFY AND COUNT WHAT HE IS BRINGING TO US AND GIVE PATIENT PAPER WHICH HE WILL BRING TO [facility] ALONG WITH OXYCODONE 5MG TO DESTROY. -. FALL RISK SCREENING: SCREENING : NO FALLS REPORTED IN THE LAST YEAR. PAIN SCREENING: PATIENT HAS A COMPLAINT OF ACUTE OR CHRONIC PAIN :YES LOCATION OF PAIN:LOW BACK INTENSITY OF PAIN (SCALE OF 1 TO 10):8 WHAT DOES YOUR PAIN FEEL LIKE:STABBING, THROBBING, SORE DURATION:CONTINOUS, CONSTANT, ALL DAY PAIN IS INCREASED BY:ACTIVITIES PAIN IS DECREASED BY:USE OF PAIN MEDICATIONS NURSING NOTE: -. PAIN CENTER INTAKE QUESTIONS: DO YOU HAVE A HISTORY OF MRSA? :YES ABD SKIN 2000 DO YOU TAKE A BLOOD THINNERS? :NO DO YOU HAVE ANY BLEEDING DISORDERS? :NO ANY NEW NUMBNESS OR WEAKNESS IN YOUR LEGS OR ARMS? :NO ANY PACEMAKER,DEFIBRILLATOR, OR DORSAL COLUMN STIMULATOR? :NO DO YOU HAVE ANY RASHES OR OPEN SORES? :NO ARE YOU ALLERGIC TO IV DYE? :YES ARE YOU DIABETIC? :YES ANY NEW PROBLEMS WITH YOUR MEDICATIONS? :NO HAVE YOU RECEIVED A VACCINE IN THE PAST 30 DAYS? :NO DO YOU PLAN TO RECEIVE A VACCINE IN THE NEXT 21 DAYS? :NO DO YOU NEED ANY PRESCRIPTION? :NO DO YOU TAKE ANY IMMUNOSUPPRESSIVE MEDICATIONS? :NO IS THERE A CHANCE YOU COULD BE ? :NO ARE YOU BREAST FEEDING? :NO CURRENT MEDICATIONS TAKING MUPIROCIN CALCIUM 2 % CREAM 1 APPLICATION EXTERNALLY THREE TIMES A DAY TAKING CRESTOR 40 MG TABLET 1 TABLET ORALLY ONCE A DAY TAKING RIZATRIPTAN BENZOATE 5 MG TABLET DISINTEGRATING 1-2 TABLETS ORALLY 1 TABLET AT START OF SYMPTOMS, ANOTHER TABLET 2 HOUR LATER IF SYMPTOMS PERSIST TAKING PEN NEEDLES NOVOFINE NEEDLE DIRECTED SUBCUTANEOUSLY TWICE DAILY TAKING NEXIUM 40 MG CAPSULE DELAYED RELEASE 1 CAPSULE ORALLY TWICE DAILY TAKING NITROSTAT 0.4 MG TABLET SUBLINGUAL 1 TABLET UNDER THE TONGUE EVERY 5 MINS FOR CHEST PAIN WITH A MAX OF 3 TABS SUBLINGUAL DIRECTED TAKING TAMSULOSIN HCL 0.4 MG CAPSULE EXTENDED RELEASE 1 TAB(S) ORALLY ONCE A DAY TAKING TOPIRAMATE 25 MG TABLET 1 TABLET ORALLY TWICE A DAY TAKING TIZANIDINE HCL 4 MG TABLET 1 TABLET NEEDED ORALLY THREE TIMES A DAY TAKING CALCIUM PLUS VITAMIN D 500-50 MG-UNIT CAPSULE 1 CAPSULE ORALLY BID TAKING ASPIRIN 81 81 MG TABLET CHEWABLE 1 TABLET ORALLY ONCE A DAY TAKING MIRALAX OTC POWDER PO ORALLY TWICE A DAY TAKING VITAMIN B-12 1000 MCG INJECTION 1 INJECTION IM MONTHLY TAKING SUCRALFATE 1 GM TABLET 1 TAB ORALLY BEFORE BEDTIME TAKING ALCOHOL PREP 1 ALCOHOL PREP PADS NEEDED TAKING HOSPITAL BED _ _ HOSPITAL BED DX 454.0,135,782.3 DAILY NEEDED TAKING COMPRESSION STOCKINGS 20-30 MMHG DIRECTED TAKING ALTERNATING PRESSURE MATTRESS 1 _ ALTERNATING MATTRESS PAD WITH MARCY AND PUMP ICD:187.139 DAILY TAKING LANCETS 1 LANCET 1 SUBCUTANEOUSLY TWICE DAILY TAKING BLOOD GLUCOSE TEST STRIP 1 STRIPS ONE TOUCH ULTRA TEST STRIPS 1 TOPICALLY TWICE A DAY TAKING EPIPEN 0.3 MG/0.3ML (1:1000) DEVICE SQ INTRAMUSCULAR NEEDED TAKING PROVENTIL HFA 108 (90 BASE) MCG/ACT AEROSOL SOLUTION 2 PUFFS INHALATION FOUR TIMES A DAY NEEDED TAKING POTASSIUM CHLORIDE 20 MEQ CAPSULE 1 CAPSULE WITH FOOD ORALLY TWICE A DAY TAKING VENLAFAXINE HCL ER 75 MG TABLET EXTENDED RELEASE 24 HOUR 1 TABLET WITH FOOD ORALLY ONCE A DAY TAKING NASONEX 50 MCG/ACT SUSPENSION SPRAY TWO SPRAYS IN ONE NOSTRIL EVERY DAY NASALLY DAILY TAKING LOSARTAN POTASSIUM 50 MG TABLET 1 TABLET ORALLY ONCE A DAY TAKING BUSPIRONE HCL 5 MG TABLET 1 TABLET ORALLY TWICE A DAY TAKING GLUCOMETER DIRECTED _ ONCE DAILY TAKING LANCETS - MISCELLANEOUS DIRECTED _ DAILY TAKING GABAPENTIN 800 MG TABLET 1 TABLET ORALLY THREE TIMES A DAY TAKING COLACE 100 MG CAPSULE 1 TABLET ORALLY TWICE A DAY TAKING TRESIBA FLEXTOUCH 200 UNIT/ML SOLUTION PEN-INJECTOR INJECT 170 UNITS SUBCUTANEOUS BID TAKING JARDIANCE 25 MG TABLET 1 TABLET ORALLY ONCE A DAY TAKING TEST STRIPS - DIRECTED _ FOUR TO SIX TIMES A DAY TAKING FAMOTIDINE 40 MG TABLET 1 TABLET AT BEDTIME ORALLY ONCE A DAY TAKING METFORMIN HCL 1000 MG TABLET 1 TABLET WITH MEALS ORALLY TWICE A DAY TAKING HYDROMORPHONE HCL ER 32 MG TABLET EXTENDED RELEASE 24 HOUR 1 TABLET ORALLY ONCE A DAY MDD1 TAKING ASTELIN 0.1% (137 MCG) SPRAY SPRAY TWO SPRAYS IN EACH NOSTRIL TWICE A DAY INTRANASAL BID TAKING OXYCODONE HCL 5 MG CAPSULE 1 CAPSULE NEEDED ORALLY Q8H PRN MDD3 #45 TABS SHOULD LAST 30 DAYS NOT-TAKING HYDROMORPHONE HCL ER 32 MG TABLET EXTENDED RELEASE 24 HOUR 1 TABLET ORALLY ONCE A DAY MDD1 NOT-TAKING HYDROMORPHONE HCL ER 32 MG TABLET ER 24 HOUR ABUSE-DETERRENT 1 TABLET ORALLY ONCE A DAY MDD1 NOT-TAKING HYDROMORPHONE HCL ER 32 MG TABLET EXTENDED RELEASE 24 HOUR 1 TABLET ORALLY ONCE A DAY MDD1 MEDICATION LIST REVIEWED AND RECONCILED WITH THE PATIENT PAST MEDICAL HISTORY DIABETES MELLITUS TYPE 2 [id number] 30, 2007 CARDIAC 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-NOVEMBER 2007 MRI WITH C6-C7 MODERATE LEFT BULGE CAUSING MODERATE CENTRAL CANAL STENOSIS, SMALL LEFT HNP C4-C5 WITH MODERATE SPINAL STENOSIS AND C5-C6 BULGE CAUSING BILATERAL NEURAL FORAMINAL NARROWING RIGHT GREATER THAN LEFT RIGHT SUPRASPINATUS TENDINITIS BY MAY 2008 MRI OBSTRUCTIVE SLEEP APNEA-PATIENT REFUSES CPAP ALLERGIC RHINITIS/CHRONIC SINUSITIS MIGRAINE HEADACHES, COMMON TYPE ESSENTIAL TREMOR DEPRESSION DYSPEPSIA/GERD B12 DEFICIENCY RESTLESS LEG SYNDROME HYPERTENSION CONSTIPATION, CHRONIC ANEMIA, CHRONIC SECONDARY TO IRON AND B12 DEFICIENCY-PATIENT REFUSES ANOSCOPY HYMENOPTERA ANAPHYLAXIS HISTORY OF IGG LAMBDA BY RUBÉN- PATIENT REFUSED BONE MARROW BIOPSY OBESITY, MORBID MULTIPLE DENTAL CARIES ULNAR NEUROPATHY AT ELBOW OF LEFT UPPER EXTREMITY MYOFASCIAL PAIN SARCOIDOSIS BACK PAIN ALLERGIES TYLENOL WITH CODEINE: HIVES - ALLERGY CT SCAN DYE: VOMITING - SIDE EFFECTS ZYPREXA: SEDATION - SIDE EFFECTS TRICOR: MYALGIAS - SIDE EFFECTS TRAMADOL HCL: LEG CRAMPS - SIDE EFFECTS SEROQUEL: SEDATION - SIDE EFFECTS PAXIL: DECREASE LIBIDO - SIDE EFFECTS NORVASC: INCREASED EDEMA - SIDE EFFECTS ABILIFY: SEDATION - SIDE EFFECTS SOCIAL HISTORY GENERAL: TOBACCO USE ARE YOU A:NONSMOKER NEVER SMOKER LATEX QUESTIONNAIRE LATEX ALLERGY : HAVE YOU EVER DEVELOPED ANY TYPE OF REACTION AFTER HANDLING LATEX PRODUCTS SUCH RUBBER GLOVES, CONDOMS, DIAPHRAGMS, BALLOONS, SOCKS, OR UNDERWEAR?NO LATEX ALLERGY : HAVE YOU EVER DEVELOPED ANY TYPE OF REACTION DURING OR AFTER DENTAL APPOINTMENT, VAGINAL/RECTAL EXAMINATION, SURGICAL PROCEDURE, OR ANY OTHER EXPOSURE?NO LATEX RISK : HAVE YOU EVER HAD ANY DIFFICULTY BREATHING OR HIVES AFTER EATING OR HANDLING ANY FRUITS, OR VEGETABLES; SUCH KIWI, BANANAS, STONE FRUITS, OR CHESTNUTSNO LATEX RISK : DO YOU HAVE A PREVIOUS PERSONAL HISTORY OF MORE THAN NINE SURGERIES, SPINA BIFIDA, OR REPEATED CATHERIZATIONS? NO LATEX RISK : ARE YOU FREQUENTLY EXPOSED TO LATEX PRODUCTS IN YOUR OCCUPATION?NO DATE ASKED : 04/20/2020 ALCOHOL USE: NO. BMI CARE GOAL FOLLOW-UP ABOVE NORMAL BMI FOLLOW-UPDIETARY NEEDS EDUCATION ALCOHOL SCREENING DID YOU HAVE A DRINK CONTAINING ALCOHOL IN THE PAST YEAR?NO POINTS0 INTERPRETATIONNEGATIVE RECREATIONAL DRUG USE DRUG USE?NO CAFFEINE CAFFEINE USE?YES HOW OFTEN AND HOW MUCH? 0-2 CUP SODA SEXUAL HX HAD SEX IN THE LAST 12 MONTHS (VAGINAL, ORAL, OR ANAL)?YES WITHWOMEN ONLY HIV / HEP-C SCREENING HIV TEST OFFERED TO PATIENT:YES DATE OFFERED:05/13/2016 TEST ACCEPTED:NO HEP-C TEST OFFERED TO PATIENT:YES DATE OFFERED:05/13/2016 REASON:PATIENT DECLINED TEST ACCEPTED:NO REASON:PATIENT DECLINED SCIENTOLOGY [id number] NONE LANGUAGE LANGUAGES SPOKEN:HEBREW EDUCATION LEVEL OF EDUCATION:HIGH SCHOOL LEARNING BARRIERS / SPECIAL NEEDS CHANGE FROM LAST VISIT?NO BARRIERS TO LEARNING?NO HEARING IMPAIRED?NO VISION IMPAIRED?YES :CORRECTIVE LENSES COGNITIVELY IMPAIRED?NO READINESS TO LEARN?YES LEARNING PREFERENCES?YES :DEMONSTRATION/VERBAL INSTRUCTION LEARNING CAPABILITIES PRESENT?YES EMOTIONAL BARRIERS?NO SPECIAL DEVICES?YES :CANE RESISTANCE BRAZER NEEDED?NO DOMESTIC VIOLENCE DO YOU FEEL SAFE IN YOUR ENVIRONMENT?YES OCCUPATION: DISABLED. DIET: REGULAR. EXERCISE: NO REGULAR EXERCISE. MARITAL STATUS: . OTHERS AT HOME: SPOUSE, CHILDREN. - PFS REFERRAL NEEDED?NO CLERGY REFERRAL NEEDED?NO PUBLIC HEALTH REFERRAL NEEDED?NO HAS THE PATIENT BEEN EDUCATED REGARDING HIS/HER PLAN OF CARE?YES HAS THE PATIENT BEEN EDUCATED REGARDING PAIN, THE RISK FOR PAIN, THE IMPORTANCE OF EFFECTIVE PAIN MANAGEMENT, AND THE PAIN ASSESSMENT PROCESS?YES ADVANCE DIRECTIVE ADVANCE DIRECTIVE DISCUSSED WITH PATIENT:YES HCP-, PAT ASKED TO BRING A COPY IN. REVIEW OF SYSTEMS CONSTITUTIONAL: ANY RECENT FEVER NO . CHILLS NO . WEIGHT CHANGE OF UNKNOWN REASONS NO . GASTROENTEROLOGY: NEW UNEXPLAINABLE CHANGES IN BOWEL CONTROL NO . CONSTIPATION NO . GENITOURINARY: ANY NEW CHANGE IN BLADDER CONTROL? NO . NEUROLOGY: NEW ONSET DIZZINESS OR NEUROLOGICAL CHANGES NOT MENTIONED NO . NEW NUMBNESS OR PAIN PATTERNS NOT MENTIONED AND PERTINENT TO TODAY'S VISIT NO . CARDIOLOGY: NEW CHEST PRESSURE NO . PATIENT DENIES NO . RESPIRATORY: UNEXPLAINABLE COUGH NO . NEW SHORTNESS OF BREATH NO . VITAL SIGNS WT 324.2 LBS, HT 72 IN, BMI 43.96 INDEX, BP 152/71 MM HG, HR 102 /MIN, RR 20 /MIN, TEMP 97.3 F, OXYGEN SAT % 96%, SAFE IN ENV? (Y/N) YES, NA INITIALS SC 11:01T.DENISE PARKS. EXAMINATION GENERAL EXAMINATION: GENERALAWAKE,ALERT ,PLEASANT . PSYCHAFFECT NORMAL . LUNGS:LUNG COLON ARE CLEAR TO AUSCULTATION BILATERALLY. GOOD MOVEMENT OF AIR . HEART:S1, S2 IN A REGULAR RATE AND RHYTHM. NO SIGNIFICANT MURMURS, RUBS OR GALLOPS NOTED . ASSESSMENTS LOW BACK PAIN - M54.5 (PRIMARY) CHRONIC PRESCRIPTION OPIATE USE - Z79.899, THIS IS MANAGED THROUGH THE PAIN CLINIC. CHRONIC PRESCRIPTION OPIATE USE - Z79.891 TREATMENT LOW BACK PAIN STOP OXYCODONE HCL CAPSULE, 5 MG, 1 CAPSULE NEEDED, ORALLY, Q8H PRN MDD3 #45 TABS SHOULD LAST 30 DAYS REFILL HYDROMORPHONE HCL ER TABLET EXTENDED RELEASE 24 HOUR, 32 MG, 1 TABLET, ORALLY, ONCE A DAY MDD1, 30 DAYS, 30, REFILLS 0 START PERCOCET TABLET, 7.5-325 MG, 1 TABLET NEEDED, ORALLY, EVERY 6 HRS PRN FOR SEVERE PAIN EPISODES .#45 TABLETS SHOULD LAST 30 DAYS, 30 DAYS, 45, REFILLS 0 PATIENT MEDICATION INVENTORY #1PRESCRIPTON #OXYCODONEDATE OF RX ON BOTTLE1DRUG AND [id number] DRUG IDENTITYT.BENJA NOTES: TODAY WE WILL STOP OXYCODONE 5MG AND START PERCOCET 7.5/325.HE WILL GET #45 TABLETS FOR A 30 DAY SUPPLY AND ADVISED TO USE THIS SPARINGLY FOR SEVERE PAIN EPISODES ONLY. , ISTOP REGISTRY REVIEWED AND DEMONSTRATES COMPLLIANCE. BRINGS IN MEDICATIONS WHICH IS APPROPRIATE FOR WHAT WAS DISPENSED. RECENT URINE TOXICOLOGY REVIEWED. NO UNAUTHORIZED MEDICATIONS. NO ILLICIT SUBSTANCES AND PRESCRIBED MEDICATIONS WERE PRESENT. PROCEDURE CODES [id number] ESTABILISHED PATIENT [facility] CHARGE DISPOSITION & COMMUNICATION FOLLOW UP 3 MONTHS (REASON: MED MGMNT/UTOX/F/U AFTER MED CHANGE) ELECTRONICALLY SIGNED BY KENIA NOBLE ON 04/27/2020 AT 02:45 PM EST DISCLAIMER : THIS IS A VISIT SUMMARY EXTRACTED FROM THE [facility]. IT IS NOT A COPY OF THE [facility] PROGRESS NOTE. CORRIE
== END ==
LOC: M PAIN 11:00
PROVIDERS: ATTEND Nurse Practitioner Family
DX: M54.5 Low back pain (principal); G89.29 Other chronic pain; E11.9 Type 2 diabetes mellitus without complications; J44.9 Chronic obstructive pulmonary disease, unspecified; G47.33 Obstructive sleep apnea (adult) (pediatric); G25.0 Essential tremor; G43.909 Migraine, unspecified, not intractable, without status migrainosus; K21.9 Gastro-esophageal reflux disease without esophagitis; G25.81 Restless legs syndrome; Z86.14 Personal history of Methicillin resistant Staphylococcus aureus infection; Z86.59 Personal history of other mental and behavioral disorders; Z88.5 Allergy status to narcotic agent; Z88.8 Allergy status to other drugs, medicaments and biological substances; Z91.041 Radiographic dye allergy status; E66.01 Morbid (severe) obesity due to excess calories; Z68.41 Body mass index [BMI] 40.0-44.9, adult; Z79.4 Long term (current) use of insulin; Z79.82 Long term (current) use of aspirin; Z79.891 Long term (current) use of opiate analgesic; Z79.899 Other long term (current) drug therapy

== ENCOUNTER → 2020-06-21 | Outpatient (REF) | payer MEDICARE | LOC: EEVIPCON 11:20 → M LAB REF 11:20 | PROVIDERS: ATTEND Physician Assistant | DX: L02.31 Cutaneous abscess of buttock (principal) ==

== ENCOUNTER → 2020-07-21 | Outpatient (CLI) | payer MEDICARE ==
--- NOTE | 2020-07-25 07:41 | ECWPNPC ---
PATIENT NAME: CHRISTINE BECERRIL : 1965 GENDER: MALE VISIT DATE: 07/21/2020 DISCHARGE DATE: 07/21/20 1214 VISIT LOCKED DATE TIME: PHYSICIAN: MAGNOLIA JOYCE PHYSICIAN PAGER NO: ACTIVE RESOURCE: MAGNOLIA JOYCE REASON FOR APPOINTMENT 1. MED MGMNT/UTOX/F/U AFTER MED CHANGE HISTORY OF PRESENT ILLNESS DEPRESSION SCREENING: PHQ-2 (2015 EDITION) LITTLE INTEREST OR PLEASURE IN DOING THINGS?NOT AT ALL FEELING DOWN, DEPRESSED, OR HOPELESS?NOT AT ALL TOTAL SCORE0 GENERAL: HERE FOR FOLLOW-UP AND MEDICATION MANAGEMENT OF PERSISTENT GENERALIZED BACK PAIN. PATIENT HAD SEVERE MRSA INFECTION AND WAS FOLLOWING WITH WOUND MANAGEMENT FOR THE PAST 2 MONTHS. HE IS MUCH BETTER. FINDS CURRENT CHRONIC PAIN MEDICATION HELPFUL AT REDUCING PAIN AND KEEPING HIM FUNCTIONAL. DENIES ADVERSE SIDE EFFECTS WITH HIS MEDICATIONS. CURRENTLY USING OXYCODONE 7.5/325 AND HAS #45 TABLETS FOR 30 DAY SUPPLY. HE FINDS THIS MUCH MORE HELPFUL THAN OXYCODONE 5 MG TABLET. CONTINUES USING HYDROMORPHONE ER 32 MG DAILY. BRINGS IN HIS MEDICATION WHICH IS APPROPRIATE FOR WHAT WAS DISPENSED. -. FALL RISK SCREENING: SCREENING : NO FALLS REPORTED IN THE LAST YEAR. PAIN SCREENING: PATIENT HAS A COMPLAINT OF ACUTE OR CHRONIC PAIN :YES LOCATION OF PAIN:LOW BACK INTENSITY OF PAIN (SCALE OF 1 TO 10):5 WHAT DOES YOUR PAIN FEEL LIKE:ACHING, CONTINOUS, SHARP, STABBING, THROBBING DURATION:CONTINOUS, CONSTANT, ALL DAY PAIN IS INCREASED BY:ACTIVITIES PAIN IS DECREASED BY:USE OF PAIN MEDICATIONS NURSING NOTE: -. PAIN CENTER INTAKE QUESTIONS: DO YOU HAVE A HISTORY OF MRSA? :YES 07/21/2020 DO YOU TAKE A BLOOD THINNERS? :NO ASPIRIN 81 81 MG DO YOU HAVE ANY BLEEDING DISORDERS? :NO ANY NEW NUMBNESS OR WEAKNESS IN YOUR LEGS OR ARMS? :NO ANY PACEMAKER,DEFIBRILLATOR, OR DORSAL COLUMN STIMULATOR? :NO DO YOU HAVE ANY RASHES OR OPEN SORES? :NO ARE YOU ALLERGIC TO IV DYE? :YES ARE YOU DIABETIC? :YES TYPE 2 ANY NEW PROBLEMS WITH YOUR MEDICATIONS? :NO HAVE YOU RECEIVED A VACCINE IN THE PAST 30 DAYS? :NO DO YOU PLAN TO RECEIVE A VACCINE IN THE NEXT 21 DAYS? :NO DO YOU NEED ANY PRESCRIPTION? :NO DO YOU TAKE ANY IMMUNOSUPPRESSIVE MEDICATIONS? :NO DO YOU HAVE ANY KIDNEY OR LIVER DISEASE? :NO IS THERE A CHANCE YOU COULD BE ? :NO ARE YOU BREAST FEEDING? :NO CURRENT MEDICATIONS TAKING BACTROBAN 2% OINTMENT APPLY TO THE NARES OF THE NOSE, UNDER NAILS, GROIN AND ARMPITS APPLIED TOPICALLY TWICE A DAY TAKING CRESTOR 40 MG TABLET 1 TABLET ORALLY ONCE A DAY TAKING RIZATRIPTAN BENZOATE 5 MG TABLET DISINTEGRATING 1-2 TABLETS ORALLY 1 TABLET AT START OF SYMPTOMS, ANOTHER TABLET 2 HOUR LATER IF SYMPTOMS PERSIST TAKING PEN NEEDLES NOVOFINE NEEDLE DIRECTED SUBCUTANEOUSLY TWICE DAILY TAKING NEXIUM 40 MG CAPSULE DELAYED RELEASE 1 CAPSULE ORALLY TWICE DAILY TAKING NITROSTAT 0.4 MG TABLET SUBLINGUAL 1 TABLET UNDER THE TONGUE EVERY 5 MINS FOR CHEST PAIN WITH A MAX OF 3 TABS SUBLINGUAL DIRECTED TAKING TAMSULOSIN HCL 0.4 MG CAPSULE EXTENDED RELEASE 1 TAB(S) ORALLY ONCE A DAY TAKING TOPIRAMATE 25 MG TABLET 1 TABLET ORALLY TWICE A DAY TAKING TIZANIDINE HCL 4 MG TABLET 1 TABLET NEEDED ORALLY THREE TIMES A DAY TAKING CALCIUM PLUS VITAMIN D 500-50 MG-UNIT CAPSULE 1 CAPSULE ORALLY BID TAKING ASPIRIN 81 81 MG TABLET CHEWABLE 1 TABLET ORALLY ONCE A DAY TAKING MIRALAX OTC POWDER PO ORALLY TWICE A DAY TAKING VITAMIN B-12 1000 MCG INJECTION 1 INJECTION IM MONTHLY TAKING SUCRALFATE 1 GM TABLET 1 TAB ORALLY BEFORE BEDTIME TAKING ALCOHOL PREP 1 ALCOHOL PREP PADS NEEDED TAKING HOSPITAL BED _ _ HOSPITAL BED DX 454.0,135,782.3 DAILY NEEDED TAKING COMPRESSION STOCKINGS 20-30 MMHG DIRECTED TAKING ALTERNATING PRESSURE MATTRESS 1 _ ALTERNATING MATTRESS PAD WITH MARCY AND PUMP ICD:187.139 DAILY TAKING LANCETS 1 LANCET 1 SUBCUTANEOUSLY TWICE DAILY TAKING BLOOD GLUCOSE TEST STRIP 1 STRIPS ONE TOUCH ULTRA TEST STRIPS 1 TOPICALLY TWICE A DAY TAKING EPIPEN 0.3 MG/0.3ML (1:1000) DEVICE SQ INTRAMUSCULAR NEEDED TAKING PROVENTIL HFA 108 (90 BASE) MCG/ACT AEROSOL SOLUTION 2 PUFFS INHALATION FOUR TIMES A DAY NEEDED TAKING POTASSIUM CHLORIDE 20 MEQ CAPSULE 1 CAPSULE WITH FOOD ORALLY TWICE A DAY TAKING NASONEX 50 MCG/ACT SUSPENSION SPRAY TWO SPRAYS IN ONE NOSTRIL EVERY DAY NASALLY DAILY TAKING BUSPIRONE HCL 5 MG TABLET 1 TABLET ORALLY TWICE A DAY TAKING GLUCOMETER DIRECTED _ ONCE DAILY TAKING COLACE 100 MG CAPSULE 1 TABLET ORALLY TWICE A DAY TAKING TEST STRIPS - DIRECTED _ FOUR TO SIX TIMES A DAY TAKING FAMOTIDINE 40 MG TABLET 1 TABLET AT BEDTIME ORALLY ONCE A DAY TAKING ASTELIN 0.1% (137 MCG) SPRAY SPRAY TWO SPRAYS IN EACH NOSTRIL TWICE A DAY INTRANASAL BID TAKING REQUIP 1 MG TABLET 1 TABLET 1 TO 3 HOURS BEFORE BEDTIME ORALLY ONCE A DAY TAKING VENLAFAXINE HCL ER 150 MG TABLET EXTENDED RELEASE 24 HOUR 1 TABLET WITH FOOD ORALLY ONCE A DAY TAKING OPTIFOAM 4"X4" PAD DIRECTED TOPICALLY TWICE DAILY TAKING NEBULIZER/TUBING/MOUTHPIECE DIRECTED _ FOUR TIMES DAILY NEEDED TAKING LOSARTAN POTASSIUM 50 MG TABLET 1 TABLET ORALLY ONCE A DAY TAKING GABAPENTIN 800 MG TABLET 1 TABLET ORALLY THREE TIMES A DAY TAKING HYDROMORPHONE HCL ER 32 MG TABLET EXTENDED RELEASE 24 HOUR 1 TABLET ORALLY ONCE A DAY MDD1 TAKING PERCOCET 7.5-325 MG TABLET 1 TABLET NEEDED ORALLY EVERY 6 HRS PRN FOR SEVERE PAIN EPISODES .#45 TABLETS SHOULD LAST 30 DAYS TAKING DOXYCYCLINE HYCLATE 100 MG CAPSULE 1 CAPSULE ORALLY TWICE A DAY TAKING RIFAMPIN 300 MG CAPSULE 1 CAP ORALLY BID TAKING TRESIBA FLEXTOUCH 200 UNIT/ML SOLUTION PEN-INJECTOR INJECT 170 UNITS SUBCUTANEOUS BID TAKING JARDIANCE 25 MG TABLET 1 TABLET ORALLY ONCE A DAY TAKING LANCETS - MISCELLANEOUS DIRECTED _ DAILY TAKING METFORMIN HCL 1000 MG TABLET 1 TABLET WITH MEALS ORALLY TWICE A DAY NOT-TAKING DOXYCYCLINE HYCLATE 100 MG TABLET 1 TABLET ORALLY TWICE A DAY NOT-TAKING MUPIROCIN 2 % OINTMENT 1 APPLICATION EXTERNALLY THREE TIMES A DAY NOT-TAKING HYDROMORPHONE HCL ER 32 MG TABLET EXTENDED RELEASE 24 HOUR 1 TABLET ORALLY ONCE A DAY MDD1 NOT-TAKING HYDROMORPHONE HCL ER 32 MG TABLET ER 24 HOUR ABUSE-DETERRENT 1 TABLET ORALLY ONCE A DAY MDD1 NOT-TAKING HYDROMORPHONE HCL ER 32 MG TABLET EXTENDED RELEASE 24 HOUR 1 TABLET ORALLY ONCE A DAY MDD1 MEDICATION LIST REVIEWED AND RECONCILED WITH THE PATIENT PAST MEDICAL HISTORY DIABETES MELLITUS TYPE 2 [id number] 30, 2007 CARDIAC [id number]-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-NOVEMBER 2007 MRI WITH C6-C7 MODERATE LEFT BULGE CAUSING MODERATE CENTRAL CANAL STENOSIS, SMALL LEFT HNP C4-C5 WITH MODERATE SPINAL STENOSIS AND C5-C6 BULGE CAUSING BILATERAL NEURAL FORAMINAL NARROWING RIGHT GREATER THAN LEFT RIGHT SUPRASPINATUS TENDINITIS BY MAY 2008 MRI OBSTRUCTIVE SLEEP APNEA-PATIENT REFUSES CPAP ALLERGIC RHINITIS/CHRONIC SINUSITIS MIGRAINE HEADACHES, COMMON TYPE ESSENTIAL TREMOR DEPRESSION DYSPEPSIA/GERD B12 DEFICIENCY RESTLESS LEG SYNDROME HYPERTENSION CONSTIPATION, CHRONIC ANEMIA, CHRONIC SECONDARY TO IRON AND B12 DEFICIENCY-PATIENT REFUSES ANOSCOPY HYMENOPTERA ANAPHYLAXIS HISTORY OF IGG LAMBDA BY RUBÉN- PATIENT REFUSED BONE MARROW BIOPSY OBESITY, MORBID MULTIPLE DENTAL CARIES ULNAR NEUROPATHY AT ELBOW OF LEFT UPPER EXTREMITY MYOFASCIAL PAIN SARCOIDOSIS BACK PAIN COVID-19- 04/2020, FULLY RECOVERED 07/21/2020 MRSA ALLERGIES TYLENOL WITH CODEINE: HIVES - ALLERGY CT SCAN DYE: VOMITING - SIDE EFFECTS ZYPREXA: SEDATION - SIDE EFFECTS TRICOR: MYALGIAS - SIDE EFFECTS TRAMADOL HCL: LEG CRAMPS - SIDE EFFECTS SEROQUEL: SEDATION - SIDE EFFECTS PAXIL: DECREASE LIBIDO - SIDE EFFECTS NORVASC: INCREASED EDEMA - SIDE EFFECTS ABILIFY: SEDATION - SIDE EFFECTS SURGICAL HISTORY RECONSTRUCTION OF AXILLA AT 1968 TONSILLECTOMY WITH RECONSTRUSTION 1986 ARTHROSCOPIC KNEE SURGERY LEFT MULTIPLE UMBILICAL HERNIA REPAIR 2000 BRONCHOSCOPY 2004 CARDIAC CATH, [facility]; CLEAR 2007 LEFT ULNAR NERVE RELEASE-DR. KELLY 03/24/2017 LUNG BIOPSY 2006 WOUND CARE FOR MRSA 07/21/2020 SOCIAL HISTORY GENERAL: TOBACCO USE ARE YOU A:NONSMOKER NEVER SMOKER LATEX QUESTIONNAIRE LATEX ALLERGY : HAVE YOU EVER DEVELOPED ANY TYPE OF REACTION AFTER HANDLING LATEX PRODUCTS SUCH RUBBER GLOVES, CONDOMS, DIAPHRAGMS, BALLOONS, SOCKS, OR UNDERWEAR?NO LATEX ALLERGY : HAVE YOU EVER DEVELOPED ANY TYPE OF REACTION DURING OR AFTER DENTAL APPOINTMENT, VAGINAL/RECTAL EXAMINATION, SURGICAL PROCEDURE, OR ANY OTHER EXPOSURE?NO LATEX RISK : HAVE YOU EVER HAD ANY DIFFICULTY BREATHING OR HIVES AFTER EATING OR HANDLING ANY FRUITS, OR VEGETABLES; SUCH KIWI, BANANAS, STONE FRUITS, OR CHESTNUTSNO LATEX RISK : DO YOU HAVE A PREVIOUS PERSONAL HISTORY OF MORE THAN NINE SURGERIES, SPINA BIFIDA, OR REPEATED CATHERIZATIONS? NO LATEX RISK : ARE YOU FREQUENTLY EXPOSED TO LATEX PRODUCTS IN YOUR OCCUPATION?NO DATE ASKED : 07/21/2020 ALCOHOL USE: NO. BMI CARE GOAL FOLLOW-UP ABOVE NORMAL BMI FOLLOW-UPDIETARY NEEDS EDUCATION ALCOHOL SCREENING DID YOU HAVE A DRINK CONTAINING ALCOHOL IN THE PAST YEAR?NO POINTS0 INTERPRETATIONNEGATIVE RECREATIONAL DRUG USE DRUG USE?NO CAFFEINE CAFFEINE USE?YES HOW OFTEN AND HOW MUCH? 0-2 CUP SODA SEXUAL HX HAD SEX IN THE LAST 12 MONTHS (VAGINAL, ORAL, OR ANAL)?YES WITHWOMEN ONLY HIV / HEP-C SCREENING HIV TEST OFFERED TO PATIENT:YES DATE OFFERED:05/13/2016 TEST ACCEPTED:NO HEP-C TEST OFFERED TO PATIENT:YES DATE OFFERED:05/13/2016 REASON:PATIENT DECLINED TEST ACCEPTED:NO REASON:PATIENT DECLINED [employer] [id number] NONE LANGUAGE LANGUAGES SPOKEN:[place] EDUCATION LEVEL OF EDUCATION:HIGH SCHOOL LEARNING BARRIERS / SPECIAL NEEDS CHANGE FROM LAST VISIT?NO BARRIERS TO LEARNING?NO HEARING IMPAIRED?NO VISION IMPAIRED?YES :CORRECTIVE LENSES COGNITIVELY IMPAIRED?NO READINESS TO LEARN?YES LEARNING PREFERENCES?YES :DEMONSTRATION/VERBAL INSTRUCTION LEARNING CAPABILITIES PRESENT?YES EMOTIONAL BARRIERS?NO SPECIAL DEVICES?YES :CANE, WHEELCHAIR, OTHER OXYGEN JOCKEY AGENT NEEDED?NO DOMESTIC VIOLENCE DO YOU FEEL SAFE IN YOUR ENVIRONMENT?YES OCCUPATION: DISABLED. DIET: REGULAR. EXERCISE: NO REGULAR EXERCISE. MARITAL STATUS: . OTHERS AT HOME: SPOUSE, CHILDREN. - PFS REFERRAL NEEDED?NO CLERGY REFERRAL NEEDED?NO PUBLIC HEALTH REFERRAL NEEDED?NO HAS THE PATIENT BEEN EDUCATED REGARDING HIS/HER PLAN OF CARE?YES HAS THE PATIENT BEEN EDUCATED REGARDING PAIN, THE RISK FOR PAIN, THE IMPORTANCE OF EFFECTIVE PAIN MANAGEMENT, AND THE PAIN ASSESSMENT PROCESS?YES ADVANCE DIRECTIVE ADVANCE DIRECTIVE DISCUSSED WITH PATIENT:YES HCP-, PAT ASKED TO BRING A COPY IN. HOSPITALIZATION/MAJOR DIAGNOSTIC PROCEDURE DIABETES SEPTEMBER 2014 LLL CELLULITIS AND ULCER 05/09/2016 REVIEW OF SYSTEMS CONSTITUTIONAL: ANY RECENT FEVER NO . CHILLS NO . WEIGHT CHANGE OF UNKNOWN REASONS NO . GASTROENTEROLOGY: NEW UNEXPLAINABLE CHANGES IN BOWEL CONTROL NO . CONSTIPATION NO . GENITOURINARY: ANY NEW CHANGE IN BLADDER CONTROL? NO . NEUROLOGY: NEW ONSET DIZZINESS OR NEUROLOGICAL CHANGES NOT MENTIONED NO . NEW NUMBNESS OR PAIN PATTERNS NOT MENTIONED AND PERTINENT TO TODAY'S VISIT NO . CARDIOLOGY: NEW CHEST PRESSURE NO . PATIENT DENIES NO . RESPIRATORY: UNEXPLAINABLE COUGH NO . NEW SHORTNESS OF BREATH NO . VITAL SIGNS WT 319 LBS, HT 72 IN, BMI 43.26 INDEX, BP 134/78 MM HG, HR 110 /MIN, RR 18 /MIN, TEMP 96.8 F, OXYGEN SAT % 99%, BLOOD GLUCOSE LEVEL 232AM, SAFE IN ENV? (Y/N) YEST.DENISE PARKS. EXAMINATION GENERAL EXAMINATION: GENERALAWAKE,ALERT ,PLEASANT . PSYCHAFFECT NORMAL . LUNGS:LUNG COLON ARE CLEAR TO AUSCULTATION BILATERALLY. GOOD MOVEMENT OF AIR . HEART:S1, S2 IN A REGULAR RATE AND RHYTHM. NO SIGNIFICANT MURMURS, RUBS OR GALLOPS NOTED . ASSESSMENTS CHRONIC PRESCRIPTION OPIATE USE - Z79.899 (PRIMARY), THIS IS MANAGED THROUGH THE PAIN CLINIC. LOW BACK PAIN - M54.5 TREATMENT CHRONIC PRESCRIPTION OPIATE USE REFILL HYDROMORPHONE HCL ER TABLET EXTENDED RELEASE 24 HOUR, 32 MG, 1 TABLET, ORALLY, ONCE A DAY MDD1, 30 DAYS, 30, REFILLS 0 REFILL PERCOCET TABLET, 7.5-325 MG, 1 TABLET NEEDED, ORALLY, EVERY 6 HRS PRN FOR SEVERE PAIN EPISODES .#45 TABLETS SHOULD LAST 30 DAYS, 30 DAYS, 45, REFILLS 0 LAB: URINE TEST GROUP TUSHAR WALKER 07/21/2020 12:08:34 PM > LAST DOSE: HYDROMORPHONE: 07/21/2020 @8AM, PERCOCET 07/20/2020 4PM GABAPENTIN 07/21/2020 @8AM NOTES: ISTOP REGISTRY REVIEWED AND DEMONSTRATES COMPLLIANCE. BRINGS IN MEDICATIONS WHICH IS APPROPRIATE FOR WHAT WAS DISPENSED. RECENT URINE TOXICOLOGY REVIEWED. NO UNAUTHORIZED MEDICATIONS. NO ILLICIT SUBSTANCES AND PRESCRIBED MEDICATIONS WERE PRESENT. , RISKS OF NARCOTIC/OPIOD MEDICATIONS INCLUDES BUT IS NOT LIMITED TO RISK OF DEPENDANCE/DEVELOPMENT OF ADDICTION, MOOD DISTURBANCE AND DEPRESSION, OSTEOPOROSIS, HORMONAL AND LABIDAL CHANGES, RESPIRATORY DEPRESSION AND . PATIENT IS ADVISED NOT TO DRIVE OR DRINK ALCOHOL WHILE ON THESE MEDICATIONS. PROCEDURE CODES [id number] ESTABILISHED PATIENT [facility] CHARGE DISPOSITION & COMMUNICATION FOLLOW UP 3 MONTHS (REASON: MED MGMNT/REVIEW UTOX) ELECTRONICALLY SIGNED BY KENIA NOBLE ON 07/24/2020 AT 01:41 PM EDT DISCLAIMER : THIS IS A VISIT SUMMARY EXTRACTED FROM THE [employer] CHART. IT IS NOT A COPY OF THE [employer] PROGRESS NOTE. CORRIE
== END ==
LOC: M PAIN 11:30
PROVIDERS: ATTEND Nurse Practitioner Family
DX: M54.5 Low back pain (principal); E11.9 Type 2 diabetes mellitus without complications; J44.9 Chronic obstructive pulmonary disease, unspecified; J45.40 Moderate persistent asthma, uncomplicated; E78.5 Hyperlipidemia, unspecified; G47.33 Obstructive sleep apnea (adult) (pediatric); G43.909 Migraine, unspecified, not intractable, without status migrainosus; F32.9 Major depressive disorder, single episode, unspecified; G25.0 Essential tremor; R10.13 Epigastric pain; E53.8 Deficiency of other specified B group vitamins; G25.81 Restless legs syndrome; I10 Essential (primary) hypertension; K59.09 Other constipation; E66.01 Morbid (severe) obesity due to excess calories; Z86.16 Personal history of COVID-19; Z68.41 Body mass index [BMI] 40.0-44.9, adult; D50.9 Iron deficiency anemia, unspecified; Z79.82 Long term (current) use of aspirin; Z79.899 Other long term (current) drug therapy; Z79.84 Long term (current) use of oral hypoglycemic drugs; Z88.5 Allergy status to narcotic agent; Z88.6 Allergy status to analgesic agent; Z88.8 Allergy status to other drugs, medicaments and biological substances; Z91.041 Radiographic dye allergy status; Z79.891 Long term (current) use of opiate analgesic

== ENCOUNTER → 2020-12-15 | Outpatient (CLI) | payer MEDICARE ==
[~2020-12-15] MED LIST changes: -CYMB60CA3 PO; +CYMB60CA4 PO; -HYDR-3653 PO; +HYDR8TAB PO
== END ==
LOC: M PAIN 10:45
PROVIDERS: ATTEND Anesthesiology
DX: M54.50 Low back pain, unspecified (principal); G89.29 Other chronic pain; E11.9 Type 2 diabetes mellitus without complications; J44.9 Chronic obstructive pulmonary disease, unspecified; G47.33 Obstructive sleep apnea (adult) (pediatric); G40.909 Epilepsy, unspecified, not intractable, without status epilepticus; K21.9 Gastro-esophageal reflux disease without esophagitis; G25.81 Restless legs syndrome; Z86.14 Personal history of Methicillin resistant Staphylococcus aureus infection; Z86.59 Personal history of other mental and behavioral disorders; Z88.5 Allergy status to narcotic agent; Z88.8 Allergy status to other drugs, medicaments and biological substances; Z91.041 Radiographic dye allergy status; E66.01 Morbid (severe) obesity due to excess calories; Z68.41 Body mass index [BMI] 40.0-44.9, adult; Z79.4 Long term (current) use of insulin; Z79.82 Long term (current) use of aspirin; Z79.891 Long term (current) use of opiate analgesic; Z79.899 Other long term (current) drug therapy

== ENCOUNTER → 2021-01-26 | Outpatient (CLI) | payer MEDICARE ==
[2021-01-26 10:53] LABS: HEMATOCRIT 44.6 % (42.0-52.0); HEMOGLOBIN 13.7 g/dl (13.5-17.5); MEAN CORPUSCULAR HEMOGLOBIN 25.2 pg (27.0-33.0); MEAN CORPUSCULAR HGB CONC 30.7 g/dl (32.0-36.5); PLATELET COUNT, AUTOMATED 256 10^3/uL (150-450); RED BLOOD COUNT 5.44 10^6/uL (4.30-6.10); WHITE BLOOD COUNT 5.6 10^3/uL (4.0-10.0)
[2021-01-26 11:14] LABS: HEMOGLOBIN A1c 7.6 %
[2021-01-26 11:32] LABS: ALBUMIN 3.4 GM/DL (3.2-5.2); ALT/SGPT 28 U/L (12-78); BILIRUBIN,TOTAL 0.2 MG/DL (0.2-1.0); BLOOD UREA NITROGEN 17 MG/DL (7-18); CALCIUM LEVEL 8.9 MG/DL (8.5-10.1); CARBON DIOXIDE LEVEL 29 MEQ/L (21-32); CHLORIDE LEVEL 101 MEQ/L (98-107); CHOLESTEROL LEVEL 259 MG/DL (<200); CHOLESTEROL RISK RATIO 6.023 (<5); CREATININE FOR GFR 0.82 MG/DL (0.70-1.30); GLOMERULAR FILTRATION RATE > 60.0 (>56); GLUCOSE, FASTING 205 MG/DL (70-100); HDL CHOLESTEROL 43 MG/DL (>40); NON-HDL-C 216 MG/DL; POTASSIUM SERUM 4.3 MEQ/L (3.5-5.1); SODIUM LEVEL 138 MEQ/L (136-145); TOTAL PROTEIN 6.7 GM/DL (6.4-8.2); TRIGLYCERIDES LEVEL 468 MG/DL (<150)
== END ==
LOC: M PLALAB 08:57
PROVIDERS: ATTEND Nurse Practitioner Adult Health
DX: E11.21 Type 2 diabetes mellitus with diabetic nephropathy (principal); G47.33 Obstructive sleep apnea (adult) (pediatric); I10 Essential (primary) hypertension; I20.8 Other forms of angina pectoris; E78.5 Hyperlipidemia, unspecified

== ENCOUNTER → 2021-04-23 | Outpatient (CLI) | payer MEDICARE ==
[~2021-04-23] MED LIST changes: -LISI-898 PO; +LISI5TAB11 PO; -MOME50SP; +NASO50SP3
== END ==
LOC: M PAIN 11:30
PROVIDERS: ATTEND Nurse Practitioner Family
DX: M54.50 Low back pain, unspecified (principal); E11.9 Type 2 diabetes mellitus without complications; E78.5 Hyperlipidemia, unspecified; G47.33 Obstructive sleep apnea (adult) (pediatric); F32.A Depression, unspecified; G25.81 Restless legs syndrome; I10 Essential (primary) hypertension; K59.09 Other constipation; D50.9 Iron deficiency anemia, unspecified; D51.9 Vitamin B12 deficiency anemia, unspecified; E66.01 Morbid (severe) obesity due to excess calories; Z86.16 Personal history of COVID-19; Z68.41 Body mass index [BMI] 40.0-44.9, adult; J44.9 Chronic obstructive pulmonary disease, unspecified; J45.40 Moderate persistent asthma, uncomplicated; M50.122 Cervical disc disorder at C5-C6 level with radiculopathy; Z79.4 Long term (current) use of insulin; Z79.899 Other long term (current) drug therapy; Z79.82 Long term (current) use of aspirin; G43.009 Migraine without aura, not intractable, without status migrainosus; Z88.5 Allergy status to narcotic agent; Z88.6 Allergy status to analgesic agent; Z88.8 Allergy status to other drugs, medicaments and biological substances

== ENCOUNTER → 2021-07-17 | Outpatient (CLI) | payer MEDICARE ==
[~2021-07-17] MED LIST changes: +ALBU2.5V10 INH; -ALBU83IN INH
== END ==
LOC: M PAIN 14:30
PROVIDERS: ATTEND Nurse Practitioner Family
DX: M54.50 Low back pain, unspecified (principal); E11.9 Type 2 diabetes mellitus without complications; J44.9 Chronic obstructive pulmonary disease, unspecified; J45.40 Moderate persistent asthma, uncomplicated; D86.9 Sarcoidosis, unspecified; I27.81 Cor pulmonale (chronic); E78.5 Hyperlipidemia, unspecified; M50.122 Cervical disc disorder at C5-C6 level with radiculopathy; G43.009 Migraine without aura, not intractable, without status migrainosus; G47.33 Obstructive sleep apnea (adult) (pediatric); I10 Essential (primary) hypertension; F32.A Depression, unspecified; R10.13 Epigastric pain; K21.9 Gastro-esophageal reflux disease without esophagitis; E53.8 Deficiency of other specified B group vitamins; G25.81 Restless legs syndrome; K59.09 Other constipation; D50.9 Iron deficiency anemia, unspecified; M79.10 Myalgia, unspecified site; Z86.16 Personal history of COVID-19; Z79.82 Long term (current) use of aspirin; Z79.891 Long term (current) use of opiate analgesic; Z79.84 Long term (current) use of oral hypoglycemic drugs; Z79.899 Other long term (current) drug therapy; Z88.5 Allergy status to narcotic agent; Z88.6 Allergy status to analgesic agent; Z88.8 Allergy status to other drugs, medicaments and biological substances

== ENCOUNTER → 2021-07-19 | Outpatient (CLI) | payer MEDICARE | LOC: M SOG 08:04 | PROVIDERS: ATTEND Orthopaedic Surgery | DX: M25.522 Pain in left elbow (principal) ==

== ENCOUNTER → 2022-01-07 | Outpatient (CLI) | payer MEDICARE ==
[~2022-01-07] MED LIST changes: -DOXY-350 PO; +DOXY-444 PO; -MAXA10TA14 PO; +RIZA10TA64 PO
== END ==
LOC: M PAIN 10:00
PROVIDERS: ATTEND Nurse Practitioner Family
DX: M79.18 Myalgia, other site (principal); M47.816 Spondylosis without myelopathy or radiculopathy, lumbar region; G89.29 Other chronic pain; E11.9 Type 2 diabetes mellitus without complications; J44.9 Chronic obstructive pulmonary disease, unspecified; G43.909 Migraine, unspecified, not intractable, without status migrainosus; G47.33 Obstructive sleep apnea (adult) (pediatric); G25.81 Restless legs syndrome; I10 Essential (primary) hypertension; Z86.59 Personal history of other mental and behavioral disorders; Z88.5 Allergy status to narcotic agent; Z88.8 Allergy status to other drugs, medicaments and biological substances; Z91.041 Radiographic dye allergy status; Z79.4 Long term (current) use of insulin; Z79.82 Long term (current) use of aspirin; Z79.891 Long term (current) use of opiate analgesic; Z79.899 Other long term (current) drug therapy

== ENCOUNTER → 2022-03-01 | Outpatient (CLI) | payer MEDICARE ==
[2022-03-01 17:03] LABS: ALBUMIN 3.4 G/DL (3.2-5.2); ALKALINE PHOSPHATASE 64 U/L (46-116); ALT/SGPT 15 U/L (7.0-40); AST/SGOT 12 U/L (<34); BILIRUBIN,TOTAL 0.3 MG/DL (0.3-1.2); BLOOD UREA NITROGEN 12 MG/DL (9-23); CALCIUM LEVEL 8.9 MG/DL (8.5-10.1); CARBON DIOXIDE LEVEL 30 MMOL/L (20-31); CHLORIDE LEVEL 101 MMOL/L (98-107); CHOLESTEROL LEVEL 120 MG/DL (<200); CHOLESTEROL RISK RATIO 2.67 (<5); CREATININE FOR GFR 0.72 MG/DL (0.70-1.30); GLOMERULAR FILTRATION RATE > 60.0 (>56); GLUCOSE, FASTING 200 MG/DL (60-100); HDL CHOLESTEROL 44.9 MG/DL (>40); LDL CHOLESTEROL 42.1 MG/DL (<100); NON-HDL-C 75 MG/DL; POTASSIUM SERUM 4.3 MMOL/L (3.5-5.1); SODIUM LEVEL 138 MMOL/L (136-145); TOTAL 25(OH) VITAMIN D 36.4 NG/ML (20.0-100.0); TOTAL PROTEIN 6.4 G/DL (5.7-8.2); TRIGLYCERIDES LEVEL 165 MG/DL (<150)
== END ==
LOC: M WUC 13:39
PROVIDERS: ATTEND Nurse Practitioner Adult Health
DX: E55.9 Vitamin D deficiency, unspecified (principal); E11.21 Type 2 diabetes mellitus with diabetic nephropathy; E78.5 Hyperlipidemia, unspecified; Z12.5 Encounter for screening for malignant neoplasm of prostate
CPT/HCPCS: 36415; 80053; 80061; 82306; 83036; G0103

== ENCOUNTER → 2022-04-04 | Outpatient (CLI) | payer MEDICARE | LOC: M PAIN 10:30 | PROVIDERS: ATTEND Anesthesiology | DX: M79.10 Myalgia, unspecified site (principal); M79.18 Myalgia, other site; M47.816 Spondylosis without myelopathy or radiculopathy, lumbar region; G89.29 Other chronic pain; E11.9 Type 2 diabetes mellitus without complications; J44.9 Chronic obstructive pulmonary disease, unspecified; G43.909 Migraine, unspecified, not intractable, without status migrainosus; G47.33 Obstructive sleep apnea (adult) (pediatric); G25.81 Restless legs syndrome; E66.01 Morbid (severe) obesity due to excess calories; I10 Essential (primary) hypertension; Z86.59 Personal history of other mental and behavioral disorders; Z88.5 Allergy status to narcotic agent; Z88.8 Allergy status to other drugs, medicaments and biological substances; Z91.041 Radiographic dye allergy status; Z79.4 Long term (current) use of insulin; Z79.82 Long term (current) use of aspirin; Z79.891 Long term (current) use of opiate analgesic; Z79.899 Other long term (current) drug therapy ==

== ENCOUNTER → 2022-07-01 | Outpatient (CLI) | payer MEDICARE ==
[~2022-07-01] MED LIST changes: +INSU100I6 SC; -LEVE1INJ5 SC; +MONT-5 PO; +POTA-298 PO; -POTA1TAB14 PO; -SING10TA32 PO
[2022-07-01 16:57] LABS: HEMATOCRIT 46.7 % (42.0-52.0); HEMOGLOBIN 14.1 g/dl (13.5-17.5); MEAN CORPUSCULAR HEMOGLOBIN 24.3 pg (27.0-33.0); MEAN CORPUSCULAR HGB CONC 30.2 g/dl (32.0-36.5); MEAN CORPUSCULAR VOLUME 80.4 fl (80.0-96.0); PLATELET COUNT, AUTOMATED 215 10^3/uL (150-450); RED BLOOD COUNT 5.81 10^6/uL (4.30-6.10); WHITE BLOOD COUNT 5.4 10^3/uL (4.0-10.0)
[2022-07-01 17:22] LABS: ALBUMIN 3.3 G/DL (3.2-5.2); ALKALINE PHOSPHATASE 53 U/L (46-116); ALT/SGPT 10 U/L (7.0-40); AST/SGOT 9 U/L (<34); BILIRUBIN,TOTAL 0.3 MG/DL (0.3-1.2); BLOOD UREA NITROGEN 8 MG/DL (9-23); CALCIUM LEVEL 9.3 MG/DL (8.5-10.1); CARBON DIOXIDE LEVEL 28 MMOL/L (20-31); CHLORIDE LEVEL 105 MMOL/L (98-107); CHOLESTEROL LEVEL 97 MG/DL (<200); CHOLESTEROL RISK RATIO 2.73 (<5); CREATININE FOR GFR 0.81 MG/DL (0.70-1.30); GLOMERULAR FILTRATION RATE > 60.0 (>56); GLUCOSE, FASTING 166 MG/DL (60-100); HDL CHOLESTEROL 35.5 MG/DL (>40); LDL CHOLESTEROL 31.1 MG/DL (<100); NON-HDL-C 61.5 MG/DL; POTASSIUM SERUM 4.1 MMOL/L (3.5-5.1); SODIUM LEVEL 140 MMOL/L (136-145); TOTAL PROTEIN 6.2 G/DL (5.7-8.2); TRIGLYCERIDES LEVEL 152 MG/DL (<150)
[2022-07-01 17:24] LABS: TOTAL 25(OH) VITAMIN D 47.6 NG/ML (20.0-100.0)
== END ==
LOC: M PLALAB 15:08
PROVIDERS: ATTEND Nurse Practitioner Adult Health
DX: G47.33 Obstructive sleep apnea (adult) (pediatric) (principal); E11.21 Type 2 diabetes mellitus with diabetic nephropathy; E55.9 Vitamin D deficiency, unspecified

== ENCOUNTER → 2022-07-31 | Outpatient (CLI) | payer MEDICARE | LOC: M PAIN 10:30 | PROVIDERS: ATTEND Anesthesiology | DX: Z53.29 Procedure and treatment not carried out because of patient's decision for other reasons (principal) ==

== ENCOUNTER → 2022-07-31 | Outpatient (CLI) | payer MEDICARE ==
[2022-07-31 18:20] LABS: HEMATOCRIT 47.8 % (42.0-52.0); HEMOGLOBIN 15.5 g/dl (13.5-17.5); MEAN CORPUSCULAR HEMOGLOBIN 24.8 pg (27.0-33.0); MEAN CORPUSCULAR HGB CONC 32.4 g/dl (32.0-36.5); MEAN CORPUSCULAR VOLUME 76.6 fl (80.0-96.0); PLATELET COUNT, AUTOMATED 236 10^3/uL (150-450); RED BLOOD COUNT 6.24 10^6/uL (4.30-6.10)
[2022-07-31 18:30] LABS: HEMOGLOBIN A1c 8.2 % (4.0-6.0)
[2022-07-31 18:50] LABS: ALKALINE PHOSPHATASE 57 U/L (46-116); ALT/SGPT 19 U/L (7.0-40); AST/SGOT 10 U/L (<34); BILIRUBIN,TOTAL 0.6 MG/DL (0.3-1.2); BLOOD UREA NITROGEN 12 MG/DL (9-23); CALCIUM LEVEL 9.3 MG/DL (8.5-10.1); CARBON DIOXIDE LEVEL 23 MMOL/L (20-31); CHLORIDE LEVEL 95 MMOL/L (98-107); CREATININE FOR GFR 0.88 MG/DL (0.70-1.30); GLOMERULAR FILTRATION RATE > 60.0 (>56); GLUCOSE, FASTING 114 MG/DL (60-100); POTASSIUM SERUM 3.9 MMOL/L (3.5-5.1); SODIUM LEVEL 131 MMOL/L (136-145); TOTAL PROTEIN 6.9 G/DL (5.7-8.2)
== END ==
LOC: M PLALAB 16:25
PROVIDERS: ATTEND Nurse Practitioner Adult Health
DX: E11.21 Type 2 diabetes mellitus with diabetic nephropathy (principal)

== ENCOUNTER → 2022-08-05 | Outpatient (REF) | payer MEDICARE | LOC: M SFHCPLAZ 18:01 | PROVIDERS: ATTEND Nurse Practitioner Adult Health | DX: G47.33 Obstructive sleep apnea (adult) (pediatric) (principal); E11.21 Type 2 diabetes mellitus with diabetic nephropathy ==

== ENCOUNTER → 2022-08-14 | Outpatient (CLI) | payer MEDICARE | LOC: M PAIN 15:30 | PROVIDERS: ATTEND Anesthesiology | DX: M54.50 Low back pain, unspecified (principal); E11.9 Type 2 diabetes mellitus without complications; J44.9 Chronic obstructive pulmonary disease, unspecified; J45.40 Moderate persistent asthma, uncomplicated; E78.5 Hyperlipidemia, unspecified; M47.812 Spondylosis without myelopathy or radiculopathy, cervical region; M50.122 Cervical disc disorder at C5-C6 level with radiculopathy; M48.02 Spinal stenosis, cervical region; G43.009 Migraine without aura, not intractable, without status migrainosus; G47.33 Obstructive sleep apnea (adult) (pediatric); G25.0 Essential tremor; F32.A Depression, unspecified; K21.9 Gastro-esophageal reflux disease without esophagitis; E53.8 Deficiency of other specified B group vitamins; G25.81 Restless legs syndrome; I10 Essential (primary) hypertension; K59.09 Other constipation; D50.9 Iron deficiency anemia, unspecified; E66.01 Morbid (severe) obesity due to excess calories; Z68.38 Body mass index [BMI] 38.0-38.9, adult; Z88.5 Allergy status to narcotic agent; Z79.899 Other long term (current) drug therapy; Z88.8 Allergy status to other drugs, medicaments and biological substances; Z79.4 Long term (current) use of insulin; Z79.82 Long term (current) use of aspirin; Z79.891 Long term (current) use of opiate analgesic ==

== ENCOUNTER → 2022-08-22 | Outpatient (CLI) | payer MEDICARE | LOC: M PLAIMG 11:36 | PROVIDERS: ATTEND Nurse Practitioner Adult Health | DX: R14.0 Abdominal distension (gaseous) (principal) ==

== ENCOUNTER → 2022-11-28 | Outpatient (CLI) | payer MEDICARE ==
[~2022-11-28] MED LIST changes: -ROPI1TAB3 PO; +ROPI1TAB73 PO
[2022-11-28 15:57] LABS: HEMATOCRIT 50.2 % (42.0-52.0); HEMOGLOBIN 15.8 g/dl (13.5-17.5); MEAN CORPUSCULAR HEMOGLOBIN 25.7 pg (27.0-33.0); MEAN CORPUSCULAR HGB CONC 31.5 g/dl (32.0-36.5); MEAN CORPUSCULAR VOLUME 81.6 fl (80.0-96.0); PLATELET COUNT, AUTOMATED 228 10^3/uL (150-450); RED BLOOD COUNT 6.15 10^6/uL (4.30-6.10); WHITE BLOOD COUNT 7.1 10^3/uL (4.0-10.0)
[2022-11-28 16:10] LABS: HEMOGLOBIN A1c 7.5 % (4.0-6.0)
[2022-11-28 16:27] LABS: ALBUMIN 4.2 G/DL (3.2-5.2); ALKALINE PHOSPHATASE 58 U/L (46-116); ALT/SGPT 15 U/L (7.0-40); AST/SGOT 10 U/L (<34); BILIRUBIN,TOTAL 0.5 MG/DL (0.3-1.2); BLOOD UREA NITROGEN 12 MG/DL (9-23); CALCIUM LEVEL 9.5 MG/DL (8.5-10.1); CARBON DIOXIDE LEVEL 28 MMOL/L (20-31); CHLORIDE LEVEL 103 MMOL/L (98-107); CREATININE FOR GFR 0.75 MG/DL (0.70-1.30); GLOMERULAR FILTRATION RATE > 60.0 (>56); GLUCOSE, FASTING 177 MG/DL (60-100); POTASSIUM SERUM 4.3 MMOL/L (3.5-5.1); SODIUM LEVEL 141 MMOL/L (136-145); TOTAL PROTEIN 7.2 G/DL (5.7-8.2)
[2022-11-28 16:28] LABS: FERRITIN 6.2 NG/ML (10.5-307.3); FREE T4 1.14 NG/DL (0.89-1.76)
[2022-11-28 16:29] LABS: TOTAL 25(OH) VITAMIN D 45.8 NG/ML (20.0-100.0)
== END ==
LOC: M PLAIMG 12:46
PROVIDERS: ATTEND Nurse Practitioner Adult Health
DX: G47.33 Obstructive sleep apnea (adult) (pediatric) (principal); E11.21 Type 2 diabetes mellitus with diabetic nephropathy

== ENCOUNTER 2023-01-16 10:35 | Outpatient (CLI) | payer MEDICARE ==
[~2023-01-16] VITALS: Ht 180.3 cm; Wt 131.0 kg
[~2023-01-16 10:35] MED LIST changes: +IRON SUCROSE 25 MG in NS 23.75 ML IV ONE; +IRON SUCROSE 475 MG in NS 250 ML IV ONE
[2023-01-16 10:46] VITALS: BP 140/88; O2SAT 97
[2023-01-16 13:15] VITALS: BP 131/84; O2SAT 95
[2023-01-16 14:15] VITALS: BP 115/79; O2SAT 94
[2023-01-16 16:10] VITALS: BP 125/93; O2SAT 97
== END 2023-01-16 16:10 | disposition home or self-care (01) ==
LOC: M INFU 10:35
PROVIDERS: ATTEND Nurse Practitioner Adult Health
DX: D50.9 Iron deficiency anemia, unspecified (principal); Z88.8 Allergy status to other drugs, medicaments and biological substances; Z88.5 Allergy status to narcotic agent
CPT/HCPCS: 96365; 96366; J1756

== ENCOUNTER → 2023-02-05 | Outpatient (CLI) | payer MEDICARE ==
[~2023-02-05] MED LIST changes: -IRON SUCROSE 25 MG in NS 23.75 ML IV ONE; -IRON SUCROSE 475 MG in NS 250 ML IV ONE
== END ==
LOC: M PAIN 11:45
PROVIDERS: ATTEND Anesthesiology
DX: M47.816 Spondylosis without myelopathy or radiculopathy, lumbar region (principal); M46.96 Unspecified inflammatory spondylopathy, lumbar region; G89.29 Other chronic pain; Z79.899 Other long term (current) drug therapy; Z79.82 Long term (current) use of aspirin; Z79.891 Long term (current) use of opiate analgesic; Z79.84 Long term (current) use of oral hypoglycemic drugs; Z88.6 Allergy status to analgesic agent; Z88.5 Allergy status to narcotic agent; Z88.8 Allergy status to other drugs, medicaments and biological substances

== ENCOUNTER → 2023-03-13 | Outpatient (CLI) | payer MEDICARE | LOC: M PAIN 15:00 | PROVIDERS: ATTEND Anesthesiology | DX: M51.16 Intervertebral disc disorders with radiculopathy, lumbar region (principal); G89.29 Other chronic pain; E11.9 Type 2 diabetes mellitus without complications; J44.9 Chronic obstructive pulmonary disease, unspecified; J45.40 Moderate persistent asthma, uncomplicated; E78.5 Hyperlipidemia, unspecified; M50.122 Cervical disc disorder at C5-C6 level with radiculopathy; G43.909 Migraine, unspecified, not intractable, without status migrainosus; G25.81 Restless legs syndrome; I10 Essential (primary) hypertension; E66.01 Morbid (severe) obesity due to excess calories; Z68.39 Body mass index [BMI] 39.0-39.9, adult; Z79.82 Long term (current) use of aspirin; Z79.84 Long term (current) use of oral hypoglycemic drugs; Z79.891 Long term (current) use of opiate analgesic; Z79.899 Other long term (current) drug therapy; Z88.6 Allergy status to analgesic agent; Z88.5 Allergy status to narcotic agent; Z88.8 Allergy status to other drugs, medicaments and biological substances; Z91.041 Radiographic dye allergy status ==

== ENCOUNTER → 2023-03-19 | Outpatient (CLI) | payer MEDICARE ==
[2023-03-19 15:23] LABS: HEMOGLOBIN 14.7 g/dl (13.5-17.5); MEAN CORPUSCULAR HEMOGLOBIN 27.8 pg (27.0-33.0); MEAN CORPUSCULAR HGB CONC 32.7 g/dl (32.0-36.5); MEAN CORPUSCULAR VOLUME 85.2 fl (80.0-96.0); PLATELET COUNT, AUTOMATED 195 10^3/uL (150-450); RED BLOOD COUNT 5.28 10^6/uL (4.30-6.10); WHITE BLOOD COUNT 5.8 10^3/uL (4.0-10.0)
[2023-03-19 15:46] LABS: ALBUMIN 3.6 G/DL (3.2-5.2); ALKALINE PHOSPHATASE 46 U/L (46-116); ALT/SGPT 18 U/L (7.0-40); AST/SGOT 11 U/L (<34); BILIRUBIN,TOTAL 0.3 MG/DL (0.3-1.2); BLOOD UREA NITROGEN 12 MG/DL (9-23); CALCIUM LEVEL 9.1 MG/DL (8.5-10.1); CARBON DIOXIDE LEVEL 29 MMOL/L (20-31); CHLORIDE LEVEL 103 MMOL/L (98-107); CREATININE FOR GFR 0.68 MG/DL (0.70-1.30); GLOMERULAR FILTRATION RATE > 60.0 (>56); GLUCOSE, FASTING 174 MG/DL (60-100); IRON (FE) 93 UG/DL (65-175); POTASSIUM SERUM 4.3 MMOL/L (3.5-5.1); SODIUM LEVEL 138 MMOL/L (136-145); TOTAL PROTEIN 6.4 G/DL (5.7-8.2)
[2023-03-19 15:47] LABS: PERCENT SATURATION 27.1 % (19.7-50.0); TOTAL IRON BINDING CAPACITY 343 UG/DL (250-425)
[2023-03-19 15:48] LABS: FERRITIN 22.2 NG/ML (10.5-307.3)
== END ==
LOC: M PLALAB 10:16
PROVIDERS: ATTEND Nurse Practitioner Adult Health
DX: E11.21 Type 2 diabetes mellitus with diabetic nephropathy (principal); G47.33 Obstructive sleep apnea (adult) (pediatric); I10 Essential (primary) hypertension; D50.9 Iron deficiency anemia, unspecified

== ENCOUNTER → 2023-05-07 | Outpatient (CLI) | payer MEDICARE | LOC: M PAIN 09:30 | PROVIDERS: ATTEND Anesthesiology | DX: M54.2 Cervicalgia (principal); M48.062 Spinal stenosis, lumbar region with neurogenic claudication; M54.50 Low back pain, unspecified; G89.29 Other chronic pain; E11.9 Type 2 diabetes mellitus without complications; J44.9 Chronic obstructive pulmonary disease, unspecified; J45.40 Moderate persistent asthma, uncomplicated; E78.5 Hyperlipidemia, unspecified; G43.009 Migraine without aura, not intractable, without status migrainosus; G47.33 Obstructive sleep apnea (adult) (pediatric); G25.0 Essential tremor; F32.A Depression, unspecified; G25.81 Restless legs syndrome; D51.9 Vitamin B12 deficiency anemia, unspecified; I10 Essential (primary) hypertension; D50.9 Iron deficiency anemia, unspecified; E66.01 Morbid (severe) obesity due to excess calories; Z79.84 Long term (current) use of oral hypoglycemic drugs; Z79.891 Long term (current) use of opiate analgesic; Z79.899 Other long term (current) drug therapy; Z88.8 Allergy status to other drugs, medicaments and biological substances; Z88.5 Allergy status to narcotic agent; Z68.41 Body mass index [BMI] 40.0-44.9, adult ==

== ENCOUNTER → 2023-06-30 | Outpatient (CLI) | payer MEDICARE ==
[~2023-06-30] MED LIST changes: +DOXY-440 PO; -DOXY-444 PO
== END ==
LOC: M PLAIMG 10:29
PROVIDERS: ATTEND Nurse Practitioner Adult Health
DX: R06.2 Wheezing (principal)

== ENCOUNTER → 2023-07-24 | Outpatient (CLI) | payer MEDICARE | LOC: M PLAIMG 11:34 | PROVIDERS: ATTEND Nurse Practitioner Adult Health | DX: I10 Essential (primary) hypertension (principal) ==

== ENCOUNTER → 2023-08-13 | Outpatient (CLI) | payer MEDICARE | LOC: M PAIN 13:30 | PROVIDERS: ATTEND Anesthesiology | DX: M51.16 Intervertebral disc disorders with radiculopathy, lumbar region (principal); M54.2 Cervicalgia; E11.42 Type 2 diabetes mellitus with diabetic polyneuropathy; Z79.84 Long term (current) use of oral hypoglycemic drugs; Z79.891 Long term (current) use of opiate analgesic; Z79.899 Other long term (current) drug therapy; Z86.14 Personal history of Methicillin resistant Staphylococcus aureus infection; Z86.16 Personal history of COVID-19; Z80.1 Family history of malignant neoplasm of trachea, bronchus and lung; Z80.8 Family history of malignant neoplasm of other organs or systems; Z88.5 Allergy status to narcotic agent; Z88.8 Allergy status to other drugs, medicaments and biological substances; Z91.041 Radiographic dye allergy status; E66.01 Morbid (severe) obesity due to excess calories; Z68.41 Body mass index [BMI] 40.0-44.9, adult ==

== ENCOUNTER → 2023-08-22 | Outpatient (CLI) | payer MEDICARE ==
[2023-08-22 13:15] LABS: HEMATOCRIT 43.6 % (42.0-52.0); HEMOGLOBIN 14.7 g/dl (13.5-17.5); MEAN CORPUSCULAR HEMOGLOBIN 28.1 pg (27.0-33.0); MEAN CORPUSCULAR HGB CONC 33.7 g/dl (32.0-36.5); MEAN CORPUSCULAR VOLUME 83.4 fl (80.0-96.0); PLATELET COUNT, AUTOMATED 186 10^3/uL (150-450); RED BLOOD COUNT 5.23 10^6/uL (4.30-6.10); WHITE BLOOD COUNT 5.9 10^3/uL (4.0-10.0)
[2023-08-22 13:18] LABS: IRON (FE) 87 UG/DL (65-175)
[2023-08-22 13:19] LABS: TOTAL IRON BINDING CAPACITY 348 UG/DL (250-425)
[2023-08-22 13:44] LABS: ALBUMIN 3.4 G/DL (3.2-5.2); ALKALINE PHOSPHATASE 52 U/L (46-116); ALT/SGPT 19 U/L (7.0-40); AST/SGOT < 8 U/L (<34); BILIRUBIN,TOTAL 0.5 MG/DL (0.3-1.2); BLOOD UREA NITROGEN 11 MG/DL (9-23); CALCIUM LEVEL 9.2 MG/DL (8.5-10.1); CARBON DIOXIDE LEVEL 30 MMOL/L (20-31); CHLORIDE LEVEL 98 MMOL/L (98-107); CHOLESTEROL LEVEL 100 MG/DL (<200); CHOLESTEROL RISK RATIO 2.68 (<5); CREATININE FOR GFR 0.78 MG/DL (0.70-1.30); FERRITIN 9.9 NG/ML (10.5-307.3); FREE T4 1.05 NG/DL (0.89-1.76); GLOMERULAR FILTRATION RATE > 60.0 (>56); GLUCOSE, FASTING 444 MG/DL (60-100); HDL CHOLESTEROL 37.3 MG/DL (>40); LDL CHOLESTEROL 35.1 MG/DL (<100); NON-HDL-C 62.7 MG/DL; POTASSIUM SERUM 4.4 MMOL/L (3.5-5.1); SODIUM LEVEL 132 MMOL/L (136-145); THYROID STIMULATING HORMONE 0.912 uIU/ML (0.55-4.78); TOTAL 25(OH) VITAMIN D 31.4 NG/ML (20.0-100.0); TOTAL PROTEIN 5.8 G/DL (5.7-8.2); TRIGLYCERIDES LEVEL 138 MG/DL (<150)
[2023-08-22 13:48] LABS: HEMOGLOBIN A1c 10.2 % (4.0-6.0)
== END ==
LOC: M PLALAB 09:51
PROVIDERS: ATTEND Nurse Practitioner Adult Health
DX: G47.33 Obstructive sleep apnea (adult) (pediatric) (principal); E11.21 Type 2 diabetes mellitus with diabetic nephropathy; I10 Essential (primary) hypertension; E78.5 Hyperlipidemia, unspecified; D50.9 Iron deficiency anemia, unspecified; E55.9 Vitamin D deficiency, unspecified

== ENCOUNTER → 2023-09-17 | Outpatient (REF) | payer MEDICARE | LOC: M SFHCPLAZ 12:06 | PROVIDERS: ATTEND Nurse Practitioner Adult Health | DX: R09.81 Nasal congestion (principal) ==

== ENCOUNTER → 2023-09-17 | Outpatient (CLI) | payer MEDICARE | LOC: M PLAIMG 12:11 | PROVIDERS: ATTEND Nurse Practitioner Adult Health | DX: J98.01 Acute bronchospasm (principal) ==

== ENCOUNTER 2023-11-19 12:56 | Outpatient (CLI) | payer MEDICARE ==
[~2023-11-19] VITALS: Ht 177.8 cm; Wt 132.0 kg
[~2023-11-19 12:56] MED LIST changes: +ALBUTEROL SULFATE 2.5MG/0.5ML INH NEB SOLN INH PRN; +EPINEPHrine INJ 1 MG/ML 1ML AMP IM PRN; +diphenhydrAMINE 50MG/ML VIAL IV PRN; +methylPREDNISolone 125MG 2ML VIAL IV PRN
[2023-11-19] MEDS ORDERED: NS 1,000 ML IV SCH (13:00)
[2023-11-19 13:15] VITALS: BP 107/64; O2SAT 94
[2023-11-19] MEDS: IRON SUCROSE 250 MG in NS 237.5 ML IV ONE (14:11)
[2023-11-19 15:45] VITALS: BP 107/72; O2SAT 95
== END 2023-11-19 15:50 ==
LOC: M INFU 12:56
PROVIDERS: ATTEND Nurse Practitioner Adult Health
DX: D50.9 Iron deficiency anemia, unspecified (principal); Z88.5 Allergy status to narcotic agent; Z88.8 Allergy status to other drugs, medicaments and biological substances; Z91.041 Radiographic dye allergy status
CPT/HCPCS: 96365; 96366; J1756

== ENCOUNTER → 2023-11-19 | Outpatient (CLI) | payer MEDICARE ==
[~2023-11-19] MED LIST changes: +GABA-1172 PO; -GABA-282 PO
== END ==
LOC: M PAIN 09:00
PROVIDERS: ATTEND Anesthesiology
DX: M51.16 Intervertebral disc disorders with radiculopathy, lumbar region (principal); Z79.891 Long term (current) use of opiate analgesic; M47.812 Spondylosis without myelopathy or radiculopathy, cervical region; E11.42 Type 2 diabetes mellitus with diabetic polyneuropathy; M25.562 Pain in left knee; G89.29 Other chronic pain; J44.9 Chronic obstructive pulmonary disease, unspecified; J45.40 Moderate persistent asthma, uncomplicated; E78.2 Mixed hyperlipidemia; M48.02 Spinal stenosis, cervical region; G43.009 Migraine without aura, not intractable, without status migrainosus; G47.33 Obstructive sleep apnea (adult) (pediatric); G25.0 Essential tremor; F32.A Depression, unspecified; K21.9 Gastro-esophageal reflux disease without esophagitis; E53.8 Deficiency of other specified B group vitamins; G25.81 Restless legs syndrome; I10 Essential (primary) hypertension; K59.09 Other constipation; D50.9 Iron deficiency anemia, unspecified; E66.01 Morbid (severe) obesity due to excess calories; M79.18 Myalgia, other site; Z68.39 Body mass index [BMI] 39.0-39.9, adult; Z79.82 Long term (current) use of aspirin; Z79.899 Other long term (current) drug therapy; Z88.5 Allergy status to narcotic agent; Z88.8 Allergy status to other drugs, medicaments and biological substances

== ENCOUNTER 2023-11-26 09:58 | Outpatient (CLI) | payer MEDICARE ==
[~2023-11-26] VITALS: Ht 177.8 cm; Wt 133.6 kg
[~2023-11-26 09:58] MED LIST changes: +NS 1,000 ML IV SCH
[2023-11-26 10:15] VITALS: BP 136/82; O2SAT 96
[2023-11-26] MEDS: IRON SUCROSE 250 MG in NS 237.5 ML IV ONE (10:42)
[2023-11-26 12:15] VITALS: BP 152/80; O2SAT 95
== END 2023-11-26 12:15 ==
LOC: M INFU 09:58
PROVIDERS: ATTEND Nurse Practitioner Adult Health
DX: D50.9 Iron deficiency anemia, unspecified (principal); Z88.5 Allergy status to narcotic agent; Z88.8 Allergy status to other drugs, medicaments and biological substances; Z91.041 Radiographic dye allergy status
CPT/HCPCS: 96365; J1756

== ENCOUNTER → 2024-01-02 | Outpatient (CLI) | payer MEDICARE ==
[~2024-01-02] MED LIST changes: -ALBUTEROL SULFATE 2.5MG/0.5ML INH NEB SOLN INH PRN; +AZEL1SPR4 NARES; +BUSP10TA; -EPINEPHrine INJ 1 MG/ML 1ML AMP IM PRN; +FAMO40TA3; +IRBE75TA11; +JARD1TAB3; +LIDO1PAD; +LINZ72CA; +MIDO5TA PO; -NS 1,000 ML IV SCH; +ROPI2TAB24; +ROSU40TA81; +TRES1INJ; +VENL150T24; -diphenhydrAMINE 50MG/ML VIAL IV PRN; -methylPREDNISolone 125MG 2ML VIAL IV PRN; +o2
[2024-01-02 17:34] LABS: ALBUMIN 3.4 G/DL (3.2-5.2); ALKALINE PHOSPHATASE 57 U/L (40-129); ALT/SGPT 17 U/L (7.0-40); AST/SGOT < 8 U/L (<34); BILIRUBIN,TOTAL 0.3 MG/DL (0.3-1.2); BLOOD UREA NITROGEN 12 MG/DL (9-23); CALCIUM LEVEL 8.7 MG/DL (8.5-10.1); CARBON DIOXIDE LEVEL 28 MMOL/L (20-31); CHLORIDE LEVEL 108 MMOL/L (98-107); CREATININE FOR GFR 0.62 MG/DL (0.70-1.30); GLOMERULAR FILTRATION RATE > 60.0 (>56); GLUCOSE, FASTING 357 MG/DL (60-100); IRON (FE) 67 UG/DL (65-175); MAGNESIUM LEVEL 1.9 MG/DL (1.8-2.4); SODIUM LEVEL 142 MMOL/L (136-145); TOTAL PROTEIN 6.6 G/DL (5.7-8.2)
[2024-01-02 17:36] LABS: PERCENT SATURATION 20.2 % (19.7-50.0); TOTAL IRON BINDING CAPACITY 332 UG/DL (250-425)
[2024-01-02 17:37] LABS: HEMATOCRIT 46.9 % (42.0-52.0); MEAN CORPUSCULAR HEMOGLOBIN 27.4 pg (27.0-33.0); MEAN CORPUSCULAR VOLUME 85.6 fl (80.0-96.0); PLATELET COUNT, AUTOMATED 217 10^3/uL (150-450); RED BLOOD COUNT 5.48 10^6/uL (4.30-6.10); WHITE BLOOD COUNT 4.3 10^3/uL (4.0-10.0)
[2024-01-02 17:38] LABS: FERRITIN 34.2 NG/ML (10.5-307.3); FREE T4 0.97 NG/DL (0.89-1.76)
[2024-01-02 17:39] LABS: THYROID STIMULATING HORMONE 0.866 uIU/ML (0.55-4.78)
[2024-01-02 18:20] LABS: HEMOGLOBIN A1c 7.3 % (4.0-6.0)
== END ==
LOC: M PLALAB 14:01
PROVIDERS: ATTEND Nurse Practitioner Adult Health
DX: E78.5 Hyperlipidemia, unspecified (principal); E11.21 Type 2 diabetes mellitus with diabetic nephropathy; D50.9 Iron deficiency anemia, unspecified

== ENCOUNTER 2024-01-08 07:14 | Day surgery (SDC) | payer MEDICARE ==
[~2024-01-08] VITALS: Ht 177.8 cm; Wt 138.7 kg
[~2024-01-08 07:14] MED LIST changes: -BUSP10TA; +BUSP10TA PO; -FAMO40TA3; +FAMO40TA3 PO; -IRBE75TA11; +IRBE75TA11 PO; -JARD1TAB3; +JARD1TAB3 PO; -LIDO1PAD; +LIDO1PAD TOP; -LINZ72CA; +LINZ72CA PO; +PHENYLEPHRINE 10% OPHTH SOL 5ML OD PRN; -ROPI2TAB24; +ROPI2TAB24 PO; -ROSU40TA81; +ROSU40TA81 PO; -TRES1INJ; +TRES1INJ SC; -VENL150T24; +VENL150T24 PO
[2024-01-08] MEDS: OFLOXACIN 0.3 % (OCUFLOX) OPTH SOL 5ML OD ONE (08:17)
[2024-01-08] MEDS: PHENYLEPHRINE 2.5% OPHTH SOL 2ML OD SCH (08:17)
[2024-01-08] MEDS: TROPICAMIDE 1% OPHTH SOLN 15ML OD SCH (08:17)
[2024-01-08] MEDS: LIDOCAINE 3.5 % 1ML OPHTH TOPICAL GEL OU ONE (08:17)
[2024-01-08] MEDS: ATROPINE SULFATE 1% OPHTH SOLN 2ML BTL OD SCH (08:17)
[2024-01-08] MEDS: INSULIN LISPRO (NovoLOG) PER UNIT SC PRN (08:34)
[2024-01-08] MEDS ORDERED: MIDAZOLAM INJ 2MG/2ML VIAL As Ordered ONE (08:55)
[2024-01-08] MEDS ORDERED: fentaNYL 100 MCG/2 ML INJECTION As Ordered ONE (08:55)
[2024-01-08] MEDS: CEFUROXIME 1MG/0.1ML INTRACAMERAL INJ As Ordered ONE (09:16)
[2024-01-08] MEDS: LIDOCAINE 1% SDV 5ML VIAL As Ordered ONE (09:16)
[2024-01-08] MEDS: BSS IRRIG/VANCO(10MG)/TOBRA(5MG)/EPINEPH(1:1000-0.5CC)500ML BAG-ORONLY As Ordered ONE (09:16)
[2024-01-08 09:26] VITALS: BP 167/86; TEMP 97.3
[2024-01-08 09:50] VITALS: O2SAT 95
[2024-01-09] MEDS ORDERED: GABA-1635 PO (15:01)
[2024-01-09] MEDS ORDERED: MOME17SP NS (15:01)
[2024-01-09] MEDS ORDERED: VITA100093 PO (15:12)
[2024-01-09] MEDS ORDERED: CYAN500T14 PO (15:12)
== END 2024-01-08 09:51 | disposition home or self-care (01) ==
LOC: M SDC 07:14
PROVIDERS: ATTEND Ophthalmology
DX: E11.36 Type 2 diabetes mellitus with diabetic cataract (principal); H25.11 Age-related nuclear cataract, right eye; I25.10 Atherosclerotic heart disease of native coronary artery without angina pectoris; I11.0 Hypertensive heart disease with heart failure; I50.9 Heart failure, unspecified; J44.89 Other specified chronic obstructive pulmonary disease; D86.0 Sarcoidosis of lung; K58.9 Irritable bowel syndrome, unspecified; E11.40 Type 2 diabetes mellitus with diabetic neuropathy, unspecified; M10.9 Gout, unspecified; Z79.899 Other long term (current) drug therapy; Z90.89 Acquired absence of other organs; K76.0 Fatty (change of) liver, not elsewhere classified; Z88.8 Allergy status to other drugs, medicaments and biological substances; Z88.5 Allergy status to narcotic agent; Z91.041 Radiographic dye allergy status; J84.10 Pulmonary fibrosis, unspecified; G47.30 Sleep apnea, unspecified; Z79.82 Long term (current) use of aspirin; Z79.84 Long term (current) use of oral hypoglycemic drugs; Z79.4 Long term (current) use of insulin
CPT/HCPCS: 66984; J0697; J1815; J2250; J3010; V2632

== ENCOUNTER → 2024-01-28 | Outpatient (CLI) | payer MEDICARE ==
[~2024-01-28] MED LIST changes: +CYAN500T14 PO; +GABA-1635 PO; +MOME17SP NS; -PHENYLEPHRINE 10% OPHTH SOL 5ML OD PRN; +VITA100093 PO
== END ==
LOC: M PAIN 11:30
PROVIDERS: ATTEND Anesthesiology
DX: M51.16 Intervertebral disc disorders with radiculopathy, lumbar region (principal); Z79.891 Long term (current) use of opiate analgesic; G89.29 Other chronic pain; E11.9 Type 2 diabetes mellitus without complications; J44.9 Chronic obstructive pulmonary disease, unspecified; J45.40 Moderate persistent asthma, uncomplicated; E78.2 Mixed hyperlipidemia; G47.33 Obstructive sleep apnea (adult) (pediatric); F32.A Depression, unspecified; K21.9 Gastro-esophageal reflux disease without esophagitis; G25.81 Restless legs syndrome; I10 Essential (primary) hypertension; K59.09 Other constipation; M79.18 Myalgia, other site; D50.9 Iron deficiency anemia, unspecified; Z79.84 Long term (current) use of oral hypoglycemic drugs; Z79.899 Other long term (current) drug therapy; Z88.5 Allergy status to narcotic agent; Z88.8 Allergy status to other drugs, medicaments and biological substances

== ENCOUNTER → 2024-02-04 | Outpatient (CLI) | payer MEDICARE | LOC: M PLAIMG 12:51 | PROVIDERS: ATTEND Nurse Practitioner Adult Health | DX: J98.01 Acute bronchospasm (principal) ==

== ENCOUNTER 2024-02-05 09:08 | Day surgery (SDC) | payer MEDICARE ==
[~2024-02-05] VITALS: Ht 177.8 cm; Wt 139.2 kg
[~2024-02-05 09:08] MED LIST changes: +PHENYLEPHRINE 10% OPHTH SOL 5ML OS PRN
[2024-02-05] MEDS: LIDOCAINE 3.5 % 1ML OPHTH TOPICAL GEL OU ONE (11:00)
[2024-02-05] MEDS ORDERED: fentaNYL 100 MCG/2 ML INJECTION As Ordered ONE (11:00)
[2024-02-05] MEDS ORDERED: MIDAZOLAM INJ 2MG/2ML VIAL As Ordered ONE (11:00)
[2024-02-05] MEDS ORDERED: INSULIN LISPRO (NovoLOG) PER UNIT SC PRN (11:10)
[2024-02-05] MEDS: OFLOXACIN 0.3 % (OCUFLOX) OPTH SOL 5ML OS ONE (11:34)
[2024-02-05] MEDS: CYCLOPENTOLATE 1% OPHTH SOLN 2ML BTL OS SCH (11:35)
[2024-02-05] MEDS: TROPICAMIDE 1% OPHTH SOLN 15ML OS SCH (11:35)
[2024-02-05] MEDS: PHENYLEPHRINE 2.5% OPHTH SOL 2ML OS SCH (11:35)
[2024-02-05] MEDS: LIDOCAINE 1% SDV 5ML VIAL As Ordered ONE (11:59)
[2024-02-05] MEDS: CEFUROXIME 1MG/0.1ML INTRACAMERAL INJ As Ordered ONE (11:59)
[2024-02-05] MEDS: BSS IRRIG/VANCO(10MG)/TOBRA(5MG)/EPINEPH(1:1000-0.5CC)500ML BAG-ORONLY As Ordered ONE (11:59)
[2024-02-05 12:15] VITALS: BP 143/90; TEMP 97.4; O2SAT 96
[2024-02-05] MEDS ORDERED: KETOROLAC 60MG 2ML VIAL As Ordered ONE (15:56)
== END 2024-02-05 12:30 | disposition home or self-care (01) ==
LOC: M SDC 09:08
PROVIDERS: ATTEND Ophthalmology
DX: H25.12 Age-related nuclear cataract, left eye (principal); G47.30 Sleep apnea, unspecified; J45.909 Unspecified asthma, uncomplicated; N18.9 Chronic kidney disease, unspecified; J44.9 Chronic obstructive pulmonary disease, unspecified; Z99.81 Dependence on supplemental oxygen; D86.9 Sarcoidosis, unspecified; Z79.899 Other long term (current) drug therapy; Z91.041 Radiographic dye allergy status; Z88.8 Allergy status to other drugs, medicaments and biological substances; Z88.5 Allergy status to narcotic agent
CPT/HCPCS: 66984; J0697; J2250; J3010; V2632

== ENCOUNTER → 2024-05-21 | Outpatient (CLI) | payer MEDICARE ==
[~2024-05-21] MED LIST changes: -ADV500INH INH; +ADVA1AER10 INH; -PHENYLEPHRINE 10% OPHTH SOL 5ML OS PRN
== END ==
LOC: M PLAIMG 14:26
PROVIDERS: ATTEND Nurse Practitioner Family
DX: M85.88 Other specified disorders of bone density and structure, other site (principal)

== ENCOUNTER → 2024-05-21 | Outpatient (CLI) | payer MEDICARE ==
[2024-05-21 17:31] LABS: HEMATOCRIT 47.2 % (42.0-52.0); HEMOGLOBIN 16.2 g/dl (13.5-17.5); MEAN CORPUSCULAR HEMOGLOBIN 28.7 pg (27.0-33.0); MEAN CORPUSCULAR HGB CONC 34.3 g/dl (32.0-36.5); MEAN CORPUSCULAR VOLUME 83.7 fl (80.0-96.0); PLATELET COUNT, AUTOMATED 234 10^3/uL (150-450); RED BLOOD COUNT 5.64 10^6/uL (4.30-6.10)
[2024-05-21 18:08] LABS: IRON (FE) 68 UG/DL (65-175)
[2024-05-21 18:09] LABS: ALBUMIN 3.7 G/DL (3.2-5.2); ALKALINE PHOSPHATASE 66 U/L (40-129); ALT/SGPT 21 U/L (7.0-40); AST/SGOT 16 U/L (<34); BILIRUBIN,TOTAL 0.5 MG/DL (0.3-1.2); BLOOD UREA NITROGEN 13 MG/DL (9-23); CARBON DIOXIDE LEVEL 26 MMOL/L (20-31); CHLORIDE LEVEL 103 MMOL/L (98-107); CHOLESTEROL LEVEL 108 MG/DL (<200); CHOLESTEROL RISK RATIO 2.69 (<5); CREATININE FOR GFR 0.72 MG/DL (0.70-1.30); FERRITIN 23.8 NG/ML (10.5-307.3); FREE T4 1.07 NG/DL (0.89-1.76); GLOMERULAR FILTRATION RATE > 60.0 (>56); GLUCOSE, FASTING 251 MG/DL (60-100); HDL CHOLESTEROL 40.1 MG/DL (>40); LDL CHOLESTEROL 45.9 MG/DL (<100); NON-HDL-C 67.9 MG/DL; PERCENT SATURATION 18.7 % (19.7-50.0); POTASSIUM SERUM 4.5 MMOL/L (3.5-5.1); SODIUM LEVEL 136 MMOL/L (136-145); THYROID STIMULATING HORMONE 0.887 uIU/ML (0.55-4.78); TOTAL 25(OH) VITAMIN D 29.8 NG/ML (20.0-100.0); TOTAL IRON BINDING CAPACITY 363 UG/DL (250-425); TOTAL PROTEIN 6.6 G/DL (5.7-8.2); TRIGLYCERIDES LEVEL 110 MG/DL (<150)
[2024-05-21 18:21] LABS: HEMOGLOBIN A1c 9.7 % (4.0-6.0)
== END ==
LOC: M PLALAB 14:28
PROVIDERS: ATTEND Nurse Practitioner Adult Health
DX: E11.40 Type 2 diabetes mellitus with diabetic neuropathy, unspecified (principal); E78.5 Hyperlipidemia, unspecified; E11.21 Type 2 diabetes mellitus with diabetic nephropathy; I10 Essential (primary) hypertension; E55.9 Vitamin D deficiency, unspecified; D50.9 Iron deficiency anemia, unspecified

== ENCOUNTER → 2024-05-27 | Outpatient (CLI) | payer MEDICARE | LOC: M PLALAB 12:38 | PROVIDERS: ATTEND Nurse Practitioner Adult Health | DX: J98.01 Acute bronchospasm (principal) ==

== ENCOUNTER → 2024-06-16 | Outpatient (RCR) | payer MEDICARE ==
[~2024-06-16] MED LIST changes: -FLOM0.4C39 PO; -PREG50CA PO; +PREG50CA87 PO; +TAMS-18 PO
== END ==
LOC: M PT 12:24
PROVIDERS: ATTEND Nurse Practitioner Family
DX: M54.50 Low back pain, unspecified (principal); G89.29 Other chronic pain

== ENCOUNTER → 2024-09-14 | Outpatient (CLI) | payer MEDICARE ==
[~2024-09-14] MED LIST changes: -PRAV40TA2 PO; +PRAV40TA85 PO
== END ==
LOC: M RAD 16:10
PROVIDERS: ATTEND Nurse Practitioner Family
DX: M51.16 Intervertebral disc disorders with radiculopathy, lumbar region (principal)

== ENCOUNTER → 2024-09-21 | Outpatient (CLI) | payer MEDICARE ==
[2024-09-21 15:49] LABS: ALT/SGPT 11 U/L (7.0-40); AST/SGOT 16 U/L (<34); CALCIUM LEVEL 8.5 MG/DL (8.5-10.1); CARBON DIOXIDE LEVEL 28 MMOL/L (20-31); CHLORIDE LEVEL 101 MMOL/L (98-107); CHOLESTEROL LEVEL 100 MG/DL (<200); CHOLESTEROL RISK RATIO 2.46 (<5); CREATININE FOR GFR 0.66 MG/DL (0.70-1.30); GLOMERULAR FILTRATION RATE > 90.0 (>56); LDL CHOLESTEROL 22.3 MG/DL (<100); MAGNESIUM LEVEL 1.8 MG/DL (1.8-2.4); NON-HDL-C 59.5 MG/DL; PLATELET COUNT, AUTOMATED 190 10^3/uL (150-450); POTASSIUM SERUM 4.3 MMOL/L (3.5-5.1); SODIUM LEVEL 138 MMOL/L (136-145); TRIGLYCERIDES LEVEL 186 MG/DL (<150)
[2024-09-21 15:50] LABS: FREE T4 0.86 NG/DL (0.89-1.76)
[2024-09-21 15:57] LABS: ESTIMATED AVERAGE GLUCOSE 237.0 MG/DL (60-110)
== END ==
LOC: M PLAIMG 13:16
PROVIDERS: ATTEND Nurse Practitioner Adult Health
DX: M47.812 Spondylosis without myelopathy or radiculopathy, cervical region (principal); M54.2 Cervicalgia; E11.40 Type 2 diabetes mellitus with diabetic neuropathy, unspecified; D50.9 Iron deficiency anemia, unspecified; E78.5 Hyperlipidemia, unspecified; E11.21 Type 2 diabetes mellitus with diabetic nephropathy; I10 Essential (primary) hypertension

== ENCOUNTER → 2024-09-21 | Outpatient (CLI) | payer MEDICARE | LOC: M SLEEP HO 11:26 | DX: G47.33 Obstructive sleep apnea (adult) (pediatric) (principal) ==

== ENCOUNTER → 2024-09-30 | Outpatient (CLI) | payer MEDICARE | LOC: M PLAIMG 09:26 | PROVIDERS: ATTEND Physician Assistant Medical | DX: R60.0 Localized edema (principal); I27.81 Cor pulmonale (chronic); I50.9 Heart failure, unspecified ==

== ENCOUNTER → 2024-10-07 | Outpatient (CLI) | payer MEDICARE ==
[2024-10-07 12:59] LABS: CALCIUM LEVEL 8.6 MG/DL (8.5-10.1); CARBON DIOXIDE LEVEL 29 MMOL/L (20-31); CHLORIDE LEVEL 100 MMOL/L (98-107); CREATININE FOR GFR 0.73 MG/DL (0.70-1.30); GLOMERULAR FILTRATION RATE > 90.0 (>56); POTASSIUM SERUM 4.6 MMOL/L (3.5-5.1); SODIUM LEVEL 139 MMOL/L (136-145)
== END ==
LOC: M PLALAB 09:20
PROVIDERS: ATTEND Physician Assistant Medical
DX: R60.0 Localized edema (principal); I50.9 Heart failure, unspecified; I27.81 Cor pulmonale (chronic)

== ENCOUNTER → 2024-10-14 | Outpatient (CLI) | payer MEDICARE | LOC: M PLALAB 15:44 | PROVIDERS: ATTEND Physician Assistant Medical | DX: I50.9 Heart failure, unspecified (principal) ==

== ENCOUNTER 2024-12-01 12:55 | Outpatient (CLI) | payer MEDICARE ==
[~2024-12-01] VITALS: Ht 177.8 cm; Wt 148.6 kg
[~2024-12-01 12:55] MED LIST changes: +ALBUTEROL SULFATE 2.5 MG/0.5 ML INH CONCENTRATE NEB SOLN INH PRN; +EPINEPHrine INJ 1 MG/ML 1ML AMP IM PRN; +diphenhydrAMINE 50 MG/ML VIAL IV PRN
[2024-12-01 13:10] VITALS: BP 113/60; O2SAT 84
[2024-12-01] MEDS: IRON SUCROSE 300 MG in NS 250 ML OVER 90 MIN. IV ONE (13:54)
[2024-12-01 15:36] VITALS: BP 129/68; O2SAT 93
== END 2024-12-01 15:40 | disposition home or self-care (01) ==
LOC: M INFU 12:55
PROVIDERS: ATTEND Nurse Practitioner Adult Health
DX: D50.9 Iron deficiency anemia, unspecified (principal); Z88.5 Allergy status to narcotic agent; Z88.8 Allergy status to other drugs, medicaments and biological substances; Z91.041 Radiographic dye allergy status
CPT/HCPCS: 96365; 96366; J1756

== ENCOUNTER → 2024-12-02 | Outpatient (CLI) | payer MEDICARE ==
[~2024-12-02] MED LIST changes: -ALBUTEROL SULFATE 2.5 MG/0.5 ML INH CONCENTRATE NEB SOLN INH PRN; +BARIUM SULFATE 700 MG TABLET As Ordered ONE; +E-Z-PAQUE 96% w/w SUSP 176 GM BTL As Ordered ONE; -EPINEPHrine INJ 1 MG/ML 1ML AMP IM PRN; +VARIBAR NECTAR 40% w/v 240ML SUSP BTL As Ordered ONE; +VARIBAR PUDDING 40% w/v 230ML TUBE As Ordered ONE; -diphenhydrAMINE 50 MG/ML VIAL IV PRN
== END ==
LOC: M RAD 12:53
PROVIDERS: ATTEND Nurse Practitioner Adult Health
DX: R13.10 Dysphagia, unspecified (principal)

== ENCOUNTER 2024-12-08 12:31 | Outpatient (CLI) | payer MEDICARE ==
[~2024-12-08] VITALS: Ht 177.8 cm; Wt 150.0 kg
[~2024-12-08 12:31] MED LIST changes: +ALBUTEROL SULFATE 2.5 MG/0.5 ML INH CONCENTRATE NEB SOLN INH PRN; -BARIUM SULFATE 700 MG TABLET As Ordered ONE; -E-Z-PAQUE 96% w/w SUSP 176 GM BTL As Ordered ONE; +EPINEPHrine INJ 1 MG/ML 1ML AMP IM PRN; -VARIBAR NECTAR 40% w/v 240ML SUSP BTL As Ordered ONE; -VARIBAR PUDDING 40% w/v 230ML TUBE As Ordered ONE; +diphenhydrAMINE 50 MG/ML VIAL IV PRN
[2024-12-08] MEDS: IRON SUCROSE 300 MG in NS 250 ML IV ONE (12:41)
[2024-12-08 12:48] VITALS: BP 134/67; O2SAT 93
[2024-12-08 14:15] VITALS: BP 128/68; O2SAT 89
== END 2024-12-08 14:20 | disposition home or self-care (01) ==
LOC: M INFU 12:31
PROVIDERS: ATTEND Nurse Practitioner Adult Health
DX: D50.9 Iron deficiency anemia, unspecified (principal); Z88.8 Allergy status to other drugs, medicaments and biological substances; Z88.5 Allergy status to narcotic agent; Z91.041 Radiographic dye allergy status
CPT/HCPCS: 96365; 96366; J1756

== ENCOUNTER → 2024-12-13 | Outpatient (CLI) | payer MEDICARE ==
[~2024-12-13] MED LIST changes: -ALBUTEROL SULFATE 2.5 MG/0.5 ML INH CONCENTRATE NEB SOLN INH PRN; -EPINEPHrine INJ 1 MG/ML 1ML AMP IM PRN; -diphenhydrAMINE 50 MG/ML VIAL IV PRN
[2024-12-13 15:44] LABS: PLATELET COUNT, AUTOMATED 167 10^3/uL (150-450)
[2024-12-13 16:12] LABS: IRON (FE) 70 UG/DL (65-175)
[2024-12-13 16:14] LABS: ESTIMATED AVERAGE GLUCOSE 309.0 MG/DL (60-110)
[2024-12-13 16:15] LABS: PERCENT SATURATION 18.9 % (19.7-50.0)
[2024-12-13 16:16] LABS: ALT/SGPT 14 U/L (7.0-40); AST/SGOT 17 U/L (<34); CALCIUM LEVEL 8.7 MG/DL (8.5-10.1); CARBON DIOXIDE LEVEL 32 MMOL/L (20-31); CHLORIDE LEVEL 101 MMOL/L (98-107); CHOLESTEROL LEVEL 122 MG/DL (<200); CHOLESTEROL RISK RATIO 2.91 (<5); CREATININE FOR GFR 0.84 MG/DL (0.70-1.30); GLOMERULAR FILTRATION RATE > 90.0 (>56); LDL CHOLESTEROL 42.5 MG/DL (<100); MAGNESIUM LEVEL 1.9 MG/DL (1.8-2.4); NON-HDL-C 80.1 MG/DL; POTASSIUM SERUM 4.6 MMOL/L (3.5-5.1); SODIUM LEVEL 142 MMOL/L (136-145); TRIGLYCERIDES LEVEL 188 MG/DL (<150)
[2024-12-13 16:17] LABS: FREE T4 0.97 NG/DL (0.89-1.76)
== END ==
LOC: M PLALAB 11:14
PROVIDERS: ATTEND Nurse Practitioner Adult Health
DX: D50.9 Iron deficiency anemia, unspecified (principal); I50.9 Heart failure, unspecified; E11.40 Type 2 diabetes mellitus with diabetic neuropathy, unspecified; E78.5 Hyperlipidemia, unspecified; E11.21 Type 2 diabetes mellitus with diabetic nephropathy; I10 Essential (primary) hypertension